=== PATIENT | female | born 1935 | race African-American/Black ===

== ENCOUNTER 2017-07-15 20:47 | Inpatient (IN) | payer OTHER ==
[~2017-07-15] VITALS: Ht 172.7 cm; Wt 87.6 kg
[2017-07-15] MEDS ORDERED: ASPIRIN 300 MG SUPP PR STA (21:03)
[2017-07-15] MEDS ORDERED: ACETAMINOPHEN 325 MG TAB PO PRN (21:30)
[2017-07-15] MEDS ORDERED: ONDANSETRON 4 MG INJ IV PRN (21:30)
--- NOTE | 2017-07-15 22:12 | RADRPT ---
PROCEDURE: XR Chest. CLINICAL INDICATION: Chest pain TECHNIQUE: Single portable view of the chest was obtained COMPARISON: No priors for comparison. FINDINGS: The trachea is midline. The cardiac silhouette and pulmonary vascularity are within normal limits. T he lungs are clear. The costophrenic angles are sharp. IMPRESSION: 1. No evidence of acute cardiopulmonary disease. RPTAT: AAPP Physician Tarik Date Time Electronically viewed and signed by Danielle Wise Physician on 07/15/2017 22:12 EUGENE/
[2017-07-15 22:20] LABS: BASOPHIL # 0.1 10^3/ul (0.0-0.1); BASOPHILS % 0.6 % (0.0-2.0); EOSINOPHILS # 0.2 10^3/ul (0.0-0.5); EOSINOPHILS % 1.7 % (0.0-7.0); HEMATOCRIT 37.2 % (37.0-47.0); HEMOGLOBIN 11.7 g/dl (12.0-16.0); LYMPHOCYTES % 32.7 % (15.0-51.0); MEAN CORPUSCULAR HEMOGLOBIN 26.9 pg (29.0-33.0); MEAN CORPUSCULAR HGB CONC 31.5 g/dl (32.0-37.0); MEAN CORPUSCULAR VOLUME 85.5 fl (82.0-101.0); MEAN PLATELET VOLUME 11.5 fl (7.4-10.4); MONOCYTE # 0.8 10^3/ul (0.3-0.9); MONOCYTES % 6.7 % (0.0-11.0); NEUTROPHILS % 57.9 % (39.0-77.0); PLATELET COUNT 287 10^3/UL (140-415); RED BLOOD COUNT 4.35 10^6/ul (4.20-5.40); RED CELL DISTRIBUTION WIDTH 14.6 % (11.5-14.5); WHITE BLOOD COUNT 12.1 10^3/ul (4.8-10.8)
[2017-07-15 22:27] VITALS: PULSE 50
[2017-07-15 22:30] VITALS: Ht 172.7 cm; Wt 87.6 kg
[2017-07-15 22:37] LABS: ANION GAP 8 (8-16); BLOOD UREA NITROGEN 14 mg/dl (7-20); CALCIUM 9.3 mg/dl (8.4-10.2); CARBON DIOXIDE 33 mmol/L (21-31); CHLORIDE 96 mmol/L (97-110); CREATININE 0.47 mg/dl (0.44-1.00); GLUCOSE 91 mg/dl (70-220); SODIUM 133 mmol/L (135-144)
[2017-07-15 22:49] LABS: TROPONIN-I < 0.012 ng/ml (0.00-0.12)
--- NOTE | 2017-07-15 22:55 | ERA ---
ER Documentation Chief Complaint Date/Time DATE: 07/15/17 TIME: 22:53 Chief Complaint BIBBjorn RA81,from [facility],c[facility]o CP,1 nitro given at SNF HPI Patient is a 81-year-old female who presents with chest pain. Please note the history and physical exam is limited secondary to the patient's mental status and nonverbal status at this time. The patient was transferred from a [facility] facility for chest pain. She was given nitroglycerin at the facility. She was brought in by ambulance. I cannot obtain history otherwise. Upon review of old medical records this is the patient's first visit to the emergency department. ROS All systems reviewed and are negative except as per history of present illness. Allergies Allergies: Coded Allergies: Iodine and Iodide Containing Produc (Verified Allergy, Unknown, 07/15/17) Sulfa (Sulfonamide Antibiotics) (Verified Allergy, Unknown, 07/15/17) nefazodone (Verified Allergy, Unknown, 07/15/17) shrimp (Verified Allergy, Unknown, 07/15/17) PMhx/Soc History of Surgery: Yes (g-tube , ) Hx Neurological Disorder: Yes (epilepsy ) Hx Respiratory Disorders: Yes (copd ) Hx Cardiac Disorders: Yes (hyperlipidemia , htn ) Hx Miscellaneous Medical Probl: Yes (MS , paraplegic r/t accident , GERD, bladder CA, depression , dyphagia ) Hx Alcohol Use: No Hx Substance Use: No Hx Tobacco Use: No Smoking Status: Never smoker FmHx Unable to obtain Physical Exam Vitals Vital Signs Date Time Temp Pulse Resp B/P Pulse Ox O2 Delivery O2 Flow Rate FiO2 07/15/17 20:52 98.5 63 18 125/64 98 Physical Exam Const: Chronically ill, appears to have 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 Neck: Full range of motion..~ No meningismus. Resp: Clear to auscultation bilaterally Cardio: Regular rate and rhythm, no murmurs Abd: Soft, non tender, non distended. Normal bowel sounds Skin: No petechiae or rashes Back: No midline or flank tenderness Ext: No cyanosis, or edema Neur: Awake but nonverbal and appears to have left-sided weakness from previous stroke Result Diagram: 07/15/17213607/15/172136 Results 24 hrs Current Medications Medications (Trade) Dose Ordered Sig/Lawrence Route PRN Reason Start Time Stop Time Status Last Admin Dose Admin Aspirin (Aspirin) 300 mg ONCE STAT CA 07/15/17 21:03 07/15/17 21:04 DC 07/15/17 21:42 Procedures/MDM EKG read by me: Rate/Rhythm: Regular rate and rhythm at a normal rate Intervals: Normal Impression: No evidence of ischemia or arrhythmia Chest x-ray negative per radiology. Patient is a 81-year-old female presents with chest pain. She was given rectal aspirin. Laboratory studies show a negative troponin. She has mild anemia with a hemoglobin of 11.7 but does not require transfusion. I spoke with Dr. Soto who would like to admit her to a telemetry bed. I doubt pneumonia, pneumothorax, pulmonary embolism, or aortic dissection. The concern would be for possible acute coronary syndrome. Departure Diagnosis: Primary Impression: Chest pain Qualified Code: R07.9 - Chest pain, unspecified type Condition: HARESH Cohen MD Jul 15, 2017 22:55
[2017-07-16] VITALS (12 sets, daily range): BP systolic 123–165; BP diastolic 58–75; PULSE 50–75; RESP 15–20
[2017-07-16] MEDS ORDERED: NITROGLYCERIN (SL) 0.4 MG TAB SL PRN
[2017-07-16] MEDS ORDERED: CLON0.5T G-TUBE (00:06)
[2017-07-16] MEDS ORDERED: ACET650S25 G-TUBE (00:06)
[2017-07-16] MEDS ORDERED: METO75TA G-TUBE (00:06)
[2017-07-16] MEDS ORDERED: HYDR-906 G-TUBE (00:46)
[2017-07-16] MEDS ORDERED: DEXT1CAP GTB (00:58)
[2017-07-16] MEDS ORDERED: OXCA300O4 G-TUBE (00:58)
[2017-07-16] MEDS ORDERED: GABA250S2 G-TUBE (00:58)
[2017-07-16] MEDS ORDERED: BISA10SU75 PR (01:04)
[2017-07-16] MEDS ORDERED: NA P230E RC (01:04)
[2017-07-16] MEDS ORDERED: CRAN450T7 G-TUBE (01:09)
[2017-07-16] MEDS ORDERED: ALBU2.5V3 NEB (01:12)
[2017-07-16] MEDS ORDERED: SODI1TAB2 GTB (01:15)
[2017-07-16] MEDS ORDERED: POLY17PO6 G-TUBE (01:15)
[2017-07-16] MEDS ORDERED: PREMVAG VAG (01:19)
[2017-07-16] MEDS ORDERED: POLYETHYLENE GLYCOL 17 GM PACKET GTB PRN (01:30)
[2017-07-16] MEDS: clonAZEPAM 0.5 MG TAB GTB PRN (02:52)
[2017-07-16] MEDS ORDERED: OXCA600T30 GTB (05:11)
[2017-07-16 07:10] LABS: CREATINE KINASE 51 IU/L (23-200)
[2017-07-16 07:22] LABS: CK-MB 1.02 ng/ml (0.0-2.4)
--- NOTE | 2017-07-16 07:24 | RADRPT ---
PROCEDURE: US Lower extremity Venous. CLINICAL INDICATION: Bilateral lower extremity edema TECHNIQUE: Multiple sonographic images of the bilateral lower extremity deep venous system was obt ained utilizing grayscale, color-flow, compressive sonography and doppler imaging with augmentation. The images were reviewed on a PACS workstation. COMPARISON: None. FINDINGS: There is normal compressibility and flow within the bilateral common femoral, femoral , posterior ti bial and popliteal veins. The right peroneal vein is patent. The left peroneal vein was not seen. RPTAT: AA IMPRESSION: No sonographic evidence for deep venous thrombosis. Left peroneal vein was not well seen. .Senthil Esteban MD, MD Date Time Electronically viewed and signed by .Senthil Esteban MD, on 07/16/2017 07:23 .S/
[2017-07-16 07:25] LABS: TROPONIN-I < 0.012 ng/ml (0.00-0.12)
[2017-07-16 07:52] LABS: CHOL/HDL RATIO 3.5 RATIO
[2017-07-16] MEDS: ACETAMINOPHEN 650MG/20.3ML CUP GTB PRN ×2 (08:26→15:05)
[2017-07-16] MEDS: METOPROLOL 25 MG TAB GTB SCH ×2 (08:27→21:16)
[2017-07-16] MEDS: ASPIRIN 325 MG TAB GTB SCH (08:27)
[2017-07-16] MEDS: NA PHOSPHATE/BIPHOS 133 ML ENEMA PR SCH ×2 (08:28→09:00)
[2017-07-16] MEDS: ENOXAPARIN 40 MG/0.4 ML SYG SC SCH (08:29)
[2017-07-16] MEDS: SODIUM CHLORIDE 1 GM TAB GTB SCH ×3 (08:37→21:14)
[2017-07-16] MEDS ORDERED: OXCARBAZEPINE 300 MG TAB GTB SCH (09:00)
[2017-07-16] MEDS ORDERED: NON-FORMULARY/PATIENT OWN MED (Cranberry Fruit (Cranberry) 450 MG) G-TUBE SCH (09:00)
[2017-07-16] MEDS ORDERED: GABAPENTIN (50 MG/ML PO SYG) GTB SCH ×3 (09:00→13:14)
[2017-07-16] MEDS ORDERED: BISACODYL 10 MG SUPP PR PRN (09:00)
[2017-07-16] MEDS ORDERED: [UNRECOGNIZED DRUG - REMARK] XX SCH (10:00)
[2017-07-16] MEDS: SOD CHLORIDE 0.9% 1,000 ML IV SCH (11:30)
[2017-07-16] MEDS: AMLODIPINE 5 MG TAB GTB SCH (11:49)
[2017-07-16] MEDS: HYDROCODONE/APAP (5/325) TAB GTB PRN ×2 (12:22→21:15)
[2017-07-16 12:48] LABS: CREATINE KINASE 51 IU/L (23-200)
[2017-07-16 12:58] LABS: CK-MB 0.62 ng/ml (0.0-2.4)
[2017-07-16 12:59] LABS: TROPONIN-I < 0.012 ng/ml (0.00-0.12)
[2017-07-16] MEDS: GABAPENTIN (50 MG/ML PO SYG) GTB SCH (21:14)
[2017-07-16 23:10] LABS: ADD UMIC YES; UR AMORPHOUS CRYSTAL FEW /HPF (NONE SEEN); UR ASCORBIC ACID 40 mg/dL (NEGATIVE); UR BACTERIA FEW /HPF (NONE SEEN); UR BILIRUBIN (Dip) NEGATIVE (NEGATIVE); UR BLOOD (Dip) NEGATIVE (NEGATIVE); UR CLARITY CLOUDY (CLEAR); UR COLOR YELLOW (YELLOW); UR GLUCOSE (Dip) NEGATIVE (NEGATIVE); UR KETONES (Dip) NEGATIVE (NEGATIVE); UR LEUKOCYTE ESTERASE (Dip) 3+ Leu/ul (NEGATIVE); UR NITRITE (Dip) POSITIVE (NEGATIVE); UR RBC 1 /HPF (0-5); UR SPECIFIC GRAVITY (Dip) 1.014 (1.003-1.030); UR SQUAMOUS EPITHELIAL CELL FEW /HPF (FEW); UR TOTAL PROTEIN (Dip) 1+ mg/dl (NEGATIVE); UR UROBILINOGEN (Dip) NEGATIVE (NEGATIVE)
[2017-07-17] VITALS (11 sets, daily range): BP systolic 128–142; BP diastolic 62–65; PULSE 55–64; RESP 16–20
[2017-07-17] MEDS: SOD CHLORIDE 0.9% 1,000 ML IV SCH ×2 (02:25→17:50)
[2017-07-17] MEDS: HYDROCODONE/APAP (5/325) TAB GTB PRN ×3 (04:27→20:56)
--- NOTE | 2017-07-17 07:20 | HP ---
DATE OF ADMISSION: 07/15/2017 CHIEF COMPLAINT AND HISTORY OF PRESENT ILLNESS: The patient is a 81-year-old female with a history of severe multiple sclerosis and dysphagia on G-tube feeding, history of trigeminal neuralgia, recurrent hematuria & UTI. H/o multiple admissions at [facility]. S/p Cystoscopy by Dr. Lucho Owusu grp . No evidence of bladder cancer as per verbal report from Dr.Elise Magallanes(associate of Dr. Owusu). Patient is a resident of a long term facility for several years and was sent to ER after she was complaining of chest pain. The patient is a poor historian and in the past has changed her complaint within a matter of minutes during my evaluation at long term [facility] in the past. The patient was brought into the hospital because of chest pain which was poorly localized. There was no associated diaphoresis, no associated shortness of breath. No reported vomiting. No reported abdominal distention. There is no leg edema. The patient was given nitroglycerin at the facility and received aspirin per rectum in the ER and is being admitted for further evaluation and management. The patient currently is chest pain free. The patient does have O2, but takes it off frequently. Since admission, patient did not have any vomiting, no reported fever or chills. No reported seizure, no reported leg edema. As mentioned above, the patient is a poor historian and is only oriented x1, and follows simple commands. PAST SURGICAL HISTORY: Patient is status post G-tube placement. ALLERGIES: IODIDE, SULFA, NEFAZODONE AND SHRIMP. FAMILY HISTORY: Noncontributory. SOCIAL HISTORY: Could not be obtained. PAST MEDICAL HISTORY: As stated above. PHYSICAL EXAMINATION: GENERAL: The patient is awake, alert, follows simple commands, oriented x1. VITAL SIGNS: Temperature 98.8, pulse 76, respirations 18, blood pressure 165/75 , O2 saturation 99%. HEENT: No eye discharge or redness. Conjunctivae and lids normal. Nose and ears normal. Oropharynx grossly negative. NECK: No mass. CHEST: Fairly clear. CARDIOVASCULAR: S1, S2 normal. No murmur. ABDOMEN: Soft, nondistended, nontender. G-tube in place. EXTREMITIES: No edema. Pedal pulses palpable. NEUROLOGIC: The patient is awake and only follows simple commands, oriented x1. The patient has contractures in all extremities. LABORATORY DATA: WBC 12.1, hemoglobin 11.7, platelets 287. Sodium 132, potassium 4, BUN 14, creatinine 0.4, glucose 91, calcium 9.3. Troponin negative x2. LDL 94. Chest x-ray unremarkable. Venous Doppler unremarkable. IMPRESSION: 1. Atypical chest pain, rule out myocardial infarction. : start asa, ntg prn. 2. End-stage multiple sclerosis, bed to wheelchair bound total care. No acute issue. 3. History of trigeminal neuralgia. The patient has not had any episode of for the last several months. 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 4. Hypertension. The patient is on low dose beta veronica. We will add small dose of Norvasc. 5. Dysphagia. Continue G-tube feeding. 6. History of recurrent urinary tract infection. The patient does have mild leukocytosis. Will obtain a repeat urinalysis and C/S. 7. H/o Paroxysmal Atrial fib : asa / xarelto in the past stopped due to recurrent hematuria For DVT prophylaxis, we will add Lovenox patient does have history of recurrent hematuria , will monitor while she is in the hospital. If she gets any episode of hematuria, then we will discontinue both aspirin and Lovenox. Meanwhile, we will also get echocardiogram. The patient is currently saturating 99% on room air and has no tachycardia and has a negative venous Doppler. Therefore, likelihood of PE is extremely remote. The patient anyway is allergic to iodide dye. Will hold off on CT pulmonary angiogram. For now, we will just do VQ scan to complete workup as she is essentially bedridden. Dictated By: ANGELINA WHITAKER/ANGIE Conf#: [id number] DID#: [id number] FRANCO
[2017-07-17 08:38] LABS: BASOPHIL # 0.1 10^3/ul (0.0-0.1); BASOPHILS % 0.5 % (0.0-2.0); EOSINOPHILS # 0.1 10^3/ul (0.0-0.5); EOSINOPHILS % 1.1 % (0.0-7.0); HEMATOCRIT 36.3 % (37.0-47.0); HEMOGLOBIN 11.2 g/dl (12.0-16.0); LYMPHOCYTES # 2.3 10^3/ul (0.8-2.9); LYMPHOCYTES % 22.5 % (15.0-51.0); MEAN CORPUSCULAR HEMOGLOBIN 26.6 pg (29.0-33.0); MEAN CORPUSCULAR HGB CONC 30.9 g/dl (32.0-37.0); MEAN CORPUSCULAR VOLUME 86.2 fl (82.0-101.0); MEAN PLATELET VOLUME 11.6 fl (7.4-10.4); MONOCYTE # 0.6 10^3/ul (0.3-0.9); MONOCYTES % 5.7 % (0.0-11.0); NEUTROPHIL # 7.1 10^3/ul (1.6-7.5); NEUTROPHILS % 69.8 % (39.0-77.0); PLATELET COUNT 287 10^3/UL (140-415); RED BLOOD COUNT 4.21 10^6/ul (4.20-5.40); RED CELL DISTRIBUTION WIDTH 14.7 % (11.5-14.5); WHITE BLOOD COUNT 10.1 10^3/ul (4.8-10.8)
[2017-07-17] MEDS: AMLODIPINE 5 MG TAB GTB SCH (08:42)
[2017-07-17] MEDS: SODIUM CHLORIDE 1 GM TAB GTB SCH ×3 (08:42→20:54)
[2017-07-17] MEDS: ASPIRIN 325 MG TAB GTB SCH (08:42)
[2017-07-17] MEDS: CEFTRIAXONE 1 GM/50 ML (PMX) 50 ML IVPB SCH (08:43)
[2017-07-17] MEDS: METOPROLOL 25 MG TAB GTB SCH ×2 (08:43→20:55)
[2017-07-17] MEDS: GABAPENTIN (50 MG/ML PO SYG) GTB SCH ×3 (08:46→21:14)
[2017-07-17] MEDS: ENOXAPARIN 40 MG/0.4 ML SYG SC SCH (08:49)
[2017-07-17 08:58] LABS: CALCIUM 8.6 mg/dl (8.4-10.2); CREATININE 0.44 mg/dl (0.44-1.00); POTASSIUM 4.1 mmol/L (3.5-5.1)
[2017-07-17] MEDS ORDERED: ESTROGENS CONJUGATED 42.5 GM VAG CR VAG SCH (09:00)
[2017-07-17] MEDS: clonAZEPAM 0.5 MG TAB GTB PRN (12:52)
--- NOTE | 2017-07-17 17:54 | PN ---
Date/Time of Note Date/Time of Note DATE: 07/17/17 TIME: 17:49 Assessment/Plan VTE Prophylaxis VTE Prophylaxis Intervention: SCD's Lines/Catheters IV Catheter Type (from [facility]): Peripheral IV Urinary Cath still in place: No Assessment/Plan Chief Complaint/Hosp Course Patient remains hemodynamically stable sinus rhythm sinus bradycardia on telemetry, comfortable on supplemental oxygen without distress Problems: Assessment/Plan - Atypical chest pain, rule out myocardial infarction. Cardiac enzymes negative 3. - GNR UTI, continue Rocephin follow-up on final culture - Advanced multiple sclerosis, bed to wheelchair bound total care. No acute issue. - Hypertension, continue metoprolol and Norvasc - Dysphagia. Continue G-tube feeding. - Hx Breast cancer. No active issue. Further recommendations based on clinical course. Plan of care discussed with Dr. Soto Exam/Review of Systems Vital Signs Vitals Vital Signs Date Time Temp Pulse Resp B/P Pulse Ox O2 Delivery O2 Flow Rate FiO2 07/17/17 16:03 61 07/17/17 12:20 98.5 20 139/63 99 07/17/17 08:00 Nasal Cannula 2.0 Intake and Output 07/16/17 07/16/17 07/17/17 15:00 23:00 07:00 Intake Total 1400 ml 1100 ml Balance 1400 ml 1100 ml Exam Constitutional: alert, oriented (1) Neck: supple Respiratory: normal air movement Cardiovascular: nl pulses, regular rate and rhythm Gastrointestinal: non-tender, other (G-tube), soft Extremities: other (Contracted) Results Result Diagram: 07/17/17 0758 07/17/17 0758 Results 24 hrs Laboratory Tests Test 07/16/17 22:15 07/17/17 07:58 Urine Color YELLOW Urine Clarity CLOUDY A Urine pH 8.0 Urine Specific [place] 1.014 Urine Ketones NEGATIVE Urine Nitrite POSITIVE A Urine Bilirubin NEGATIVE Urine Urobilinogen NEGATIVE Urine Leukocyte Esterase 3+ H Urine Microscopic RBC 1 Urine Microscopic WBC 33 H Urine Squamous Epithelial Cells FEW Urine Amorphous Crystals FEW A Urine Bacteria FEW A Urine Hemoglobin NEGATIVE Urine Glucose NEGATIVE Urine Total Protein 1+ H White Blood Count 10.1 Red Blood Count 4.21 Hemoglobin 11.2 L Hematocrit 36.3 L Mean Corpuscular Volume 86.2 Mean Corpuscular Hemoglobin 26.6 L Mean Corpuscular Hemoglobin Concent 30.9 L Red Cell Distribution Width 14.7 H Platelet Count 287 Mean Platelet Volume 11.6 H Neutrophils % 69.8 Lymphocytes % 22.5 Monocytes % 5.7 Eosinophils % 1.1 Basophils % 0.5 Nucleated Red Blood Cells % 0.0 Neutrophils # 7.1 Lymphocytes # 2.3 Monocytes # 0.6 Eosinophils # 0.1 Basophils # 0.1 Nucleated Red Blood Cells # 0.0 Sodium Level 137 Potassium Level 4.1 Chloride Level 101 Carbon Dioxide Level 31 Anion Gap 9 Blood Urea Nitrogen 11 Creatinine 0.44 Glucose Level 109 Calcium Level 8.6 Medications Medications Current Medications Aspirin (Aspirin) 325 mg DAILY GTB Last administered on 07/17/17 08:42; Admin Dose 325 MG; Start 07/16/17 at 09:00 Nitroglycerin (Nitroglycerin (Sl Tab) 0.4 Mg) 1 tab Q5M PRN SL ANGINA; Start 07/16/17 at 00:00 Enoxaparin Sodium (Lovenox) 40 mg DAILY SC Last administered on 07/17/17 08:49 ; Admin Dose 40 MG; Start 07/16/17 at 09:00 Acetaminophen (Tylenol Liquid) 650 mg Q6 PRN GTB PAIN AND OR ELEVATED TEMP Last administered on 07/16/17 15:05; Admin Dose 650 MG; Start 07/16/17 at 01:30 Bisacodyl (Dulcolax Supp) 10 mg Q48H PRN NM CONSTIPATION; Start 07/16/17 at 09: 00 Clonazepam (Klonopin) 0.25 mg Q12 PRN GTB ANXIETY Last administered on 12:52; Admin Dose 0.25 MG; Start 07/16/17 at 01:30 Acetaminophen/ Hydrocodone Bitart (Brainerd (5/325)) 1 tab Q6 PRN GTB PAIN Last administered on 07/17/17 12:58; Admin Dose 1 TAB; Start 07/16/17 at 01:30 Polyethylene Glycol (Miralax) 17 gm DAILY PRN GTB CONSTIPATION; Start 07/16/17 at 01:30 Sodium Chloride (Nacl) 1 gm TID GTB Last administered on 07/17/17 12:52; Admin Dose 1 GM; Start 07/16/17 at 09:00 Metoprolol Tartrate (Lopressor) 25 mg BID GTB Last administered on 07/17/17 08 :43; Admin Dose 25 MG; Start 07/16/17 at 09:00 Sodium Biphosphate/ Sodium Phosphate (Fleet Enema) 133 ml Q72H NM ; Start at 09:00 Amlodipine Besylate 5 mg 5 mg DAILY GTB Last administered on 07/17/17 08:42; Admin Dose 5 MG; Start 07/16/17 at 10:00 Sodium Chloride (NS) 1,000 ml @ 60 mls/hr [id number] IV Last administered on 07/17 02:25; Admin Dose 60 MLS/HR; Start 07/16/17 at 10:00 Gabapentin 400 mg 400 mg TID GTB Last administered on 07/17/17 12:51; Admin Dose 400 MG; Start 07/16/17 at 21:00 Ceftriaxone Sodium (Rocephin) 50 ml @ 100 mls/hr Q24H IVPB Last administered on 07/17/17 08:43; Admin Dose 100 MLS/HR; Start 07/17/17 at 08:00 Estrogens Conjugated (Premarin Vaginal Cr) 1 applic [id number]@21 VAG ; Start at 21:00 Patient Own Medication 1 ea BID PO ; Start 07/17/17 at 09:00 MARLINE CHOWDARY Jul 17, 2017 17:54
--- NOTE | 2017-07-17 19:13 | RADRPT ---
PROCEDURE: Ventilation-perfusion lung scan CLINICAL INDICATION: 81 -year-old patient with shortness of breath. TECHNIQUE: Following the inhalation of approximately 1.0 mCi of Tc-99m stannous DTPA aerosol, vent ilation images were obtained. The patient was then given an intravenous injection of 4.0 mCi of Tc- 99m MAA, in perfusion images were obtained. COMPARISON: No prior VQ scans. Correlation was made with chest x-ray dated FINDINGS: Ventilation images demonstrate nonhomogeneous distribution of activity in the lungs bilaterally. Perfusion images reveal matched nonhomogeneous distribution of activity in both lungs. The findings represent low probability for pulmonary embolus. IMPRESSION: Low probability for pulmonary embolus. RPTAT: HH .Melia Randolph MD, Date Time Electronically viewed and signed by .Melia Randolph MD, on 07/17/2017 19:12 .L/
--- NOTE | 2017-07-17 20:53 | RADRPT ---
Echocardiogram Report Patient Name: HU VILLAREAL Gender: Female Date: 1935 Study Date: 17-Jul-2017 Mold Checker: [facility] Location: 5555 Ref. Physician: ANGELINA CARUSO Quality: Adequate Procedures: Transthoracic echocardiogram with complete 2D, M-Mode, and doppler examination. Indications: Chest Pain. 2D/M Mode Doppler Measurement Value Normal Ranges Measurement Value Normal Ranges LVIDd 2D 4.2 3.5 - 5.6 cm AV Peak Anton 1.4 m/sec LVIDs 2D 2.7 2.1 - 4.1 cm AV Peak PG 8.0 mmHg FS 2D 35.3 % LVOT Peak Anton 0.9 m/sec LVPWd 2D 1.0 0.6 - 1.1 cm LVOT Peak PG 3.0 mmHg IVSd 2D 1.1 0.6 - 1.1 cm MV E Peak Anton 0.9 m/sec IVS/LVPW 2D 1.0 MV A Peak Anton 0.5 m/sec AoR Diam 2D 2.8 2.0 - 3.7 cm MV E/A 1.7 LA/Ao 2D 1 0 - 1 MV Decel Time 292 msec EDV 2D 72.0 cm3 MV E/A 1.7 ESV 2D 19.5 cm3 MR Peak PG 93.0 mmHg LA Dimen 2D 3.9 2.3 - 4.0 cm MR Peak Anton 4.8 m/sec TR Peak Anton 2.8 m/sec TR Peak PG 30.0 mmHg RVSP 33.0 mmHg Findings Left Ventricle: Normal left ventricular systolic function. Normal left ventricular cavity size. Normal left ventricular wall thickness. Ejection fraction is visually estimated at 6065 %. Abnormal Diastolic Function. Right Ventricle: Normal right ventricular size. Normal right ventricular systolic function. Left Atrium: The left atrium is normal in size. Right Atrium: The right atrium is normal in size. Mitral Valve: Mild mitral leaflet calcification. Mild mitral valve regurgitation. Aortic Valve: Aortic cusps appear mildly calcified. Trace aortic valve regurgitation. Tricuspid Valve: Normal appearance of the tricuspid valve. Estimated peak PA systolic pressure 33 mmHg. There is mild to moderate tricuspid regurgitation. Pulmonic Valve: Pulmonic valve not well visualized. There is trace pulmonic regurgitation. Pericardium: Normal pericardium with no significant pericardial effusion. Aorta: Normal aortic root. IVC: Normal size and normal respiratory collapse consistent with normal right atrial pressure. Conclusions 1.Normal left ventricular systolic function. Normal left ventricular cavity size. Normal left ventricular wall thickness. Ejection fraction is visually estimated at 60-65 %. Abnormal Diastolic Function. 2.Mild mitral leaflet calcification. Mild mitral valve regurgitation. 3.Aortic cusps appear mildly calcified. Trace aortic valve regurgitation. 4.Normal appearance of the tricuspid valve. Estimated peak PA systolic pressure 33 mmHg. There is mild to moderate tricuspid regurgitation. 5.Pulmonic valve not well visualized. There is trace pulmonic regurgitation. Electronically Signed By: Mohinder Ferrara 17-Jul-2017 20:52:15 -0700 Patient Name: HU VILLAREAL Study Date: 17-Jul-[id number]
[2017-07-17] MEDS: ESTROGENS CONJUGATED 42.5 GM VAG CR VAG SCH (20:55)
[2017-07-18] VITALS (12 sets, daily range): BP systolic 138–166; BP diastolic 64–68; PULSE 55–72; RESP 16–18
[2017-07-18] MEDS: ASPIRIN 325 MG TAB GTB SCH (09:04)
[2017-07-18] MEDS: CEFTRIAXONE 1 GM/50 ML (PMX) 50 ML IVPB SCH (09:04)
[2017-07-18] MEDS: GABAPENTIN (50 MG/ML PO SYG) GTB SCH ×3 (09:04→21:39)
[2017-07-18] MEDS: SODIUM CHLORIDE 1 GM TAB GTB SCH ×3 (09:04→20:21)
[2017-07-18] MEDS: METOPROLOL 25 MG TAB GTB SCH ×2 (09:05→20:21)
[2017-07-18] MEDS: AMLODIPINE 5 MG TAB GTB SCH (09:05)
[2017-07-18] MEDS: ENOXAPARIN 40 MG/0.4 ML SYG SC SCH (09:24)
[2017-07-18 09:34] LABS: BASOPHIL # 0.1 10^3/ul (0.0-0.1); BASOPHILS % 0.6 % (0.0-2.0); EOSINOPHILS # 0.2 10^3/ul (0.0-0.5); EOSINOPHILS % 1.6 % (0.0-7.0); HEMOGLOBIN 12.6 g/dl (12.0-16.0); LYMPHOCYTES # 3.3 10^3/ul (0.8-2.9); LYMPHOCYTES % 32.8 % (15.0-51.0); MEAN CORPUSCULAR HEMOGLOBIN 26.5 pg (29.0-33.0); MEAN CORPUSCULAR VOLUME 88.2 fl (82.0-101.0); MEAN PLATELET VOLUME 11.9 fl (7.4-10.4); MONOCYTE # 0.6 10^3/ul (0.3-0.9); MONOCYTES % 6.4 % (0.0-11.0); NEUTROPHIL # 5.9 10^3/ul (1.6-7.5); NEUTROPHILS % 58.2 % (39.0-77.0); PLATELET COUNT 218 10^3/UL (140-415); RED BLOOD COUNT 4.76 10^6/ul (4.20-5.40); RED CELL DISTRIBUTION WIDTH 14.7 % (11.5-14.5); WHITE BLOOD COUNT 10.1 10^3/ul (4.8-10.8)
[2017-07-18 09:52] LABS: CALCIUM 9.4 mg/dl (8.4-10.2); CREATININE 0.4 mg/dl (0.44-1.00); POTASSIUM 4.6 mmol/L (3.5-5.1)
[2017-07-18] MEDS ORDERED: NA POLYST SULFON 15 GM/60 ML BTL PO ONE (11:30)
[2017-07-18] MEDS: SOD CHLORIDE 0.9% 1,000 ML IV SCH (12:14)
[2017-07-18] MEDS: clonAZEPAM 0.5 MG TAB GTB PRN (12:15)
[2017-07-18] MEDS ORDERED: TOBRAMYCIN IV PER PHARMACY XX SCH (14:00)
--- NOTE | 2017-07-18 14:01 | PN ---
Date/Time of Note Date/Time of Note DATE: 07/18/17 TIME: 13:51 Assessment/Plan VTE Prophylaxis VTE Prophylaxis Intervention: SCD's Lines/Catheters [facility] Peripheral IV Urinary Cath still in place: No Assessment/Plan Chief Complaint/Hosp Course Pt denies SOB, denies chest pain. Assessment/Plan - Atypical chest pain, rule out myocardial infarction. Cardiac enzymes negative 3. - MDR Proteus UTI, change abx to Tobramycin, Dr Salas is asked to see pt in ID consultation. - Advanced multiple sclerosis, bed to wheelchair bound total care. No acute issue. - Hypertension, continue metoprolol and Norvasc - Dysphagia. Continue G-tube feeding. - Hx Breast cancer. No active issue. Further recommendations based on clinical course. Plan of care discussed with Dr. Soto Problems: Exam/Review of Systems Vital Signs Vitals Vital Signs Date Time Temp Pulse Resp B/P Pulse Ox O2 Delivery O2 Flow Rate FiO2 07/18/17 12:22 97.3 59 18 144/64 99 07/18/17 08:15 Nasal Cannula 2.0 Intake and Output 07/17/17 07/17/17 07/18/17 15:00 23:00 07:00 Intake Total 1630 ml Balance 1630 ml Exam Constitutional: alert, oriented (1) Neck: supple Respiratory: normal air movement Cardiovascular: nl pulses, regular rate and rhythm Gastrointestinal: non-tender, other (G-tube), soft Extremities: other (Contracted) Results Result Diagram: 07/18/17 0822 07/18/17 0758 Results 24 hrs Laboratory Tests Test 07/18/17 07:58 07/18/17 08:22 Sodium Level 140 Potassium Level 4.6 Chloride Level 105 Carbon Dioxide Level 28 Anion Gap 12 Blood Urea Nitrogen 8 Creatinine 0.40 L Glucose Level 85 Calcium Level 9.4 White Blood Count 10.1 Red Blood Count 4.76 Hemoglobin 12.6 Hematocrit 42.0 Mean Corpuscular Volume 88.2 Mean Corpuscular Hemoglobin 26.5 L Mean Corpuscular Hemoglobin Concent 30.0 L Red Cell Distribution Width 14.7 H Platelet Count 218 # Mean Platelet Volume 11.9 H Neutrophils % 58.2 Lymphocytes % 32.8 Monocytes % 6.4 Eosinophils % 1.6 Basophils % 0.6 Nucleated Red Blood Cells % 0.0 Neutrophils # 5.9 Lymphocytes # 3.3 H Monocytes # 0.6 Eosinophils # 0.2 Basophils # 0.1 Nucleated Red Blood Cells # 0.0 Medications Medications Current Medications Aspirin (Aspirin) 325 mg DAILY GTB Last administered on 07/18/17 09:04; Admin Dose 325 MG; Start 07/16/17 at 09:00 Nitroglycerin (Nitroglycerin (Sl Tab) 0.4 Mg) 1 tab Q5M PRN SL ANGINA; Start 07/16/17 at 00:00 Enoxaparin Sodium (Lovenox) 40 mg DAILY SC Last administered on 07/18/17 09: 24; Admin Dose 40 MG; Start 07/16/17 at 09:00 Acetaminophen (Tylenol Liquid) 650 mg Q6 PRN GTB PAIN AND OR ELEVATED TEMP Last administered on 07/16/17 15:05; Admin Dose 650 MG; Start 07/16/17 at 01:30 Bisacodyl (Dulcolax Supp) 10 mg Q48H PRN MD CONSTIPATION; Start 07/16/17 at 09: 00 Clonazepam (Klonopin) 0.25 mg Q12 PRN GTB ANXIETY Last administered on 12:15; Admin Dose 0.25 MG; Start 07/16/17 at 01:30 Acetaminophen/ Hydrocodone Bitart (Gunpowder (5/325)) 1 tab Q6 PRN GTB PAIN Last administered on 07/17/17 20:56; Admin Dose 1 TAB; Start 07/16/17 at 01:30 Polyethylene Glycol (Miralax) 17 gm DAILY PRN GTB CONSTIPATION; Start 07/16/17 at 01:30 Sodium Chloride (Nacl) 1 gm TID GTB Last administered on 07/18/17 12:14; Admin Dose 1 GM; Start 07/16/17 at 09:00 Metoprolol Tartrate (Lopressor) 25 mg BID GTB Last administered on 07/18/17 09:05; Admin Dose 25 MG; Start 07/16/17 at 09:00 Sodium Biphosphate/ Sodium Phosphate (Fleet Enema) 133 ml Q72H MD ; Start at 09:00 Amlodipine Besylate 5 mg 5 mg DAILY GTB Last administered on 07/18/17 09:05; Admin Dose 5 MG; Start 07/16/17 at 10:00 Sodium Chloride (NS) 1,000 ml @ 60 mls/hr [id number] IV Last administered on 12:14; Admin Dose 60 MLS/HR; Start 07/16/17 at 10:00 Gabapentin 400 mg 400 mg TID GTB Last administered on 07/18/17 12:15; Admin Dose 400 MG; Start 07/16/17 at 21:00 Ceftriaxone Sodium (Rocephin) 50 ml @ 100 mls/hr Q24H IVPB Last administered on 07/18/17 09:04; Admin Dose 100 MLS/HR; Start 07/17/17 at 08:00 Estrogens Conjugated (Premarin Vaginal Cr) 1 applic MONWEDFRI@21 VAG Last administered on 07/17/17 20:55; Admin Dose 1 APPLIC; Start 07/17/17 at 21:00 Patient Own Medication 1 ea BID PO Last administered on 07/18/17 09:05; Admin Dose 1 EA; Start 07/17/17 at 09:00 MARLINE CHOWDARY Jul 18, 2017 14:01
[2017-07-18] MEDS ORDERED: TOBRAMYCIN IVPB SCH (15:30)
[2017-07-18] MEDS ORDERED: SOD CHLORIDE 0.9% IVPB SCH (15:30)
[2017-07-18] MEDS ORDERED: TOBRAMYCIN 320 MG in SOD CHLORIDE 0.9% 100 ML IVPB SCH (15:30)
[2017-07-18] MEDS: HYDROCODONE/APAP (5/325) TAB GTB PRN (17:21)
[2017-07-18] MEDS: ACETAMINOPHEN 650MG/20.3ML CUP GTB PRN (20:21)
[2017-07-19] VITALS (11 sets, daily range): BP systolic 110–158; BP diastolic 61–69; PULSE 56–76; RESP 16–20
[2017-07-19] MEDS: SOD CHLORIDE 0.9% 1,000 ML IV SCH ×2 (04:41→21:51)
--- NOTE | 2017-07-19 05:29 | CONS ---
DATE OF ADMISSION: 07/15/2017 DATE OF CONSULTATION: 07/18/2017 INFECTIOUS DISEASE CONSULTATION REASON FOR CONSULTATION: Antibiotic management. HISTORY OF PRESENT ILLNESS: Shanique Tovar is a 81-year-old morbidly obese, black female with numer ous problems, who comes in now with chest pain and is being seen for antibiotic management. Past pr oblems include: 1. Severe multiple sclerosis. 2. Dysphagia, on G-tube feeding. 3. Trigeminal neuralgia. 4. History of bladder cancer. 5. Recurrent UTIs. 6. ALLERGY TO IODINE, ____, NEFAZODONE AND SHRIMP. On admission, her white count was 12.1, and H and H of 11.7 and 37.2, platelet count 287,000. Today , her white count is 10.1. She has 58% polys. BUN and creatinine 8/0.4. Urine positive for leukoc yte esterase, 3+ and for 33 white cells per high powered field. MICROBIOLOGY: She is growing out Proteus mirabilis and coliforms. The Proteus is sensitive to amik acin and tobramycin. A chest x-ray shows no acute evidence of cardiopulmonary disease. A lung scan , nuclear medicine, low probability for pulmonary embolus, and DVT study which is negative. The pat ient was started on tobramycin for her urinary tract infection. PAST MEDICAL HISTORY: Operations as outlined. FAMILY HISTORY: Noncontributory. SOCIAL HISTORY: She does not smoke, drink or abuse drugs. ALLERGIES: NONE TO PENICILLIN, ____ OR FOODS. MEDICATIONS: Per chart. REVIEW OF SYSTEMS: As per HPI. PHYSICAL EXAMINATION: GENERAL: The patient is awake, responsive with halting speech, in no acute distress. VITAL SIGNS: Stable. She is afebrile. SKIN: Without generalized rash. HEENT: Within normal limits. NECK: Supple. LYMPH NODES: None palpable. CHEST: Decreased breath sounds at the bases. HEART: Without murmur or gallop. ABDOMEN: Soft, nontender, obese. G-tube in place. No organosplenomegaly or masses that could be p alpated. EXTREMITIES: Without cyanosis, clubbing or edema. She has contractures in all 4 extremities. RECTAL AND GENITAL: Deferred. NEUROLOGIC: The patient has difficulty in movement. IMPRESSION: She has multiple sclerosis, severe etiology. 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 We are going to continue her on her tob ramycin. I will dictate my findings to Dr. Soto. Dictated By: EUFEMIA CLAY MD, JD/ANGIE Conf#: [id number] DID#: [id number] CC: ANGELINA SOTO MD;*EndCC*
[2017-07-19] MEDS: HYDROCODONE/APAP (5/325) TAB GTB PRN ×2 (07:13→16:42)
[2017-07-19 08:17] LABS: BASOPHIL # 0.1 10^3/ul (0.0-0.1); BASOPHILS % 0.4 % (0.0-2.0); EOSINOPHILS % 0.1 % (0.0-7.0); HEMATOCRIT 39.3 % (37.0-47.0); LYMPHOCYTES # 2.3 10^3/ul (0.8-2.9); LYMPHOCYTES % 16.6 % (15.0-51.0); MEAN CORPUSCULAR HEMOGLOBIN 26.6 pg (29.0-33.0); MEAN CORPUSCULAR HGB CONC 30.5 g/dl (32.0-37.0); MEAN CORPUSCULAR VOLUME 87.1 fl (82.0-101.0); MEAN PLATELET VOLUME 11.6 fl (7.4-10.4); MONOCYTE # 0.7 10^3/ul (0.3-0.9); MONOCYTES % 5.4 % (0.0-11.0); NEUTROPHIL # 10.5 10^3/ul (1.6-7.5); NEUTROPHILS % 77.2 % (39.0-77.0); PLATELET COUNT 290 10^3/UL (140-415); RED BLOOD COUNT 4.51 10^6/ul (4.20-5.40); RED CELL DISTRIBUTION WIDTH 14.5 % (11.5-14.5); WHITE BLOOD COUNT 13.6 10^3/ul (4.8-10.8)
[2017-07-19 08:47] LABS: CALCIUM 9.4 mg/dl (8.4-10.2); CREATININE 0.42 mg/dl (0.44-1.00); POTASSIUM 4.8 mmol/L (3.5-5.1)
[2017-07-19] MEDS: SODIUM CHLORIDE 1 GM TAB GTB SCH ×3 (08:56→20:52)
[2017-07-19] MEDS: ASPIRIN 325 MG TAB GTB SCH (08:56)
[2017-07-19] MEDS: METOPROLOL 25 MG TAB GTB SCH ×2 (08:57→20:52)
[2017-07-19] MEDS: AMLODIPINE 5 MG TAB GTB SCH (08:57)
[2017-07-19] MEDS: GABAPENTIN (50 MG/ML PO SYG) GTB SCH ×3 (08:57→20:54)
[2017-07-19] MEDS: NA PHOSPHATE/BIPHOS 133 ML ENEMA PR SCH ×2 (09:00→13:40)
[2017-07-19] MEDS: ENOXAPARIN 40 MG/0.4 ML SYG SC SCH (09:17)
--- NOTE | 2017-07-19 14:59 | PN ---
DATE: 07/19/2017 SUBJECTIVE: No acute changes overnight. The patient is alert, complaining of pain, looks comfortab le, no fevers, 13.6, platelets 290, neutrophils 77.2, BUN 10, creatinine 0.52. MICROBIOLOGY: Urine culture growing Proteus and E. coli. ANTIMICROBIALS: The patient is on tobramycin. PHYSICAL EXAMINATION: GENERAL: This is a chronically ill-appearing, elderly woman who is in no distress. HEENT: Head atraumatic, normocephalic. Sclerae anicteric. Buccal mucosa dry. NECK: Supple. CHEST: Rise symmetrical. Breath sounds diminished to bases. HEART: S1, S2. ABDOMEN: Soft. Bowel tones present. ASSESSMENT: 1. Polymicrobial multi-drug resistant urinary tract infection. 2. Status post atypical chest pain. 3. Advanced multiple sclerosis. 4. Hypertension. 5. History of breast cancer. PLAN: The patient remains stable. Continue present care, antibiotics, monitor postvoid residuals. Dictated By: NOHELIA HER [employer] INSTALLER for EUFEMIA SMITH/ANGIE Conf#: [id number] DID#: [id number]
[2017-07-19] MEDS: SOD CHLORIDE 0.9% IVPB SCH (15:45)
[2017-07-19] MEDS: TOBRAMYCIN IVPB SCH (15:45)
[2017-07-19] MEDS: ACETAMINOPHEN 650MG/20.3ML CUP GTB PRN (16:42)
[2017-07-19] MEDS: clonAZEPAM 0.5 MG TAB GTB PRN (20:52)
[2017-07-19] MEDS: ESTROGENS CONJUGATED 42.5 GM VAG CR VAG SCH (20:53)
[2017-07-20] VITALS (12 sets, daily range): BP systolic 116–160; BP diastolic 59–77; PULSE 60–84; RESP 18–20
[2017-07-20] MEDS: ASPIRIN 325 MG TAB GTB SCH (08:07)
[2017-07-20] MEDS: SODIUM CHLORIDE 1 GM TAB GTB SCH ×3 (08:08→21:03)
[2017-07-20] MEDS: METOPROLOL 25 MG TAB GTB SCH ×2 (08:08→21:03)
[2017-07-20] MEDS: HYDROCODONE/APAP (5/325) TAB GTB PRN ×2 (08:09→16:06)
[2017-07-20] MEDS: AMLODIPINE 5 MG TAB GTB SCH (08:09)
[2017-07-20] MEDS: ENOXAPARIN 40 MG/0.4 ML SYG SC SCH (08:34)
[2017-07-20] MEDS: GABAPENTIN (50 MG/ML PO SYG) GTB SCH ×3 (08:34→21:03)
--- NOTE | 2017-07-20 10:30 | PN ---
Date/Time of Note Date/Time of Note DATE: 07/20/17 TIME: 10:24 Assessment/Plan VTE Prophylaxis VTE Prophylaxis Intervention: LMWH Lines/Catheters IV Catheter Type (from Nrs): Peripheral IV Urinary Cath still in place: No Assessment/Plan Assessment/Plan - Leukocytosis- monitor CBS, VS - on tobramycin - per ID - Atypical chest pain, rule out myocardial infarction. Cardiac enzymes negative 3. - MDR Proteus UTI, change abx to Tobramycin, Dr Salas is asked to see pt in ID consultation. - Advanced multiple sclerosis, bed to wheelchair bound total care. No acute issue. - Hypertension, continue metoprolol and Norvasc - Dysphagia. Continue G-tube feeding. - Multi Drug allergy - Hx Breast cancer. No active issue. Further recommendations based on clinical course. Plan of care discussed with Dr. Soto Subjective 24 Hr Interval Summary Constitutional: febrile Respiratory: no complaints Cardiovascular: no complaints Gastrointestinal: no complaints Genitourinary: no complaints Musculoskeletal: no complaints Exam/Review of Systems Vital Signs Vitals Vital Signs Date Time Temp Pulse Resp B/P Pulse Ox O2 Delivery O2 Flow Rate FiO2 07/20/17 09:08 Nasal Cannula 2.0 07/20/17 08:00 84 07/20/17 07:49 99.7 20 155/69 100 Intake and Output 07/19/17 07/19/17 07/20/17 15:00 23:00 07:00 Intake Total 1240 ml 1060 ml Balance 1240 ml 1060 ml Exam Constitutional: alert Cardiovascular: nl pulses, other (SB, HR 58), regular rate and rhythm Musculoskeletal: nl extremities to inspection Extremities: normal pulses Results Result Diagram: 07/19/17 0757 07/19/17 0757 Medications Medications Current Medications Aspirin (Aspirin) 325 mg DAILY GTB Last administered on 07/20/17 08:07; Admin Dose 325 MG; Start 07/16/17 at 09:00 Nitroglycerin (Nitroglycerin (Sl Tab) 0.4 Mg) 1 tab Q5M PRN SL ANGINA; Start 07/16/17 at 00:00 Enoxaparin Sodium (Lovenox) 40 mg DAILY SC Last administered on 07/20/17 08: 34; Admin Dose 40 MG; Start 07/16/17 at 09:00 Acetaminophen (Tylenol Liquid) 650 mg Q6 PRN GTB PAIN AND OR ELEVATED TEMP Last administered on 07/19/17 16:42; Admin Dose 650 MG; Start 07/16/17 at 01: 30 Bisacodyl (Dulcolax Supp) 10 mg Q48H PRN [place] CONSTIPATION; Start 07/16/17 at 09: 00 Clonazepam (Klonopin) 0.25 mg Q12 PRN GTB ANXIETY Last administered on 20:52; Admin Dose 0.25 MG; Start 07/16/17 at 01:30 Acetaminophen/ Hydrocodone Bitart ([place] (5/325)) 1 tab Q6 PRN GTB PAIN Last administered on 07/20/17 08:09; Admin Dose 1 TAB; Start 07/16/17 at 01:30 Polyethylene Glycol (Miralax) 17 gm DAILY PRN GTB CONSTIPATION; Start 07/16/17 at 01:30 Sodium Chloride (Nacl) 1 gm TID GTB Last administered on 07/20/17 08:08; Admin Dose 1 GM; Start 07/16/17 at 09:00 Metoprolol Tartrate (Lopressor) 25 mg BID GTB Last administered on 07/20/17 08:08; Admin Dose 25 MG; Start 07/16/17 at 09:00 Sodium Biphosphate/ Sodium Phosphate (Fleet Enema) 133 ml Q72H [place] Last administered on 07/19/17 13:40; Admin Dose 133 ML; Start 07/16/17 at 09:00 Amlodipine Besylate 5 mg 5 mg DAILY GTB Last administered on 07/20/17 08:09; Admin Dose 5 MG; Start 07/16/17 at 10:00 Sodium Chloride (NS) 1,000 ml @ 60 mls/hr [id number] IV Last administered on 21:51; Admin Dose 60 MLS/HR; Start 07/16/17 at 10:00 Gabapentin (Neurontin Liquid) 400 mg TID GTB Last administered on 07/20/17 08 :34; Admin Dose 400 MG; Start 07/16/17 at 21:00 Estrogens Conjugated (Premarin Vaginal Cr) 1 applic MONWEDFRI@21 VAG Last administered on 07/17/17 20:55; Admin Dose 1 APPLIC; Start 07/17/17 at 21:00 Patient Own Medication 1 ea BID PO Last administered on 07/20/17 08:10; Admin Dose 1 EA; Start 07/17/17 at 09:00 Tobramycin (Tobramycin Iv Per Pharmacy) TOBRAMYCIN PER PHARMACY NOTE XX ; Start 07/18/17 at 14:00 Hydralazine HCl 25 mg 25 mg TID GTB Last administered on 07/20/17 08:07; Admin Dose 25 MG; Start 07/18/17 at 21:30 Tobramycin/Sodium Chloride (Tobramycin/NS) 109 ml @ 103.75 mls/ hr Q24H IVPB Last administered on 07/19/17 15:45; Admin Dose 103.75 MLS/HR; Start at 16:00 Miscellaneous Information (*Rx Drug Level Order Reminder*) TOBRAMYCIN TROUGH AT 1500 ONCE ONCE XX ; Start 07/20/17 at 15:00; Stop 07/20/17 at 15:01 DIEGO ORELLANA Jul 20, 2017 10:30
--- NOTE | 2017-07-20 13:42 | CONS ---
Date/Time of Note Date/Time of Note DATE: 07/20/17 TIME: 13:41 Assessment/Plan Assessment/Plan Chief Complaint/Hosp Course SUBJECTIVE: No acute changes overnight. The patient is alert, complaining of pain, looks comfortable, no fevers, 13.6, platelets 290, neutrophils 77.2 , BUN 10, creatinine 0.52. MICROBIOLOGY: Urine culture growing Proteus and E. coli. ANTIMICROBIALS: The patient is on tobramycin. PHYSICAL EXAMINATION: GENERAL: This is a chronically ill-appearing, elderly woman who is in no distress. HEENT: Head atraumatic, normocephalic. Sclerae anicteric. Buccal mucosa dry. NECK: Supple. CHEST: Rise symmetrical. Breath sounds diminished to bases. HEART: S1, S2. ABDOMEN: Soft. Bowel tones present. ASSESSMENT: 1. Polymicrobial multi-drug resistant urinary tract infection. 2. Status post atypical chest pain. 3. Advanced multiple sclerosis. 4. Hypertension. 5. History of breast cancer. PLAN: The patient remains stable. Continue present care, antibiotics, monitor postvoid residuals. Problems: Consultation Date/Type/Reason Admit Date/Time Jul 15, 2017 at 21:05 Initial Consult Date Type of Consultation: ID Exam/Review of Systems Vital Signs Vitals Vital Signs Date Time Temp Pulse Resp B/P Pulse Ox O2 Delivery O2 Flow Rate FiO2 07/20/17 11:39 97.7 81 18 116/59 100 07/20/17 09:08 Nasal Cannula 2.0 Intake and Output 07/19/17 07/19/17 07/20/17 15:00 23:00 07:00 Intake Total 1240 ml 1060 ml Balance 1240 ml 1060 ml Results Result Diagram: 07/19/17 0757 07/19/17 0757 Medications Medications Current Medications Aspirin (Aspirin) 325 mg DAILY GTB Last administered on 07/20/17 08:07; Admin Dose 325 MG; Start 07/16/17 at 09:00 Nitroglycerin (Nitroglycerin (Sl Tab) 0.4 Mg) 1 tab Q5M PRN SL ANGINA; Start 07/16/17 at 00:00 Enoxaparin Sodium (Lovenox) 40 mg DAILY SC Last administered on 07/20/17 08: 34; Admin Dose 40 MG; Start 07/16/17 at 09:00 Acetaminophen (Tylenol Liquid) 650 mg Q6 PRN GTB PAIN AND OR ELEVATED TEMP Last administered on 07/19/17 16:42; Admin Dose 650 MG; Start 07/16/17 at 01: 30 Bisacodyl (Dulcolax Supp) 10 mg Q48H PRN [place] CONSTIPATION; Start 07/16/17 at 09: 00 Clonazepam (Klonopin) 0.25 mg Q12 PRN GTB ANXIETY Last administered on 20:52; Admin Dose 0.25 MG; Start 07/16/17 at 01:30 Acetaminophen/ Hydrocodone Bitart ([place] (5/325)) 1 tab Q6 PRN GTB PAIN Last administered on 07/20/17 08:09; Admin Dose 1 TAB; Start 07/16/17 at 01:30 Polyethylene Glycol (Miralax) 17 gm DAILY PRN GTB CONSTIPATION; Start 07/16/17 at 01:30 Sodium Chloride (Nacl) 1 gm TID GTB Last administered on 07/20/17 12:25; Admin Dose 1 GM; Start 07/16/17 at 09:00 Metoprolol Tartrate (Lopressor) 25 mg BID GTB Last administered on 07/20/17 08:08; Admin Dose 25 MG; Start 07/16/17 at 09:00 Sodium Biphosphate/ Sodium Phosphate (Fleet Enema) 133 ml Q72H [place] Last administered on 07/19/17 13:40; Admin Dose 133 ML; Start 07/16/17 at 09:00 Amlodipine Besylate 5 mg 5 mg DAILY GTB Last administered on 07/20/17 08:09; Admin Dose 5 MG; Start 07/16/17 at 10:00 Sodium Chloride (NS) 1,000 ml @ 60 mls/hr [id number] IV Last administered on 21:51; Admin Dose 60 MLS/HR; Start 07/16/17 at 10:00 Gabapentin (Neurontin Liquid) 400 mg TID GTB Last administered on 07/20/17 12 :25; Admin Dose 400 MG; Start 07/16/17 at 21:00 Estrogens Conjugated (Premarin Vaginal Cr) 1 applic MONWEDFRI@21 VAG Last administered on 07/17/17 20:55; Admin Dose 1 APPLIC; Start 07/17/17 at 21:00 Patient Own Medication 1 ea BID PO Last administered on 07/20/17 08:10; Admin Dose 1 EA; Start 07/17/17 at 09:00 Tobramycin (Tobramycin Iv Per Pharmacy) TOBRAMYCIN PER PHARMACY NOTE XX ; Start 07/18/17 at 14:00 Hydralazine HCl 25 mg 25 mg TID GTB Last administered on 07/20/17 12:25; Admin Dose 25 MG; Start 07/18/17 at 21:30 Tobramycin/Sodium Chloride (Tobramycin/NS) 109 ml @ 103.75 mls/ hr Q24H IVPB Last administered on 07/19/17 15:45; Admin Dose 103.75 MLS/HR; Start at 16:00 Miscellaneous Information (*Rx Drug Level Order Reminder*) TOBRAMYCIN TROUGH AT 1500 ONCE ONCE XX ; Start 07/20/17 at 15:00; Stop 07/20/17 at 15:01 NOHELIA HER NP Jul 20, 2017 13:42
--- NOTE | 2017-07-20 13:43 | RADRPT ---
Vent Rate: 57 bpm RR Interval: 0 msec VT Interval: 184 msec QRS Duration: 68 msec QT Interval: 396 msec QTC Interval: 385 msec P-R-T Davis: 0 - 78 - 139 degrees Sinus bradycardia with marked sinus arrhythmia Abnormal QRS-T angle, consider primary T wave abnormality Abnormal ECG Electronically Signed By: Jeremy Rodarte [id number]
[2017-07-20] MEDS: SOD CHLORIDE 0.9% 1,000 ML IV SCH ×2 (14:00→14:45)
[2017-07-20] MEDS: clonAZEPAM 0.5 MG TAB GTB PRN (16:04)
[2017-07-20] MEDS: SOD CHLORIDE 0.9% IVPB SCH (16:08)
[2017-07-20] MEDS: TOBRAMYCIN IVPB SCH (16:08)
[2017-07-20] MEDS ORDERED: hydrALAzine 20 MG INJ IV PRN (17:30)
[2017-07-21] VITALS (31 sets, daily range): BP systolic 122–173; BP diastolic 59–149; PULSE 61–114; RESP 16–37
[2017-07-21] MEDS: SOD CHLORIDE 0.9% 1,000 ML IV SCH ×2 (06:04→10:52)
[2017-07-21 07:58] LABS: BASOPHIL # 0.1 10^3/ul (0.0-0.1); BASOPHILS % 0.4 % (0.0-2.0); EOSINOPHILS # 0.1 10^3/ul (0.0-0.5); EOSINOPHILS % 0.4 % (0.0-7.0); HEMATOCRIT 42.5 % (37.0-47.0); HEMOGLOBIN 13.1 g/dl (12.0-16.0); LYMPHOCYTES # 2.3 10^3/ul (0.8-2.9); LYMPHOCYTES % 16.8 % (15.0-51.0); MEAN CORPUSCULAR HEMOGLOBIN 26.6 pg (29.0-33.0); MEAN CORPUSCULAR HGB CONC 30.8 g/dl (32.0-37.0); MEAN CORPUSCULAR VOLUME 86.2 fl (82.0-101.0); MONOCYTE # 0.8 10^3/ul (0.3-0.9); MONOCYTES % 5.4 % (0.0-11.0); NEUTROPHIL # 10.7 10^3/ul (1.6-7.5); NEUTROPHILS % 76.6 % (39.0-77.0); PLATELET COUNT 275 10^3/UL (140-415); RED BLOOD COUNT 4.93 10^6/ul (4.20-5.40); RED CELL DISTRIBUTION WIDTH 14.6 % (11.5-14.5); WHITE BLOOD COUNT 13.9 10^3/ul (4.8-10.8)
[2017-07-21 08:16] LABS: CALCIUM 9.3 mg/dl (8.4-10.2); CREATININE 0.36 mg/dl (0.44-1.00); POTASSIUM 4.1 mmol/L (3.5-5.1)
--- NOTE | 2017-07-21 08:16 | RADRPT ---
PROCEDURE: Noncontrast CT Head. CLINICAL INDICATION: Code stroke. Acute neurologic deficit. The TECHNIQUE: Noncontrast CT of the head was obtained. The administered radiation dose was CTDI vol = 42.26 mGy, DLP = 720.23 mGy-cm. One or more of the following dose reduction techniques were used: Au tomated exposure control, Adjustment of the mA and/or kV according to patient size, or Use of iterat adrian reconstruction technique. COMPARISON: There are no similar studies submitted for comparison. FINDINGS: There is mild to moderate generalized cerebral volume loss. There is moderate periventricular hypoat tenuation suggesting chronic microvascular ischemic changes. There are mild vascular calcification s within the intracranial carotid arteries. There is no loss of pacheco-white differentiation to suggest acute territorial infarction. There is no acute intracranial hemorrhage. There is no mass effect. No midline shift is identified. The orbits are within normal limits. The paranasal sinuses are well aerated. No destructive osseous lesion is identified. IMPRESSION: 1. No loss of pacheco-white differentiation to suggest acute territorial infarction. Consider CTA of t he head/neck or noncontrast MRI of the brain as clinically warranted. 2. No acute intracranial hemorrhage. 3. Mild to moderate generalized cerebral volume loss. 4. Moderate chronic microvascular ischemic changes. Further findings as detailed above. Critical findings were discussed with nurse Farrukh Lott on 07/21/2017 at 8:13 AM. RPTAT: PP .Enzo Casper MD, Date Time Electronically viewed and signed by .Enzo Casper MD, on 07/21/2017 08:15 .F/
[2017-07-21 09:51] LABS: BASOPHIL # 0.1 10^3/ul (0.0-0.1); BASOPHILS % 0.4 % (0.0-2.0); EOSINOPHILS % 0.2 % (0.0-7.0); HEMATOCRIT 40.5 % (37.0-47.0); HEMOGLOBIN 12.6 g/dl (12.0-16.0); LYMPHOCYTES # 2.4 10^3/ul (0.8-2.9); LYMPHOCYTES % 16.3 % (15.0-51.0); MEAN CORPUSCULAR HEMOGLOBIN 26.8 pg (29.0-33.0); MEAN CORPUSCULAR HGB CONC 31.1 g/dl (32.0-37.0); MEAN CORPUSCULAR VOLUME 86.2 fl (82.0-101.0); MEAN PLATELET VOLUME 12.9 fl (7.4-10.4); MONOCYTE # 0.9 10^3/ul (0.3-0.9); MONOCYTES % 6.3 % (0.0-11.0); NEUTROPHIL # 11.2 10^3/ul (1.6-7.5); NEUTROPHILS % 76.4 % (39.0-77.0); PLATELET COUNT 260 10^3/UL (140-415); RED CELL DISTRIBUTION WIDTH 14.6 % (11.5-14.5); WHITE BLOOD COUNT 14.7 10^3/ul (4.8-10.8)
[2017-07-21 09:55] LABS: PARTIAL THROMBOPLASTIN TIME 27.7 Sec (25.0-35.0); PROTIME 13.2 Sec (12.2-14.2)
[2017-07-21 09:57] LABS: ALBUMIN 4.1 g/dl (3.3-4.9); ALBUMIN/GLOBULIN RATIO 1.1; CALCIUM 9.5 mg/dl (8.4-10.2); CREATININE 0.39 mg/dl (0.44-1.00); POTASSIUM 4.8 mmol/L (3.5-5.1); TOTAL PROTEIN 7.8 g/dl (6.1-8.1)
[2017-07-21] MEDS: GABAPENTIN (50 MG/ML PO SYG) GTB SCH (10:00)
--- NOTE | 2017-07-21 10:19 | STROKE ---
Date/Time of Note Date/Time of Note DATE: 07/21/17 TIME: 10:17 Patient Information General Patient location: inpatient Arrival Date Age 81 Gender female Weight 87.6 kg per SNF report POC Glucose Glucose Result Bedside Glucose - 72 Hours Test 07/21/17 07:41 Bedside Glucose 127mg/dL (70-220) Vital Signs Vital Signs Vital Signs Date Time Temp Pulse Resp B/P Pulse Ox O2 Delivery O2 Flow Rate FiO2 07/21/17 09:15 114 29 154/95 100 Nasal Cannula 3.0 07/21/17 08:18 97.7 Patient History Current Medications Allergies: Coded Allergies: Iodine and Iodide Containing Produc (Verified Allergy, Unknown, 07/15/17) Sulfa (Sulfonamide Antibiotics) (Verified Allergy, Unknown, 07/15/17) nefazodone (Verified Allergy, Unknown, 07/15/17) shrimp (Verified Allergy, Unknown, 07/15/17) Labs Hematology Labs Hematology Test 07/21/17 08:30 White Blood Count 14.710^3/ul (4.8-10.8) Red Blood Count 4.7010^6/ul (4.20-5.40) Hemoglobin 12.6g/dl (12.0-16.0) Hematocrit 40.5% (37.0-47.0) Mean Corpuscular Volume 86.2fl (82.0-101.0) Mean Corpuscular Hemoglobin 26.8pg (29.0-33.0) Mean Corpuscular Hemoglobin Concent 31.1g/dl (32.0-37.0) Red Cell Distribution Width 14.6% (11.5-14.5) Platelet Count 63753^3/UL (140-415) Mean Platelet Volume 12.9fl (7.4-10.4) Neutrophils % 76.4% (39.0-77.0) Lymphocytes % 16.3% (15.0-51.0) Monocytes % 6.3% (0.0-11.0) Eosinophils % 0.2% (0.0-7.0) Basophils % 0.4% (0.0-2.0) Nucleated Red Blood Cells % 0.0/100WBC (0.0-0.0) Neutrophils # 11.210^3/ul (1.6-7.5) Lymphocytes # 2.410^3/ul (0.8-2.9) Monocytes # 0.910^3/ul (0.3-0.9) Eosinophils # 0.010^3/ul (0.0-0.5) Basophils # 0.110^3/ul (0.0-0.1) Nucleated Red Blood Cells # 0.010^3/ul (0.0-0.0) Chemistry Labs Chemistry Test 07/16/17 05:23 07/16/17 12:05 07/16/17 15:43 07/21/17 07:41 Triglycerides Level 89mg/dl (0-149) Cholesterol Level 156mg/dl (100-200) LDL Cholesterol, Calculated 94mg/dl HDL Cholesterol 44mg/dl (33-92) Cholesterol/HDL Ratio 3.5RATIO Creatine Kinase 51IU/L (23-200) Creatine Kinase Index 1.2 Creatinine Kinase MB (Mass) 0.62ng/ml (0.0-2.4) Troponin I < 0.012ng/ml (0.00-0.12) Bedside Glucose 127mg/dL (70-220) Test 07/21/17 08:30 Sodium Level 142mmol/L (135-144) Potassium Level 4.8mmol/L (3.5-5.1) Chloride Level 102mmol/L (97-110) Carbon Dioxide Level 30mmol/L (21-31) Anion Gap 15 (8-16) Blood Urea Nitrogen 11mg/dl (7-20) Creatinine 0.39mg/dl (0.44-1.00) Glucose Level 103mg/dl (70-220) Calcium Level 9.5mg/dl (8.4-10.2) Total Bilirubin 0.0mg/dl (0.2-1.3) Direct Bilirubin 0.00mg/dl (0.00-0.20) Indirect Bilirubin 0.0mg/dl (0-1.1) Aspartate Amino Transf (AST/SGOT) 30IU/L (15-46) Alanine Aminotransferase (ALT/SGPT) 32IU/L (13-69) Alkaline Phosphatase 121IU/L (42-121) Total Protein 7.8g/dl (6.1-8.1) Albumin 4.1g/dl (3.3-4.9) Globulin 3.70g/dl (1.3-3.2) Albumin/Globulin Ratio 1.10 Coagulation Labs: Coagulation Test 07/21/17 08:30 Prothrombin Time 13.2Sec (12.2-14.2) Prothrombin Time Ratio 1.0 INR International Normalized Ratio 1.00 Activated Partial Thromboplast Time 27.7Sec (25.0-35.0) History & Physical History of Present Illness 81 YO W LKS 545 on 07/21/17. At 0630 patient found to be lethargic and non- verbal. Patient has MS and has contractions in all 4 extremities. FS in 120. Head CT showed no acute pathology. Patient was initially admitted for chest pain and UTI. Patient has A Fib and is on aspirin. 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 Patient reports she is now back to her baseline. Her caregiver of 8 years agrees. NIH Stroke Scale NIH Stroke Scale Total Score: 12 Date/Time Recorded DATE: 07/21/17 TIME: 10: Submitted By Rome Marshall t-PA Imaging Review Date/Time Imaging Reviewed DATE: 07/21/17 TIME: 10:17 t-PA Administration Weight 87.6 kg per SNF report Recommedation submitted by Rome Marshall Recommendations Impression Diagnosis 81 YO W with MS found with encephalopathy and lack of verbal output this morning , now at her neurologic baseline with chronic deficits from MS and remote spine trauma. Patient has A Fib and is only on aspirin. Patient was formerly anticoagulated for stroke prevention, but was taken off by her PCP. I spoke with her PCP and it was due to recurrent hematuria on NOAC. Patient presentation today more concerning for seizure or other cause of encephalopathy. Patient amnesic to event. Recommendation - MRI Brain with and without for suspected/possible new seizure - Routine EEG - Continued work-up of metabolic encephalopathy - Consult local Neurologist to follow-up results and guide further care - Continue aspirin for stroke prevention given history of recurrent hematuria ROME MARSHALL MD Jul 21, 2017 10:19
[2017-07-21] MEDS: ASPIRIN 325 MG TAB GTB SCH (11:05)
[2017-07-21] MEDS: METOPROLOL 25 MG TAB GTB SCH ×2 (11:06→11:18)
[2017-07-21] MEDS: ENOXAPARIN 40 MG/0.4 ML SYG SC SCH (11:20)
--- NOTE | 2017-07-21 11:29 | PN ---
Date/Time of Note Date/Time of Note DATE: 07/21/17 TIME: 11:14 Assessment/Plan VTE Prophylaxis VTE Prophylaxis Intervention: SCD's Lines/Catheters IV [facility] Saline Lock Urinary Cath still in place: No (Will refer it w/ , (freq UTI also)) Assessment/Plan Chief Complaint/Hosp Course Patient found lethargic and nonverbal today in a.m., code stroke was called, status post evaluation by telemetry neurologist, to scan is negative for any acute stroke or bleed. Patient is now awake, responsive, transferred to ICU, pending MRI of the brain and EEG. Assessment/Plan - CECILIA versus seizures versus acute metabolic encephalopathy, continue neuro checks every hour, ICU care Dr. Mcgregor is asked to see patient is a neurology consultation, pending MRI of the brain and EEG. - Atrial fibrillation, continue aspirin, Dr. Ferrara is asked to see patient in cardiology consultation - Atypical chest pain, rule out myocardial infarction. Cardiac enzymes negative 3. Unable to undergo to pulmonary angiogram due to allergy to iodine. VQ scan is low probability for PE. - MDR Proteus UTI, continue tobramycin, Dr Salas is following in ID consultation. - Advanced multiple sclerosis, bed to wheelchair bound total care. - Hypertension, continue metoprolol and Norvasc - Dysphagia. Continue G-tube feeding. - Hx Breast cancer. Further recommendations based on clinical course. Plan of care discussed with Dr. Soto Problems: Exam/Review of Systems Vital Signs Vitals Vital Signs Date Time Temp Pulse Resp B/P Pulse Ox O2 Delivery O2 Flow Rate FiO2 07/21/17 09:15 114 29 154/95 100 Nasal Cannula 3.0 07/21/17 08:18 97.7 Intake and Output 07/20/17 07/20/17 07/21/17 15:00 23:00 07:00 Intake Total 1160 ml Balance 1160 ml Exam Constitutional: alert, oriented Head: normocephalic Neck: supple Respiratory: normal air movement Cardiovascular: irregular rhythm Gastrointestinal: non-tender, other (G-tube), soft Musculoskeletal: muscle weakness Extremities: other (Contracted) Results Result Diagram: 07/21/17 0830 07/21/17 0830 Results 24 hrs Laboratory Tests Test 07/20/17 15:13 07/21/17 07:33 07/21/17 07:41 07/21/17 08:30 Tobramycin Level Trough < 0.6 L White Blood Count 13.9 H 14.7 H Red Blood Count 4.93 4.70 Hemoglobin 13.1 12.6 Hematocrit 42.5 40.5 Mean Corpuscular Volume 86.2 86.2 Mean Corpuscular Hemoglobin 26.6 L 26.8 L Mean Corpuscular Hemoglobin Concent 30.8 L 31.1 L Red Cell Distribution Width 14.6 H 14.6 H Platelet Count 275 260 Mean Platelet Volume 12.0 H 12.9 H Neutrophils % 76.6 76.4 Lymphocytes % 16.8 16.3 Monocytes % 5.4 6.3 Eosinophils % 0.4 0.2 Basophils % 0.4 0.4 Nucleated Red Blood Cells % 0.0 0.0 Neutrophils # 10.7 H 11.2 H Lymphocytes # 2.3 2.4 Monocytes # 0.8 0.9 Eosinophils # 0.1 0.0 Basophils # 0.1 0.1 Nucleated Red Blood Cells # 0.0 0.0 Sodium Level 141 142 Potassium Level 4.1 4.8 Chloride Level 102 102 Carbon Dioxide Level 28 30 Anion Gap 15 15 Blood Urea Nitrogen 10 11 Creatinine 0.36 L 0.39 L Glucose Level 114 103 Calcium Level 9.3 9.5 Bedside Glucose 127 Prothrombin Time 13.2 Prothrombin Time Ratio 1.0 INR International Normalized Ratio 1.00 Activated Partial Thromboplast Time 27.7 Total Bilirubin 0.0 L Direct Bilirubin 0.00 Indirect Bilirubin 0.0 Aspartate Amino Transf (AST/SGOT) 30 Alanine Aminotransferase (ALT/SGPT) 32 Alkaline Phosphatase 121 Total Protein 7.8 Albumin 4.1 Globulin 3.70 H Albumin/Globulin Ratio 1.10 Medications Medications Current Medications Aspirin (Aspirin) 325 mg DAILY GTB Last administered on 07/21/17 11:05; Admin Dose 325 MG; Start 07/16/17 at 09:00 Nitroglycerin (Nitroglycerin (Sl Tab) 0.4 Mg) 1 tab Q5M PRN SL ANGINA; Start 07/16/17 at 00:00 Enoxaparin Sodium (Lovenox) 40 mg DAILY SC Last administered on 07/20/17 08: 34; Admin Dose 40 MG; Start 07/16/17 at 09:00 Acetaminophen (Tylenol Liquid) 650 mg Q6 PRN GTB PAIN AND OR ELEVATED TEMP Last administered on 07/19/17 16:42; Admin Dose 650 MG; Start 07/16/17 at 01: 30 Bisacodyl (Dulcolax Supp) 10 mg Q48H PRN [place] CONSTIPATION; Start 07/16/17 at 09: 00 Clonazepam (Klonopin) 0.25 mg Q12 PRN GTB ANXIETY Last administered on 16:04; Admin Dose 0.25 MG; Start 07/16/17 at 01:30 Acetaminophen/ Hydrocodone Bitart ([place] (5/325)) 1 tab Q6 PRN GTB PAIN Last administered on 07/20/17 16:06; Admin Dose 1 TAB; Start 07/16/17 at 01:30 Polyethylene Glycol (Miralax) 17 gm DAILY PRN GTB CONSTIPATION; Start 07/16/17 at 01:30 Sodium Chloride (Nacl) 1 gm TID GTB Last administered on 07/20/17 21:03; Admin Dose 1 GM; Start 07/16/17 at 09:00 Metoprolol Tartrate (Lopressor) 25 mg BID GTB Last administered on 07/21/17 11:06; Admin Dose 25 MG; Start 07/16/17 at 09:00 Sodium Biphosphate/ Sodium Phosphate (Fleet Enema) 133 ml Q72H [place] Last administered on 07/19/17 13:40; Admin Dose 133 ML; Start 07/16/17 at 09:00 Amlodipine Besylate 5 mg 5 mg DAILY GTB Last administered on 07/20/17 08:09; Admin Dose 5 MG; Start 07/16/17 at 10:00 Sodium Chloride (NS) 1,000 ml @ 60 mls/hr [id number] IV Last administered on 10:52; Admin Dose 60 MLS/HR; Start 07/16/17 at 10:00 Gabapentin (Neurontin Liquid) 400 mg TID GTB Last administered on 07/20/17 21 :03; Admin Dose 400 MG; Start 07/16/17 at 21:00 Estrogens Conjugated (Premarin Vaginal Cr) 1 applic MONWEDFRI@21 VAG Last administered on 07/17/17 20:55; Admin Dose 1 APPLIC; Start 07/17/17 at 21:00 Patient Own Medication 1 ea BID PO Last administered on 07/20/17 21:02; Admin Dose 1 EA; Start 07/17/17 at 09:00 Tobramycin (Tobramycin Iv Per Pharmacy) TOBRAMYCIN PER PHARMACY NOTE XX ; Start 07/18/17 at 14:00 Hydralazine HCl 25 mg 25 mg TID GTB Last administered on 07/21/17 11:01; Admin Dose 25 MG; Start 07/18/17 at 21:30 Tobramycin/Sodium Chloride (Tobramycin/NS) 109 ml @ 103.75 mls/ hr Q24H IVPB Last administered on 07/20/17 16:08; Admin Dose 103.75 MLS/HR; Start at 16:00 Hydralazine HCl (Apresoline) 10 mg Q4H PRN IV SBP >160; Start 07/20/17 at 17: 30 MARLINE CHOWDARY Jul 21, 2017 11:28
[2017-07-21] MEDS ORDERED: SOD CHLORIDE 0.45% 1,000 ML IV SCH (11:30)
[2017-07-21] MEDS ORDERED: LIDOCAINE 1% (MPF) 5 ML VIAL SC ONE (12:30)
[2017-07-21] MEDS: AMLODIPINE 5 MG TAB GTB SCH (12:55)
[2017-07-21] MEDS: HYDROCODONE/APAP (5/325) TAB GTB PRN (12:55)
--- NOTE | 2017-07-21 14:00 | RADRPT ---
PROCEDURE: MRI Brain without contrast. CLINICAL INDICATION: Neurological deficit, stroke. TECHNIQUE: An MRI of the brain was performed utilizing the following sequences: Sagittal and axial T1 weighted, axial T2 weighted, axial diffusion weighted with ADC mapping, coronal GRE, and axial F LAIR. COMPARISON: Brain CT of the same day. FINDINGS: No diffusion weighted abnormalities are seen to suggest the presence of acute ischemia or recent inf arct. No hypointense signal abnormalities are seen on the GRE images to suggest the presence of blo od degradation products. There is no evidence of intracranial hemorrhage, mass effect, or midline s hift. No extra-axial fluid collections are seen. The ventricles and sulci are mildly to moderately e nlarged indicative of volume loss. There are moderate foci of T2 FLAIR hyperintensity in the periventricular, deep, and subcortical whi te matter, which are nonspecific in etiology but likely reflect chronic small vessel ischemic change s. No abnormal intracranial vascular flow void is noted. The visualized paranasal sinuses demonstrate m ild scattered mucosal thickening. IMPRESSION: 1. No acute intracranial hemorrhage, infarction or mass. 2. Moderate chronic small vessel ischemic changes. 3. Mild to moderate generalized cerebral and cerebellar volume loss. RPTAT: JJ .Preet Rosa MD, MD Date Time Electronically viewed and signed by .Preet Rosa MD, MD on 07/21/2017 14:00 .N/
[2017-07-21] MEDS ORDERED: METOPROLOL 5 MG INJ IV PRN (15:00)
--- NOTE | 2017-07-21 15:30 | CONS ---
DATE OF ADMISSION: 07/15/2017 DATE OF CONSULTATION: 07/21/2017 CARDIAC CONSULTATION REASON FOR CONSULTATION: REQUESTING PHYSICIAN: Cardiac arrhythmia concerning for atrial fibrillation. REQUESTING PHYSICIAN: Rashad Caruso MD. HISTORY OF THE PRESENT ILLNESS: Ms. Tovar is a 81-year-old female with a history of multiple sclerosis, dysphagia, status post G-tube, trigeminal neuralgia, bladder CA, recurrent UTI, who initially presented with reported complaints of substernal chest pain. The patient had been admitted to the floor , underwent a 2D echo by myself revealing a preserved left ventricular ejection fraction. On the floor, the patient was receiving ongoing treatment for a UTI. By tele monitoring had questionable episodes of atrial fibrillation. The patient had been placed on aspirin for atrial fibrillation and was found to be encephalopathic, lack of ability to have verbal output. A code stroke was called and the patient has been transferred to the ICU. Per chart biopsy, the patient had been on a novel oral anticoagulant and discontinued by her PMD due to recurrent hematuria. Since arrival in the ICU, the most recent temperature 98.6, blood pressure 150/72, pulse in the 70s currently, significantly irregular but artifact at the baseline and is free of any accurate interpretation with some possible P waves before the QRS complexes versus ongoing atrial fibrillation. The patient at this time is nonverbal. PAST MEDICAL HISTORY: As above in HPI. MEDICATIONS CURRENTLY IN HOSPITAL: 1. Cefepime. 2. IV fluid hydration. 3. Hydralazine p.r.n. 5. Norvasc 5 mg daily. 6. Aspirin 325 mg daily. 7. Metoprolol 25 mg p.o. b.i.d. ALLERGIES: IODINE DYE. SOCIAL HISTORY: No tobacco, ETOH or illicit drug use. FAMILY HISTORY: No history of sudden cardiac or early CAD. REVIEW OF SYSTEMS: As above in HPI. CONSTITUTIONAL: No fevers, chills. PULMONARY: No current signs of vascular compromise. GASTROINTESTINAL: Dysphagia. GENITOURINARY: Hematuria. MUSCULOSKELETAL: Degenerative joint disease. PSYCHIATRIC: No documented psych history. NEUROLOGIC: Encephalopathy. PHYSICAL EXAMINATION: VITAL SIGNS: Temperature of 98.6, blood pressure 150/72, pulse 72, respiratory rate 23, saturating 100%. GENERAL: The patient is awake, noncommunicative, aphasic. NECK: JVP of 8 to 9 cm water. CHEST: Upper airway sounds are rhonchorous sounds. HEART: Irregularly irregular rhythm, I/ systolic murmur. ABDOMEN: Positive bowel sounds, soft. EXTREMITIES: No pitting edema, 1+ pulses bilaterally posterior tibial. LABORATORIES: As above in HPI, with most recent from today, white count 4.7, hemoglobin of 12.6, platelet count 260. Sodium 142, potassium 4.8, creatinine of 0.39, BUN of 11. UA positive, troponin negative x3. IMAGING STUDIES: From today, a head CT revealing no loss of great pacheco-white, differentiation of acute territorial infarction, no acute intracranial hemorrhage. A brain MRI which revealed no acute intracranial hemorrhage, infarct or mass. Mild to moderate generalized cerebral and cerebellar volume loss. ECG: Most recently from the 8th. At that time revealed sinus bradycardia, rate 57, PACs and nonspecific ST-T abnormalities diffusely. IMPRESSION: 1. Paroxysmal atrial fibrillation. 2. Abnormal electrocardiogram, assess for acute coronary syndrome. 3. Hypertension. 4. Possible acute cerebrovascular accident. 5. Urinary tract infection. 6. Leukocytosis. RECOMMENDATIONS: 1. At this time, would maintain patient nicely on telemetry monitoring to continue to assess for ongoing cerebrovascular accident which the patient would appear to have had although MRI is negative at this time. 2. Would check serial EKGs to further discern the patient's current rhythm. 3. Check a TSH to be sure that subclinical hyperthyroid is not contributing to bouts of tachyarrhythmias. 4. Continue the patient's aspirin at this time for prophylaxis against further cardiovascular events and will likely transition patient to full dose anticoagulation after evaluation to ensure the patient does not have any contraindications such as any possible large territory infarct that may require cardioversion although it does not appear that way from initial imaging. 5. Continue the patient's low dose Lovenox at this time. 6. Continue the patient's Norvasc for control of blood pressure additionally and hydralazine with further up titration as necessary. 7. Continue the patient's antibiotics and follow up all culture data. Thank you for allowing me to take part in the care of this patient. I will continue to follow along very closely with you. Further recommendations will be made as the patient progresses through her inpatient hospital clinical course. Dictated By: COMPA MOTA/ANGIE Conf#: [id number] DID#: [id number] CC: RASHAD CARUSO MD;*EndCC* MTDD
--- NOTE | 2017-07-21 16:07 | RADRPT ---
PROCEDURE: XR Chest 1 View. CLINICAL INDICATION: Shortness of breath. TECHNIQUE: AP view of the chest was obtained. COMPARISON: DR SCALES 07/15/2017 FINDINGS: The heart size is within normal limits. Calcified atherosclerosis is noted in the aorta. Elevated r ight hemidiaphragm is identified. Atelectasis is noted in the bilateral lower lobes. No consolidatio ns are identified. No pneumothorax is seen. Osseous structures are intact. IMPRESSION: Calcified atherosclerosis in the aorta. Chronically elevated right hemidiaphragm. Atelectasis in the bilateral lower lobes. RPTAT: AA .Willie Gonzalez MD, Date Time Electronically viewed and signed by .Willie Gonzalez MD, MD on 07/21/2017 16:06 .P/
--- NOTE | 2017-07-21 16:09 | RADRPT ---
Vent Rate: 81 bpm RR Interval: 0 msec OH Interval: 0 msec QRS Duration: 58 msec QT Interval: 336 msec QTC Interval: 390 msec P-R-T [place]: 0 - 25 - 35 degrees normall sinus rhythm with very frequent PAC. Nonspecific T wave abnormality , probably digitalis effect Abnormal ECG Electronically Signed By: Zaire Wu [id number]
--- NOTE | 2017-07-21 17:08 | CONS ---
Date/Time of Note Date/Time of Note DATE: 07/21/17 TIME: 16:57 Assessment/Plan Assessment/Plan Chief Complaint/Hosp Course Altered mental status and confusion in a patient of advanced MS Problems: Additional Assessment/Plan Patient is a 81-year-old woman [facility] facility resident with contractures all 4 extremities was admitted following found altered, confused and was brought into emergency room for evaluation. A CT scan of the brain showed atrophy, white matter disease, nothing acute. Patient was seen by telemetry neurologist also. MRI of the brain showed atrophy, chronic bihemispheric small vessel disease, nothing acute. EEG has also been done. On initial evaluation she was found to have urosepsis with WBC of 14.7. Neurology consult was called to evaluate her neurological status. Examination was very limited. She appears to have encephalopathy due to urosepsis. Plan 1 will follow EEG 2 continue antibiotics 3 we will follow Consultation Date/Type/Reason Admit Date/Time Jul 15, 2017 at 21:05 Date of Consultation: Jul 21, 2017 Type of Consultation: Neurology Reason for Consultation Altered mental status, confusion in a patient of advanced multiple sclerosis Referring Provider: ANGELINA CARUSO MD Hx of Present Illness Patient is a 81-year-old woman [facility] facility resident with contractures all 4 extremities was admitted following found altered, confused and was brought into emergency room for evaluation. A CT scan of the brain showed atrophy, white matter disease, nothing acute. Patient was seen by telemetry neurologist also. MRI of the brain showed atrophy, chronic bihemispheric small vessel disease, nothing acute. EEG has also been done. On initial evaluation she was found to have urosepsis with WBC of 14.7. Neurology consult was called to evaluate her neurological status. Constitutional: febrile Eyes: no complaints ENT: no complaints Respiratory: no complaints Cardiovascular: no complaints Gastrointestinal: no complaints Genitourinary: no complaints Musculoskeletal: no complaints Past Medical History Medical History: other Social History Smoking Status: Unknown if ever smoked Exam/Review of Systems Vital Signs Vitals Vital Signs Date Time Temp Pulse Resp B/P Pulse Ox O2 Delivery O2 Flow Rate FiO2 07/21/17 15:00 78 23 158/65 100 Nasal Cannula 1.0 07/21/17 12:00 98.6 Intake and Output 07/20/17 07/20/17 07/21/17 15:00 23:00 07:00 Intake Total 1160 ml Balance 1160 ml Exam Constitutional: alert Psych: nl mood/affect Head: atraumatic, normocephalic Eyes: EOMI, nl conjunctiva, nl lids, nl sclera ENMT: mucosa pink and moist, nl external ears & nose, nl lips & teeth, nl nasal mucosa & septum Neck: non-tender, supple Respiratory: clear to auscultation, normal air movement Cardiovascular: nl pulses, regular rate and rhythm Gastrointestinal: nl liver, spleen, non-tender, soft Extremities: normal pulses Neurological: other (Alert and awake, following simple commands, she has contractures of both upper and lower extremities, very limited exam) Skin: nl turgor Results Result Diagram: 07/21/1730 07/21/1730 Results 24 hrs Laboratory Tests Test 07/21/17 07:33 07/21/17 07:41 07/21/17 08:30 White Blood Count 13.9 H 14.7 H Red Blood Count 4.93 4.70 Hemoglobin 13.1 12.6 Hematocrit 42.5 40.5 Mean Corpuscular Volume 86.2 86.2 Mean Corpuscular Hemoglobin 26.6 L 26.8 L Mean Corpuscular Hemoglobin Concent 30.8 L 31.1 L Red Cell Distribution Width 14.6 H 14.6 H Platelet Count 275 260 Mean Platelet Volume 12.0 H 12.9 H Neutrophils % 76.6 76.4 Lymphocytes % 16.8 16.3 Monocytes % 5.4 6.3 Eosinophils % 0.4 0.2 Basophils % 0.4 0.4 Nucleated Red Blood Cells % 0.0 0.0 Neutrophils # 10.7 H 11.2 H Lymphocytes # 2.3 2.4 Monocytes # 0.8 0.9 Eosinophils # 0.1 0.0 Basophils # 0.1 0.1 Nucleated Red Blood Cells # 0.0 0.0 Sodium Level 141 142 Potassium Level 4.1 4.8 Chloride Level 102 102 Carbon Dioxide Level 28 30 Anion Gap 15 15 Blood Urea Nitrogen 10 11 Creatinine 0.36 L 0.39 L Glucose Level 114 103 Calcium Level 9.3 9.5 Thyroid Stimulating Hormone (TSH) 1.120 Bedside Glucose 127 Prothrombin Time 13.2 Prothrombin Time Ratio 1.0 INR International Normalized Ratio 1.00 Activated Partial Thromboplast Time 27.7 Total Bilirubin 0.0 L Direct Bilirubin 0.00 Indirect Bilirubin 0.0 Aspartate Amino Transf (AST/SGOT) 30 Alanine Aminotransferase (ALT/SGPT) 32 Alkaline Phosphatase 121 Total Protein 7.8 Albumin 4.1 Globulin 3.70 H Albumin/Globulin Ratio 1.10 Medications Medications Current Medications Aspirin (Aspirin) 325 mg DAILY GTB Last administered on 07/21/17 11:05; Admin Dose 325 MG; Start 07/16/17 at 09:00 Nitroglycerin (Nitroglycerin (Sl Tab) 0.4 Mg) 1 tab Q5M PRN SL ANGINA; Start 07/16/17 at 00:00 Enoxaparin Sodium (Lovenox) 40 mg DAILY SC Last administered on 07/21/17 11: 20; Admin Dose 40 MG; Start 07/16/17 at 09:00 Acetaminophen (Tylenol Liquid) 650 mg Q6 PRN GTB PAIN AND OR ELEVATED TEMP Last administered on 07/19/17 16:42; Admin Dose 650 MG; Start 07/16/17 at 01: 30 Bisacodyl (Dulcolax Supp) 10 mg Q48H PRN [place] CONSTIPATION; Start 07/16/17 at 09: 00 Clonazepam (Klonopin) 0.25 mg Q12 PRN GTB ANXIETY Last administered on 16:04; Admin Dose 0.25 MG; Start 07/16/17 at 01:30 Acetaminophen/ Hydrocodone Bitart ([place] (5/325)) 1 tab Q6 PRN GTB PAIN Last administered on 07/21/17 12:55; Admin Dose 1 TAB; Start 07/16/17 at 01:30 Polyethylene Glycol (Miralax) 17 gm DAILY PRN GTB CONSTIPATION; Start 07/16/17 at 01:30 Sodium Chloride (Nacl) 1 gm TID GTB Last administered on 07/20/17 21:03; Admin Dose 1 GM; Start 07/16/17 at 09:00 Metoprolol Tartrate (Lopressor) 25 mg BID GTB Last administered on 07/21/17 11:18; Admin Dose 25 MG; Start 07/16/17 at 09:00 Sodium Biphosphate/ Sodium Phosphate (Fleet Enema) 133 ml Q72H [place] Last administered on 07/19/17 13:40; Admin Dose 133 ML; Start 07/16/17 at 09:00 Amlodipine Besylate (Norvasc) 5 mg DAILY GTB Last administered on 07/21/17 12 :55; Admin Dose 5 MG; Start 07/16/17 at 10:00 Gabapentin (Neurontin Liquid) 400 mg TID GTB Last administered on 07/20/17 21 :03; Admin Dose 400 MG; Start 07/16/17 at 21:00; Status Future Hold Estrogens Conjugated (Premarin Vaginal Cr) 1 applic MONWEDFRI@21 VAG Last administered on 07/17/17 20:55; Admin Dose 1 APPLIC; Start 07/17/17 at 21:00 Patient Own Medication 1 ea BID PO Last administered on 07/20/17 21:02; Admin Dose 1 EA; Start 07/17/17 at 09:00 Hydralazine HCl (Apresoline) 25 mg TID GTB Last administered on 07/21/17 14: 20; Admin Dose 25 MG; Start 07/18/17 at 21:30 Hydralazine HCl 10 mg 10 mg Q4H PRN IV SBP >160; Start 07/20/17 at 17:30 Cefepime HCl (Maxipime 1gm/50 ml (Pmx)) 50 ml @ 100 mls/hr Q12 IVPB ; Start at 21:00 Metoprolol Tartrate (Lopressor) 5 mg Q4H PRN IV HR>110 Hold SBP<100; Start at 15:[address] brain 07/21/2017 IMPRESSION: 1. No loss of pacheco-white differentiation to suggest acute territorial infarction. Consider CTA of the head/neck or noncontrast MRI of the brain as clinically warranted. 2. No acute intracranial hemorrhage. 3. Mild to moderate generalized cerebral volume loss. 4. Moderate chronic microvascular ischemic changes. Further findings as detailed above. Critical findings were discussed with nurse Farrukh Lott on 07/21/2017 at 8:13 AM. RPTAT: PP .Enzo Casper MD, MD Date Time Electronically viewed and signed by .Enzo Casper MD, MD on 07/21/2017 08:15 MRI of the brain 07/21/2017 IMPRESSION: 1. No acute intracranial hemorrhage, infarction or mass. 2. Moderate chronic small vessel ischemic changes. 3. Mild to moderate generalized cerebral and cerebellar volume loss. RPTAT: JJ .Preet Rosa MD, MD Date Time Electronically viewed and signed by .Preet Rosa MD, MD on 07/21/2017 14:00 CATIE GRUBBS MD Jul 21, 2017 17:08
[2017-07-21] MEDS: SODIUM CHLORIDE 1 GM TAB GTB SCH ×3 (17:20→21:11)
[2017-07-21] MEDS: CEFEPIME 1GM/50 ML (PMX) 50 ML IVPB SCH (21:11)
[2017-07-21] MEDS: ESTROGENS CONJUGATED 42.5 GM VAG CR VAG SCH (21:12)
[2017-07-22] VITALS (22 sets, daily range): BP systolic 100–145; BP diastolic 56–98; PULSE 65–124; RESP 18–43
[2017-07-22 06:36] LABS: BASOPHIL # 0.1 10^3/ul (0.0-0.1); BASOPHILS % 0.5 % (0.0-2.0); EOSINOPHILS # 0.1 10^3/ul (0.0-0.5); EOSINOPHILS % 1.1 % (0.0-7.0); HEMATOCRIT 39.8 % (37.0-47.0); HEMOGLOBIN 12.8 g/dl (12.0-16.0); LYMPHOCYTES # 3.3 10^3/ul (0.8-2.9); LYMPHOCYTES % 25.4 % (15.0-51.0); MEAN CORPUSCULAR HEMOGLOBIN 27.4 pg (29.0-33.0); MEAN CORPUSCULAR HGB CONC 32.2 g/dl (32.0-37.0); MEAN CORPUSCULAR VOLUME 85.2 fl (82.0-101.0); MEAN PLATELET VOLUME 11.6 fl (7.4-10.4); MONOCYTES % 7.4 % (0.0-11.0); NEUTROPHIL # 8.4 10^3/ul (1.6-7.5); NEUTROPHILS % 65.3 % (39.0-77.0); PLATELET COUNT 282 10^3/UL (140-415); RED BLOOD COUNT 4.67 10^6/ul (4.20-5.40); RED CELL DISTRIBUTION WIDTH 14.4 % (11.5-14.5); WHITE BLOOD COUNT 12.8 10^3/ul (4.8-10.8)
[2017-07-22 07:20] LABS: CALCIUM 9.5 mg/dl (8.4-10.2); CREATININE 0.42 mg/dl (0.44-1.00); POTASSIUM 4.1 mmol/L (3.5-5.1)
[2017-07-22] MEDS: SODIUM CHLORIDE 1 GM TAB GTB SCH ×3 (08:15→22:13)
[2017-07-22] MEDS: ASPIRIN 325 MG TAB GTB SCH (08:15)
[2017-07-22] MEDS: AMLODIPINE 5 MG TAB GTB SCH (08:16)
[2017-07-22] MEDS: METOPROLOL 25 MG TAB GTB SCH ×2 (08:16→20:59)
[2017-07-22] MEDS: CEFEPIME 1GM/50 ML (PMX) 50 ML IVPB SCH ×2 (08:16→20:57)
[2017-07-22] MEDS: ENOXAPARIN 40 MG/0.4 ML SYG SC SCH (08:21)
[2017-07-22] MEDS: NA PHOSPHATE/BIPHOS 133 ML ENEMA PR SCH (08:22)
--- NOTE | 2017-07-22 09:09 | CONS ---
Date/Time of Note Date/Time of Note DATE: 07/22/17 TIME: 09:06 Assessment/Plan Assessment/Plan Chief Complaint/Hosp Course ID PROGRESS NOTE CURRENT ABX: TOTAL ABX DAY #5 => Cefepime #2 s/p Ceftriaxone x1 07/17 s/p Tobra IV 07/18 - 07/21 24H INTERVAL SUMMARY * Overweight F opens eyes to verbal command, (+)bilateral eye twitching? -- resting w/supplemental O2 via NC * Caregiver present -- I asked if patient's eyes usually twitch she tells me this is related to Trigeminal neuralgia and usually occurs when patient is having a headache and needs pain medications == QUERY SZS Activity * CT & MRI Braiin 07/21/17: No acute findings * URINE CULTURE Final Organism 1 PROTEUS MIRABILIS COLONY COUNT >100,000 CFU/ml Organism 2 ESCHERICHIA COLI COLONY COUNT 30,000 - 40,000 CFU/ml P. MIRAB E COLI M.I.C. RX M.I.C. RX --------- --- --------- --- AMPICILLIN <=2 S >=32 R CEFAZOLIN S CEFOTAXIME S S CIPROFLOXACIN >=4 R 0.5 S GENTAMICIN <=1 S <=1 S LEVOFLOXACIN >=8 R 1 S NITROFURANTOIN 128 R 32 S TOBRAMYCIN <=1 S <=1 S TRIMETHOPRIM/SULFAMETHOXAZOLE <=20 S <=20 S * labs 07/22/17 0616 07/22/17 0616 Physical Exam Physical Exam Constitutional: VSS, NAD HEENT: Unremarkable Neck: Supple, full ROM Respiratory: clear to auscultation, normal air movement Cardiovascular: nl pulses, regular rate and rhythm Gastrointestinal: Soft, NT Extremities: Warm Neurological: nl mental status, nl speech, nl strength ID ASSESSMENT 81 yo F PMHx Breast Cancer + Advanced Multiple Sclerosis admit with: 1. SIRS w/low grade fevers, leukocytosis -> 2/2 #2 * s/p sepsis with acute SOB, AFib w/RVR, atypical chest pain, TMax 100.+ 2. Complicated polymicrobial GNR UTI * 07/16/17 URINE CULTURE Final Organism 1 PROTEUS MIRABILIS COLONY COUNT >100,000 CFU/ml Organism 2 ESCHERICHIA COLI COLONY COUNT 30,000 - 40,000 CFU/ml 3. Neurogenic bladder 2/2 advanced MS 4. Hypertension 5. Paroxysmal Afib, Status post atypical chest pain. 6. Metabolic encephalopathy -> MRI Brain 07/21/17, no acute findings 7. QUERY SZS Activity ? Bilateral eye twitching -- caregiver tells me r/t "Trigeminal neuralgia" occurs right before headaches when patient needs pain meds? 8. Dysphagia -> Peg (- )MRSA Nares ABX ALLERGIES: Sulfa/Iodine CURRENT ABX: TOTAL ABX DAY #5 => Cefepime #2 s/p Ceftriaxone x1 07/17 s/p Tobra IV 07/18 - 07/21 ID RECOMMENDATIONS 1. Continue Cefepime 2. Aspiration precautions 3. RN advised to take a look at the bilateral eye twitching, let Neuro know when rounding. . Problems: Consultation Date/Type/Reason Admit Date/Time Jul 15, 2017 at 21:05 Initial Consult Date 07/21/17 Type of Consultation: ID Referring Provider: ANGELINA CARUSO MD Exam/Review of Systems Vital Signs Vitals Vital Signs Date Time Temp Pulse Resp B/P Pulse Ox O2 Delivery O2 Flow Rate FiO2 07/22/17 09:00 69 23 121/58 100 Nasal Cannula 1.0 07/22/17 07:00 99.1 Intake and Output 07/21/17 07/21/17 07/22/17 15:00 23:00 07:00 Intake Total 370 ml 930 ml 700 ml Balance 370 ml 930 ml 700 ml Results Result Diagram: 07/22/17 0616 07/22/17 0616 Results 24 hrs Laboratory Tests Test 07/22/17 06:16 White Blood Count 12.8 H Red Blood Count 4.67 Hemoglobin 12.8 Hematocrit 39.8 Mean Corpuscular Volume 85.2 Mean Corpuscular Hemoglobin 27.4 L Mean Corpuscular Hemoglobin Concent 32.2 Red Cell Distribution Width 14.4 Platelet Count 282 Mean Platelet Volume 11.6 H Neutrophils % 65.3 Lymphocytes % 25.4 Monocytes % 7.4 Eosinophils % 1.1 Basophils % 0.5 Nucleated Red Blood Cells % 0.0 Neutrophils # 8.4 H Lymphocytes # 3.3 H Monocytes # 1.0 H Eosinophils # 0.1 Basophils # 0.1 Nucleated Red Blood Cells # 0.0 Sodium Level 133 L Potassium Level 4.1 Chloride Level 102 Carbon Dioxide Level 29 Anion Gap 6 #L Blood Urea Nitrogen 16 Creatinine 0.42 L Glucose Level 106 Calcium Level 9.5 Medications Medications Current Medications Aspirin (Aspirin) 325 mg DAILY GTB Last administered on 07/22/17 08:15; Admin Dose 325 MG; Start 07/16/17 at 09:00 Nitroglycerin (Nitroglycerin (Sl Tab) 0.4 Mg) 1 tab Q5M PRN SL ANGINA; Start 07/16/17 at 00:00 Enoxaparin Sodium (Lovenox) 40 mg DAILY SC Last administered on 07/22/17 08: 21; Admin Dose 40 MG; Start 07/16/17 at 09:00 Acetaminophen (Tylenol Liquid) 650 mg Q6 PRN GTB PAIN AND OR ELEVATED TEMP Last administered on 07/19/17 16:42; Admin Dose 650 MG; Start 07/16/17 at 01: 30 Bisacodyl (Dulcolax Supp) 10 mg Q48H PRN [place] CONSTIPATION; Start 07/16/17 at 09: 00 Clonazepam (Klonopin) 0.25 mg Q12 PRN GTB ANXIETY Last administered on 16:04; Admin Dose 0.25 MG; Start 07/16/17 at 01:30 Acetaminophen/ Hydrocodone Bitart ([place] (5/325)) 1 tab Q6 PRN GTB PAIN Last administered on 07/21/17 12:55; Admin Dose 1 TAB; Start 07/16/17 at 01:30 Polyethylene Glycol (Miralax) 17 gm DAILY PRN GTB CONSTIPATION; Start 07/16/17 at 01:30 Sodium Chloride (Nacl) 1 gm TID GTB Last administered on 07/22/17 08:15; Admin Dose 1 GM; Start 07/16/17 at 09:00 Metoprolol Tartrate (Lopressor) 25 mg BID GTB Last administered on 07/22/17 08:16; Admin Dose 25 MG; Start 07/16/17 at 09:00 Sodium Biphosphate/ Sodium Phosphate (Fleet Enema) 133 ml Q72H [place] Last administered on 07/19/17 13:40; Admin Dose 133 ML; Start 07/16/17 at 09:00 Amlodipine Besylate (Norvasc) 5 mg DAILY GTB Last administered on 07/22/17 08 :16; Admin Dose 5 MG; Start 07/16/17 at 10:00 Gabapentin (Neurontin Liquid) 400 mg TID GTB Last administered on 07/20/17 21 :03; Admin Dose 400 MG; Start 07/16/17 at 21:00; Status Future Hold Estrogens Conjugated (Premarin Vaginal Cr) 1 applic MONWEDFRI@21 VAG Last administered on 07/21/17 21:12; Admin Dose 1 APPLIC; Start 07/17/17 at 21:00 Patient Own Medication 1 ea BID PO Last administered on 07/20/17 21:02; Admin Dose 1 EA; Start 07/17/17 at 09:00 Hydralazine HCl (Apresoline) 25 mg TID GTB Last administered on 07/22/17 08: 16; Admin Dose 25 MG; Start 07/18/17 at 21:30 Hydralazine HCl 10 mg 10 mg Q4H PRN IV SBP >160; Start 07/20/17 at 17:30 Cefepime HCl (Maxipime 1gm/50 ml (Pmx)) 50 ml @ 100 mls/hr Q12 IVPB Last administered on 07/22/17 08:16; Admin Dose 100 MLS/HR; Start 07/21/17 at 21: 00 Metoprolol Tartrate (Lopressor) 5 mg Q4H PRN IV HR>110 Hold SBP<100; Start at 15:00 ANYA OLMEDO NP Jul 22, 2017 09:09
--- NOTE | 2017-07-22 10:35 | PN ---
Date/Time of Note Date/Time of Note DATE: 07/22/17 TIME: 10:33 Assessment/Plan VTE Prophylaxis VTE Prophylaxis Intervention: other Lines/Catheters IV [facility]ter Type [facility]from [facility]): Saline Lock Urinary Cath still in place: No Assessment/Plan Chief Complaint/Hosp Course - CECILIA versus seizures versus acute metabolic encephalopathy, no evidence of acute CVA, will transfer to telemetry - Atrial fibrillation, continue aspirin, Dr. Ferrara is asked to see patient in cardiology consultation - Atypical chest pain, rule out myocardial infarction. Cardiac enzymes negative 3. Unable to undergo to pulmonary angiogram due to allergy to iodine. VQ scan is low probability for PE. - MDR Proteus UTI, continue tobramycin, Dr Salas is following in ID consultation. - Advanced multiple sclerosis, bed to wheelchair bound total care. - Hypertension, continue metoprolol and Norvasc - Dysphagia. Continue G-tube feeding. - Hx Breast cancer. Problems: Subjective 24 Hr Interval Summary Free Text/Dictation Patient lying in bed with eyes open, arms in contracture, verbally responsive Exam/Review of Systems Vital Signs Vitals Vital Signs Date Time Temp Pulse Resp B/P Pulse Ox O2 Delivery O2 Flow Rate FiO2 07/22/17 10:00 67 30 122/62 100 Nasal Cannula 1.0 07/22/17 07:00 99.1 Intake and Output 07/21/17 07/21/17 07/22/17 15:00 23:00 07:00 Intake Total 370 ml 930 ml 700 ml Balance 370 ml 930 ml 700 ml Exam Constitutional: well developed Head: atraumatic, normocephalic Neck: supple Respiratory: clear to auscultation Cardiovascular: regular rate and rhythm Gastrointestinal: non-tender, soft Extremities: normal pulses Results Result Diagram: 07/22/17 0616 07/22/17 0616 Results 24 hrs Laboratory Tests Test 07/22/17 06:16 White Blood Count 12.8 H Red Blood Count 4.67 Hemoglobin 12.8 Hematocrit 39.8 Mean Corpuscular Volume 85.2 Mean Corpuscular Hemoglobin 27.4 L Mean Corpuscular Hemoglobin Concent 32.2 Red Cell Distribution Width 14.4 Platelet Count 282 Mean Platelet Volume 11.6 H Neutrophils % 65.3 Lymphocytes % 25.4 Monocytes % 7.4 Eosinophils % 1.1 Basophils % 0.5 Nucleated Red Blood Cells % 0.0 Neutrophils # 8.4 H Lymphocytes # 3.3 H Monocytes # 1.0 H Eosinophils # 0.1 Basophils # 0.1 Nucleated Red Blood Cells # 0.0 Sodium Level 133 L Potassium Level 4.1 Chloride Level 102 Carbon Dioxide Level 29 Anion Gap 6 #L Blood Urea Nitrogen 16 Creatinine 0.42 L Glucose Level 106 Calcium Level 9.5 Medications Medications Current Medications Aspirin (Aspirin) 325 mg DAILY GTB Last administered on 07/22/17 08:15; Admin Dose 325 MG; Start 07/16/17 at 09:00 Nitroglycerin (Nitroglycerin (Sl Tab) 0.4 Mg) 1 tab Q5M PRN SL ANGINA; Start 07/16/17 at 00:00 Enoxaparin Sodium (Lovenox) 40 mg DAILY SC Last administered on 07/22/17 08: 21; Admin Dose 40 MG; Start 07/16/17 at 09:00 Acetaminophen (Tylenol Liquid) 650 mg Q6 PRN GTB PAIN AND OR ELEVATED TEMP Last administered on 07/19/17 16:42; Admin Dose 650 MG; Start 07/16/17 at 01: 30 Bisacodyl (Dulcolax Supp) 10 mg Q48H PRN [place] CONSTIPATION; Start 07/16/17 at 09: 00 Clonazepam (Klonopin) 0.25 mg Q12 PRN GTB ANXIETY Last administered on 16:04; Admin Dose 0.25 MG; Start 07/16/17 at 01:30 Acetaminophen/ Hydrocodone Bitart ([place] (5/325)) 1 tab Q6 PRN GTB PAIN Last administered on 07/21/17 12:55; Admin Dose 1 TAB; Start 07/16/17 at 01:30 Polyethylene Glycol (Miralax) 17 gm DAILY PRN GTB CONSTIPATION; Start 07/16/17 at 01:30 Sodium Chloride (Nacl) 1 gm TID GTB Last administered on 07/22/17 08:15; Admin Dose 1 GM; Start 07/16/17 at 09:00 Metoprolol Tartrate (Lopressor) 25 mg BID GTB Last administered on 07/22/17 08:16; Admin Dose 25 MG; Start 07/16/17 at 09:00 Sodium Biphosphate/ Sodium Phosphate (Fleet Enema) 133 ml Q72H [place] Last administered on 07/19/17 13:40; Admin Dose 133 ML; Start 07/16/17 at 09:00 Amlodipine Besylate (Norvasc) 5 mg DAILY GTB Last administered on 07/22/17 08 :16; Admin Dose 5 MG; Start 07/16/17 at 10:00 Gabapentin (Neurontin Liquid) 400 mg TID GTB Last administered on 07/20/17 21 :03; Admin Dose 400 MG; Start 07/16/17 at 21:00; Status Future Hold Estrogens Conjugated (Premarin Vaginal Cr) 1 applic MONWEDFRI@21 VAG Last administered on 07/21/17 21:12; Admin Dose 1 APPLIC; Start 07/17/17 at 21:00 Patient Own Medication 1 ea BID PO Last administered on 07/20/17 21:02; Admin Dose 1 EA; Start 07/17/17 at 09:00 Hydralazine HCl (Apresoline) 25 mg TID GTB Last administered on 07/22/17 08: 16; Admin Dose 25 MG; Start 07/18/17 at 21:30 Hydralazine HCl 10 mg 10 mg Q4H PRN IV SBP >160; Start 07/20/17 at 17:30 Cefepime HCl (Maxipime 1gm/50 ml (Pmx)) 50 ml @ 100 mls/hr Q12 IVPB Last administered on 07/22/17 08:16; Admin Dose 100 MLS/HR; Start 07/21/17 at 21: 00 Metoprolol Tartrate (Lopressor) 5 mg Q4H PRN IV HR>110 Hold SBP<100; Start at 15:00 PONCE MURGUIA Jul 22, 2017 10:35
--- NOTE | 2017-07-22 12:07 | CONS ---
Date/Time of Note Date/Time of Note DATE: 07/22/17 TIME: 12:05 Assessment/Plan Assessment/Plan Additional Assessment/Plan 1. Paroxysmal atrial fibrillation- now in sinus with PACs - con't to monitor clinically. 2. Abnormal electrocardiogram, assess for acute coronary syndrome- will follow - A. tach noted, stable overall. 3. Hypertension - modest Rx, in good range now. 4. Possible acute cerebrovascular accident- defer to primary team. 5. Urinary tract infection - on anti-Bx, improved Leukocytosis. Consultation Date/Type/Reason Admit Date/Time Jul 15, 2017 at 21:05 Initial Consult Date 07/21/17 Type of Consultation: ID Referring Provider: ANGELINA CARUSO MD 24 HR Interval Summary Free Text/Dictation No acute events - not in a. fib now, rate well controlled. ROS: No fever, no chills, no nausea, no vomiting, no diarrhea/constipation No recent weight changes No chest pain, no PND, no orthopnea No dizziness, blurred vision No thirst, no heat or cold intolerance (per nurse) Exam/Review of Systems Vital Signs Vitals Vital Signs Date Time Temp Pulse Resp B/P Pulse Ox O2 Delivery O2 Flow Rate FiO2 07/22/17 11:00 72 25 135/71 100 Nasal Cannula 1.0 07/22/17 07:00 99.1 Intake and Output 07/21/17 07/21/17 07/22/17 15:00 23:00 07:00 Intake Total 370 ml 930 ml 700 ml Balance 370 ml 930 ml 700 ml Exam General: WN/WD/NAD, AOx comfortable HEENT: Unicetric/atraumatic/EOMI (does not follow commands) NECK: JVD elevated, no thyromegaly Lymph: no lymphadenopathy HEART: regular with no S3, II/ systolic murmur at apex LUNGS: Coarse sounds ABD: soft, NT, ND, +BS : Intact Neuro: non focal SKIN: chronic changes EXT: trace edema Results Result Diagram: 07/22/1716 07/22/17 0616 Results 24 hrs Laboratory Tests Test 07/22/17 06:16 White Blood Count 12.8 H Red Blood Count 4.67 Hemoglobin 12.8 Hematocrit 39.8 Mean Corpuscular Volume 85.2 Mean Corpuscular Hemoglobin 27.4 L Mean Corpuscular Hemoglobin Concent 32.2 Red Cell Distribution Width 14.4 Platelet Count 282 Mean Platelet Volume 11.6 H Neutrophils % 65.3 Lymphocytes % 25.4 Monocytes % 7.4 Eosinophils % 1.1 Basophils % 0.5 Nucleated Red Blood Cells % 0.0 Neutrophils # 8.4 H Lymphocytes # 3.3 H Monocytes # 1.0 H Eosinophils # 0.1 Basophils # 0.1 Nucleated Red Blood Cells # 0.0 Sodium Level 133 L Potassium Level 4.1 Chloride Level 102 Carbon Dioxide Level 29 Anion Gap 6 #L Blood Urea Nitrogen 16 Creatinine 0.42 L Glucose Level 106 Calcium Level 9.5 Medications Medications Current Medications Aspirin (Aspirin) 325 mg DAILY GTB Last administered on 07/22/17 08:15; Admin Dose 325 MG; Start 07/16/17 at 09:00 Nitroglycerin (Nitroglycerin (Sl Tab) 0.4 Mg) 1 tab Q5M PRN SL ANGINA; Start 07/16/17 at 00:00 Enoxaparin Sodium (Lovenox) 40 mg DAILY SC Last administered on 07/22/17 08: 21; Admin Dose 40 MG; Start 07/16/17 at 09:00 Acetaminophen (Tylenol Liquid) 650 mg Q6 PRN GTB PAIN AND OR ELEVATED TEMP Last administered on 07/19/17 16:42; Admin Dose 650 MG; Start 07/16/17 at 01: 30 Bisacodyl (Dulcolax Supp) 10 mg Q48H PRN [place] CONSTIPATION; Start 07/16/17 at 09: 00 Clonazepam (Klonopin) 0.25 mg Q12 PRN GTB ANXIETY Last administered on 16:04; Admin Dose 0.25 MG; Start 07/16/17 at 01:30 Acetaminophen/ Hydrocodone Bitart ([place] (5/325)) 1 tab Q6 PRN GTB PAIN Last administered on 07/21/17 12:55; Admin Dose 1 TAB; Start 07/16/17 at 01:30 Polyethylene Glycol (Miralax) 17 gm DAILY PRN GTB CONSTIPATION; Start 07/16/17 at 01:30 Sodium Chloride (Nacl) 1 gm TID GTB Last administered on 07/22/17 08:15; Admin Dose 1 GM; Start 07/16/17 at 09:00 Metoprolol Tartrate (Lopressor) 25 mg BID GTB Last administered on 07/22/17 08:16; Admin Dose 25 MG; Start 07/16/17 at 09:00 Sodium Biphosphate/ Sodium Phosphate (Fleet Enema) 133 ml Q72H [place] Last administered on 07/19/17 13:40; Admin Dose 133 ML; Start 07/16/17 at 09:00 Amlodipine Besylate (Norvasc) 5 mg DAILY GTB Last administered on 07/22/17 08 :16; Admin Dose 5 MG; Start 07/16/17 at 10:00 Gabapentin (Neurontin Liquid) 400 mg TID GTB Last administered on 07/20/17 21 :03; Admin Dose 400 MG; Start 07/16/17 at 21:00; Status Future Hold Estrogens Conjugated (Premarin Vaginal Cr) 1 applic MONWEDFRI@21 VAG Last administered on 07/21/17 21:12; Admin Dose 1 APPLIC; Start 07/17/17 at 21:00 Patient Own Medication 1 ea BID PO Last administered on 07/20/17 21:02; Admin Dose 1 EA; Start 07/17/17 at 09:00 Hydralazine HCl (Apresoline) 25 mg TID GTB Last administered on 07/22/17 08: 16; Admin Dose 25 MG; Start 07/18/17 at 21:30 Hydralazine HCl 10 mg 10 mg Q4H PRN IV SBP >160; Start 07/20/17 at 17:30 Cefepime HCl (Maxipime 1gm/50 ml (Pmx)) 50 ml @ 100 mls/hr Q12 IVPB Last administered on 07/22/17 08:16; Admin Dose 100 MLS/HR; Start 07/21/17 at 21: 00 Metoprolol Tartrate (Lopressor) 5 mg Q4H PRN IV HR>110 Hold SBP<100; Start at 15:00 KRISTOFER SUTHERLAND MD Jul 22, 2017 12:07
[2017-07-22] MEDS: HYDROCODONE/APAP (5/325) TAB GTB PRN (14:12)
--- NOTE | 2017-07-22 14:39 | CONS ---
Date/Time of Note Date/Time of Note DATE: 07/22/17 TIME: 14:36 Assessment/Plan Assessment/Plan Chief Complaint/Hosp Course Altered mental status and confusion in a patient of advanced MS Problems: Additional Assessment/Plan Patient is a 81-year-old woman nursing home facility resident with contractures all 4 extremities was admitted following found altered, confused and was brought into emergency room for evaluation. A CT scan of the brain showed atrophy, white matter disease, nothing acute. Patient was seen by telemetry neurologist also. MRI of the brain showed atrophy, chronic bihemispheric small vessel disease, nothing acute. EEG showed left frontal temporal sharps. On initial evaluation she was found to have urosepsis with WBC of 14.7. Neurology consult was called to evaluate her neurological status. Examination was very limited. She appears to have encephalopathy due to urosepsis. Plan 1 start on Keppra 500 mg IV twice daily 2 continue antibiotics 3 will follow Consultation Date/Type/Reason Admit Date/Time Jul 15, 2017 at 21:05 Initial Consult Date 07/21/17 Type of Consultation: ID Referring Provider: ANGELINA CARUSO MD 24 HR Interval Summary Free Text/Dictation Clinically unchanged. EEG showed left frontotemporal sharps. Exam/Review of Systems Vital Signs Vitals Vital Signs Date Time Temp Pulse Resp B/P Pulse Ox O2 Delivery O2 Flow Rate FiO2 07/22/17 13:00 80 29 128/63 100 Nasal Cannula 1.0 07/22/17 12:00 98.7 Intake and Output 07/21/17 07/21/17 07/22/17 15:00 23:00 07:00 Intake Total 370 ml 930 ml 700 ml Balance 370 ml 930 ml 700 ml Exam Constitutional: alert, oriented, well developed Psych: nl mood/affect, no complaints Head: atraumatic, normocephalic Eyes: EOMI, nl conjunctiva, nl lids ENMT: nl external ears & nose, nl lips & teeth, nl nasal mucosa & septum Neck: non-tender, supple Respiratory: clear to auscultation, normal air movement Cardiovascular: nl pulses, regular rate and rhythm Gastrointestinal: nl liver, spleen, non-tender, soft Neurological: other (Limited exam, alert and awake, following simple commands, withdrawing appropriately to noxious stimulus) Results Result Diagram: 07/22/1716 10/14/17 0616 Results 24 hrs Laboratory Tests Test 07/22/17 06:16 White Blood Count 12.8 H Red Blood Count 4.67 Hemoglobin 12.8 Hematocrit 39.8 Mean Corpuscular Volume 85.2 Mean Corpuscular Hemoglobin 27.4 L Mean Corpuscular Hemoglobin Concent 32.2 Red Cell Distribution Width 14.4 Platelet Count 282 Mean Platelet Volume 11.6 H Neutrophils % 65.3 Lymphocytes % 25.4 Monocytes % 7.4 Eosinophils % 1.1 Basophils % 0.5 Nucleated Red Blood Cells % 0.0 Neutrophils # 8.4 H Lymphocytes # 3.3 H Monocytes # 1.0 H Eosinophils # 0.1 Basophils # 0.1 Nucleated Red Blood Cells # 0.0 Sodium Level 133 L Potassium Level 4.1 Chloride Level 102 Carbon Dioxide Level 29 Anion Gap 6 #L Blood Urea Nitrogen 16 Creatinine 0.42 L Glucose Level 106 Calcium Level 9.5 Medications Medications Current Medications Aspirin (Aspirin) 325 mg DAILY GTB Last administered on 07/22/17 08:15; Admin Dose 325 MG; Start 07/16/17 at 09:00 Nitroglycerin (Nitroglycerin (Sl Tab) 0.4 Mg) 1 tab Q5M PRN SL ANGINA; Start 07/16/17 at 00:00 Enoxaparin Sodium (Lovenox) 40 mg DAILY SC Last administered on 07/22/17 08: 21; Admin Dose 40 MG; Start 07/16/17 at 09:00 Acetaminophen (Tylenol Liquid) 650 mg Q6 PRN GTB PAIN AND OR ELEVATED TEMP Last administered on 07/19/17 16:42; Admin Dose 650 MG; Start 07/16/17 at 01: 30 Bisacodyl (Dulcolax Supp) 10 mg Q48H PRN [place] CONSTIPATION; Start 07/16/17 at 09: 00 Clonazepam (Klonopin) 0.25 mg Q12 PRN GTB ANXIETY Last administered on 16:04; Admin Dose 0.25 MG; Start 07/16/17 at 01:30 Acetaminophen/ Hydrocodone Bitart ([place] (5/325)) 1 tab Q6 PRN GTB PAIN Last administered on 07/22/17 14:12; Admin Dose 1 TAB; Start 07/16/17 at 01:30 Polyethylene Glycol (Miralax) 17 gm DAILY PRN GTB CONSTIPATION; Start 07/16/17 at 01:30 Sodium Chloride (Nacl) 1 gm TID GTB Last administered on 07/22/17 12:22; Admin Dose 1 GM; Start 07/16/17 at 09:00 Metoprolol Tartrate (Lopressor) 25 mg BID GTB Last administered on 07/22/17 08:16; Admin Dose 25 MG; Start 07/16/17 at 09:00 Sodium Biphosphate/ Sodium Phosphate (Fleet Enema) 133 ml Q72H [place] Last administered on 07/19/17 13:40; Admin Dose 133 ML; Start 07/16/17 at 09:00 Amlodipine Besylate (Norvasc) 5 mg DAILY GTB Last administered on 07/22/17 08 :16; Admin Dose 5 MG; Start 07/16/17 at 10:00 Gabapentin (Neurontin Liquid) 400 mg TID GTB Last administered on 07/20/17 21 :03; Admin Dose 400 MG; Start 07/16/17 at 21:00; Status Future Hold Estrogens Conjugated (Premarin Vaginal Cr) 1 applic MONWEDFRI@21 VAG Last administered on 07/21/17 21:12; Admin Dose 1 APPLIC; Start 07/17/17 at 21:00 Patient Own Medication 1 ea BID PO Last administered on 07/20/17 21:02; Admin Dose 1 EA; Start 07/17/17 at 09:00 Hydralazine HCl (Apresoline) 25 mg TID GTB Last administered on 07/22/17 12: 21; Admin Dose 25 MG; Start 07/18/17 at 21:30 Hydralazine HCl 10 mg 10 mg Q4H PRN IV SBP >160; Start 07/20/17 at 17:30 Cefepime HCl (Maxipime 1gm/50 ml (Pmx)) 50 ml @ 100 mls/hr Q12 IVPB Last administered on 07/22/17 08:16; Admin Dose 100 MLS/HR; Start 07/21/17 at 21: 00 Metoprolol Tartrate (Lopressor) 5 mg Q4H PRN IV HR>110 Hold SBP<100; Start at 15:00 CATIE GRUBBS MD Jul 22, 2017 14:39
--- NOTE | 2017-07-22 15:21 | RADRPT ---
PROCEDURE: XR Chest. CLINICAL INDICATION: PICC line placement TECHNIQUE: AP view of the chest was obtained. COMPARISON: 07/22/2017 FINDINGS: Right upper extremity PICC line redemonstrated with the tip now visualized at the SVC/right atrial j unction in satisfactory position. There are atherosclerotic calcifications of the thoracic aorta. The cardiomediastinal silhouette is within normal limits. There is a persistent right hemidiaphragm elevation. Left hand partly obscures the left lung. No consolidation, pleural effusion or pneumotho rax is seen. IMPRESSION: PICC line with the tip at the SVC/right atrial junction, in satisfactory position. RPTAT: QQ .Tono Stanton MD, Date Time Electronically viewed and signed by .Tono Stanton MD, on 07/22/2017 15:21 .O/
--- NOTE | 2017-07-22 15:22 | RADRPT ---
PROCEDURE: XR Chest. CLINICAL INDICATION: PICC line placement TECHNIQUE: AP view of the chest was obtained. COMPARISON: 07/21/2017 FINDINGS: Right upper extremity PICC line placed with the tip visualized at the SVC region in satisfactory pos ition. There are atherosclerotic calcifications of the thoracic aorta. The cardiomediastinal silho uette is within normal limits. There is a persistent right hemidiaphragm elevation. Left hand partl y obscures the left lung. No consolidation, pleural effusion or pneumothorax is seen. IMPRESSION: PICC line with the tip at the SVC junction, in satisfactory position. RPTAT: QQ .Tono Stanton MD, MD Date Time Electronically viewed and signed by .Tono Stanton MD, on 07/22/2017 15:21 .O/
--- NOTE | 2017-07-22 16:59 | RADRPT ---
PROCEDURE: US guidance for PICC line CLINICAL INDICATION: PICC line placement TECHNIQUE: Multiple real-time images were acquired of the patient's arm utilizing a high resolutio n transducer. This was performed by the PICC line nurse for venous access. COMPARISON: None FINDINGS: Ultrasound guidance for PICC line placement. IMPRESSION: Ultrasound guidance for PICC line placement. RPTAT: AA .Senthil Esteban MD, MD Date Time Electronically viewed and signed by .Senthil Esteban MD, on 07/22/2017 16:58 .S/
[2017-07-23] VITALS (11 sets, daily range): BP systolic 124–133; BP diastolic 58–78; PULSE 85–107; RESP 16–20
[2017-07-23] MEDS: HYDROCODONE/APAP (5/325) TAB GTB PRN ×3 (02:41→14:12)
--- NOTE | 2017-07-23 07:41 | SP ---
DATE OF PROCEDURE: 07/21/2017 HISTORY: This is a 81-year-old woman who was admitted with altered mental status, loss of conscious ness, encephalopathy and possible seizures. CURRENT MEDICATIONS: Klonopin. PROCEDURE: Utilizing a 16-channel EEG machine, cap scalp electrodes were applied in accordance with International 10-20 system. [id number] and urzdi-[id number] montages were displayed. Electrical i mpedances were measured and reported. DESCRIPTION: During the resting state, posterior dominant rhythm of about 7 to 8 Hz were seen bihem ispherically. Photic stimulation had a good response. Hyperventilation was not performed. Left fr ontotemporal sharps were noted at times during the tracing. INTERPRETATION: This is an abnormal EEG due to the presence of mild generalized bihemispheric backg round slowing consistent with encephalopathy with left frontotemporal sharps which could be epilepto genic. Please correlate these findings with the patient's clinical picture. Dictated By: CATIE FRANKLIN/ANGIE Conf#: [id number] DID#: [id number]
[2017-07-23] MEDS: ASPIRIN 325 MG TAB GTB SCH (09:05)
[2017-07-23] MEDS: SODIUM CHLORIDE 1 GM TAB GTB SCH ×3 (09:05→20:27)
[2017-07-23] MEDS: AMLODIPINE 5 MG TAB GTB SCH (09:06)
[2017-07-23] MEDS: METOPROLOL 25 MG TAB GTB SCH ×2 (09:06→20:27)
[2017-07-23] MEDS: CEFEPIME 1GM/50 ML (PMX) 50 ML IVPB SCH ×2 (09:07→20:28)
[2017-07-23] MEDS: ENOXAPARIN 40 MG/0.4 ML SYG SC SCH (09:20)
--- NOTE | 2017-07-23 12:04 | CONS ---
Date/Time of Note Date/Time of Note DATE: 07/23/17 TIME: 12:01 Assessment/Plan Assessment/Plan Chief Complaint/Hosp Course ID PROGRESS NOTE CURRENT ABX: TOTAL ABX DAY #6 => Cefepime #3 s/p Ceftriaxone x1 07/17 s/p Tobra IV 07/18 - 07/21 24H INTERVAL SUMMARY * New PICC LINE -- TNS out of ICU -- stable -- Awake, alert, oriented to name, confused, BUEXT contracted * Overweight F opens eyes to verbal command, (+)bilateral eye twitching? -- resting w/supplemental O2 via NC * CT & MRI Braiin 07/21/17: No acute findings * URINE CULTURE Final Organism 1 PROTEUS MIRABILIS COLONY COUNT >100,000 CFU/ml Organism 2 ESCHERICHIA COLI COLONY COUNT 30,000 - 40,000 CFU/ml P. MIRAB E COLI M.I.C. RX M.I.C. RX --------- --- --------- --- AMPICILLIN <=2 S >=32 R CEFAZOLIN S CEFOTAXIME S S CIPROFLOXACIN >=4 R 0.5 S GENTAMICIN <=1 S <=1 S LEVOFLOXACIN >=8 R 1 S NITROFURANTOIN 128 R 32 S TOBRAMYCIN <=1 S <=1 S TRIMETHOPRIM/SULFAMETHOXAZOLE <=20 S <=20 S * labs 07/22/17 0616 07/22/17 0616 Physical Exam Physical Exam Constitutional: VSS, NAD HEENT: Unremarkable Neck: Supple, full ROM Respiratory: clear to auscultation, normal air movement Cardiovascular: nl pulses, regular rate and rhythm Gastrointestinal: Soft, NT Extremities: Warm w/BUEXT contractions ID ASSESSMENT 81 yo F PMHx Breast Cancer + Advanced Multiple Sclerosis admit with: 1. SIRS w/low grade fevers, leukocytosis -> 2/2 #2 * s/p sepsis with acute SOB, AFib w/RVR, atypical chest pain, TMax 100.+ 2. Complicated polymicrobial GNR UTI * 07/16/17 URINE CULTURE Final Organism 1 PROTEUS MIRABILIS COLONY COUNT >100,000 CFU/ml Organism 2 ESCHERICHIA COLI COLONY COUNT 30,000 - 40,000 CFU/ml 3. Neurogenic bladder 2/2 advanced MS 4. Hypertension 5. Paroxysmal Afib, Status post atypical chest pain. 6. Metabolic encephalopathy -> MRI Brain 07/21/17, no acute findings 7. QUERY SZS Activity ? Bilateral eye twitching -- caregiver tells me r/t "Trigeminal neuralgia" occurs right before headaches when patient needs pain meds? 8. Dysphagia -> Peg (- )MRSA Nares INVASIVES: PICC 07/22/17 ABX ALLERGIES: Sulfa/Iodine CURRENT ABX: TOTAL ABX DAY #6 => Cefepime #3 s/p Ceftriaxone x1 07/17 s/p Tobra IV 07/18 - 07/21 ID RECOMMENDATIONS 1. Continue Cefepime-> anticipate ABX until last day 2. Aspiration precautions . Problems: Consultation Date/Type/Reason Admit Date/Time Jul 15, 2017 at 21:05 Initial Consult Date 07/21/17 Type of Consultation: ID Referring Provider: ANGELINA CARUSO MD Exam/Review of Systems Vital Signs Vitals Vital Signs Date Time Temp Pulse Resp B/P Pulse Ox O2 Delivery O2 Flow Rate FiO2 07/23/17 11:30 98.6 72 16 124/58 97 07/23/17 11:19 1.0 07/23/17 08:00 Nasal Cannula 07/23/17 01:12 23 Intake and Output 07/22/17 07/22/17 07/23/17 15:00 23:00 07:00 Intake Total 735 ml 360 ml 310 ml Balance 735 ml 360 ml 310 ml Results Result Diagram: 07/22/1716 07/22/17 0616 Medications Medications Current Medications Aspirin (Aspirin) 325 mg DAILY GTB Last administered on 07/23/17 09:05; Admin Dose 325 MG; Start 07/16/17 at 09:00 Nitroglycerin (Nitroglycerin (Sl Tab) 0.4 Mg) 1 tab Q5M PRN SL ANGINA; Start 07/16/17 at 00:00 Enoxaparin Sodium (Lovenox) 40 mg DAILY SC Last administered on 07/23/17 09: 20; Admin Dose 40 MG; Start 07/16/17 at 09:00 Acetaminophen (Tylenol Liquid) 650 mg Q6 PRN GTB PAIN AND OR ELEVATED TEMP Last administered on 07/19/17 16:42; Admin Dose 650 MG; Start 07/16/17 at 01: 30 Bisacodyl (Dulcolax Supp) 10 mg Q48H PRN [place] CONSTIPATION; Start 07/16/17 at 09: 00 Clonazepam (Klonopin) 0.25 mg Q12 PRN GTB ANXIETY Last administered on 16:04; Admin Dose 0.25 MG; Start 07/16/17 at 01:30 Acetaminophen/ Hydrocodone Bitart ([place] (5/325)) 1 tab Q6 PRN GTB PAIN Last administered on 07/23/17 09:06; Admin Dose 1 TAB; Start 07/16/17 at 01:30 Polyethylene Glycol (Miralax) 17 gm DAILY PRN GTB CONSTIPATION; Start 07/16/17 at 01:30 Sodium Chloride (Nacl) 1 gm TID GTB Last administered on 07/23/17 09:05; Admin Dose 1 GM; Start 07/16/17 at 09:00 Metoprolol Tartrate (Lopressor) 25 mg BID GTB Last administered on 07/23/17 09:06; Admin Dose 25 MG; Start 07/16/17 at 09:00 Sodium Biphosphate/ Sodium Phosphate (Fleet Enema) 133 ml Q72H [place] Last administered on 07/19/17 13:40; Admin Dose 133 ML; Start 07/16/17 at 09:00 Amlodipine Besylate (Norvasc) 5 mg DAILY GTB Last administered on 07/23/17 09 :06; Admin Dose 5 MG; Start 07/16/17 at 10:00 Gabapentin (Neurontin Liquid) 400 mg TID GTB Last administered on 07/20/17 21 :03; Admin Dose 400 MG; Start 07/16/17 at 21:00; Status Future Hold Estrogens Conjugated (Premarin Vaginal Cr) 1 applic MONWEDFRI@21 VAG Last administered on 07/21/17 21:12; Admin Dose 1 APPLIC; Start 07/17/17 at 21:00 Patient Own Medication 1 ea BID PO Last administered on 07/20/17 21:02; Admin Dose 1 EA; Start 07/17/17 at 09:00 Hydralazine HCl (Apresoline) 25 mg TID GTB Last administered on 07/23/17 09: 07; Admin Dose 25 MG; Start 07/18/17 at 21:30 Hydralazine HCl 10 mg 10 mg Q4H PRN IV SBP >160; Start 07/20/17 at 17:30 Cefepime HCl (Maxipime 1gm/50 ml (Pmx)) 50 ml @ 100 mls/hr Q12 IVPB Last administered on 07/23/17 09:07; Admin Dose 100 MLS/HR; Start 07/21/17 at 21: 00 Metoprolol Tartrate (Lopressor) 5 mg Q4H PRN IV HR>110 Hold SBP<100; Start at 15:00 IV Flush (NS 10 ml) 10 ml PRN PRN IV IV PROTOCOL; Start 07/22/17 at 17:00 ANYA OLMEDO NP Jul 23, 2017 12:04
--- NOTE | 2017-07-23 12:35 | CONS ---
Date/Time of Note Date/Time of Note DATE: 07/23/17 TIME: 12:33 Assessment/Plan Assessment/Plan Additional Assessment/Plan 1. Paroxysmal atrial fibrillation- now in sinus with PACs - con't to monitor clinically. SINUS NOW A. fib last night, converted up to 106 rate. . 2. Abnormal electrocardiogram, assess for acute coronary syndrome- will follow - A. tach noted, stable overall. 3. Hypertension - modest Rx, in good range now. BETTER now. 4. Possible acute cerebrovascular accident- defer to primary team. 5. Urinary tract infection - on anti-Bx, improved Leukocytosis. Consultation Date/Type/Reason Admit Date/Time Jul 15, 2017 at 21:05 Initial Consult Date 07/21/17 Type of Consultation: ID Referring Provider: ANGELINA CARUSO MD 24 HR Interval Summary Free Text/Dictation SINUS NOW A. fib last night, converted up to 106 rate. . ROS: No fever, no chills, no nausea, no vomiting, no diarrhea/constipation No recent weight changes No chest pain, no PND, no orthopnea No dizziness, blurred vision No thirst, no heat or cold intolerance Exam/Review of Systems Vital Signs Vitals Vital Signs Date Time Temp Pulse Resp B/P Pulse Ox O2 Delivery O2 Flow Rate FiO2 07/23/17 12:22 85 07/23/17 11:30 98.6 16 124/58 97 07/23/17 11:19 1.0 07/23/17 08:00 Nasal Cannula 07/23/17 01:12 23 Intake and Output 07/22/17 07/22/17 07/23/17 15:00 23:00 07:00 Intake Total 735 ml 360 ml 310 ml Balance 735 ml 360 ml 310 ml Exam General: WN/WD/NAD, AOx comfortable HEENT: Unicetric/atraumatic/EOMI (does not follow commands) NECK: JVD elevated, no thyromegaly Lymph: no lymphadenopathy HEART: regular with no S3, II/ systolic murmur at apex LUNGS: Coarse sounds ABD: soft, NT, ND, +BS : Intact Neuro: non focal SKIN: chronic changes EXT: trace edema Results Result Diagram: 07/22/1716 07/22/17615 Medications Medications Current Medications Aspirin (Aspirin) 325 mg DAILY GTB Last administered on 07/23/17t 09:05; Admin Dose 325 MG; Start 07/16/17 at 09:00 Nitroglycerin (Nitroglycerin (Sl Tab) 0.4 Mg) 1 tab Q5M PRN SL ANGINA; Start 07/16/17 at 00:00 Enoxaparin Sodium (Lovenox) 40 mg DAILY SC Last administered on 07/23/17 09: 20; Admin Dose 40 MG; Start 07/16/17 at 09:00 Acetaminophen (Tylenol Liquid) 650 mg Q6 PRN GTB PAIN AND OR ELEVATED TEMP Last administered on 07/19/17 16:42; Admin Dose 650 MG; Start 07/16/17 at 01: 30 Bisacodyl (Dulcolax Supp) 10 mg Q48H PRN [place] CONSTIPATION; Start 07/16/17 at 09: 00 Clonazepam (Klonopin) 0.25 mg Q12 PRN GTB ANXIETY Last administered on 16:04; Admin Dose 0.25 MG; Start 07/16/17 at 01:30 Acetaminophen/ Hydrocodone Bitart ([place] (5/325)) 1 tab Q6 PRN GTB PAIN Last administered on 07/23/17 09:06; Admin Dose 1 TAB; Start 07/16/17 at 01:30 Polyethylene Glycol (Miralax) 17 gm DAILY PRN GTB CONSTIPATION; Start 07/16/17 at 01:30 Sodium Chloride (Nacl) 1 gm TID GTB Last administered on 07/23/17 09:05; Admin Dose 1 GM; Start 07/16/17 at 09:00 Metoprolol Tartrate (Lopressor) 25 mg BID GTB Last administered on 07/23/17 09:06; Admin Dose 25 MG; Start 07/16/17 at 09:00 Sodium Biphosphate/ Sodium Phosphate (Fleet Enema) 133 ml Q72H [place] Last administered on 07/19/17 13:40; Admin Dose 133 ML; Start 07/16/17 at 09:00 Amlodipine Besylate (Norvasc) 5 mg DAILY GTB Last administered on 07/23/17 09 :06; Admin Dose 5 MG; Start 07/16/17 at 10:00 Gabapentin (Neurontin Liquid) 400 mg TID GTB Last administered on 07/20/17 21 :03; Admin Dose 400 MG; Start 07/16/17 at 21:00; Status Future Hold Estrogens Conjugated (Premarin Vaginal Cr) 1 applic MONWEDFRI@21 VAG Last administered on 07/21/17 21:12; Admin Dose 1 APPLIC; Start 07/17/17 at 21:00 Patient Own Medication 1 ea BID PO Last administered on 07/20/17 21:02; Admin Dose 1 EA; Start 07/17/17 at 09:00 Hydralazine HCl (Apresoline) 25 mg TID GTB Last administered on 07/23/17 09: 07; Admin Dose 25 MG; Start 07/18/17 at 21:30 Hydralazine HCl 10 mg 10 mg Q4H PRN IV SBP >160; Start 07/20/17 at 17:30 Cefepime HCl (Maxipime 1gm/50 ml (Pmx)) 50 ml @ 100 mls/hr Q12 IVPB Last administered on 07/23/17 09:07; Admin Dose 100 MLS/HR; Start 07/21/17 at 21: 00 Metoprolol Tartrate (Lopressor) 5 mg Q4H PRN IV HR>110 Hold SBP<100; Start at 15:00 IV Flush (NS 10 ml) 10 ml PRN PRN IV IV PROTOCOL; Start 07/22/17 at 17:00 KRISTOFER SUTHERLAND MD Jul 23, 2017 12:35
--- NOTE | 2017-07-23 12:36 | PN ---
Date/Time of Note Date/Time of Note DATE: 07/23/17 TIME: 12:36 Assessment/Plan VTE Prophylaxis VTE Prophylaxis Intervention: other Lines/Catheters IV Catheter Type (from Nrs): PICC Line Central line still needed: Yes Urinary Cath still in place: No Assessment/Plan Chief Complaint/Hosp Course - CECILIA versus seizures versus acute metabolic encephalopathy, no evidence of acute CVA, will transfer to telemetry - Atrial fibrillation, continue aspirin, Dr. Ferrara is asked to see patient in cardiology consultation - Atypical chest pain, rule out myocardial infarction. Cardiac enzymes negative 3. Unable to undergo to pulmonary angiogram due to allergy to iodine. VQ scan is low probability for PE. - MDR Proteus UTI, continue tobramycin, Dr Salas is following in ID consultation. - Advanced multiple sclerosis, bed to wheelchair bound total care. - Hypertension, continue metoprolol and Norvasc - Dysphagia. Continue G-tube feeding. - Hx Breast cancer. Problems: Subjective 24 Hr Interval Summary Free Text/Dictation Patient has eyes open, slightly interactive Exam/Review of Systems Vital Signs Vitals Vital Signs Date Time Temp Pulse Resp B/P Pulse Ox O2 Delivery O2 Flow Rate FiO2 07/23/17 12:22 85 07/23/17 11:30 98.6 16 124/58 97 07/23/17 11:19 1.0 07/23/17 08:00 Nasal Cannula 07/23/17 01:12 23 Intake and Output 07/22/17 07/22/17 07/23/17 15:00 23:00 07:00 Intake Total 735 ml 360 ml 310 ml Balance 735 ml 360 ml 310 ml Exam Constitutional: well developed Head: atraumatic, normocephalic Neck: supple Respiratory: clear to auscultation Cardiovascular: regular rate and rhythm Gastrointestinal: non-tender, soft Extremities: normal pulses Results Result Diagram: 07/22/1761507/22/17615 Medications Medications Current Medications Aspirin (Aspirin) 325 mg DAILY GTB Last administered on 07/23/17t 09:05; Admin Dose 325 MG; Start 07/16/17 at 09:00 Nitroglycerin (Nitroglycerin (Sl Tab) 0.4 Mg) 1 tab Q5M PRN SL ANGINA; Start 07/16/17 at 00:00 Enoxaparin Sodium (Lovenox) 40 mg DAILY [place] Last administered on 07/23/17 09: 20; Admin Dose 40 MG; Start 07/16/17 at 09:00 Acetaminophen (Tylenol Liquid) 650 mg Q6 PRN GTB PAIN AND OR ELEVATED TEMP Last administered on 07/19/17 16:42; Admin Dose 650 MG; Start 07/16/17 at 01: 30 Bisacodyl (Dulcolax Supp) 10 mg Q48H PRN [place] CONSTIPATION; Start 07/16/17 at 09: 00 Clonazepam (Klonopin) 0.25 mg Q12 PRN GTB ANXIETY Last administered on 16:04; Admin Dose 0.25 MG; Start 07/16/17 at 01:30 Acetaminophen/ Hydrocodone Bitart ([place] (5/325)) 1 tab Q6 PRN GTB PAIN Last administered on 07/23/17 09:06; Admin Dose 1 TAB; Start 07/16/17 at 01:30 Polyethylene Glycol (Miralax) 17 gm DAILY PRN GTB CONSTIPATION; Start 07/16/17 at 01:30 Sodium Chloride (Nacl) 1 gm TID GTB Last administered on 07/23/17 09:05; Admin Dose 1 GM; Start 07/16/17 at 09:00 Metoprolol Tartrate (Lopressor) 25 mg BID GTB Last administered on 07/23/17 09:06; Admin Dose 25 MG; Start 07/16/17 at 09:00 Sodium Biphosphate/ Sodium Phosphate (Fleet Enema) 133 ml Q72H [place] Last administered on 07/19/17 13:40; Admin Dose 133 ML; Start 07/16/17 at 09:00 Amlodipine Besylate (Norvasc) 5 mg DAILY GTB Last administered on 07/23/17 09 :06; Admin Dose 5 MG; Start 07/16/17 at 10:00 Gabapentin (Neurontin Liquid) 400 mg TID GTB Last administered on 07/20/17 21 :03; Admin Dose 400 MG; Start 07/16/17 at 21:00; Status Future Hold Estrogens Conjugated (Premarin Vaginal Cr) 1 applic MONWEDFRI@21 VAG Last administered on 07/21/17 21:12; Admin Dose 1 APPLIC; Start 07/17/17 at 21:00 Patient Own Medication 1 ea BID PO Last administered on 07/20/17 21:02; Admin Dose 1 EA; Start 07/17/17 at 09:00 Hydralazine HCl (Apresoline) 25 mg TID GTB Last administered on 07/23/17 09: 07; Admin Dose 25 MG; Start 07/18/17 at 21:30 Hydralazine HCl 10 mg 10 mg Q4H PRN IV SBP >160; Start 07/20/17 at 17:30 Cefepime HCl (Maxipime 1gm/50 ml (Pmx)) 50 ml @ 100 mls/hr Q12 IVPB Last administered on 07/23/17 09:07; Admin Dose 100 MLS/HR; Start 07/21/17 at 21: 00 Metoprolol Tartrate (Lopressor) 5 mg Q4H PRN IV HR>110 Hold SBP<100; Start at 15:00 IV Flush (NS 10 ml) 10 ml PRN PRN IV IV PROTOCOL; Start 07/22/17 at 17:00 PONCE MURGUIA Jul 23, 2017 12:36
--- NOTE | 2017-07-23 16:11 | CONS ---
Date/Time of Note Date/Time of Note DATE: 07/23/17 TIME: 16:09 Assessment/Plan Assessment/Plan Chief Complaint/Hosp Course Altered mental status and confusion in a patient of advanced MS Problems: Additional Assessment/Plan Patient is a 81-year-old woman group home facility resident with contractures all 4 extremities was admitted following found altered, confused and was brought into emergency room for evaluation. A CT scan of the brain showed atrophy, white matter disease, nothing acute. Patient was seen by telemetry neurologist also. MRI of the brain showed atrophy, chronic bihemispheric small vessel disease, nothing acute. EEG showed left frontal temporal sharps. On initial evaluation she was found to have urosepsis with WBC of 14.7. Neurology consult was called to evaluate her neurological status. Examination was very limited. She appears to have encephalopathy due to urosepsis. Plan 1 start on Keppra 500 mg IV twice daily 2 continue antibiotics 3 will follow Consultation Date/Type/Reason Admit Date/Time Jul 15, 2017 at 21:05 Initial Consult Date 07/21/17 Type of Consultation: ID Reason for Consultation Advanced MS and altered mental status Referring Provider: ANGELINA CARUSO MD 24 HR Interval Summary Free Text/Dictation She is out of ICU. More awake and alert following all commands. Exam/Review of Systems Vital Signs Vitals Vital Signs Date Time Temp Pulse Resp B/P Pulse Ox O2 Delivery O2 Flow Rate FiO2 07/23/17 15:39 98.5 104 16 127/65 97 07/23/17 11:19 1.0 07/23/17 08:00 Nasal Cannula 07/23/17 01:12 23 Intake and Output 07/22/17 07/22/17 07/23/17 15:00 23:00 07:00 Intake Total 735 ml 360 ml 310 ml Balance 735 ml 360 ml 310 ml Exam Constitutional: alert Psych: nl mood/affect, no complaints Head: atraumatic, normocephalic Eyes: EOMI, nl conjunctiva, nl lids, nl sclera ENMT: mucosa pink and moist, nl external ears & nose, nl lips & teeth, nl nasal mucosa & septum Neck: non-tender, supple Respiratory: clear to auscultation, normal air movement Cardiovascular: nl pulses, regular rate and rhythm Gastrointestinal: nl liver, spleen, non-tender, soft Extremities: normal pulses Neurological: other (Alert and awake, following all commands, have contracture deformity both upper and lower extremities, limited exam) Results Result Diagram: 07/22/1716 07/22/17 0616 Medications Medications Current Medications Aspirin (Aspirin) 325 mg DAILY GTB Last administered on 07/23/17 09:05; Admin Dose 325 MG; Start 07/16/17 at 09:00 Nitroglycerin (Nitroglycerin (Sl Tab) 0.4 Mg) 1 tab Q5M PRN SL ANGINA; Start 07/16/17 at 00:00 Enoxaparin Sodium (Lovenox) 40 mg DAILY [place] Last administered on 07/23/17 09: 20; Admin Dose 40 MG; Start 07/16/17 at 09:00 Acetaminophen (Tylenol Liquid) 650 mg Q6 PRN GTB PAIN AND OR ELEVATED TEMP Last administered on 07/19/17 16:42; Admin Dose 650 MG; Start 07/16/17 at 01: 30 Bisacodyl (Dulcolax Supp) 10 mg Q48H PRN [place] CONSTIPATION; Start 07/16/17 at 09: 00 Clonazepam (Klonopin) 0.25 mg Q12 PRN GTB ANXIETY Last administered on 16:04; Admin Dose 0.25 MG; Start 07/16/17 at 01:30 Acetaminophen/ Hydrocodone Bitart ([place] (5/325)) 1 tab Q6 PRN GTB PAIN Last administered on 07/23/17 14:12; Admin Dose 1 TAB; Start 07/16/17 at 01:30 Polyethylene Glycol (Miralax) 17 gm DAILY PRN GTB CONSTIPATION; Start 07/16/17 at 01:30 Sodium Chloride (Nacl) 1 gm TID GTB Last administered on 07/23/17 13:00; Admin Dose 1 GM; Start 07/16/17 at 09:00 Metoprolol Tartrate (Lopressor) 25 mg BID GTB Last administered on 07/23/17 09:06; Admin Dose 25 MG; Start 07/16/17 at 09:00 Sodium Biphosphate/ Sodium Phosphate (Fleet Enema) 133 ml Q72H [place] Last administered on 07/19/17 13:40; Admin Dose 133 ML; Start 07/16/17 at 09:00 Amlodipine Besylate (Norvasc) 5 mg DAILY GTB Last administered on 07/23/17 09 :06; Admin Dose 5 MG; Start 07/16/17 at 10:00 Gabapentin (Neurontin Liquid) 400 mg TID GTB Last administered on 07/20/17 21 :03; Admin Dose 400 MG; Start 07/16/17 at 21:00; Status Future Hold Estrogens Conjugated (Premarin Vaginal Cr) 1 applic MONWEDFRI@21 VAG Last administered on 07/21/17 21:12; Admin Dose 1 APPLIC; Start 07/17/17 at 21:00 Patient Own Medication 1 ea BID PO Last administered on 07/20/17 21:02; Admin Dose 1 EA; Start 07/17/17 at 09:00 Hydralazine HCl (Apresoline) 25 mg TID GTB Last administered on 07/23/17 14: 13; Admin Dose 25 MG; Start 07/18/17 at 21:30 Hydralazine HCl 10 mg 10 mg Q4H PRN IV SBP >160; Start 07/20/17 at 17:30 Cefepime HCl (Maxipime 1gm/50 ml (Pmx)) 50 ml @ 100 mls/hr Q12 IVPB Last administered on 07/23/17 09:07; Admin Dose 100 MLS/HR; Start 07/21/17 at 21: 00 Metoprolol Tartrate (Lopressor) 5 mg Q4H PRN IV HR>110 Hold SBP<100; Start at 15:00 IV Flush (NS 10 ml) 10 ml PRN PRN IV IV PROTOCOL; Start 07/22/17 at 17:00 CATIE GRUBBS MD Jul 23, 2017 16:11
[2017-07-23] MEDS: LEVETIRACETAM (100 MG/ML) 5ML CUP GTB SCH (20:26)
[2017-07-24] VITALS (12 sets, daily range): BP systolic 108–142; BP diastolic 59–96; PULSE 67–100; RESP 19–20
[2017-07-24] MEDS: HYDROCODONE/APAP (5/325) TAB GTB PRN ×2 (04:43→09:12)
--- NOTE | 2017-07-24 07:55 | PN ---
DATE: 07/21/2017 SUBJECTIVE: The patient was transferred to ICU secondary to code stroke and likely had TIA. She is more awake now, looks comfortable. DIAGNOSTICS: CT of the brain this morning revealed no acute intracranial abnormalities. WBC today 14.7, H and H 12.6 and 40.5, platelets 60, neutrophils 76.4. BUN 11, creatinine 0.39. ALLERGIES: SULFA. MICROBIOLOGY: Urine culture on 07/16/2017 grew Proteus mirabilis and E. coli, both susceptible to T obramycin. PHYSICAL EXAMINATION: GENERAL: This is an obese, chronically ill-appearing, elderly woman who is in no d istress. HEENT: Head atraumatic, normocephalic. Sclerae anicteric. Buccal mucosa dry. NECK: Supple. CHEST: Rise symmetrical. Breath sounds diminished. HEART: S1, S2. ABDOMEN: Soft, bowel sounds present. EXTREMITIES: Without cyanosis. ASSESSMENT: 1. Acute encephalopathy, possible transient ischemic attack. 2. Polymicrobial multi-drug resistant urinary tract infection. 3. Advanced multiple sclerosis. 4. Hypertension. 5. History of breast cancer. PLAN: The patient remains hemodynamically stable. We are going to order a chest x-ray to make sure she did not aspirate or develop pneumonia given elevated white blood cell count. Continue her on t obramycin for now, change tobramycin to cefepime. Continue anti-aspiration measures. Follow recomm endations of specialists. Dictated By: NOHELIA HER EMPLOYMENT PROGRAMS ANALYST for EUFEMIA SMITH/ANGIE Conf#: [id number] DID#: [id number]
[2017-07-24] MEDS: ACETAMINOPHEN 650MG/20.3ML CUP GTB PRN (09:12)
[2017-07-24] MEDS: CEFEPIME 1GM/50 ML (PMX) 50 ML IVPB SCH ×2 (09:12→21:20)
[2017-07-24] MEDS: LEVETIRACETAM (100 MG/ML) 5ML CUP GTB SCH ×2 (09:13→21:19)
[2017-07-24] MEDS: SODIUM CHLORIDE 1 GM TAB GTB SCH ×3 (09:13→21:18)
[2017-07-24] MEDS: AMLODIPINE 5 MG TAB GTB SCH (09:15)
[2017-07-24] MEDS: ASPIRIN 325 MG TAB GTB SCH (09:16)
[2017-07-24] MEDS: METOPROLOL 25 MG TAB GTB SCH ×2 (09:16→21:18)
[2017-07-24] MEDS: ENOXAPARIN 40 MG/0.4 ML SYG SC SCH (09:36)
--- NOTE | 2017-07-24 11:18 | CONS ---
Date/Time of Note Date/Time of Note DATE: 07/24/17 TIME: 11:14 Assessment/Plan Assessment/Plan Chief Complaint/Hosp Course IMPRESSION: 1. Paroxysmal atrial fibrillation-IN SR and remains on asa. 2. Abnormal electrocardiogram, assess for acute coronary syndrome. 3. Hypertension. 4. Possible acute cerebrovascular accident. 5. Urinary tract infection. 6. Leukocytosis. Recc: -Tele to assess fo recurrent af -Continue asa therapy at this time -Continue BB as tolerated -Will contnue norvasc/hydralazine but if continue to be held will decrease doses -Continue keppra -Continue abx's and f/u cx data -Follow MS with ongoing neuro eval and continue keppra Problems: Consultation Date/Type/Reason Admit Date/Time Jul 15, 2017 at 21:05 Initial Consult Date 07/21/17 Type of Consultation: cardiology Reason for Consultation PAF Referring Provider: ANGELINA CARUSO MD Exam/Review of Systems Vital Signs Vitals Vital Signs Date Time Temp Pulse Resp B/P Pulse Ox O2 Delivery O2 Flow Rate FiO2 07/24/17 09:20 97 2.0 07/24/17 08:58 86 07/24/17 07:08 99.3 19 108/59 07/24/17 02:24 24 07/24/17 00:00 Nasal Cannula Intake and Output 07/23/17 07/23/17 07/24/17 15:00 23:00 07:00 Intake Total 1190 ml 310 ml Balance 1190 ml 310 ml Exam Review of Systems: CONSTITUTIONAL: No fevers, chills. PULMONARY: No sob CARDIOVASCULAR: No chest pain/palpitations GASTROINTESTINAL: No nausea/vomiting. GENITOURINARY: No hematuria/dysuria. MUSCULOSKELETAL: No myagias/arthalgias. PSYCHIATRIC: The patient denies depression. NEUROLOGIC: encephalopathic Constitutional: other (sleeping, encephalopathic) Psych: no complaints Head: normocephalic ENMT: mucosa pink and moist Neck: jvd (8 cm water), supple Respiratory: diminished breath sounds Cardiovascular: regular rate and rhythm Gastrointestinal: non-tender, soft Musculoskeletal: muscle tone (normal) Extremities: edema (none) Neurological: other (No focal deficits) Results Result Diagram: 07/22/17 0616 07/22/17615 Medications Medications Current Medications Aspirin (Aspirin) 325 mg DAILY GTB Last administered on 07/24/17 09:16; Admin Dose 325 MG; Start 07/16/17 at 09:00 Nitroglycerin (Nitroglycerin (Sl Tab) 0.4 Mg) 1 tab Q5M PRN SL ANGINA; Start 07/16/17 at 00:00 Enoxaparin Sodium (Lovenox) 40 mg DAILY [place] Last administered on 07/24/17 09: 36; Admin Dose 40 MG; Start 07/16/17 at 09:00 Acetaminophen (Tylenol Liquid) 650 mg Q6 PRN GTB PAIN AND OR ELEVATED TEMP Last administered on 07/24/17 09:12; Admin Dose 650 MG; Start 07/16/17 at 01: 30 Bisacodyl (Dulcolax Supp) 10 mg Q48H PRN [place] CONSTIPATION; Start 07/16/17 at 09: 00 Clonazepam (Klonopin) 0.25 mg Q12 PRN GTB ANXIETY Last administered on 16:04; Admin Dose 0.25 MG; Start 07/16/17 at 01:30 Acetaminophen/ Hydrocodone Bitart ([place] (5/325)) 1 tab Q6 PRN GTB PAIN Last administered on 07/24/17 09:12; Admin Dose 1 TAB; Start 07/16/17 at 01:30 Polyethylene Glycol (Miralax) 17 gm DAILY PRN GTB CONSTIPATION; Start 07/16/17 at 01:30 Sodium Chloride (Nacl) 1 gm TID GTB Last administered on 07/24/17 09:13; Admin Dose 1 GM; Start 07/16/17 at 09:00 Metoprolol Tartrate (Lopressor) 25 mg BID GTB Last administered on 07/24/17 09:16; Admin Dose 25 MG; Start 07/16/17 at 09:00 Sodium Biphosphate/ Sodium Phosphate (Fleet Enema) 133 ml Q72H [place] Last administered on 07/19/17 13:40; Admin Dose 133 ML; Start 07/16/17 at 09:00 Amlodipine Besylate (Norvasc) 5 mg DAILY GTB Last administered on 07/24/17 09 :15; Admin Dose 5 MG; Start 07/16/17 at 10:00 Gabapentin (Neurontin Liquid) 400 mg TID GTB Last administered on 07/20/17 21 :03; Admin Dose 400 MG; Start 07/16/17 at 21:00; Status Future Hold Estrogens Conjugated (Premarin Vaginal Cr) 1 applic MONWEDFRI@21 VAG Last administered on 07/21/17 21:12; Admin Dose 1 APPLIC; Start 07/17/17 at 21:00 Patient Own Medication 1 ea BID PO Last administered on 07/20/17 21:02; Admin Dose 1 EA; Start 07/17/17 at 09:00 Hydralazine HCl (Apresoline) 25 mg TID GTB Last administered on 07/23/17 20: 27; Admin Dose 25 MG; Start 07/18/17 at 21:30 Hydralazine HCl 10 mg 10 mg Q4H PRN IV SBP >160; Start 07/20/17 at 17:30 Cefepime HCl (Maxipime 1gm/50 ml (Pmx)) 50 ml @ 100 mls/hr Q12 IVPB Last administered on 07/24/17 09:12; Admin Dose 100 MLS/HR; Start 07/21/17 at 21: 00 Metoprolol Tartrate (Lopressor) 5 mg Q4H PRN IV HR>110 Hold SBP<100; Start at 15:00 IV Flush (NS 10 ml) 10 ml PRN PRN IV IV PROTOCOL; Start 07/22/17 at 17:00 Levetiracetam (Keppra Liquid) 500 mg BID GTB Last administered on 07/24/17 09 :13; Admin Dose 500 MG; Start 07/23/17 at 21:00 COMPA NUGENT Jul 24, 2017 11:18
[2017-07-24 14:44] LABS: BASOPHIL # 0.1 10^3/ul (0.0-0.1); BASOPHILS % 0.7 % (0.0-2.0); EOSINOPHILS # 0.3 10^3/ul (0.0-0.5); EOSINOPHILS % 2.3 % (0.0-7.0); HEMATOCRIT 34.2 % (37.0-47.0); HEMOGLOBIN 10.9 g/dl (12.0-16.0); LYMPHOCYTES # 3.5 10^3/ul (0.8-2.9); LYMPHOCYTES % 27.5 % (15.0-51.0); MEAN CORPUSCULAR HEMOGLOBIN 27.8 pg (29.0-33.0); MEAN CORPUSCULAR HGB CONC 31.9 g/dl (32.0-37.0); MEAN CORPUSCULAR VOLUME 87.2 fl (82.0-101.0); MEAN PLATELET VOLUME 11.6 fl (7.4-10.4); MONOCYTES % 7.6 % (0.0-11.0); NEUTROPHIL # 7.8 10^3/ul (1.6-7.5); NEUTROPHILS % 61.3 % (39.0-77.0); PLATELET COUNT 288 10^3/UL (140-415); RED BLOOD COUNT 3.92 10^6/ul (4.20-5.40); RED CELL DISTRIBUTION WIDTH 14.7 % (11.5-14.5); WHITE BLOOD COUNT 12.7 10^3/ul (4.8-10.8)
--- NOTE | 2017-07-24 15:00 | RADRPT ---
Vent Rate: 92 bpm RR Interval: 0 msec CA Interval: 0 msec QRS Duration: 64 msec QT Interval: 340 msec QTC Interval: 420 msec P-R-T [place]: 0 - 19 - 40 degrees NSR with frequent PAC Nonspecific T wave abnormality , Abnormal ECG Electronically Signed By: Zaire Wu [id number]
--- NOTE | 2017-07-24 15:13 | PN ---
DATE: 07/24/2017 INFECTIOUS DISEASE PROGRESS NOTE SUBJECTIVE: No acute events. The patient is sleeping, looks comfortable, no fevers. No labs this morning. ANTIMICROBIALS: She is on Cefepime. INDWELLINGS: PICC line. PHYSICAL EXAMINATION: GENERAL: This is a well-developed, chronically ill-appearing, elderly woman who is in no distress. HEENT: Head atraumatic, normocephalic. Sclerae anicteric. Buccal mucosa dry. NECK: Supple. CHEST: Rise symmetrical. Breath sounds diminished to bases. HEART: S1, S2. ABDOMEN: Soft, bowel sounds present. EXTREMITIES: No cyanosis. ASSESSMENT: 1. Polymicrobial urinary tract infection. 2. Neurogenic bladder 3. Status post transient ischemic attack. 4. Advanced multiple sclerosis. 5. Coronary artery disease status post paroxysmal atrial fibrillation. 6. History of breast carcinoma. PLAN: The patient remains stable. We are going to order a chest x-ray and labs in a.m. Continue he r on current antibiotics. Follow recommendations of consultants. Dictated By: NOHELIA HER TECHNICAL SUPPORT REPRESENTATIVE for EUFEMIA SMITH/ANGIE Conf#: [id number] DID#: [id number]
--- NOTE | 2017-07-24 17:51 | PN ---
Date/Time of Note Date/Time of Note DATE: 07/24/17 TIME: 17:45 Assessment/Plan VTE Prophylaxis VTE Prophylaxis Intervention: SCD's Lines/Catheters IV Catheter Type (from Nrs): PICC Line Central line still needed: Yes Urinary Cath still in place: No Assessment/Plan Chief Complaint/Hosp Course Patient is awake alert however I get anxious at times. Shallow respiration and low-grade fever noted. Patient is currently on supplemental oxygen via nasal cannula. Will check chest x-ray. Assessment/Plan - CECILIA versus seizures versus acute metabolic encephalopathy, Dr. Hahn is following in neurology consultation. Continue Keppra. - Atrial fibrillation, continue aspirin, Dr. Ferrara is asked to see patient in cardiology consultation - Atypical chest pain, rule out myocardial infarction. Cardiac enzymes negative 3. Unable to undergo to pulmonary angiogram due to allergy to iodine. VQ scan is low probability for PE. - Polumicrobial UTI, continue abx per ID. Dr Salas is following in ID consultation. - Advanced multiple sclerosis, bed to wheelchair bound total care. - Hypertension, continue metoprolol and Norvasc - Dysphagia. Continue G-tube feeding. - Hx Breast cancer. Further recommendations based on clinical course. Plan of care discussed with Dr. Soto Problems: Exam/Review of Systems Vital Signs Vitals Vital Signs Date Time Temp Pulse Resp B/P Pulse Ox O2 Delivery O2 Flow Rate FiO2 07/24/17 16:26 67 07/24/17 15:51 99.0 19 142/96 100 07/24/17 09:20 2.0 07/24/17 09:00 Nasal Cannula 07/24/17 02:24 24 Intake and Output 07/23/17 07/23/17 07/24/17 15:00 23:00 07:00 Intake Total 1190 ml 310 ml Balance 1190 ml 310 ml Exam Constitutional: alert, oriented Head: normocephalic Neck: supple Respiratory: normal air movement Cardiovascular: regular rhythm Gastrointestinal: non-tender, other (G-tube), soft Musculoskeletal: muscle weakness Extremities: other (Contracted) Results Result Diagram: 07/24/17 1419 07/22/17 0616 Results 24 hrs Laboratory Tests Test 07/24/17 14:19 White Blood Count 12.7 H Red Blood Count 3.92 L Hemoglobin 10.9 L Hematocrit 34.2 L Mean Corpuscular Volume 87.2 Mean Corpuscular Hemoglobin 27.8 L Mean Corpuscular Hemoglobin Concent 31.9 L Red Cell Distribution Width 14.7 H Platelet Count 288 Mean Platelet Volume 11.6 H Neutrophils % 61.3 Lymphocytes % 27.5 Monocytes % 7.6 Eosinophils % 2.3 Basophils % 0.7 Nucleated Red Blood Cells % 0.0 Neutrophils # 7.8 H Lymphocytes # 3.5 H Monocytes # 1.0 H Eosinophils # 0.3 Basophils # 0.1 Nucleated Red Blood Cells # 0.0 Medications Medications Current Medications Aspirin (Aspirin) 325 mg DAILY GTB Last administered on 07/24/17 09:16; Admin Dose 325 MG; Start 07/16/17 at 09:00 Nitroglycerin (Nitroglycerin (Sl Tab) 0.4 Mg) 1 tab Q5M PRN SL ANGINA; Start 07/16/17 at 00:00 Enoxaparin Sodium (Lovenox) 40 mg DAILY SC Last administered on 07/24/17 09: 36; Admin Dose 40 MG; Start 07/16/17 at 09:00 Acetaminophen (Tylenol Liquid) 650 mg Q6 PRN GTB PAIN AND OR ELEVATED TEMP Last administered on 07/24/17 09:12; Admin Dose 650 MG; Start 07/16/17 at 01: 30 Bisacodyl (Dulcolax Supp) 10 mg Q48H PRN [place] CONSTIPATION; Start 07/16/17 at 09: 00 Clonazepam (Klonopin) 0.25 mg Q12 PRN GTB ANXIETY Last administered on 16:04; Admin Dose 0.25 MG; Start 07/16/17 at 01:30 Acetaminophen/ Hydrocodone Bitart ([place] (5/325)) 1 tab Q6 PRN GTB PAIN Last administered on 07/24/17 09:12; Admin Dose 1 TAB; Start 07/16/17 at 01:30 Polyethylene Glycol (Miralax) 17 gm DAILY PRN GTB CONSTIPATION; Start 07/16/17 at 01:30 Sodium Chloride (Nacl) 1 gm TID GTB Last administered on 07/24/17 15:11; Admin Dose 1 GM; Start 07/16/17 at 09:00 Metoprolol Tartrate (Lopressor) 25 mg BID GTB Last administered on 07/24/17 09:16; Admin Dose 25 MG; Start 07/16/17 at 09:00 Sodium Biphosphate/ Sodium Phosphate (Fleet Enema) 133 ml Q72H [place] Last administered on 07/19/17 13:40; Admin Dose 133 ML; Start 07/16/17 at 09:00 Amlodipine Besylate (Norvasc) 5 mg DAILY GTB Last administered on 07/24/17 09 :15; Admin Dose 5 MG; Start 07/16/17 at 10:00 Gabapentin (Neurontin Liquid) 400 mg TID GTB Last administered on 07/20/17 21 :03; Admin Dose 400 MG; Start 07/16/17 at 21:00; Status Future Hold Estrogens Conjugated (Premarin Vaginal Cr) 1 applic MONWEDFRI@21 VAG Last administered on 07/21/17 21:12; Admin Dose 1 APPLIC; Start 07/17/17 at 21:00 Patient Own Medication 1 ea BID PO Last administered on 07/20/17 21:02; Admin Dose 1 EA; Start 07/17/17 at 09:00 Hydralazine HCl (Apresoline) 25 mg TID GTB Last administered on 07/24/17 15: 11; Admin Dose 25 MG; Start 07/18/17 at 21:30 Hydralazine HCl 10 mg 10 mg Q4H PRN IV SBP >160; Start 07/20/17 at 17:30 Cefepime HCl (Maxipime 1gm/50 ml (Pmx)) 50 ml @ 100 mls/hr Q12 IVPB Last administered on 07/24/17 09:12; Admin Dose 100 MLS/HR; Start 07/21/17 at 21: 00 Metoprolol Tartrate (Lopressor) 5 mg Q4H PRN IV HR>110 Hold SBP<100; Start at 15:00 IV Flush (NS 10 ml) 10 ml PRN PRN IV IV PROTOCOL; Start 07/22/17 at 17:00 Levetiracetam (Keppra Liquid) 500 mg BID GTB Last administered on 07/24/17 09 :13; Admin Dose 500 MG; Start 07/23/17 at 21:00 MARLINE CHOWDARY Jul 24, 2017 17:51
[2017-07-24] MEDS: ESTROGENS CONJUGATED 42.5 GM VAG CR VAG SCH (21:55)
--- NOTE | 2017-07-24 23:08 | RADRPT ---
PROCEDURE: XR Chest. CLINICAL INDICATION: Pneumonia TECHNIQUE: Single AP portable chest. COMPARISON: 07/22/2017 Chest x-ray FINDINGS: The cardiomediastinal silhouette is within normal limits of size. Chronic elevation of the right hem idiaphragm with mild prominence of the pulmonary vascularity and interstitial markings. Left lower l obe the sub signal atelectasis and/or scarring. Right PICC line catheter tip overlying the mid super ior vena cava. Atherosclerotic calcification of the aorta. No pneumothorax. The osseous structures and soft tissues are unremarkable. IMPRESSION: 1. No evidence for active cardiopulmonary disease. Chronic findings as detailed above. RPTAT:AAJJ Physician Peter Date Time Electronically viewed and signed by Physician Peter on 07/24/2017 23:08 DWAINE/
[2017-07-25] VITALS (12 sets, daily range): BP systolic 118–138; BP diastolic 58–67; PULSE 63–90; RESP 18–20
[2017-07-25] MEDS: HYDROCODONE/APAP (5/325) TAB GTB PRN ×4 (01:18→23:43)
--- NOTE | 2017-07-25 09:19 | CONS ---
Date/Time of Note Date/Time of Note DATE: 07/25/17 TIME: 09:13 Assessment/Plan Assessment/Plan Additional Assessment/Plan 1. Paroxysmal atrial fibrillation- now in sinus with PACs - con't to monitor clinically. SINUS NOW A. fib last night, converted up to 106 rate. SINUS now. 2. Abnormal electrocardiogram, assess for acute coronary syndrome- will follow - A. tach noted, stable overall. 3. Hypertension - modest Rx, in good range now. BETTER now. 4. Possible acute cerebrovascular accident- defer to primary team. 5. Urinary tract infection - on anti-Bx, improved Leukocytosis. Low grade temp - primary follows. Consultation Date/Type/Reason Admit Date/Time Jul 15, 2017 at 21:05 Initial Consult Date 07/21/17 Type of Consultation: cardiology Referring Provider: ANGELINA CARUSO MD 24 HR Interval Summary Free Text/Dictation NO acute events - BP in good range - low grade temp - borderline sinus tach with occ apcs. ROS: No fever, no chills, no nausea, no vomiting, no diarrhea/constipation No recent weight changes No chest pain, no PND, no orthopnea No dizziness, blurred vision No thirst, no heat or cold intolerance (per sitter) Exam/Review of Systems Vital Signs Vitals Vital Signs Date Time Temp Pulse Resp B/P Pulse Ox O2 Delivery O2 Flow Rate FiO2 07/25/17 08:17 88 07/25/17 07:29 99.8 20 135/62 97 07/25/17 03:02 1.0 07/24/17 20:00 Nasal Cannula 07/24/17 02:24 24 Intake and Output 07/24/17 07/24/17 07/25/17 15:00 23:00 07:00 Intake Total 1180 ml Balance 1180 ml Exam General: WN/WD/NAD, AOx 0 HEENT: Unicetric/atraumatic/EOMI (does not follow commands) NECK: JVD elevated, no thyromegaly Lymph: no lymphadenopathy HEART: regular with no S3, II/ systolic murmur at apex LUNGS: Coarse sounds ABD: soft, NT, ND, +BS : Intact Neuro: non focal SKIN: chronic changes EXT: trace edema Results Result Diagram: 07/24/17 1419 07/22/17 0616 Results 24 hrs Laboratory Tests Test 07/24/17 14:19 White Blood Count 12.7 H Red Blood Count 3.92 L Hemoglobin 10.9 L Hematocrit 34.2 L Mean Corpuscular Volume 87.2 Mean Corpuscular Hemoglobin 27.8 L Mean Corpuscular Hemoglobin Concent 31.9 L Red Cell Distribution Width 14.7 H Platelet Count 288 Mean Platelet Volume 11.6 H Neutrophils % 61.3 Lymphocytes % 27.5 Monocytes % 7.6 Eosinophils % 2.3 Basophils % 0.7 Nucleated Red Blood Cells % 0.0 Neutrophils # 7.8 H Lymphocytes # 3.5 H Monocytes # 1.0 H Eosinophils # 0.3 Basophils # 0.1 Nucleated Red Blood Cells # 0.0 Medications Medications Current Medications Aspirin (Aspirin) 325 mg DAILY GTB Last administered on 07/24/17 09:16; Admin Dose 325 MG; Start 07/16/17 at 09:00 Nitroglycerin (Nitroglycerin (Sl Tab) 0.4 Mg) 1 tab Q5M PRN SL ANGINA; Start 07/16/17 at 00:00 Enoxaparin Sodium (Lovenox) 40 mg DAILY SC Last administered on 07/24/17 09: 36; Admin Dose 40 MG; Start 07/16/17 at 09:00 Acetaminophen (Tylenol Liquid) 650 mg Q6 PRN GTB PAIN AND OR ELEVATED TEMP Last administered on 07/24/17 09:12; Admin Dose 650 MG; Start 07/16/17 at 01: 30 Bisacodyl (Dulcolax Supp) 10 mg Q48H PRN [place] CONSTIPATION; Start 07/16/17 at 09: 00 Clonazepam (Klonopin) 0.25 mg Q12 PRN GTB ANXIETY Last administered on 16:04; Admin Dose 0.25 MG; Start 07/16/17 at 01:30 Acetaminophen/ Hydrocodone Bitart ([place] (5/325)) 1 tab Q6 PRN GTB PAIN Last administered on 07/25/17 01:18; Admin Dose 1 TAB; Start 07/16/17 at 01:30 Polyethylene Glycol (Miralax) 17 gm DAILY PRN GTB CONSTIPATION; Start 07/16/17 at 01:30 Sodium Chloride (Nacl) 1 gm TID GTB Last administered on 07/24/17 21:18; Admin Dose 1 GM; Start 07/16/17 at 09:00 Metoprolol Tartrate (Lopressor) 25 mg BID GTB Last administered on 07/24/17 21:18; Admin Dose 25 MG; Start 07/16/17 at 09:00 Sodium Biphosphate/ Sodium Phosphate (Fleet Enema) 133 ml Q72H [place] Last administered on 07/19/17 13:40; Admin Dose 133 ML; Start 07/16/17 at 09:00 Amlodipine Besylate (Norvasc) 5 mg DAILY GTB Last administered on 07/24/17 09 :15; Admin Dose 5 MG; Start 07/16/17 at 10:00 Gabapentin (Neurontin Liquid) 400 mg TID GTB Last administered on 07/20/17 21 :03; Admin Dose 400 MG; Start 07/16/17 at 21:00; Status Future Hold Estrogens Conjugated (Premarin Vaginal Cr) 1 applic MONWEDFRI@21 VAG Last administered on 07/24/17 21:55; Admin Dose 1 APPLIC; Start 07/17/17 at 21:00 Patient Own Medication 1 ea BID PO Last administered on 07/20/17 21:02; Admin Dose 1 EA; Start 07/17/17 at 09:00 Hydralazine HCl (Apresoline) 25 mg TID GTB Last administered on 07/24/17 21: 19; Admin Dose 25 MG; Start 07/18/17 at 21:30 Hydralazine HCl 10 mg 10 mg Q4H PRN IV SBP >160; Start 07/20/17 at 17:30 Cefepime HCl (Maxipime 1gm/50 ml (Pmx)) 50 ml @ 100 mls/hr Q12 IVPB Last administered on 07/24/17 21:20; Admin Dose 100 MLS/HR; Start 07/21/17 at 21: 00 Metoprolol Tartrate (Lopressor) 5 mg Q4H PRN IV HR>110 Hold SBP<100; Start at 15:00 IV Flush (NS 10 ml) 10 ml PRN PRN IV IV PROTOCOL; Start 07/22/17 at 17:00 Levetiracetam (Keppra Liquid) 500 mg BID GTB Last administered on 07/24/17 21 :19; Admin Dose 500 MG; Start 07/23/17 at 21:00 KRISTOFER SUTHERLAND MD Jul 25, 2017 09:19
[2017-07-25] MEDS: ACETAMINOPHEN 650MG/20.3ML CUP GTB PRN (09:25)
[2017-07-25] MEDS: SODIUM CHLORIDE 1 GM TAB GTB SCH ×3 (09:25→23:43)
[2017-07-25] MEDS: LEVETIRACETAM (100 MG/ML) 5ML CUP GTB SCH ×2 (09:25→23:43)
[2017-07-25] MEDS: ASPIRIN 325 MG TAB GTB SCH (09:26)
[2017-07-25] MEDS: CEFEPIME 1GM/50 ML (PMX) 50 ML IVPB SCH ×2 (09:28→23:54)
[2017-07-25] MEDS: AMLODIPINE 5 MG TAB GTB SCH (09:29)
[2017-07-25] MEDS: METOPROLOL 25 MG TAB GTB SCH ×2 (09:30→23:44)
[2017-07-25] MEDS: NA PHOSPHATE/BIPHOS 133 ML ENEMA PR SCH (09:31)
[2017-07-25] MEDS: ENOXAPARIN 40 MG/0.4 ML SYG SC SCH (09:52)
[2017-07-25 11:34] LABS: BASOPHIL # 0.1 10^3/ul (0.0-0.1); BASOPHILS % 0.5 % (0.0-2.0); EOSINOPHILS # 0.2 10^3/ul (0.0-0.5); EOSINOPHILS % 1.6 % (0.0-7.0); HEMATOCRIT 35.1 % (37.0-47.0); HEMOGLOBIN 11.1 g/dl (12.0-16.0); LYMPHOCYTES # 2.5 10^3/ul (0.8-2.9); LYMPHOCYTES % 22.4 % (15.0-51.0); MEAN CORPUSCULAR HEMOGLOBIN 27.8 pg (29.0-33.0); MEAN CORPUSCULAR HGB CONC 31.6 g/dl (32.0-37.0); MEAN PLATELET VOLUME 11.4 fl (7.4-10.4); MONOCYTE # 0.8 10^3/ul (0.3-0.9); MONOCYTES % 7.1 % (0.0-11.0); NEUTROPHIL # 7.7 10^3/ul (1.6-7.5); PLATELET COUNT 291 10^3/UL (140-415); RED BLOOD COUNT 3.99 10^6/ul (4.20-5.40); RED CELL DISTRIBUTION WIDTH 14.6 % (11.5-14.5); WHITE BLOOD COUNT 11.3 10^3/ul (4.8-10.8)
[2017-07-25 11:57] LABS: CREATININE 0.48 mg/dl (0.44-1.00)
[2017-07-25] MEDS: clonAZEPAM 0.5 MG TAB GTB PRN (13:07)
--- NOTE | 2017-07-25 14:24 | CONS ---
Date/Time of Note Date/Time of Note DATE: 07/25/17 TIME: 14:23 Consult Date/Type/Reason Admit Date/Time Jul 15, 2017 at 21:05 Type of Consultation: ID Ordering Provider: ANGELINA CARUSO MD Objective Vital Signs Date Time Temp Pulse Resp B/P Pulse Ox O2 Delivery O2 Flow Rate FiO2 07/25/17 12:33 63 07/25/17 11:16 99.1 19 124/58 100 07/25/17 09:00 Nasal Cannula 1.0 07/24/17 02:24 24 Intake and Output 07/24/17 07/24/17 07/25/17 15:00 23:00 07:00 Intake Total 1180 ml Balance 1180 ml Results/Medications Result Diagram: 07/25/17 1116 07/25/17 1116 Results 24 hrs Laboratory Tests Test 07/25/17 11:16 White Blood Count 11.3 H Red Blood Count 3.99 L Hemoglobin 11.1 L Hematocrit 35.1 L Mean Corpuscular Volume 88.0 Mean Corpuscular Hemoglobin 27.8 L Mean Corpuscular Hemoglobin Concent 31.6 L Red Cell Distribution Width 14.6 H Platelet Count 291 Mean Platelet Volume 11.4 H Neutrophils % 68.0 Lymphocytes % 22.4 Monocytes % 7.1 Eosinophils % 1.6 Basophils % 0.5 Nucleated Red Blood Cells % 0.0 Neutrophils # 7.7 H Lymphocytes # 2.5 Monocytes # 0.8 Eosinophils # 0.2 Basophils # 0.1 Nucleated Red Blood Cells # 0.0 Sodium Level 143 Potassium Level 4.0 Chloride Level 105 Carbon Dioxide Level 30 Anion Gap 12 Blood Urea Nitrogen 15 Creatinine 0.48 Glucose Level 119 Calcium Level 9.0 Medications Current Medications Aspirin (Aspirin) 325 mg DAILY GTB Last administered on 07/25/17 09:26; Admin Dose 325 MG; Start 07/16/17 at 09:00 Nitroglycerin (Nitroglycerin (Sl Tab) 0.4 Mg) 1 tab Q5M PRN SL ANGINA; Start 07/16/17 at 00:00 Enoxaparin Sodium (Lovenox) 40 mg DAILY SC Last administered on 07/25/17 09: 52; Admin Dose 40 MG; Start 07/16/17 at 09:00 Acetaminophen (Tylenol Liquid) 650 mg Q6 PRN GTB PAIN AND OR ELEVATED TEMP Last administered on 07/25/17 09:25; Admin Dose 650 MG; Start 07/16/17 at 01: 30 Bisacodyl (Dulcolax Supp) 10 mg Q48H PRN [place] CONSTIPATION; Start 07/16/17 at 09: 00 Clonazepam (Klonopin) 0.25 mg Q12 PRN GTB ANXIETY Last administered on 13:07; Admin Dose 0.25 MG; Start 07/16/17 at 01:30 Acetaminophen/ Hydrocodone Bitart ([place] (5/325)) 1 tab Q6 PRN GTB PAIN Last administered on 07/25/17 09:28; Admin Dose 1 TAB; Start 07/16/17 at 01:30 Polyethylene Glycol (Miralax) 17 gm DAILY PRN GTB CONSTIPATION; Start 07/16/17 at 01:30 Sodium Chloride (Nacl) 1 gm TID GTB Last administered on 07/25/17 13:06; Admin Dose 1 GM; Start 07/16/17 at 09:00 Metoprolol Tartrate (Lopressor) 25 mg BID GTB Last administered on 07/25/17 09:30; Admin Dose 25 MG; Start 07/16/17 at 09:00 Sodium Biphosphate/ Sodium Phosphate (Fleet Enema) 133 ml Q72H [place] Last administered on 07/25/17 09:31; Admin Dose 133 ML; Start 07/16/17 at 09:00 Amlodipine Besylate (Norvasc) 5 mg DAILY GTB Last administered on 07/25/17 09 :29; Admin Dose 5 MG; Start 07/16/17 at 10:00 Gabapentin (Neurontin Liquid) 400 mg TID GTB Last administered on 07/20/17 21 :03; Admin Dose 400 MG; Start 07/16/17 at 21:00; Status Future Hold Estrogens Conjugated (Premarin Vaginal Cr) 1 applic MONWEDFRI@21 VAG Last administered on 07/24/17 21:55; Admin Dose 1 APPLIC; Start 07/17/17 at 21:00 Patient Own Medication 1 ea BID PO Last administered on 07/25/17 09:32; Admin Dose 1 EA; Start 07/17/17 at 09:00 Hydralazine HCl (Apresoline) 25 mg TID GTB Last administered on 07/25/17 13: 08; Admin Dose 25 MG; Start 07/18/17 at 21:30 Hydralazine HCl 10 mg 10 mg Q4H PRN IV SBP >160; Start 07/20/17 at 17:30 Cefepime HCl (Maxipime 1gm/50 ml (Pmx)) 50 ml @ 100 mls/hr Q12 IVPB Last administered on 07/25/17 09:28; Admin Dose 100 MLS/HR; Start 07/21/17 at 21: 00 Metoprolol Tartrate (Lopressor) 5 mg Q4H PRN IV HR>110 Hold SBP<100; Start at 15:00 IV Flush (NS 10 ml) 10 ml PRN PRN IV IV PROTOCOL; Start 07/22/17 at 17:00 Levetiracetam (Keppra Liquid) 500 mg BID GTB Last administered on 07/25/17 09 :25; Admin Dose 500 MG; Start 07/23/17 at 21:00 Assessment/Plan Chief Complaint/Hosp Course SUBJECTIVE: No acute events per alcohol rubber. The patient is sleeping, looks comfortable, no fevers. ANTIMICROBIALS: Cefepime. INDWELLINGS: PICC line. PHYSICAL EXAMINATION: GENERAL: This is a well-developed, chronically ill-appearing, elderly woman who is in no distress. HEENT: Head atraumatic, normocephalic. Sclerae anicteric. Buccal mucosa dry. NECK: Supple. CHEST: Rise symmetrical. Breath sounds diminished to bases. HEART: S1, S2. ABDOMEN: Soft, bowel sounds present. EXTREMITIES: No cyanosis. ASSESSMENT: 1. Polymicrobial urinary tract infection. 2. Neurogenic bladder 3. Status post transient ischemic attack. 4. Advanced multiple sclerosis. 5. Coronary artery disease status post paroxysmal atrial fibrillation. 6. History of breast carcinoma. PLAN: The patient remains stable. Chest x-ray negative, dc antibiotics in am and observe. Follow recommendations of consultants. Problems: NOHELIA HER NP Jul 25, 2017 14:24
[2017-07-25] MEDS ORDERED: PENDING SANTYL ORDER FOR WOUND CARE XX PRN (15:30)
--- NOTE | 2017-07-25 15:55 | PN ---
Date/Time of Note Date/Time of Note DATE: 07/25/17 TIME: 15:54 Assessment/Plan VTE Prophylaxis VTE Prophylaxis Intervention: SCD's Lines/Catheters IV Catheter Type (from Nrs): PICC Line Central line still needed: Yes Urinary Cath still in place: No Assessment/Plan Chief Complaint/Hosp Course Assessment/Plan - CECILIA versus seizures versus acute metabolic encephalopathy, Dr. Hahn is following in neurology consultation. Continue Keppra. - Atrial fibrillation, continue aspirin, Dr. Ferrara is asked to see patient in cardiology consultation - Atypical chest pain, rule out myocardial infarction. Cardiac enzymes negative 3. Unable to undergo to pulmonary angiogram due to allergy to iodine. VQ scan is low probability for PE. - Polumicrobial UTI, continue abx per ID. Dr Salas is following in ID consultation. - Advanced multiple sclerosis, bed to wheelchair bound total care. - Hypertension, continue metoprolol and Norvasc - Dysphagia. Continue G-tube feeding. - Hx Breast cancer. Further recommendations based on clinical course. Plan of care discussed with Dr. Soto Problems: Exam/Review of Systems Vital Signs Vitals Vital Signs Date Time Temp Pulse Resp B/P Pulse Ox O2 Delivery O2 Flow Rate FiO2 07/25/17 15:07 99.5 82 20 138/67 100 07/25/17 09:00 Nasal Cannula 1.0 07/24/17 02:24 24 Intake and Output 07/24/17 07/24/17 07/25/17 14:59 22:59 06:59 Intake Total 1180 ml Balance 1180 ml Exam Constitutional: alert, oriented Head: normocephalic Neck: supple Respiratory: normal air movement Cardiovascular: regular rhythm Gastrointestinal: non-tender, other (G-tube), soft Musculoskeletal: muscle weakness Extremities: other (Contracted) Results Result Diagram: 07/25/17 1116 07/25/17 1116 Results 24 hrs Laboratory Tests Test 07/25/17 11:16 White Blood Count 11.3 H Red Blood Count 3.99 L Hemoglobin 11.1 L Hematocrit 35.1 L Mean Corpuscular Volume 88.0 Mean Corpuscular Hemoglobin 27.8 L Mean Corpuscular Hemoglobin Concent 31.6 L Red Cell Distribution Width 14.6 H Platelet Count 291 Mean Platelet Volume 11.4 H Neutrophils % 68.0 Lymphocytes % 22.4 Monocytes % 7.1 Eosinophils % 1.6 Basophils % 0.5 Nucleated Red Blood Cells % 0.0 Neutrophils # 7.7 H Lymphocytes # 2.5 Monocytes # 0.8 Eosinophils # 0.2 Basophils # 0.1 Nucleated Red Blood Cells # 0.0 Sodium Level 143 Potassium Level 4.0 Chloride Level 105 Carbon Dioxide Level 30 Anion Gap 12 Blood Urea Nitrogen 15 Creatinine 0.48 Glucose Level 119 Calcium Level 9.0 Medications Medications Current Medications Aspirin (Aspirin) 325 mg DAILY GTB Last administered on 07/25/17 09:26; Admin Dose 325 MG; Start 07/16/17 at 09:00 Nitroglycerin (Nitroglycerin (Sl Tab) 0.4 Mg) 1 tab Q5M PRN SL ANGINA; Start 07/16/17 at 00:00 Enoxaparin Sodium (Lovenox) 40 mg DAILY SC Last administered on 07/25/17 09: 52; Admin Dose 40 MG; Start 07/16/17 at 09:00 Acetaminophen (Tylenol Liquid) 650 mg Q6 PRN GTB PAIN AND OR ELEVATED TEMP Last administered on 07/25/17 09:25; Admin Dose 650 MG; Start 07/16/17 at 01: 30 Bisacodyl (Dulcolax Supp) 10 mg Q48H PRN [place] CONSTIPATION; Start 07/16/17 at 09: 00 Clonazepam (Klonopin) 0.25 mg Q12 PRN GTB ANXIETY Last administered on 13:07; Admin Dose 0.25 MG; Start 07/16/17 at 01:30 Acetaminophen/ Hydrocodone Bitart ([place] (5/325)) 1 tab Q6 PRN GTB PAIN Last administered on 07/25/17 09:28; Admin Dose 1 TAB; Start 07/16/17 at 01:30 Polyethylene Glycol (Miralax) 17 gm DAILY PRN GTB CONSTIPATION; Start 07/16/17 at 01:30 Sodium Chloride (Nacl) 1 gm TID GTB Last administered on 07/25/17 13:06; Admin Dose 1 GM; Start 07/16/17 at 09:00 Metoprolol Tartrate (Lopressor) 25 mg BID GTB Last administered on 07/25/17 09:30; Admin Dose 25 MG; Start 07/16/17 at 09:00 Sodium Biphosphate/ Sodium Phosphate (Fleet Enema) 133 ml Q72H [place] Last administered on 07/25/17 09:31; Admin Dose 133 ML; Start 07/16/17 at 09:00 Amlodipine Besylate (Norvasc) 5 mg DAILY GTB Last administered on 07/25/17 09 :29; Admin Dose 5 MG; Start 07/16/17 at 10:00 Gabapentin (Neurontin Liquid) 400 mg TID GTB Last administered on 07/20/17 21 :03; Admin Dose 400 MG; Start 07/16/17 at 21:00; Status Future Hold Estrogens Conjugated (Premarin Vaginal Cr) 1 applic MONWEDFRI@21 VAG Last administered on 07/24/17 21:55; Admin Dose 1 APPLIC; Start 07/17/17 at 21:00 Patient Own Medication 1 ea BID PO Last administered on 07/25/17 09:32; Admin Dose 1 EA; Start 07/17/17 at 09:00 Hydralazine HCl (Apresoline) 25 mg TID GTB Last administered on 07/25/17 13: 08; Admin Dose 25 MG; Start 07/18/17 at 21:30 Hydralazine HCl 10 mg 10 mg Q4H PRN IV SBP >160; Start 07/20/17 at 17:30 Cefepime HCl (Maxipime 1gm/50 ml (Pmx)) 50 ml @ 100 mls/hr Q12 IVPB Last administered on 07/25/17 09:28; Admin Dose 100 MLS/HR; Start 07/21/17 at 21: 00; Stop 07/25/17 at 23:30 Metoprolol Tartrate (Lopressor) 5 mg Q4H PRN IV HR>110 Hold SBP<100; Start at 15:00 IV Flush (NS 10 ml) 10 ml PRN PRN IV IV PROTOCOL; Start 07/22/17 at 17:00 Levetiracetam (Keppra Liquid) 500 mg BID GTB Last administered on 07/25/17 09 :25; Admin Dose 500 MG; Start 07/23/17 at 21:00 Miscellaneous Information (Pending [facility] Order For Wound Care) This patient cooney... PRN PRN XX WOUND CARE; Start 07/25/17 at 15:30 MARLINE CHOWDARY Jul 25, 2017 15:55
[2017-07-26] VITALS (12 sets, daily range): BP systolic 123–170; BP diastolic 61–85; PULSE 73–114; RESP 18–20
[2017-07-26] MEDS: HYDROCODONE/APAP (5/325) TAB GTB PRN ×2 (06:18→17:59)
[2017-07-26] MEDS: LEVETIRACETAM (100 MG/ML) 5ML CUP GTB SCH ×2 (09:02→20:57)
[2017-07-26] MEDS: ASPIRIN 325 MG TAB GTB SCH (09:02)
[2017-07-26] MEDS: METOPROLOL 25 MG TAB GTB SCH ×2 (09:02→20:57)
[2017-07-26] MEDS: AMLODIPINE 5 MG TAB GTB SCH (09:02)
[2017-07-26] MEDS: SODIUM CHLORIDE 1 GM TAB GTB SCH ×3 (09:02→20:57)
[2017-07-26] MEDS: ENOXAPARIN 40 MG/0.4 ML SYG SC SCH (09:35)
--- NOTE | 2017-07-26 11:45 | CONS ---
Date/Time of Note Date/Time of Note DATE: 07/26/17 TIME: 11:42 Assessment/Plan Assessment/Plan Chief Complaint/Hosp Course IMPRESSION: 1. Paroxysmal atrial fibrillation-? recurrence. Now in Wandering atrial pacemaker rate controlled 2. Abnormal electrocardiogram, assess for acute coronary syndrome. 3. Hypertension. 4. Possible acute cerebrovascular accident. 5. Urinary tract infection. 6. Leukocytosis. 7. Encephalopathy Recc: -Continue Tele to assess fo recurrent AGF -Continue asa therapy at this time -Continue BB as tolerated -Will contnue norvasc/hydralazine and follow somewhat labile BP closely -Continue keppra -Continue abx's and f/u cx data -Follow MS with ongoing neuro eval and continue keppra Problems: Consultation Date/Type/Reason Admit Date/Time Jul 15, 2017 at 21:05 Initial Consult Date 07/21/17 Type of Consultation: cardiology Reason for Consultation PAF Referring Provider: ANGELINA CARUSO MD Exam/Review of Systems Vital Signs Vitals Vital Signs Date Time Temp Pulse Resp B/P Pulse Ox O2 Delivery O2 Flow Rate FiO2 07/26/17 11:09 98.9 74 20 155/67 100 07/26/17 08:00 Nasal Cannula 1.0 07/24/17 02:24 24 Intake and Output 07/25/17 07/25/17 07/26/17 15:00 23:00 07:00 Intake Total 1180 ml Balance 1180 ml Exam Review of Systems: CONSTITUTIONAL: No fevers, chills. PULMONARY: No sob CARDIOVASCULAR: No chest pain/palpitations GASTROINTESTINAL: No nausea/vomiting. GENITOURINARY: No hematuria/dysuria. MUSCULOSKELETAL: No myagias/arthalgias. PSYCHIATRIC: The patient denies depression. NEUROLOGIC: No weakness Constitutional: other (Encephalopathic) Psych: no complaints Head: normocephalic ENMT: mucosa pink and moist Neck: jvd (9 cm water), supple Respiratory: diminished breath sounds Cardiovascular: irregular rhythm Gastrointestinal: non-tender, soft Musculoskeletal: muscle weakness (generalized weakness) Extremities: edema (none) Neurological: other (No focal deficits) Results Result Diagram: 07/25/17 1116 07/25/17 1116 Medications Medications Current Medications Aspirin (Aspirin) 325 mg DAILY GTB Last administered on 07/26/17t 09:02; Admin Dose 325 MG; Start 07/16/17 at 09:00 Nitroglycerin (Nitroglycerin (Sl Tab) 0.4 Mg) 1 tab Q5M PRN SL ANGINA; Start 07/16/17 at 00:00 Enoxaparin Sodium (Lovenox) 40 mg DAILY SC Last administered on 07/26/17 09: 35; Admin Dose 40 MG; Start 07/16/17 at 09:00 Acetaminophen (Tylenol Liquid) 650 mg Q6 PRN GTB PAIN AND OR ELEVATED TEMP Last administered on 07/25/17 09:25; Admin Dose 650 MG; Start 07/16/17 at 01: 30 Bisacodyl (Dulcolax Supp) 10 mg Q48H PRN [place] CONSTIPATION; Start 07/16/17 at 09: 00 Clonazepam (Klonopin) 0.25 mg Q12 PRN GTB ANXIETY Last administered on 13:07; Admin Dose 0.25 MG; Start 07/16/17 at 01:30 Acetaminophen/ Hydrocodone Bitart ([place] (5/325)) 1 tab Q6 PRN GTB PAIN Last administered on 07/26/17 06:18; Admin Dose 1 TAB; Start 07/16/17 at 01:30 Polyethylene Glycol (Miralax) 17 gm DAILY PRN GTB CONSTIPATION; Start 07/16/17 at 01:30 Sodium Chloride (Nacl) 1 gm TID GTB Last administered on 07/26/17 09:02; Admin Dose 1 GM; Start 07/16/17 at 09:00 Metoprolol Tartrate (Lopressor) 25 mg BID GTB Last administered on 07/26/17 09:02; Admin Dose 25 MG; Start 07/16/17 at 09:00 Sodium Biphosphate/ Sodium Phosphate (Fleet Enema) 133 ml Q72H [place] Last administered on 07/25/17 09:31; Admin Dose 133 ML; Start 07/16/17 at 09:00 Amlodipine Besylate (Norvasc) 5 mg DAILY GTB Last administered on 07/26/17 09 :02; Admin Dose 5 MG; Start 07/16/17 at 10:00 Gabapentin (Neurontin Liquid) 400 mg TID GTB Last administered on 07/20/17 21 :03; Admin Dose 400 MG; Start 07/16/17 at 21:00; Status Future Hold Estrogens Conjugated (Premarin Vaginal Cr) 1 applic MONWEDFRI@21 VAG Last administered on 07/24/17 21:55; Admin Dose 1 APPLIC; Start 07/17/17 at 21:00 Patient Own Medication 1 ea BID PO Last administered on 07/26/17 09:36; Admin Dose 1 EA; Start 07/17/17 at 09:00 Hydralazine HCl (Apresoline) 25 mg TID GTB Last administered on 07/26/17 09: 02; Admin Dose 25 MG; Start 07/18/17 at 21:30 Hydralazine HCl (Apresoline) 10 mg Q4H PRN IV SBP >160; Start 07/20/17 at 17: 30 Metoprolol Tartrate (Lopressor) 5 mg Q4H PRN IV HR>110 Hold SBP<100; Start at 15:00 IV Flush (NS 10 ml) 10 ml PRN PRN IV IV PROTOCOL; Start 07/22/17 at 17:00 Levetiracetam (Keppra Liquid) 500 mg BID GTB Last administered on 07/26/17 09 :02; Admin Dose 500 MG; Start 07/23/17 at 21:00 Miscellaneous Information (Pending [facility]yl Order For Wound Care) This patient cooney... PRN PRN XX WOUND CARE; Start 07/25/17 at 15:30 COMPA NUGENT Jul 26, 2017 11:45
--- NOTE | 2017-07-26 12:59 | CONS ---
Date/Time of Note Date/Time of Note DATE: 07/26/17 TIME: 12:58 Consult Date/Type/Reason Admit Date/Time Jul 15, 2017 at 21:05 Type of Consultation: id Ordering Provider: ANGELINA CARUSO MD Objective Vital Signs Date Time Temp Pulse Resp B/P Pulse Ox O2 Delivery O2 Flow Rate FiO2 07/26/17 12:38 73 07/26/17 11:09 98.9 20 155/67 100 07/26/17 08:00 Nasal Cannula 1.0 07/24/17 02:24 24 Intake and Output 07/25/17 07/25/17 07/26/17 15:00 23:00 07:00 Intake Total 1180 ml Balance 1180 ml Results/Medications Result Diagram: 07/25/17 1116 07/25/17 1116 Medications Current Medications Aspirin (Aspirin) 325 mg DAILY GTB Last administered on 07/26/17 09:02; Admin Dose 325 MG; Start 07/16/17 at 09:00 Nitroglycerin (Nitroglycerin (Sl Tab) 0.4 Mg) 1 tab Q5M PRN SL ANGINA; Start 07/16/17 at 00:00 Enoxaparin Sodium (Lovenox) 40 mg DAILY SC Last administered on 07/26/17 09: 35; Admin Dose 40 MG; Start 07/16/17 at 09:00 Acetaminophen (Tylenol Liquid) 650 mg Q6 PRN GTB PAIN AND OR ELEVATED TEMP Last administered on 07/25/17 09:25; Admin Dose 650 MG; Start 07/16/17 at 01: 30 Bisacodyl (Dulcolax Supp) 10 mg Q48H PRN [place] CONSTIPATION; Start 07/16/17 at 09: 00 Clonazepam (Klonopin) 0.25 mg Q12 PRN GTB ANXIETY Last administered on 13:07; Admin Dose 0.25 MG; Start 07/16/17 at 01:30 Acetaminophen/ Hydrocodone Bitart ([place] (5/325)) 1 tab Q6 PRN GTB PAIN Last administered on 07/26/17 06:18; Admin Dose 1 TAB; Start 07/16/17 at 01:30 Polyethylene Glycol (Miralax) 17 gm DAILY PRN GTB CONSTIPATION; Start 07/16/17 at 01:30 Sodium Chloride (Nacl) 1 gm TID GTB Last administered on 07/26/17 12:15; Admin Dose 1 GM; Start 07/16/17 at 09:00 Metoprolol Tartrate (Lopressor) 25 mg BID GTB Last administered on 07/26/17 09:02; Admin Dose 25 MG; Start 07/16/17 at 09:00 Sodium Biphosphate/ Sodium Phosphate (Fleet Enema) 133 ml Q72H [place] Last administered on 07/25/17 09:31; Admin Dose 133 ML; Start 07/16/17 at 09:00 Amlodipine Besylate (Norvasc) 5 mg DAILY GTB Last administered on 07/26/17 09 :02; Admin Dose 5 MG; Start 07/16/17 at 10:00 Gabapentin (Neurontin Liquid) 400 mg TID GTB Last administered on 07/20/17 21 :03; Admin Dose 400 MG; Start 07/16/17 at 21:00; Status Future Hold Estrogens Conjugated (Premarin Vaginal Cr) 1 applic MONWEDFRI@21 VAG Last administered on 07/24/17 21:55; Admin Dose 1 APPLIC; Start 07/17/17 at 21:00 Patient Own Medication 1 ea BID PO Last administered on 07/26/17 09:36; Admin Dose 1 EA; Start 07/17/17 at 09:00 Hydralazine HCl (Apresoline) 25 mg TID GTB Last administered on 07/26/17 12: 15; Admin Dose 25 MG; Start 07/18/17 at 21:30 Hydralazine HCl (Apresoline) 10 mg Q4H PRN IV SBP >160; Start 07/20/17 at 17: 30 Metoprolol Tartrate (Lopressor) 5 mg Q4H PRN IV HR>110 Hold SBP<100; Start at 15:00 IV Flush (NS 10 ml) 10 ml PRN PRN IV IV PROTOCOL; Start 07/22/17 at 17:00 Levetiracetam (Keppra Liquid) 500 mg BID GTB Last administered on 07/26/17 09 :02; Admin Dose 500 MG; Start 07/23/17 at 21:00 Miscellaneous Information (Pending [facility] Order For Wound Care) This patient cooney... PRN PRN XX WOUND CARE; Start 07/25/17 at 15:30 Assessment/Plan Chief Complaint/Hosp Course SUBJECTIVE: No acute events per automobile contract clerk. The patient is awake, looks comfortable, no fevers. INDWELLINGS: PICC line. PHYSICAL EXAMINATION: GENERAL: This is a well-developed, chronically ill-appearing, elderly woman who is in no distress. HEENT: Head atraumatic, normocephalic. Sclerae anicteric. Buccal mucosa dry. NECK: Supple. CHEST: Rise symmetrical. Breath sounds diminished to bases. HEART: S1, S2. ABDOMEN: Soft, bowel sounds present. EXTREMITIES: No cyanosis. ASSESSMENT: 1. s/p polymicrobial urinary tract infection. 2. Neurogenic bladder 3. Status post transient ischemic attack. 4. Advanced multiple sclerosis. 5. Coronary artery disease status post paroxysmal atrial fibrillation. 6. History of breast carcinoma. PLAN: The patient remains stable. Off antibiotics, continue present care. Follow recommendations of consultants. Problems: NOHELIA HER NP Jul 26, 2017 12:59
--- NOTE | 2017-07-26 16:04 | PN ---
Date/Time of Note Date/Time of Note DATE: 07/26/17 TIME: 16:01 Assessment/Plan VTE Prophylaxis VTE Prophylaxis Intervention: SCD's Lines/Catheters IV Catheter Type (from Nrs): PICC Line Central line still needed: Yes Urinary Cath still in place: No Assessment/Plan Chief Complaint/Hosp Course Patient had episode of elevated blood pressure however denies any chest pain denies any shortness of breath. Assessment/Plan - CECILIA versus seizures versus acute metabolic encephalopathy, Dr. Hahn is following in neurology consultation. Continue Keppra. - Atrial fibrillation, currently in sinus rhythm with wandering pacemaker, continue aspirin, Dr. Ferrara is following in cardiology consultation - Atypical chest pain, rule out myocardial infarction. Cardiac enzymes negative 3. Unable to undergo to pulmonary angiogram due to allergy to iodine. VQ scan is low probability for PE. - Polumicrobial UTI, completed treatment with antibiotics. - Advanced multiple sclerosis, bed to wheelchair bound total care. - Hypertension, continue metoprolol and Norvasc - Dysphagia. Continue G-tube feeding. - Hx Breast cancer. Further recommendations based on clinical course. Plan of care discussed with Dr. Soto Problems: Exam/Review of Systems Vital Signs Vitals Vital Signs Date Time Temp Pulse Resp B/P Pulse Ox O2 Delivery O2 Flow Rate FiO2 07/26/17 15:58 Nasal Cannula 1.0 07/26/17 15:50 133/68 07/26/17 15:14 98.8 88 19 100 07/24/17 02:24 24 Intake and Output 07/25/17 07/25/17 07/26/17 15:00 23:00 07:00 Intake Total 1180 ml Balance 1180 ml Exam Constitutional: alert, oriented Head: normocephalic Neck: supple Respiratory: normal air movement Cardiovascular: regular rhythm Gastrointestinal: non-tender, other (G-tube), soft Musculoskeletal: muscle weakness Extremities: other (Contracted) Results Result Diagram: 07/25/17 1116 07/25/17 1116 Medications Medications Current Medications Aspirin (Aspirin) 325 mg DAILY GTB Last administered on 07/26/17t 09:02; Admin Dose 325 MG; Start 07/16/17 at 09:00 Nitroglycerin (Nitroglycerin (Sl Tab) 0.4 Mg) 1 tab Q5M PRN SL ANGINA; Start 07/16/17 at 00:00 Enoxaparin Sodium (Lovenox) 40 mg DAILY SC Last administered on 07/26/17 09: 35; Admin Dose 40 MG; Start 07/16/17 at 09:00 Acetaminophen (Tylenol Liquid) 650 mg Q6 PRN GTB PAIN AND OR ELEVATED TEMP Last administered on 07/25/17 09:25; Admin Dose 650 MG; Start 07/16/17 at 01: 30 Bisacodyl (Dulcolax Supp) 10 mg Q48H PRN [place] CONSTIPATION; Start 07/16/17 at 09: 00 Clonazepam (Klonopin) 0.25 mg Q12 PRN GTB ANXIETY Last administered on 13:07; Admin Dose 0.25 MG; Start 07/16/17 at 01:30 Acetaminophen/ Hydrocodone Bitart ([place] (5/325)) 1 tab Q6 PRN GTB PAIN Last administered on 07/26/17 06:18; Admin Dose 1 TAB; Start 07/16/17 at 01:30 Polyethylene Glycol (Miralax) 17 gm DAILY PRN GTB CONSTIPATION; Start 07/16/17 at 01:30 Sodium Chloride (Nacl) 1 gm TID GTB Last administered on 07/26/17 12:15; Admin Dose 1 GM; Start 07/16/17 at 09:00 Metoprolol Tartrate (Lopressor) 25 mg BID GTB Last administered on 07/26/17 09:02; Admin Dose 25 MG; Start 07/16/17 at 09:00 Sodium Biphosphate/ Sodium Phosphate (Fleet Enema) 133 ml Q72H [place] Last administered on 07/25/17 09:31; Admin Dose 133 ML; Start 07/16/17 at 09:00 Amlodipine Besylate (Norvasc) 5 mg DAILY GTB Last administered on 07/26/17 09 :02; Admin Dose 5 MG; Start 07/16/17 at 10:00 Gabapentin (Neurontin Liquid) 400 mg TID GTB Last administered on 07/20/17 21 :03; Admin Dose 400 MG; Start 07/16/17 at 21:00; Status Future Hold Estrogens Conjugated (Premarin Vaginal Cr) 1 applic MONWEDFRI@21 VAG Last administered on 07/24/17 21:55; Admin Dose 1 APPLIC; Start 07/17/17 at 21:00 Patient Own Medication 1 ea BID PO Last administered on 07/26/17 09:36; Admin Dose 1 EA; Start 07/17/17 at 09:00 Hydralazine HCl (Apresoline) 25 mg TID GTB Last administered on 07/26/17 12: 15; Admin Dose 25 MG; Start 07/18/17 at 21:30 Hydralazine HCl (Apresoline) 10 mg Q4H PRN IV SBP >160; Start 07/20/17 at 17: 30 Metoprolol Tartrate (Lopressor) 5 mg Q4H PRN IV HR>110 Hold SBP<100; Start at 15:00 IV Flush (NS 10 ml) 10 ml PRN PRN IV IV PROTOCOL; Start 07/22/17 at 17:00 Levetiracetam (Keppra Liquid) 500 mg BID GTB Last administered on 07/26/17 09 :02; Admin Dose 500 MG; Start 07/23/17 at 21:00 Miscellaneous Information (Pending Santyl Order For Wound Care) This patient cooney... PRN PRN XX WOUND CARE; Start 07/25/17 at 15:30 MARLINE CHOWDARY Jul 26, 2017 16:04
[2017-07-26] MEDS: ESTROGENS CONJUGATED 42.5 GM VAG CR VAG SCH (20:58)
[2017-07-27] VITALS (12 sets, daily range): BP systolic 92–144; BP diastolic 47–68; PULSE 68–88; RESP 18–19
[2017-07-27 07:44] LABS: BASOPHIL # 0.1 10^3/ul (0.0-0.1); BASOPHILS % 0.5 % (0.0-2.0); EOSINOPHILS # 0.3 10^3/ul (0.0-0.5); EOSINOPHILS % 2.4 % (0.0-7.0); HEMATOCRIT 37.4 % (37.0-47.0); HEMOGLOBIN 11.7 g/dl (12.0-16.0); LYMPHOCYTES # 2.9 10^3/ul (0.8-2.9); LYMPHOCYTES % 24.7 % (15.0-51.0); MEAN CORPUSCULAR HEMOGLOBIN 27.1 pg (29.0-33.0); MEAN CORPUSCULAR HGB CONC 31.3 g/dl (32.0-37.0); MEAN CORPUSCULAR VOLUME 86.8 fl (82.0-101.0); MONOCYTE # 0.9 10^3/ul (0.3-0.9); MONOCYTES % 7.9 % (0.0-11.0); NEUTROPHIL # 7.5 10^3/ul (1.6-7.5); NEUTROPHILS % 64.1 % (39.0-77.0); PLATELET COUNT 304 10^3/UL (140-415); RED BLOOD COUNT 4.31 10^6/ul (4.20-5.40); RED CELL DISTRIBUTION WIDTH 14.4 % (11.5-14.5); WHITE BLOOD COUNT 11.7 10^3/ul (4.8-10.8)
[2017-07-27 08:12] LABS: CALCIUM 9.4 mg/dl (8.4-10.2); CREATININE 0.46 mg/dl (0.44-1.00); POTASSIUM 4.2 mmol/L (3.5-5.1)
[2017-07-27] MEDS: SODIUM CHLORIDE 1 GM TAB GTB SCH ×3 (09:50→13:47)
[2017-07-27] MEDS: LEVETIRACETAM (100 MG/ML) 5ML CUP GTB SCH ×2 (09:51→20:40)
[2017-07-27] MEDS: AMLODIPINE 5 MG TAB GTB SCH (09:51)
[2017-07-27] MEDS: ASPIRIN 325 MG TAB GTB SCH (09:51)
[2017-07-27] MEDS: HYDROCODONE/APAP (5/325) TAB GTB PRN ×2 (09:53→17:50)
[2017-07-27] MEDS: ENOXAPARIN 40 MG/0.4 ML SYG SC SCH (10:06)
[2017-07-27] MEDS: METOPROLOL 25 MG TAB GTB SCH ×2 (10:11→20:41)
--- NOTE | 2017-07-27 13:18 | CONS ---
Date/Time of Note Date/Time of Note DATE: 07/27/17 TIME: 13:14 Assessment/Plan Assessment/Plan Chief Complaint/Hosp Course IMPRESSION: 1. Paroxysmal atrial fibrillation-? recurrence. Now in Wandering atrial pacemaker rate controlled 2. Abnormal electrocardiogram, assess for acute coronary syndrome. 3. Hypertension. 4. Possible acute cerebrovascular accident. 5. Urinary tract infection. 6. Leukocytosis. 7. Encephalopathy Recc: -Continue Tele to assess fo recurrent AF -Continue asa therapy at this time -Continue BB as tolerated -Will contnue norvasc/hydralazine and follow somewhat labile BP closely -Continue keppra -Continue abx's and f/u cx data -Follow MS with ongoing neuro eval and continue keppra Problems: Consultation Date/Type/Reason Admit Date/Time Jul 15, 2017 at 21:05 Initial Consult Date 07/21/17 Type of Consultation: cardiology Reason for Consultation paf Referring Provider: ANGELINA CARUSO MD Exam/Review of Systems Vital Signs Vitals Vital Signs Date Time Temp Pulse Resp B/P Pulse Ox O2 Delivery O2 Flow Rate FiO2 07/27/17 12:31 88 07/27/17 11:34 98.1 19 140/68 98 07/27/17 00:03 2.0 07/26/17 15:58 Nasal Cannula 07/24/17 02:24 24 Intake and Output 07/26/17 07/26/17 07/27/17 15:00 23:00 07:00 Intake Total 680 ml 1140 ml Balance 680 ml 1140 ml Exam Review of Systems: CONSTITUTIONAL: No fevers, chills. PULMONARY: No sob CARDIOVASCULAR: No chest pain/palpitations GASTROINTESTINAL: No nausea/vomiting. GENITOURINARY: No hematuria/dysuria. MUSCULOSKELETAL: No myagias/arthalgias. PSYCHIATRIC: The patient denies depression. NEUROLOGIC: No weakness Constitutional: other (Encephalopathic) Psych: no complaints Head: normocephalic ENMT: mucosa pink and moist Neck: jvd (9 cm water), supple Respiratory: diminished breath sounds (at bases/B) Cardiovascular: regular rate and rhythm Gastrointestinal: non-tender, soft Musculoskeletal: muscle weakness (generalized) Extremities: other (trace/B) Neurological: other (Encephalopathic) Results Result Diagram: 07/27/17 0649 10/19/17 0649 Results 24 hrs Laboratory Tests Test 07/27/17 06:49 White Blood Count 11.7 H Red Blood Count 4.31 Hemoglobin 11.7 L Hematocrit 37.4 Mean Corpuscular Volume 86.8 Mean Corpuscular Hemoglobin 27.1 L Mean Corpuscular Hemoglobin Concent 31.3 L Red Cell Distribution Width 14.4 Platelet Count 304 Mean Platelet Volume 12.0 H Neutrophils % 64.1 Lymphocytes % 24.7 Monocytes % 7.9 Eosinophils % 2.4 Basophils % 0.5 Nucleated Red Blood Cells % 0.0 Neutrophils # 7.5 Lymphocytes # 2.9 Monocytes # 0.9 Eosinophils # 0.3 Basophils # 0.1 Nucleated Red Blood Cells # 0.0 Sodium Level 139 Potassium Level 4.2 Chloride Level 103 Carbon Dioxide Level 32 H Anion Gap 8 Blood Urea Nitrogen 13 Creatinine 0.46 Glucose Level 90 Calcium Level 9.4 Medications Medications Current Medications Aspirin (Aspirin) 325 mg DAILY GTB Last administered on 07/27/17 09:51; Admin Dose 325 MG; Start 07/16/17 at 09:00 Nitroglycerin (Nitroglycerin (Sl Tab) 0.4 Mg) 1 tab Q5M PRN SL ANGINA; Start 07/16/17 at 00:00 Enoxaparin Sodium (Lovenox) 40 mg DAILY SC Last administered on 07/27/17 10: 06; Admin Dose 40 MG; Start 07/16/17 at 09:00 Acetaminophen (Tylenol Liquid) 650 mg Q6 PRN GTB PAIN AND OR ELEVATED TEMP Last administered on 07/25/17 09:25; Admin Dose 650 MG; Start 07/16/17 at 01: 30 Bisacodyl (Dulcolax Supp) 10 mg Q48H PRN [place] CONSTIPATION; Start 07/16/17 at 09: 00 Clonazepam (Klonopin) 0.25 mg Q12 PRN GTB ANXIETY Last administered on 13:07; Admin Dose 0.25 MG; Start 07/16/17 at 01:30 Acetaminophen/ Hydrocodone Bitart ([place] (5/325)) 1 tab Q6 PRN GTB PAIN Last administered on 07/27/17 09:53; Admin Dose 1 TAB; Start 07/16/17 at 01:30 Polyethylene Glycol (Miralax) 17 gm DAILY PRN GTB CONSTIPATION; Start 07/16/17 at 01:30 Sodium Chloride (Nacl) 1 gm TID GTB Last administered on 07/27/17 09:50; Admin Dose 1 GM; Start 07/16/17 at 09:00 Metoprolol Tartrate (Lopressor) 25 mg BID GTB Last administered on 07/27/17 10:11; Admin Dose 25 MG; Start 07/16/17 at 09:00 Sodium Biphosphate/ Sodium Phosphate (Fleet Enema) 133 ml Q72H [place] Last administered on 07/25/17 09:31; Admin Dose 133 ML; Start 07/16/17 at 09:00 Amlodipine Besylate (Norvasc) 5 mg DAILY GTB Last administered on 07/27/17 09 :51; Admin Dose 5 MG; Start 07/16/17 at 10:00 Gabapentin (Neurontin Liquid) 400 mg TID GTB Last administered on 07/20/17 21 :03; Admin Dose 400 MG; Start 07/16/17 at 21:00; Status Future Hold Estrogens Conjugated (Premarin Vaginal Cr) 1 applic MONWEDFRI@21 VAG Last administered on 07/26/17 20:58; Admin Dose 1 APPLIC; Start 07/17/17 at 21:00 Patient Own Medication 1 ea BID PO Last administered on 07/26/17 20:58; Admin Dose 1 EA; Start 07/17/17 at 09:00 Hydralazine HCl (Apresoline) 25 mg TID GTB Last administered on 07/27/17 09: 52; Admin Dose 25 MG; Start 07/18/17 at 21:30 Hydralazine HCl (Apresoline) 10 mg Q4H PRN IV SBP >160; Start 07/20/17 at 17: 30 Metoprolol Tartrate (Lopressor) 5 mg Q4H PRN IV HR>110 Hold SBP<100; Start at 15:00 IV Flush (NS 10 ml) 10 ml PRN PRN IV IV PROTOCOL; Start 07/22/17 at 17:00 Levetiracetam (Keppra Liquid) 500 mg BID GTB Last administered on 07/27/17 09 :51; Admin Dose 500 MG; Start 07/23/17 at 21:00 [facility] This patient cooney... PRN PRN XX WOUND CARE; Start 07/25/17 at 15:30 COMPA NUGENT Jul 27, 2017 13:18
--- NOTE | 2017-07-27 16:00 | PN ---
Date/Time of Note Date/Time of Note DATE: 07/27/17 TIME: 15:51 Assessment/Plan VTE Prophylaxis VTE Prophylaxis Intervention: other Lines/Catheters [facility] Type ([facility] PICC Line Central line still needed: Yes Urinary Cath still in place: No Assessment/Plan Assessment/Plan - CECILIA versus seizures versus acute metabolic encephalopathy, Dr. Hahn is following in neurology consultation. Continue Keppra. - Atrial fibrillation, currently in sinus rhythm with wandering pacemaker, continue aspirin, Dr. Ferrara is following in cardiology consultation - Atypical chest pain, rule out myocardial infarction. Cardiac enzymes negative 3. Unable to undergo to pulmonary angiogram due to allergy to iodine. VQ scan is low probability for PE. - Polumicrobial UTI, completed treatment with antibiotics. - Advanced multiple sclerosis, bed to wheelchair bound total care. - Hypertension, continue metoprolol and Norvasc - Dysphagia. Continue G-tube feeding. - Hx Breast cancer. Further recommendations based on clinical course. Plan of care discussed with Dr. Soto Subjective 24 Hr Interval Summary Free Text/Dictation Patient is up in chair, NAD, family at bed side, DPOA person at bed side, wants patient to go home not convalescent home. zelda RN- to notify human services case manager regarding change in plan. Patient has c/o eye twitching. Staff to notify neurologist. no seizure activity reported by staff- will do seizure precautions. Respiratory: no complaints Cardiovascular: no complaints Gastrointestinal: no complaints Musculoskeletal: no complaints Skin: no complaints Exam/Review of Systems Vital Signs Vitals Vital Signs Date Time Temp Pulse Resp B/P Pulse Ox O2 Delivery O2 Flow Rate FiO2 07/27/17 15:29 98.3 87 19 134/61 100 07/27/17 00:03 2.0 07/26/17 15:58 Nasal Cannula 07/24/17 02:24 24 Intake and Output 07/26/17 07/26/17 07/27/17 15:00 23:00 07:00 Intake Total 680 ml 1140 ml Balance 680 ml 1140 ml Exam Constitutional: alert, well developed Cardiovascular: other (s1s2) Gastrointestinal: non-tender, soft Musculoskeletal: nl extremities to inspection Extremities: normal pulses Neurological: nl speech Results Result Diagram: 07/27/17 0649 07/27/17 0649 Results 24 hrs Laboratory Tests Test 07/27/17 06:49 White Blood Count 11.7 H Red Blood Count 4.31 Hemoglobin 11.7 L Hematocrit 37.4 Mean Corpuscular Volume 86.8 Mean Corpuscular Hemoglobin 27.1 L Mean Corpuscular Hemoglobin Concent 31.3 L Red Cell Distribution Width 14.4 Platelet Count 304 Mean Platelet Volume 12.0 H Neutrophils % 64.1 Lymphocytes % 24.7 Monocytes % 7.9 Eosinophils % 2.4 Basophils % 0.5 Nucleated Red Blood Cells % 0.0 Neutrophils # 7.5 Lymphocytes # 2.9 Monocytes # 0.9 Eosinophils # 0.3 Basophils # 0.1 Nucleated Red Blood Cells # 0.0 Sodium Level 139 Potassium Level 4.2 Chloride Level 103 Carbon Dioxide Level 32 H Anion Gap 8 Blood Urea Nitrogen 13 Creatinine 0.46 Glucose Level 90 Calcium Level 9.4 Medications Medications Current Medications Aspirin (Aspirin) 325 mg DAILY GTB Last administered on 07/27/17 09:51; Admin Dose 325 MG; Start 07/16/17 at 09:00 Nitroglycerin (Nitroglycerin (Sl Tab) 0.4 Mg) 1 tab Q5M PRN SL ANGINA; Start 07/16/17 at 00:00 Enoxaparin Sodium (Lovenox) 40 mg DAILY SC Last administered on 07/27/17 10: 06; Admin Dose 40 MG; Start 07/16/17 at 09:00 Acetaminophen (Tylenol Liquid) 650 mg Q6 PRN GTB PAIN AND OR ELEVATED TEMP Last administered on 07/25/17 09:25; Admin Dose 650 MG; Start 07/16/17 at 01: 30 Bisacodyl (Dulcolax Supp) 10 mg Q48H PRN [place] CONSTIPATION; Start 07/16/17 at 09: 00 Clonazepam (Klonopin) 0.25 mg Q12 PRN GTB ANXIETY Last administered on 13:07; Admin Dose 0.25 MG; Start 07/16/17 at 01:30 Acetaminophen/ Hydrocodone Bitart ([place] (5/325)) 1 tab Q6 PRN GTB PAIN Last administered on 07/27/17 09:53; Admin Dose 1 TAB; Start 07/16/17 at 01:30 Polyethylene Glycol (Miralax) 17 gm DAILY PRN GTB CONSTIPATION; Start 07/16/17 at 01:30 Sodium Chloride (Nacl) 1 gm TID GTB Last administered on 07/27/17 13:47; Admin Dose 1 GM; Start 07/16/17 at 09:00 Metoprolol Tartrate (Lopressor) 25 mg BID GTB Last administered on 07/27/17 10:11; Admin Dose 25 MG; Start 07/16/17 at 09:00 Sodium Biphosphate/ Sodium Phosphate (Fleet Enema) 133 ml Q72H [place] Last administered on 07/25/17 09:31; Admin Dose 133 ML; Start 07/16/17 at 09:00 Amlodipine Besylate (Norvasc) 5 mg DAILY GTB Last administered on 07/27/17 09 :51; Admin Dose 5 MG; Start 07/16/17 at 10:00 Gabapentin (Neurontin Liquid) 400 mg TID GTB Last administered on 07/20/17 21 :03; Admin Dose 400 MG; Start 07/16/17 at 21:00; Status Future Hold Estrogens Conjugated (Premarin Vaginal Cr) 1 applic MONWEDFRI@21 VAG Last administered on 07/26/17 20:58; Admin Dose 1 APPLIC; Start 07/17/17 at 21:00 Patient Own Medication 1 ea BID PO Last administered on 07/26/17 20:58; Admin Dose 1 EA; Start 07/17/17 at 09:00 Hydralazine HCl (Apresoline) 25 mg TID GTB Last administered on 07/27/17 13: 23; Admin Dose 25 MG; Start 07/18/17 at 21:30 Hydralazine HCl (Apresoline) 10 mg Q4H PRN IV SBP >160; Start 07/20/17 at 17: 30 Metoprolol Tartrate (Lopressor) 5 mg Q4H PRN IV HR>110 Hold SBP<100; Start at 15:00 IV Flush (NS 10 ml) 10 ml PRN PRN IV IV PROTOCOL; Start 07/22/17 at 17:00 Levetiracetam (Keppra Liquid) 500 mg BID GTB Last administered on 07/27/17 09 :51; Admin Dose 500 MG; Start 07/23/17 at 21:00 Miscellaneous Information (Pending [facility] Order For Wound Care) This patient cooney... PRN PRN XX WOUND CARE; Start 07/25/17 at 15:30 DIEGO ORELLANA Jul 27, 2017 16:00
--- NOTE | 2017-07-27 22:04 | CONS ---
Date/Time of Note Date/Time of Note DATE: 07/27/17 TIME: 22:04 Consult Date/Type/Reason Admit Date/Time Jul 15, 2017 at 21:05 Type of Consultation: ID Ordering Provider: ANGELINA CARUSO MD Objective Vital Signs Date Time Temp Pulse Resp B/P Pulse Ox O2 Delivery O2 Flow Rate FiO2 07/27/17 20:05 83 07/27/17 18:54 98.6 18 128/63 99 07/27/17 00:03 2.0 07/26/17 15:58 Nasal Cannula 07/24/17 02:24 24 Intake and Output 07/26/17 07/26/17 07/27/17 15:00 23:00 07:00 Intake Total 680 ml 1140 ml Balance 680 ml 1140 ml Results/Medications Result Diagram: 07/27/17 0649 07/27/17 0649 Results 24 hrs Laboratory Tests Test 07/27/17 06:49 White Blood Count 11.7 H Red Blood Count 4.31 Hemoglobin 11.7 L Hematocrit 37.4 Mean Corpuscular Volume 86.8 Mean Corpuscular Hemoglobin 27.1 L Mean Corpuscular Hemoglobin Concent 31.3 L Red Cell Distribution Width 14.4 Platelet Count 304 Mean Platelet Volume 12.0 H Neutrophils % 64.1 Lymphocytes % 24.7 Monocytes % 7.9 Eosinophils % 2.4 Basophils % 0.5 Nucleated Red Blood Cells % 0.0 Neutrophils # 7.5 Lymphocytes # 2.9 Monocytes # 0.9 Eosinophils # 0.3 Basophils # 0.1 Nucleated Red Blood Cells # 0.0 Sodium Level 139 Potassium Level 4.2 Chloride Level 103 Carbon Dioxide Level 32 H Anion Gap 8 Blood Urea Nitrogen 13 Creatinine 0.46 Glucose Level 90 Calcium Level 9.4 Medications Current Medications Aspirin (Aspirin) 325 mg DAILY GTB Last administered on 07/27/17 09:51; Admin Dose 325 MG; Start 07/16/17 at 09:00 Nitroglycerin (Nitroglycerin (Sl Tab) 0.4 Mg) 1 tab Q5M PRN SL ANGINA; Start 07/16/17 at 00:00 Enoxaparin Sodium (Lovenox) 40 mg DAILY SC Last administered on 07/27/17 10: 06; Admin Dose 40 MG; Start 07/16/17 at 09:00 Acetaminophen (Tylenol Liquid) 650 mg Q6 PRN GTB PAIN AND OR ELEVATED TEMP Last administered on 07/25/17 09:25; Admin Dose 650 MG; Start 07/16/17 at 01: 30 Bisacodyl (Dulcolax Supp) 10 mg Q48H PRN [place] CONSTIPATION; Start 07/16/17 at 09: 00 Clonazepam (Klonopin) 0.25 mg Q12 PRN GTB ANXIETY Last administered on 13:07; Admin Dose 0.25 MG; Start 07/16/17 at 01:30 Acetaminophen/ Hydrocodone Bitart ([place] (5/325)) 1 tab Q6 PRN GTB PAIN Last administered on 07/27/17 17:50; Admin Dose 1 TAB; Start 07/16/17 at 01:30 Polyethylene Glycol (Miralax) 17 gm DAILY PRN GTB CONSTIPATION; Start 07/16/17 at 01:30 Sodium Chloride (Nacl) 1 gm TID GTB Last administered on 07/27/17 13:47; Admin Dose 1 GM; Start 07/16/17 at 09:00 Metoprolol Tartrate (Lopressor) 25 mg BID GTB Last administered on 07/27/17 20:41; Admin Dose 25 MG; Start 07/16/17 at 09:00 Sodium Biphosphate/ Sodium Phosphate (Fleet Enema) 133 ml Q72H CO Last administered on 07/25/17 09:31; Admin Dose 133 ML; Start 07/16/17 at 09:00 Amlodipine Besylate (Norvasc) 5 mg DAILY GTB Last administered on 07/27/17 09 :51; Admin Dose 5 MG; Start 07/16/17 at 10:00 Gabapentin (Neurontin Liquid) 400 mg TID GTB Last administered on 07/20/17 21 :03; Admin Dose 400 MG; Start 07/16/17 at 21:00; Status Future Hold Estrogens Conjugated (Premarin Vaginal Cr) 1 applic MONWEDFRI@21 VAG Last administered on 07/26/17 20:58; Admin Dose 1 APPLIC; Start 07/17/17 at 21:00 Patient Own Medication 1 ea BID PO Last administered on 07/27/17 20:41; Admin Dose 1 EA; Start 07/17/17 at 09:00 Hydralazine HCl (Apresoline) 25 mg TID GTB Last administered on 07/27/17 20: 41; Admin Dose 25 MG; Start 07/18/17 at 21:30 Hydralazine HCl (Apresoline) 10 mg Q4H PRN IV SBP >160; Start 07/20/17 at 17: 30 Metoprolol Tartrate (Lopressor) 5 mg Q4H PRN IV HR>110 Hold SBP<100; Start at 15:00 IV Flush (NS 10 ml) 10 ml PRN PRN IV IV PROTOCOL; Start 07/22/17 at 17:00 Levetiracetam (Keppra Liquid) 500 mg BID GTB Last administered on 07/27/17 20 :40; Admin Dose 500 MG; Start 07/23/17 at 21:00 Miscellaneous Information (Pending [facility] Order For Wound Care) This patient cooney... PRN PRN XX WOUND CARE; Start 07/25/17 at 15:30 Assessment/Plan Chief Complaint/Hosp Course SUBJECTIVE: No acute events. The patient is awake, looks comfortable, no fevers. INDWELLINGS: PICC line. PHYSICAL EXAMINATION: GENERAL: This is a well-developed, chronically ill-appearing, elderly woman who is in no distress. HEENT: Head atraumatic, normocephalic. Sclerae anicteric. Buccal mucosa dry. NECK: Supple. CHEST: Rise symmetrical. Breath sounds diminished to bases. HEART: S1, S2. ABDOMEN: Soft, bowel sounds present. EXTREMITIES: No cyanosis. ASSESSMENT: 1. S/p polymicrobial urinary tract infection. 2. Neurogenic bladder 3. Status post transient ischemic attack. 4. Advanced multiple sclerosis. 5. Coronary artery disease status post paroxysmal atrial fibrillation. 6. History of breast carcinoma. PLAN: The patient remains stable. Off antibiotics, continue present care. DW staff Problems: NOHELIA HER NP Jul 27, 2017 22:04
[2017-07-28 00:50] VITALS: BP 122/60; RESP 20
[2017-07-28 02:45] VITALS: BP 148/66; RESP 20
[2017-07-28 06:04] LABS: BASOPHIL # 0.1 10^3/ul (0.0-0.1); BASOPHILS % 0.5 % (0.0-2.0); EOSINOPHILS # 0.1 10^3/ul (0.0-0.5); EOSINOPHILS % 0.9 % (0.0-7.0); HEMATOCRIT 37.1 % (37.0-47.0); HEMOGLOBIN 11.8 g/dl (12.0-16.0); LYMPHOCYTES # 2.8 10^3/ul (0.8-2.9); LYMPHOCYTES % 23.7 % (15.0-51.0); MEAN CORPUSCULAR HEMOGLOBIN 27.3 pg (29.0-33.0); MEAN CORPUSCULAR HGB CONC 31.8 g/dl (32.0-37.0); MEAN CORPUSCULAR VOLUME 85.9 fl (82.0-101.0); MEAN PLATELET VOLUME 12.2 fl (7.4-10.4); MONOCYTE # 0.8 10^3/ul (0.3-0.9); NEUTROPHILS % 67.5 % (39.0-77.0); PLATELET COUNT 312 10^3/UL (140-415); RED BLOOD COUNT 4.32 10^6/ul (4.20-5.40); RED CELL DISTRIBUTION WIDTH 14.3 % (11.5-14.5); WHITE BLOOD COUNT 11.8 10^3/ul (4.8-10.8)
[2017-07-28 06:54] LABS: CREATININE 0.43 mg/dl (0.44-1.00); POTASSIUM 3.9 mmol/L (3.5-5.1)
[2017-07-28 07:43] VITALS: BP 150/71; RESP 18
[2017-07-28] MEDS: METOPROLOL 25 MG TAB GTB SCH ×2 (09:12→20:51)
[2017-07-28] MEDS: ENOXAPARIN 40 MG/0.4 ML SYG SC SCH (09:12)
[2017-07-28] MEDS: SODIUM CHLORIDE 1 GM TAB GTB SCH ×3 (09:12→20:51)
[2017-07-28] MEDS: LEVETIRACETAM (100 MG/ML) 5ML CUP GTB SCH ×2 (09:12→20:51)
[2017-07-28] MEDS: AMLODIPINE 5 MG TAB GTB SCH (09:13)
[2017-07-28] MEDS: ASPIRIN 325 MG TAB GTB SCH (09:13)
[2017-07-28] MEDS: HYDROCODONE/APAP (5/325) TAB GTB PRN ×2 (09:22→16:29)
--- NOTE | 2017-07-28 12:31 | CONS ---
Date/Time of Note Date/Time of Note DATE: 07/28/17 TIME: 12:30 Consult Date/Type/Reason Admit Date/Time Jul 15, 2017 at 21:05 Type of Consultation: ID Ordering Provider: ANGELINA CARUSO MD Objective Vital Signs Date Time Temp Pulse Resp B/P Pulse Ox O2 Delivery O2 Flow Rate FiO2 07/28/17 07:43 98.9 88 18 150/71 100 07/27/17 22:08 2.0 07/26/17 15:58 Nasal Cannula Intake and Output 07/27/17 07/27/17 07/28/17 14:59 22:59 06:59 Intake Total 1140 ml 65 ml Balance 1140 ml 65 ml Results/Medications Result Diagram: 07/28/17 0509 07/28/17 0509 Results 24 hrs Laboratory Tests Test 07/28/17 05:09 White Blood Count 11.8 H Red Blood Count 4.32 Hemoglobin 11.8 L Hematocrit 37.1 Mean Corpuscular Volume 85.9 Mean Corpuscular Hemoglobin 27.3 L Mean Corpuscular Hemoglobin Concent 31.8 L Red Cell Distribution Width 14.3 Platelet Count 312 Mean Platelet Volume 12.2 H Neutrophils % 67.5 Lymphocytes % 23.7 Monocytes % 7.0 Eosinophils % 0.9 Basophils % 0.5 Nucleated Red Blood Cells % 0.0 Neutrophils # 8.0 H Lymphocytes # 2.8 Monocytes # 0.8 Eosinophils # 0.1 Basophils # 0.1 Nucleated Red Blood Cells # 0.0 Sodium Level 140 Potassium Level 3.9 Chloride Level 102 Carbon Dioxide Level 29 Anion Gap 13 Blood Urea Nitrogen 14 Creatinine 0.43 L Glucose Level 101 Calcium Level 9.0 Medications Current Medications Aspirin (Aspirin) 325 mg DAILY GTB Last administered on 07/28/17 09:13; Admin Dose 325 MG; Start 07/16/17 at 09:00 Nitroglycerin (Nitroglycerin (Sl Tab) 0.4 Mg) 1 tab Q5M PRN SL ANGINA; Start 07/16/17 at 00:00 Enoxaparin Sodium (Lovenox) 40 mg DAILY SC Last administered on 07/28/17 09: 12; Admin Dose 40 MG; Start 07/16/17 at 09:00 Acetaminophen (Tylenol Liquid) 650 mg Q6 PRN GTB PAIN AND OR ELEVATED TEMP Last administered on 07/25/17 09:25; Admin Dose 650 MG; Start 07/16/17 at 01: 30 Bisacodyl (Dulcolax Supp) 10 mg Q48H PRN [place] CONSTIPATION; Start 07/16/17 at 09: 00 Clonazepam (Klonopin) 0.25 mg Q12 PRN GTB ANXIETY Last administered on 13:07; Admin Dose 0.25 MG; Start 07/16/17 at 01:30 Acetaminophen/ Hydrocodone Bitart ([place] (5/325)) 1 tab Q6 PRN GTB PAIN Last administered on 07/28/17 09:22; Admin Dose 1 TAB; Start 07/16/17 at 01:30 Polyethylene Glycol (Miralax) 17 gm DAILY PRN GTB CONSTIPATION; Start 07/16/17 at 01:30 Sodium Chloride (Nacl) 1 gm TID GTB Last administered on 07/28/17 09:12; Admin Dose 1 GM; Start 07/16/17 at 09:00 Metoprolol Tartrate (Lopressor) 25 mg BID GTB Last administered on 07/28/17 09:12; Admin Dose 25 MG; Start 07/16/17 at 09:00 Sodium Biphosphate/ Sodium Phosphate (Fleet Enema) 133 ml Q72H [place] Last administered on 07/25/17 09:31; Admin Dose 133 ML; Start 07/16/17 at 09:00 Amlodipine Besylate (Norvasc) 5 mg DAILY GTB Last administered on 07/28/17 09 :13; Admin Dose 5 MG; Start 07/16/17 at 10:00 Gabapentin (Neurontin Liquid) 400 mg TID GTB Last administered on 07/20/17 21 :03; Admin Dose 400 MG; Start 07/16/17 at 21:00; Status Future Hold Estrogens Conjugated (Premarin Vaginal Cr) 1 applic MONWEDFRI@21 VAG Last administered on 07/26/17 20:58; Admin Dose 1 APPLIC; Start 07/17/17 at 21:00 Patient Own Medication 1 ea BID PO Last administered on 07/27/17 20:41; Admin Dose 1 EA; Start 07/17/17 at 09:00 Hydralazine HCl (Apresoline) 25 mg TID GTB Last administered on 07/28/17 09: 12; Admin Dose 25 MG; Start 07/18/17 at 21:30 Hydralazine HCl (Apresoline) 10 mg Q4H PRN IV SBP >160; Start 07/20/17 at 17: 30 Metoprolol Tartrate (Lopressor) 5 mg Q4H PRN IV HR>110 Hold SBP<100; Start at 15:00; Status Future Hold IV Flush (NS 10 ml) 10 ml PRN PRN IV IV PROTOCOL; Start 07/22/17 at 17:00 Levetiracetam (Keppra Liquid) 500 mg BID GTB Last administered on 07/28/17 09 :12; Admin Dose 500 MG; Start 07/23/17 at 21:00 [facility] This patient cooney... PRN PRN XX WOUND CARE; Start 07/25/17 at 15:30 Assessment/Plan Chief Complaint/Hosp Course SUBJECTIVE: No acute events. Tolerates TF, looks comfortable, no fevers. INDWELLINGS: PICC line, PEG. PHYSICAL EXAMINATION: GENERAL: This is a well-developed, chronically ill-appearing, elderly woman who is in no distress. HEENT: Head atraumatic, normocephalic. Sclerae anicteric. Buccal mucosa dry. NECK: Supple. CHEST: Rise symmetrical. Breath sounds diminished to bases. HEART: S1, S2. ABDOMEN: Soft, bowel sounds present. EXTREMITIES: No cyanosis. ASSESSMENT: 1. S/p polymicrobial urinary tract infection. 2. Neurogenic bladder 3. Status post transient ischemic attack. 4. Advanced multiple sclerosis. 5. Coronary artery disease status post paroxysmal atrial fibrillation. 6. History of breast carcinoma. PLAN: The patient remains stable. Off antibiotics, continue present care, repeat cx's prn. DW staff Problems: NOHELIA HER NP Jul 28, 2017 12:30
--- NOTE | 2017-07-28 13:15 | CONS ---
Date/Time of Note Date/Time of Note DATE: 07/28/17 TIME: 13:08 Assessment/Plan Assessment/Plan Chief Complaint/Hosp Course IMPRESSION: 1. Paroxysmal atrial fibrillation-? recurrence. Now in Wandering atrial pacemaker rate controlled 2. Abnormal electrocardiogram, assess for acute coronary syndrome. 3. Hypertension. 4. Possible acute cerebrovascular accident. 5. Urinary tract infection. 6. Leukocytosis. 7. Encephalopathy Recc: -Continue Tele to assess to recurrent AF -Continue asa therapy at this time -Continue BB as tolerated -Will contnue norvasc/hydralazine and follow somewhat labile BP closely -Continue keppra -Continue abx's and f/u cx data -Follow MS with ongoing neuro eval and continue keppra Problems: Consultation Date/Type/Reason Admit Date/Time Jul 15, 2017 at 21:05 Initial Consult Date 07/21/17 Type of Consultation: cardiology Reason for Consultation PAF Referring Provider: ANGELINA CARUSO MD Exam/Review of Systems Vital Signs Vitals Vital Signs Date Time Temp Pulse Resp B/P Pulse Ox O2 Delivery O2 Flow Rate FiO2 07/28/17 07:43 98.9 88 18 150/71 100 07/27/17 22:08 2.0 07/26/17 15:58 Nasal Cannula Intake and Output 07/27/17 07/27/17 07/28/17 15:00 23:00 07:00 Intake Total 1140 ml 65 ml Balance 1140 ml 65 ml Exam Review of Systems: CONSTITUTIONAL: No fevers, chills. PULMONARY: No sob CARDIOVASCULAR: No chest pain/palpitations GASTROINTESTINAL: No nausea/vomiting. GENITOURINARY: No hematuria/dysuria. MUSCULOSKELETAL: No myagias/arthalgias. PSYCHIATRIC: The patient denies depression. NEUROLOGIC: No weakness Constitutional: alert Psych: no complaints Head: normocephalic ENMT: mucosa pink and moist Neck: supple Respiratory: diminished breath sounds (at bases/B) Cardiovascular: regular rate and rhythm Gastrointestinal: non-tender, soft Musculoskeletal: muscle tone Extremities: edema (none) Neurological: other (No focal defii) Results Result Diagram: 07/28/17 0509 07/28/17 0509 Results 24 hrs Laboratory Tests Test 07/28/17 05:09 White Blood Count 11.8 H Red Blood Count 4.32 Hemoglobin 11.8 L Hematocrit 37.1 Mean Corpuscular Volume 85.9 Mean Corpuscular Hemoglobin 27.3 L Mean Corpuscular Hemoglobin Concent 31.8 L Red Cell Distribution Width 14.3 Platelet Count 312 Mean Platelet Volume 12.2 H Neutrophils % 67.5 Lymphocytes % 23.7 Monocytes % 7.0 Eosinophils % 0.9 Basophils % 0.5 Nucleated Red Blood Cells % 0.0 Neutrophils # 8.0 H Lymphocytes # 2.8 Monocytes # 0.8 Eosinophils # 0.1 Basophils # 0.1 Nucleated Red Blood Cells # 0.0 Sodium Level 140 Potassium Level 3.9 Chloride Level 102 Carbon Dioxide Level 29 Anion Gap 13 Blood Urea Nitrogen 14 Creatinine 0.43 L Glucose Level 101 Calcium Level 9.0 Medications Medications Current Medications Aspirin (Aspirin) 325 mg DAILY GTB Last administered on 07/28/17 09:13; Admin Dose 325 MG; Start 07/16/17 at 09:00 Nitroglycerin (Nitroglycerin (Sl Tab) 0.4 Mg) 1 tab Q5M PRN SL ANGINA; Start 07/16/17 at 00:00 Enoxaparin Sodium (Lovenox) 40 mg DAILY SC Last administered on 07/28/17 09: 12; Admin Dose 40 MG; Start 07/16/17 at 09:00 Acetaminophen (Tylenol Liquid) 650 mg Q6 PRN GTB PAIN AND OR ELEVATED TEMP Last administered on 07/25/17 09:25; Admin Dose 650 MG; Start 07/16/17 at 01: 30 Bisacodyl (Dulcolax Supp) 10 mg Q48H PRN [place] CONSTIPATION; Start 07/16/17 at 09: 00 Clonazepam (Klonopin) 0.25 mg Q12 PRN GTB ANXIETY Last administered on 13:07; Admin Dose 0.25 MG; Start 07/16/17 at 01:30 Acetaminophen/ Hydrocodone Bitart ([place] (5/325)) 1 tab Q6 PRN GTB PAIN Last administered on 07/28/17 09:22; Admin Dose 1 TAB; Start 07/16/17 at 01:30 Polyethylene Glycol (Miralax) 17 gm DAILY PRN GTB CONSTIPATION; Start 07/16/17 at 01:30 Sodium Chloride (Nacl) 1 gm TID GTB Last administered on 07/28/17 09:12; Admin Dose 1 GM; Start 07/16/17 at 09:00 Metoprolol Tartrate (Lopressor) 25 mg BID GTB Last administered on 07/28/17 09:12; Admin Dose 25 MG; Start 07/16/17 at 09:00 Sodium Biphosphate/ Sodium Phosphate (Fleet Enema) 133 ml Q72H MS Last administered on 07/25/17 09:31; Admin Dose 133 ML; Start 07/16/17 at 09:00 Amlodipine Besylate (Norvasc) 5 mg DAILY GTB Last administered on 07/28/17 09 :13; Admin Dose 5 MG; Start 07/16/17 at 10:00 Gabapentin (Neurontin Liquid) 400 mg TID GTB Last administered on 07/20/17 21 :03; Admin Dose 400 MG; Start 07/16/17 at 21:00; Status Future Hold Estrogens Conjugated (Premarin Vaginal Cr) 1 applic MONWEDFRI@21 VAG Last administered on 07/26/17 20:58; Admin Dose 1 APPLIC; Start 07/17/17 at 21:00 Patient Own Medication 1 ea BID PO Last administered on 07/27/17 20:41; Admin Dose 1 EA; Start 07/17/17 at 09:00 Hydralazine HCl (Apresoline) 25 mg TID GTB Last administered on 07/28/17 09: 12; Admin Dose 25 MG; Start 07/18/17 at 21:30 Hydralazine HCl (Apresoline) 10 mg Q4H PRN IV SBP >160; Start 07/20/17 at 17: 30 Metoprolol Tartrate (Lopressor) 5 mg Q4H PRN IV HR>110 Hold SBP<100; Start at 15:00; Status Future Hold IV Flush (NS 10 ml) 10 ml PRN PRN IV IV PROTOCOL; Start 07/22/17 at 17:00 Levetiracetam (Keppra Liquid) 500 mg BID GTB Last administered on 07/28/17 09 :12; Admin Dose 500 MG; Start 07/23/17 at 21:00 [facility] This patient cooney... PRN PRN XX WOUND CARE; Start 07/25/17 at 15:30 COMPA NUGENT Jul 28, 2017 13:15
[2017-07-28] MEDS: NA PHOSPHATE/BIPHOS 133 ML ENEMA PR SCH (13:46)
[2017-07-28 14:35] VITALS: BP 133/62; RESP 18
--- NOTE | 2017-07-28 16:54 | PN ---
Date/Time of Note Date/Time of Note DATE: 07/28/17 TIME: 16:51 Assessment/Plan VTE Prophylaxis VTE Prophylaxis Intervention: SCD's Lines/Catheters IV [facility] Saline Lock Urinary Cath still in place: No Assessment/Plan Chief Complaint/Hosp Course Patient remains clinically stable, awake alert was neurological status at patient's baseline. Patient daughter refused to be discharged to [facility] facility. Pending arrangement for discharge home with home health services and special equipment. Discussed with case management. Assessment/Plan - CECILIA versus seizures versus acute metabolic encephalopathy, Dr. Hahn is following in neurology consultation. Continue Keppra. - Atrial fibrillation, currently in sinus rhythm with wandering pacemaker, continue aspirin, Dr. Ferrara is following in cardiology consultation - Atypical chest pain, rule out myocardial infarction. Cardiac enzymes negative 3. Unable to undergo to pulmonary angiogram due to allergy to iodine. VQ scan is low probability for PE. - Polumicrobial UTI, completed treatment with antibiotics. - Advanced multiple sclerosis, bed to wheelchair bound total care. - Hypertension, continue metoprolol and Norvasc - Dysphagia. Continue G-tube feeding. - Hx Breast cancer. Further recommendations based on clinical course. Plan of care discussed with Dr. Soto Problems: Exam/Review of Systems Vital Signs Vitals Vital Signs Date Time Temp Pulse Resp B/P Pulse Ox O2 Delivery O2 Flow Rate FiO2 07/28/17 14:35 99.6 81 18 133/62 99 07/27/17 22:08 2.0 07/26/17 15:58 Nasal Cannula Intake and Output 07/27/17 07/27/17 07/28/17 15:00 23:00 07:00 Intake Total 1140 ml 65 ml Balance 1140 ml 65 ml Exam Constitutional: alert, oriented Head: normocephalic Neck: supple Respiratory: normal air movement Cardiovascular: regular rhythm Gastrointestinal: non-tender, other (G-tube), soft Musculoskeletal: muscle weakness Extremities: other (Contracted) Results Result Diagram: 07/28/17 0509 07/28/17 0509 Results 24 hrs Laboratory Tests Test 07/28/17 05:09 White Blood Count 11.8 H Red Blood Count 4.32 Hemoglobin 11.8 L Hematocrit 37.1 Mean Corpuscular Volume 85.9 Mean Corpuscular Hemoglobin 27.3 L Mean Corpuscular Hemoglobin Concent 31.8 L Red Cell Distribution Width 14.3 Platelet Count 312 Mean Platelet Volume 12.2 H Neutrophils % 67.5 Lymphocytes % 23.7 Monocytes % 7.0 Eosinophils % 0.9 Basophils % 0.5 Nucleated Red Blood Cells % 0.0 Neutrophils # 8.0 H Lymphocytes # 2.8 Monocytes # 0.8 Eosinophils # 0.1 Basophils # 0.1 Nucleated Red Blood Cells # 0.0 Sodium Level 140 Potassium Level 3.9 Chloride Level 102 Carbon Dioxide Level 29 Anion Gap 13 Blood Urea Nitrogen 14 Creatinine 0.43 L Glucose Level 101 Calcium Level 9.0 Medications Medications Current Medications Aspirin (Aspirin) 325 mg DAILY GTB Last administered on 07/28/17 09:13; Admin Dose 325 MG; Start 07/16/17 at 09:00 Nitroglycerin (Nitroglycerin (Sl Tab) 0.4 Mg) 1 tab Q5M PRN SL ANGINA; Start 07/16/17 at 00:00 Enoxaparin Sodium (Lovenox) 40 mg DAILY SC Last administered on 07/28/17 09: 12; Admin Dose 40 MG; Start 07/16/17 at 09:00 Acetaminophen (Tylenol Liquid) 650 mg Q6 PRN GTB PAIN AND OR ELEVATED TEMP Last administered on 07/25/17 09:25; Admin Dose 650 MG; Start 07/16/17 at 01: 30 Bisacodyl (Dulcolax Supp) 10 mg Q48H PRN [place] CONSTIPATION; Start 07/16/17 at 09: 00 Clonazepam (Klonopin) 0.25 mg Q12 PRN GTB ANXIETY Last administered on 13:07; Admin Dose 0.25 MG; Start 07/16/17 at 01:30 Acetaminophen/ Hydrocodone Bitart ([place] (5/325)) 1 tab Q6 PRN GTB PAIN Last administered on 07/28/17 16:29; Admin Dose 1 TAB; Start 07/16/17 at 01:30 Polyethylene Glycol (Miralax) 17 gm DAILY PRN GTB CONSTIPATION; Start 07/16/17 at 01:30 Sodium Chloride (Nacl) 1 gm TID GTB Last administered on 07/28/17 13:46; Admin Dose 1 GM; Start 07/16/17 at 09:00 Metoprolol Tartrate (Lopressor) 25 mg BID GTB Last administered on 07/28/17 09:12; Admin Dose 25 MG; Start 07/16/17 at 09:00 Sodium Biphosphate/ Sodium Phosphate (Fleet Enema) 133 ml Q72H [place] Last administered on 07/28/17 13:46; Admin Dose 133 ML; Start 07/16/17 at 09:00 Amlodipine Besylate (Norvasc) 5 mg DAILY GTB Last administered on 07/28/17 09 :13; Admin Dose 5 MG; Start 07/16/17 at 10:00 Gabapentin (Neurontin Liquid) 400 mg TID GTB Last administered on 07/20/17 21 :03; Admin Dose 400 MG; Start 07/16/17 at 21:00; Status Future Hold Estrogens Conjugated (Premarin Vaginal Cr) 1 applic MONWEDFRI@21 VAG Last administered on 07/26/17 20:58; Admin Dose 1 APPLIC; Start 07/17/17 at 21:00 Patient Own Medication 1 ea BID PO Last administered on 07/27/17 20:41; Admin Dose 1 EA; Start 07/17/17 at 09:00 Hydralazine HCl (Apresoline) 25 mg TID GTB Last administered on 07/28/17 14: 42; Admin Dose 25 MG; Start 07/18/17 at 21:30 Hydralazine HCl (Apresoline) 10 mg Q4H PRN IV SBP >160; Start 07/20/17 at 17: 30 Metoprolol Tartrate (Lopressor) 5 mg Q4H PRN IV HR>110 Hold SBP<100; Start at 15:00; Status Future Hold IV Flush (NS 10 ml) 10 ml PRN PRN IV IV PROTOCOL; Start 07/22/17 at 17:00 Levetiracetam (Keppra Liquid) 500 mg BID GTB Last administered on 07/28/17 09 :12; Admin Dose 500 MG; Start 07/23/17 at 21:00 [facility]isc[facility] This patient cooney... PRN PRN XX WOUND CARE; Start 07/25/17 at 15:30 MARLINE CHOWDARY Jul 28, 2017 16:54
[2017-07-28 20:39] VITALS: BP 140/69; RESP 18
[2017-07-28] MEDS: ESTROGENS CONJUGATED 42.5 GM VAG CR VAG SCH (20:54)
[2017-07-29 02:02] VITALS: BP 145/68; RESP 18
[2017-07-29 06:27] LABS: BASOPHIL # 0.1 10^3/ul (0.0-0.1); BASOPHILS % 0.5 % (0.0-2.0); EOSINOPHILS # 0.2 10^3/ul (0.0-0.5); EOSINOPHILS % 1.6 % (0.0-7.0); HEMATOCRIT 37.3 % (37.0-47.0); HEMOGLOBIN 11.6 g/dl (12.0-16.0); LYMPHOCYTES # 3.2 10^3/ul (0.8-2.9); LYMPHOCYTES % 23.3 % (15.0-51.0); MEAN CORPUSCULAR HEMOGLOBIN 26.6 pg (29.0-33.0); MEAN CORPUSCULAR HGB CONC 31.1 g/dl (32.0-37.0); MEAN CORPUSCULAR VOLUME 85.6 fl (82.0-101.0); MEAN PLATELET VOLUME 12.1 fl (7.4-10.4); MONOCYTES % 6.9 % (0.0-11.0); NEUTROPHIL # 9.3 10^3/ul (1.6-7.5); NEUTROPHILS % 67.3 % (39.0-77.0); PLATELET COUNT 314 10^3/UL (140-415); RED BLOOD COUNT 4.36 10^6/ul (4.20-5.40); RED CELL DISTRIBUTION WIDTH 14.4 % (11.5-14.5); WHITE BLOOD COUNT 13.8 10^3/ul (4.8-10.8)
[2017-07-29 07:09] LABS: CALCIUM 9.4 mg/dl (8.4-10.2); CREATININE 0.45 mg/dl (0.44-1.00); POTASSIUM 3.6 mmol/L (3.5-5.1)
[2017-07-29 07:31] VITALS: BP 119/60; RESP 18
[2017-07-29] MEDS: LEVETIRACETAM (100 MG/ML) 5ML CUP GTB SCH ×2 (09:01→22:52)
[2017-07-29] MEDS: ASPIRIN 325 MG TAB GTB SCH (09:02)
[2017-07-29] MEDS: SODIUM CHLORIDE 1 GM TAB GTB SCH ×3 (09:02→22:52)
[2017-07-29] MEDS: METOPROLOL 25 MG TAB GTB SCH ×2 (09:02→22:55)
[2017-07-29] MEDS: AMLODIPINE 5 MG TAB GTB SCH (09:02)
[2017-07-29] MEDS: ENOXAPARIN 40 MG/0.4 ML SYG SC SCH (09:19)
[2017-07-29] MEDS: HYDROCODONE/APAP (5/325) TAB GTB PRN ×2 (11:36→22:55)
--- NOTE | 2017-07-29 13:32 | CONS ---
Date/Time of Note Date/Time of Note DATE: 07/29/17 TIME: 13:30 Consult Date/Type/Reason Admit Date/Time Jul 15, 2017 at 21:05 Type of Consultation: ID Ordering Provider: ANGELINA CARUSO MD Objective Vital Signs Date Time Temp Pulse Resp B/P Pulse Ox O2 Delivery O2 Flow Rate FiO2 07/29/17 07:31 99.6 87 18 119/60 100 07/27/17 22:08 2.0 07/26/17 15:58 Nasal Cannula Intake and Output 07/28/17 07/28/17 07/29/17 15:00 23:00 07:00 Intake Total 1130 ml 65 ml Output Total 2 ml Balance 1130 ml 63 ml Results/Medications Result Diagram: 07/29/17 0529 07/29/1729 Results 24 hrs Laboratory Tests Test 07/29/17 05:29 White Blood Count 13.8 H Red Blood Count 4.36 Hemoglobin 11.6 L Hematocrit 37.3 Mean Corpuscular Volume 85.6 Mean Corpuscular Hemoglobin 26.6 L Mean Corpuscular Hemoglobin Concent 31.1 L Red Cell Distribution Width 14.4 Platelet Count 314 Mean Platelet Volume 12.1 H Neutrophils % 67.3 Lymphocytes % 23.3 Monocytes % 6.9 Eosinophils % 1.6 Basophils % 0.5 Nucleated Red Blood Cells % 0.0 Neutrophils # 9.3 H Lymphocytes # 3.2 H Monocytes # 1.0 H Eosinophils # 0.2 Basophils # 0.1 Nucleated Red Blood Cells # 0.0 Sodium Level 140 Potassium Level 3.6 Chloride Level 102 Carbon Dioxide Level 31 Anion Gap 11 Blood Urea Nitrogen 17 Creatinine 0.45 Glucose Level 104 Calcium Level 9.4 Medications Current Medications Aspirin (Aspirin) 325 mg DAILY GTB Last administered on 07/29/17 09:02; Admin Dose 325 MG; Start 07/16/17 at 09:00 Nitroglycerin (Nitroglycerin (Sl Tab) 0.4 Mg) 1 tab Q5M PRN SL ANGINA; Start 07/16/17 at 00:00 Enoxaparin Sodium (Lovenox) 40 mg DAILY SC Last administered on 07/29/17 09: 19; Admin Dose 40 MG; Start 07/16/17 at 09:00 Acetaminophen (Tylenol Liquid) 650 mg Q6 PRN GTB PAIN AND OR ELEVATED TEMP Last administered on 07/25/17 09:25; Admin Dose 650 MG; Start 07/16/17 at 01: 30 Bisacodyl (Dulcolax Supp) 10 mg Q48H PRN [place] CONSTIPATION; Start 07/16/17 at 09: 00 Clonazepam (Klonopin) 0.25 mg Q12 PRN GTB ANXIETY Last administered on 13:07; Admin Dose 0.25 MG; Start 07/16/17 at 01:30 Acetaminophen/ Hydrocodone Bitart ([place] (5/325)) 1 tab Q6 PRN GTB PAIN Last administered on 07/29/17 11:36; Admin Dose 1 TAB; Start 07/16/17 at 01:30 Polyethylene Glycol (Miralax) 17 gm DAILY PRN GTB CONSTIPATION; Start 07/16/17 at 01:30 Sodium Chloride (Nacl) 1 gm TID GTB Last administered on 07/29/17 13:12; Admin Dose 1 GM; Start 07/16/17 at 09:00 Metoprolol Tartrate (Lopressor) 25 mg BID GTB Last administered on 07/29/17 09:02; Admin Dose 25 MG; Start 07/16/17 at 09:00 Sodium Biphosphate/ Sodium Phosphate (Fleet Enema) 133 ml Q72H [place] Last administered on 07/28/17 13:46; Admin Dose 133 ML; Start 07/16/17 at 09:00 Amlodipine Besylate (Norvasc) 5 mg DAILY GTB Last administered on 07/29/17 09 :02; Admin Dose 5 MG; Start 07/16/17 at 10:00 Gabapentin (Neurontin Liquid) 400 mg TID GTB Last administered on 07/20/17 21 :03; Admin Dose 400 MG; Start 07/16/17 at 21:00; Status Future Hold Estrogens Conjugated (Premarin Vaginal Cr) 1 applic MONWEDFRI@21 VAG Last administered on 07/26/17 20:58; Admin Dose 1 APPLIC; Start 07/17/17 at 21:00 Patient Own Medication 1 ea BID PO Last administered on 07/29/17 09:02; Admin Dose 1 EA; Start 07/17/17 at 09:00 Hydralazine HCl (Apresoline) 25 mg TID GTB Last administered on 07/29/17 13: 13; Admin Dose 25 MG; Start 07/18/17 at 21:30 Hydralazine HCl (Apresoline) 10 mg Q4H PRN IV SBP >160; Start 07/20/17 at 17: 30 Metoprolol Tartrate (Lopressor) 5 mg Q4H PRN IV HR>110 Hold SBP<100; Start at 15:00; Status Future Hold IV Flush (NS 10 ml) 10 ml PRN PRN IV IV PROTOCOL; Start 07/22/17 at 17:00 Levetiracetam (Keppra Liquid) 500 mg BID GTB Last administered on 07/29/17 09 :01; Admin Dose 500 MG; Start 07/23/17 at 21:00 Miscellaneous Information (Pending [facility] Order For Wound Care) This patient cooney... PRN PRN XX WOUND CARE; Start 07/25/17 at 15:30 Assessment/Plan Chief Complaint/Hosp Course SUBJECTIVE: No acute events. Lying comfortably in bed, low-grade fevers, no vomiting or diarrhea, tolerates TF stable INDWELLINGS: PICC line, PEG. PHYSICAL EXAMINATION: GENERAL: This is a well-developed, chronically ill-appearing, elderly woman who is in no distress. HEENT: Head atraumatic, normocephalic. Sclerae anicteric. Buccal mucosa dry. NECK: Supple. CHEST: Rise symmetrical. Breath sounds diminished to bases. HEART: S1, S2. ABDOMEN: Soft, bowel sounds present. EXTREMITIES: No cyanosis. ASSESSMENT: 1. S/p polymicrobial urinary tract infection. 2. Neurogenic bladder 3. Status post transient ischemic attack. 4. Advanced multiple sclerosis. 5. Coronary artery disease status post paroxysmal atrial fibrillation. 6. History of breast carcinoma. PLAN: The patient remains stable, we are going to order chest x-ray and repeat urine cultures, follow labs in a.m, will order blood cultures as needed if she spikes fever of 101 and above, continue observing off antibiotics DW staff Problems: NOHELIA HER NP Jul 29, 2017 13:32
[2017-07-29 13:51] VITALS: BP 133/59; RESP 18
--- NOTE | 2017-07-29 14:44 | CONS ---
Date/Time of Note Date/Time of Note DATE: 07/29/17 TIME: 14:41 Assessment/Plan Assessment/Plan Chief Complaint/Hosp Course IMPRESSION: 1. Paroxysmal atrial fibrillation-? recurrence. Was in [place] atrial pacemaker rate controlled when last on tele 2. Abnormal electrocardiogram, assess for acute coronary syndrome. 3. Hypertension. 4. Possible acute cerebrovascular accident. 5. Urinary tract infection. 6. Leukocytosis. 7. Encephalopathy Recc: -Now on med/surg -Continue asa therapy at this time -Continue BB as tolerated -Will contnue norvasc/hydralazine and follow somewhat labile BP closely -Continue keppra -Continue abx's and f/u cx data -Follow MS with ongoing neuro eval and continue keppra -check serial ecg's to assess for recurrent af Problems: Consultation Date/Type/Reason Admit Date/Time Jul 15, 2017 at 21:05 Initial Consult Date 07/21/17 Type of Consultation: cardiology Reason for Consultation PAF Referring Provider: ANGELINA CARUSO MD Exam/Review of Systems Vital Signs Vitals Vital Signs Date Time Temp Pulse Resp B/P Pulse Ox O2 Delivery O2 Flow Rate FiO2 07/29/17 13:51 98.0 80 18 133/59 100 07/27/17 22:08 2.0 07/26/17 15:58 Nasal Cannula Intake and Output 07/28/17 07/28/17 07/29/17 15:00 23:00 07:00 Intake Total 1130 ml 65 ml Output Total 2 ml Balance 1130 ml 63 ml Exam Review of Systems: CONSTITUTIONAL: No fevers, chills. PULMONARY: No sob CARDIOVASCULAR: No chest pain/palpitations GASTROINTESTINAL: No nausea/vomiting. GENITOURINARY: No hematuria/dysuria. MUSCULOSKELETAL: No myagias/arthalgias. PSYCHIATRIC: The patient denies depression. NEUROLOGIC: No weakness Constitutional: alert Psych: no complaints Head: normocephalic ENMT: mucosa pink and moist Neck: jvd (9 cm water), supple Respiratory: diminished breath sounds (at bases/B) Cardiovascular: regular rate and rhythm Gastrointestinal: non-tender, soft Musculoskeletal: muscle weakness (generalized) Extremities: edema (trace/B) Neurological: other (encephalopathic) Results Result Diagram: 07/29/1729 07/29/17528 Results 24 hrs Laboratory Tests Test 07/29/17 05:29 White Blood Count 13.8 H Red Blood Count 4.36 Hemoglobin 11.6 L Hematocrit 37.3 Mean Corpuscular Volume 85.6 Mean Corpuscular Hemoglobin 26.6 L Mean Corpuscular Hemoglobin Concent 31.1 L Red Cell Distribution Width 14.4 Platelet Count 314 Mean Platelet Volume 12.1 H Neutrophils % 67.3 Lymphocytes % 23.3 Monocytes % 6.9 Eosinophils % 1.6 Basophils % 0.5 Nucleated Red Blood Cells % 0.0 Neutrophils # 9.3 H Lymphocytes # 3.2 H Monocytes # 1.0 H Eosinophils # 0.2 Basophils # 0.1 Nucleated Red Blood Cells # 0.0 Sodium Level 140 Potassium Level 3.6 Chloride Level 102 Carbon Dioxide Level 31 Anion Gap 11 Blood Urea Nitrogen 17 Creatinine 0.45 Glucose Level 104 Calcium Level 9.4 Medications Medications Current Medications Aspirin (Aspirin) 325 mg DAILY GTB Last administered on 07/29/17 09:02; Admin Dose 325 MG; Start 07/16/17 at 09:00 Nitroglycerin (Nitroglycerin (Sl Tab) 0.4 Mg) 1 tab Q5M PRN SL ANGINA; Start 07/16/17 at 00:00 Enoxaparin Sodium (Lovenox) 40 mg DAILY SC Last administered on 07/29/17 09: 19; Admin Dose 40 MG; Start 07/16/17 at 09:00 Acetaminophen (Tylenol Liquid) 650 mg Q6 PRN GTB PAIN AND OR ELEVATED TEMP Last administered on 07/25/17 09:25; Admin Dose 650 MG; Start 07/16/17 at 01: 30 Bisacodyl (Dulcolax Supp) 10 mg Q48H PRN [place] CONSTIPATION; Start 07/16/17 at 09: 00 Clonazepam (Klonopin) 0.25 mg Q12 PRN GTB ANXIETY Last administered on 13:07; Admin Dose 0.25 MG; Start 07/16/17 at 01:30 Acetaminophen/ Hydrocodone Bitart ([place] (5/325)) 1 tab Q6 PRN GTB PAIN Last administered on 07/29/17 11:36; Admin Dose 1 TAB; Start 07/16/17 at 01:30 Polyethylene Glycol (Miralax) 17 gm DAILY PRN GTB CONSTIPATION; Start 07/16/17 at 01:30 Sodium Chloride (Nacl) 1 gm TID GTB Last administered on 07/29/17 13:12; Admin Dose 1 GM; Start 07/16/17 at 09:00 Metoprolol Tartrate (Lopressor) 25 mg BID GTB Last administered on 07/29/17 09:02; Admin Dose 25 MG; Start 07/16/17 at 09:00 Sodium Biphosphate/ Sodium Phosphate (Fleet Enema) 133 ml Q72H [place] Last administered on 07/28/17 13:46; Admin Dose 133 ML; Start 07/16/17 at 09:00 Amlodipine Besylate (Norvasc) 5 mg DAILY GTB Last administered on 07/29/17 09 :02; Admin Dose 5 MG; Start 07/16/17 at 10:00 Gabapentin (Neurontin Liquid) 400 mg TID GTB Last administered on 07/20/17 21 :03; Admin Dose 400 MG; Start 07/16/17 at 21:00; Status Future Hold Estrogens Conjugated (Premarin Vaginal Cr) 1 applic MONWEDFRI@21 VAG Last administered on 07/26/17 20:58; Admin Dose 1 APPLIC; Start 07/17/17 at 21:00 Patient Own Medication 1 ea BID PO Last administered on 07/29/17 09:02; Admin Dose 1 EA; Start 07/17/17 at 09:00 Hydralazine HCl (Apresoline) 25 mg TID GTB Last administered on 07/29/17 13: 13; Admin Dose 25 MG; Start 07/18/17 at 21:30 Hydralazine HCl (Apresoline) 10 mg Q4H PRN IV SBP >160; Start 07/20/17 at 17: 30 Metoprolol Tartrate (Lopressor) 5 mg Q4H PRN IV HR>110 Hold SBP<100; Start at 15:00; Status Future Hold IV Flush (NS 10 ml) 10 ml PRN PRN IV IV PROTOCOL; Start 07/22/17 at 17:00 Levetiracetam (Keppra Liquid) 500 mg BID GTB Last administered on 07/29/17 09 :01; Admin Dose 500 MG; Start 07/23/17 at 21:00 [facility]isc[facility] Information [facility] This patient cooney... PRN PRN XX WOUND CARE; Start 07/25/17 at 15:30 COMPA NUGENT Jul 29, 2017 14:44
--- NOTE | 2017-07-29 15:18 | RADRPT ---
PROCEDURE: XR Chest. CLINICAL INDICATION: Chest pain. TECHNIQUE: Single frontal view. COMPARISON: 07/24/2017. FINDINGS: The lungs are clear. There is a right arm PICC line in satisfactory position with the tip in the low er superior vena cava. The heart size is normal. There is calcification in the aorta consistent with atherosclerosis. There is no pleural effusion. There is no pneumothorax. IMPRESSION: 1. Right arm PICC line in satisfactory position. 2. Atherosclerosis. 3. Clear lungs. RPTAT: QQ .Jose Raymond MD, MD Date Time Electronically viewed and signed by .Jose Raymond MD, MD on 07/29/2017 15:18 .R/
[2017-07-29] MEDS ORDERED: morphine 4 MG/ML VIAL IV STA (15:49)
--- NOTE | 2017-07-29 16:03 | PN ---
Date/Time of Note Date/Time of Note DATE: 07/29/17 TIME: 16:00 Assessment/Plan VTE Prophylaxis VTE Prophylaxis Intervention: other Lines/Catheters IV Catheter Type (from Nrsg): PICC Line Urinary Cath still in place: No Assessment/Plan Assessment/Plan -right sided facial pain-will give her MSO4- [id number],resume her home med - cont to monitor - dw dr Hartley- neurologist - CECILIA versus seizures versus acute metabolic encephalopathy, Dr. Hahn is following in neurology consultation. Continue Keppra. - Atrial fibrillation, currently in sinus rhythm with wandering pacemaker, continue aspirin, Dr. Ferrara is following in cardiology consultation - Atypical chest pain, rule out myocardial infarction. Cardiac enzymes negative 3. Unable to undergo to pulmonary angiogram due to allergy to iodine. VQ scan is low probability for PE. - Polumicrobial UTI, completed treatment with antibiotics. - Advanced multiple sclerosis, bed to wheelchair bound total care. - Hypertension, continue metoprolol and Norvasc - Dysphagia. Continue G-tube feeding. - Hx Breast cancer. Further recommendations based on clinical course. Plan of care discussed with Dr. Soto Subjective 24 Hr Interval Summary Free Text/Dictation c/o rsidefacialpain-will give her MSO4- [id number],resume her home med,clara/dr Guzman Neurologic: other Exam/Review of Systems Vital Signs Vitals Vital Signs Date Time Temp Pulse Resp B/P Pulse Ox O2 Delivery O2 Flow Rate FiO2 07/29/17 13:51 98.0 80 18 133/59 100 07/27/17 22:08 2.0 07/26/17 15:58 Nasal Cannula Intake and Output 07/28/17 07/28/17 07/29/17 14:59 22:59 06:59 Intake Total 1130 ml 65 ml Output Total 2 ml Balance 1130 ml 63 ml Exam Constitutional: alert, oriented, well developed Psych: nl mood/affect Respiratory: clear to auscultation Cardiovascular: nl pulses Gastrointestinal: non-tender, soft Musculoskeletal: nl extremities to inspection Extremities: normal pulses Neurological: nl mental status, nl speech Results Result Diagram: 07/29/17 0529 07/29/1729 Results 24 hrs Laboratory Tests Test 07/29/17 05:29 White Blood Count 13.8 H Red Blood Count 4.36 Hemoglobin 11.6 L Hematocrit 37.3 Mean Corpuscular Volume 85.6 Mean Corpuscular Hemoglobin 26.6 L Mean Corpuscular Hemoglobin Concent 31.1 L Red Cell Distribution Width 14.4 Platelet Count 314 Mean Platelet Volume 12.1 H Neutrophils % 67.3 Lymphocytes % 23.3 Monocytes % 6.9 Eosinophils % 1.6 Basophils % 0.5 Nucleated Red Blood Cells % 0.0 Neutrophils # 9.3 H Lymphocytes # 3.2 H Monocytes # 1.0 H Eosinophils # 0.2 Basophils # 0.1 Nucleated Red Blood Cells # 0.0 Sodium Level 140 Potassium Level 3.6 Chloride Level 102 Carbon Dioxide Level 31 Anion Gap 11 Blood Urea Nitrogen 17 Creatinine 0.45 Glucose Level 104 Calcium Level 9.4 Medications Medications Current Medications Aspirin (Aspirin) 325 mg DAILY GTB Last administered on 07/29/17 09:02; Admin Dose 325 MG; Start 07/16/17 at 09:00 Nitroglycerin (Nitroglycerin (Sl Tab) 0.4 Mg) 1 tab Q5M PRN SL ANGINA; Start 07/16/17 at 00:00 Enoxaparin Sodium (Lovenox) 40 mg DAILY SC Last administered on 07/29/17 09: 19; Admin Dose 40 MG; Start 07/16/17 at 09:00 Acetaminophen (Tylenol Liquid) 650 mg Q6 PRN GTB PAIN AND OR ELEVATED TEMP Last administered on 07/25/17 09:25; Admin Dose 650 MG; Start 07/16/17 at 01: 30 Bisacodyl (Dulcolax Supp) 10 mg Q48H PRN [place] CONSTIPATION; Start 07/16/17 at 09: 00 Clonazepam (Klonopin) 0.25 mg Q12 PRN GTB ANXIETY Last administered on 13:07; Admin Dose 0.25 MG; Start 07/16/17 at 01:30 Acetaminophen/ Hydrocodone Bitart ([place] (5/325)) 1 tab Q6 PRN GTB PAIN Last administered on 07/29/17 11:36; Admin Dose 1 TAB; Start 07/16/17 at 01:30 Polyethylene Glycol (Miralax) 17 gm DAILY PRN GTB CONSTIPATION; Start 07/16/17 at 01:30 Sodium Chloride (Nacl) 1 gm TID GTB Last administered on 07/29/17 13:12; Admin Dose 1 GM; Start 07/16/17 at 09:00 Metoprolol Tartrate (Lopressor) 25 mg BID GTB Last administered on 07/29/17 09:02; Admin Dose 25 MG; Start 07/16/17 at 09:00 Sodium Biphosphate/ Sodium Phosphate (Fleet Enema) 133 ml Q72H [place] Last administered on 07/28/17 13:46; Admin Dose 133 ML; Start 07/16/17 at 09:00 Amlodipine Besylate (Norvasc) 5 mg DAILY GTB Last administered on 07/29/17 09 :02; Admin Dose 5 MG; Start 07/16/17 at 10:00 Gabapentin (Neurontin Liquid) 400 mg TID GTB Last administered on 07/20/17 21 :03; Admin Dose 400 MG; Start 07/16/17 at 21:00; Status Future Hold Estrogens Conjugated (Premarin Vaginal Cr) 1 applic MONWEDFRI@21 VAG Last administered on 07/26/17 20:58; Admin Dose 1 APPLIC; Start 07/17/17 at 21:00 Patient Own Medication 1 ea BID PO Last administered on 07/29/17 09:02; Admin Dose 1 EA; Start 07/17/17 at 09:00 Hydralazine HCl (Apresoline) 25 mg TID GTB Last administered on 07/29/17 13: 13; Admin Dose 25 MG; Start 07/18/17 at 21:30 Hydralazine HCl (Apresoline) 10 mg Q4H PRN IV SBP >160; Start 07/20/17 at 17: 30 Metoprolol Tartrate (Lopressor) 5 mg Q4H PRN IV HR>110 Hold SBP<100; Start at 15:00; Status Future Hold IV Flush (NS 10 ml) 10 ml PRN PRN IV IV PROTOCOL; Start 07/22/17 at 17:00 Levetiracetam (Keppra Liquid) 500 mg BID GTB Last administered on 07/29/17 09 :01; Admin Dose 500 MG; Start 07/23/17 at 21:00 [facility]iscellaneous Information [facility] This patient cooney... PRN PRN XX WOUND CARE; Start 07/25/17 at 15:30 DIEGO ORELLANA Jul 29, 2017 16:03
[2017-07-29 19:28] VITALS: BP 126/58; RESP 20
[2017-07-29] MEDS: OXCARBAZEPINE 300 MG TAB GTB SCH (22:53)
[2017-07-30 02:13] VITALS: BP 146/65; RESP 20
[2017-07-30] MEDS: HYDROCODONE/APAP (5/325) TAB GTB PRN ×2 (04:30→21:47)
[2017-07-30 06:27] LABS: BASOPHIL # 0.1 10^3/ul (0.0-0.1); BASOPHILS % 0.5 % (0.0-2.0); EOSINOPHILS # 0.2 10^3/ul (0.0-0.5); EOSINOPHILS % 1.7 % (0.0-7.0); HEMATOCRIT 36.5 % (37.0-47.0); HEMOGLOBIN 11.6 g/dl (12.0-16.0); LYMPHOCYTES % 29.3 % (15.0-51.0); MEAN CORPUSCULAR HEMOGLOBIN 27.6 pg (29.0-33.0); MEAN CORPUSCULAR HGB CONC 31.8 g/dl (32.0-37.0); MEAN CORPUSCULAR VOLUME 86.9 fl (82.0-101.0); MEAN PLATELET VOLUME 11.7 fl (7.4-10.4); NEUTROPHIL # 8.3 10^3/ul (1.6-7.5); PLATELET COUNT 290 10^3/UL (140-415); RED CELL DISTRIBUTION WIDTH 14.4 % (11.5-14.5); WHITE BLOOD COUNT 13.6 10^3/ul (4.8-10.8)
[2017-07-30 07:03] LABS: CALCIUM 9.4 mg/dl (8.4-10.2); CREATININE 0.45 mg/dl (0.44-1.00); POTASSIUM 3.7 mmol/L (3.5-5.1)
[2017-07-30 07:23] VITALS: BP 118/51; RESP 18
[2017-07-30] MEDS: SODIUM CHLORIDE 1 GM TAB GTB SCH ×3 (08:55→21:47)
[2017-07-30] MEDS: AMLODIPINE 5 MG TAB GTB SCH (08:55)
[2017-07-30] MEDS: LEVETIRACETAM (100 MG/ML) 5ML CUP GTB SCH ×2 (08:55→21:45)
[2017-07-30] MEDS: ASPIRIN 325 MG TAB GTB SCH (08:56)
[2017-07-30] MEDS: METOPROLOL 25 MG TAB GTB SCH ×2 (08:57→21:46)
[2017-07-30] MEDS: OXCARBAZEPINE 300 MG TAB GTB SCH ×2 (08:57→21:47)
[2017-07-30] MEDS: ENOXAPARIN 40 MG/0.4 ML SYG SC SCH (08:58)
--- NOTE | 2017-07-30 13:26 | CONS ---
Date/Time of Note Date/Time of Note DATE: 07/30/17 TIME: 13:24 Assessment/Plan Assessment/Plan Chief Complaint/Hosp Course IMPRESSION: 1. Paroxysmal atrial fibrillation-? recurrence. Was in [place] atrial pacemaker rate controlled when last on tele 2. Abnormal electrocardiogram, assess for acute coronary syndrome. 3. Hypertension. 4. Possible acute cerebrovascular accident. 5. Urinary tract infection. 6. Leukocytosis. 7. Encephalopathy Recc: -Now on med/surg -Continue asa therapy at this time -Continue BB/norvasc/hydralazine at current doses with well controlled BP at tis time. -Continue keppra -Continue abx's and f/u cx data -Follow MS with ongoing neuro eval and continue keppra -Continue to follow serial ecg's to assess for recurrent af Problems: Consultation Date/Type/Reason Admit Date/Time Jul 15, 2017 at 21:05 Initial Consult Date 07/21/17 Type of Consultation: cardiology Reason for Consultation PAF Referring Provider: ANGELINA CARUSO MD Exam/Review of Systems Vital Signs Vitals Vital Signs Date Time Temp Pulse Resp B/P Pulse Ox O2 Delivery O2 Flow Rate FiO2 07/30/17 07:23 98.3 63 18 118/51 100 07/27/17 22:08 2.0 07/26/17 15:58 Nasal Cannula Intake and Output 07/29/17 07/29/17 07/30/17 15:00 23:00 07:00 Intake Total 65 ml Output Total 1 ml Balance 64 ml Exam Review of Systems: CONSTITUTIONAL: No fevers, chills. PULMONARY: No sob CARDIOVASCULAR: No chest pain/palpitations GASTROINTESTINAL: No nausea/vomiting. GENITOURINARY: No hematuria/dysuria. MUSCULOSKELETAL: No myagias/arthalgias. PSYCHIATRIC: The patient denies depression. NEUROLOGIC: aphasic Constitutional: alert Psych: no complaints Head: normocephalic Respiratory: clear to auscultation Cardiovascular: regular rate and rhythm Gastrointestinal: non-tender, soft Musculoskeletal: muscle weakness (genertalized) Extremities: other (arms with decorticate posturing) Neurological: other (No focal deficits) Results Result Diagram: 07/30/17 0538 07/30/17 0538 Results 24 hrs Laboratory Tests Test 07/30/17 05:38 White Blood Count 13.6 H Red Blood Count 4.20 Hemoglobin 11.6 L Hematocrit 36.5 L Mean Corpuscular Volume 86.9 Mean Corpuscular Hemoglobin 27.6 L Mean Corpuscular Hemoglobin Concent 31.8 L Red Cell Distribution Width 14.4 Platelet Count 290 Mean Platelet Volume 11.7 H Neutrophils % 61.0 Lymphocytes % 29.3 Monocytes % 7.0 Eosinophils % 1.7 Basophils % 0.5 Nucleated Red Blood Cells % 0.0 Neutrophils # 8.3 H Lymphocytes # 4.0 H Monocytes # 1.0 H Eosinophils # 0.2 Basophils # 0.1 Nucleated Red Blood Cells # 0.0 Sodium Level 141 Potassium Level 3.7 Chloride Level 102 Carbon Dioxide Level 32 H Anion Gap 11 Blood Urea Nitrogen 16 Creatinine 0.45 Glucose Level 109 Calcium Level 9.4 Medications Medications Current Medications Aspirin (Aspirin) 325 mg DAILY GTB Last administered on 07/30/17 08:56; Admin Dose 325 MG; Start 07/16/17 at 09:00 Nitroglycerin (Nitroglycerin (Sl Tab) 0.4 Mg) 1 tab Q5M PRN SL ANGINA; Start 07/16/17 at 00:00 Enoxaparin Sodium (Lovenox) 40 mg DAILY SC Last administered on 07/30/17 08: 58; Admin Dose 40 MG; Start 07/16/17 at 09:00 Acetaminophen (Tylenol Liquid) 650 mg Q6 PRN GTB PAIN AND OR ELEVATED TEMP Last administered on 07/25/17 09:25; Admin Dose 650 MG; Start 07/16/17 at 01: 30 Bisacodyl (Dulcolax Supp) 10 mg Q48H PRN [place] CONSTIPATION; Start 07/16/17 at 09: 00 Clonazepam (Klonopin) 0.25 mg Q12 PRN GTB ANXIETY Last administered on 13:07; Admin Dose 0.25 MG; Start 07/16/17 at 01:30 Acetaminophen/ Hydrocodone Bitart ([place] (5/325)) 1 tab Q6 PRN GTB PAIN Last administered on 07/30/17 04:30; Admin Dose 1 TAB; Start 07/16/17 at 01:30 Polyethylene Glycol (Miralax) 17 gm DAILY PRN GTB CONSTIPATION; Start 07/16/17 at 01:30 Sodium Chloride (Nacl) 1 gm TID GTB Last administered on 07/30/17 08:55; Admin Dose 1 GM; Start 07/16/17 at 09:00 Metoprolol Tartrate (Lopressor) 25 mg BID GTB Last administered on 07/30/17 08:57; Admin Dose 25 MG; Start 07/16/17 at 09:00 Sodium Biphosphate/ Sodium Phosphate (Fleet Enema) 133 ml Q72H [place] Last administered on 07/28/17 13:46; Admin Dose 133 ML; Start 07/16/17 at 09:00 Amlodipine Besylate (Norvasc) 5 mg DAILY GTB Last administered on 07/30/17 08 :55; Admin Dose 5 MG; Start 07/16/17 at 10:00 Gabapentin (Neurontin Liquid) 400 mg TID GTB Last administered on 07/20/17 21 :03; Admin Dose 400 MG; Start 07/16/17 at 21:00; Status Future Hold Estrogens Conjugated (Premarin Vaginal Cr) 1 applic MONWEDFRI@21 VAG Last administered on 07/26/17 20:58; Admin Dose 1 APPLIC; Start 07/17/17 at 21:00 Patient Own Medication 1 ea BID PO Last administered on 07/30/17 08:55; Admin Dose 1 EA; Start 07/17/17 at 09:00 Hydralazine HCl (Apresoline) 25 mg TID GTB Last administered on 07/30/17 08: 56; Admin Dose 25 MG; Start 07/18/17 at 21:30 Hydralazine HCl (Apresoline) 10 mg Q4H PRN IV SBP >160; Start 07/20/17 at 17: 30 Metoprolol Tartrate (Lopressor) 5 mg Q4H PRN IV HR>110 Hold SBP<100; Start at 15:00; Status Future Hold IV Flush (NS 10 ml) 10 ml PRN PRN IV IV PROTOCOL; Start 07/22/17 at 17:00 Levetiracetam (Keppra Liquid) 500 mg BID GTB Last administered on 07/30/17 08 :55; Admin Dose 500 MG; Start 07/23/17 at 21:00 Miscellaneous Information (Pending [facility] Order For Wound Care) This patient cooney... PRN PRN XX WOUND CARE; Start 07/25/17 at 15:30 Oxcarbazepine (Trileptal) 600 mg BID GTB Last administered on 07/30/17t 08:57 ; Admin Dose 600 MG; Start 07/29/17 at 21:00 COMPA NUGENT Jul 30, 2017 13:26
--- NOTE | 2017-07-30 13:40 | CONS ---
Date/Time of Note Date/Time of Note DATE: 07/30/17 TIME: 13:33 Consult Date/Type/Reason Admit Date/Time Jul 15, 2017 at 21:05 Initial Consult Date 07/21/17 Type of Consultation: neurology Ordering Provider: ANGELINA CARUSO MD Subjective Right trigeminal neuralgia, better today, started on Trileptal 600 bid yesterday Objective Vital Signs Date Time Temp Pulse Resp B/P Pulse Ox O2 Delivery O2 Flow Rate FiO2 07/30/17 07:23 98.3 63 18 118/51 100 07/27/17 22:08 2.0 07/26/17 15:58 Nasal Cannula Intake and Output 07/29/17 07/29/17 07/30/17 15:00 23:00 07:00 Intake Total 65 ml Output Total 1 ml Balance 64 ml Results/Medications Result Diagram: 07/30/17 0538 07/30/17 0538 Results 24 hrs Laboratory Tests Test 07/30/17 05:38 White Blood Count 13.6 H Red Blood Count 4.20 Hemoglobin 11.6 L Hematocrit 36.5 L Mean Corpuscular Volume 86.9 Mean Corpuscular Hemoglobin 27.6 L Mean Corpuscular Hemoglobin Concent 31.8 L Red Cell Distribution Width 14.4 Platelet Count 290 Mean Platelet Volume 11.7 H Neutrophils % 61.0 Lymphocytes % 29.3 Monocytes % 7.0 Eosinophils % 1.7 Basophils % 0.5 Nucleated Red Blood Cells % 0.0 Neutrophils # 8.3 H Lymphocytes # 4.0 H Monocytes # 1.0 H Eosinophils # 0.2 Basophils # 0.1 Nucleated Red Blood Cells # 0.0 Sodium Level 141 Potassium Level 3.7 Chloride Level 102 Carbon Dioxide Level 32 H Anion Gap 11 Blood Urea Nitrogen 16 Creatinine 0.45 Glucose Level 109 Calcium Level 9.4 Medications Current Medications Aspirin (Aspirin) 325 mg DAILY GTB Last administered on 07/30/17 08:56; Admin Dose 325 MG; Start 07/16/17 at 09:00 Nitroglycerin (Nitroglycerin (Sl Tab) 0.4 Mg) 1 tab Q5M PRN SL ANGINA; Start 07/16/17 at 00:00 Enoxaparin Sodium (Lovenox) 40 mg DAILY SC Last administered on 07/30/17 08: 58; Admin Dose 40 MG; Start 07/16/17 at 09:00 Acetaminophen (Tylenol Liquid) 650 mg Q6 PRN GTB PAIN AND OR ELEVATED TEMP Last administered on 07/25/17 09:25; Admin Dose 650 MG; Start 07/16/17 at 01: 30 Bisacodyl (Dulcolax Supp) 10 mg Q48H PRN [place] CONSTIPATION; Start 07/16/17 at 09: 00 Clonazepam (Klonopin) 0.25 mg Q12 PRN GTB ANXIETY Last administered on 13:07; Admin Dose 0.25 MG; Start 07/16/17 at 01:30 Acetaminophen/ Hydrocodone Bitart ([place] (5/325)) 1 tab Q6 PRN GTB PAIN Last administered on 07/30/17 04:30; Admin Dose 1 TAB; Start 07/16/17 at 01:30 Polyethylene Glycol (Miralax) 17 gm DAILY PRN GTB CONSTIPATION; Start 07/16/17 at 01:30 Sodium Chloride (Nacl) 1 gm TID GTB Last administered on 07/30/17 08:55; Admin Dose 1 GM; Start 07/16/17 at 09:00 Metoprolol Tartrate (Lopressor) 25 mg BID GTB Last administered on 07/30/17 08:57; Admin Dose 25 MG; Start 07/16/17 at 09:00 Sodium Biphosphate/ Sodium Phosphate (Fleet Enema) 133 ml Q72H [place] Last administered on 07/28/17 13:46; Admin Dose 133 ML; Start 07/16/17 at 09:00 Amlodipine Besylate (Norvasc) 5 mg DAILY GTB Last administered on 07/30/17 08 :55; Admin Dose 5 MG; Start 07/16/17 at 10:00 Gabapentin (Neurontin Liquid) 400 mg TID GTB Last administered on 07/20/17 21 :03; Admin Dose 400 MG; Start 07/16/17 at 21:00; Status Future Hold Estrogens Conjugated (Premarin Vaginal Cr) 1 applic MONWEDFRI@ VAG Last administered on 07/26/17 20:58; Admin Dose 1 APPLIC; Start 07/17/17 at 21:00 Patient Own Medication 1 ea BID PO Last administered on 07/30/17 08:55; Admin Dose 1 EA; Start 07/17/17 at 09:00 Hydralazine HCl (Apresoline) 25 mg TID GTB Last administered on 07/30/17 08: 56; Admin Dose 25 MG; Start 07/18/17 at 21:30 Hydralazine HCl (Apresoline) 10 mg Q4H PRN IV SBP >160; Start 07/20/17 at 17: 30 Metoprolol Tartrate (Lopressor) 5 mg Q4H PRN IV HR>110 Hold SBP<100; Start at 15:00; Status Future Hold IV Flush (NS 10 ml) 10 ml PRN PRN IV IV PROTOCOL; Start 07/22/17 at 17:00 Levetiracetam (Keppra Liquid) 500 mg BID GTB Last administered on 07/30/17 08 :55; Admin Dose 500 MG; Start 07/23/17 at 21:00 Miscellaneous Information (Pending Santyl Order For Wound Care) This patient cooney... PRN PRN XX WOUND CARE; Start 07/25/17 at 15:30 Oxcarbazepine (Trileptal) 600 mg BID GTB Last administered on 07/30/17 08:57 ; Admin Dose 600 MG; Start 07/29/17 at 21:00 Assessment/Plan Chief Complaint/Hosp Course Neuro exam: Lethargic arousable to voice, oriented x 1, fluent speech. CN: left facial weakness, palpebral fissure wider, left exotropia, divergent strabismus, perrl 3-2 mm, rest CN OK Motor flexed contacture UE, some movements in the fingers, extensor posturinf in LE. Diminished pain perception in txtremities A/P: Advanced MS, encephalopathy, abnormal EEG with some epileptiform activity, no seizures, now on Keppra. Hx of trigeminal neuralgia, better today, started on Trileptal 600 bid, I don't see it among reconciled home medications, if new medication-usually started at lower doses 300 bid. Problems: VIJAY PORTILLO MD Jul 30, 2017 13:40
[2017-07-30 13:52] VITALS: BP 122/62; RESP 18
--- NOTE | 2017-07-30 13:54 | CONS ---
Date/Time of Note Date/Time of Note DATE: 07/30/17 TIME: 13:49 Assessment/Plan Assessment/Plan Chief Complaint/Hosp Course Chief Complaint/Hosp Course SUBJECTIVE: No acute events overnight. No fever. No Acute distress. Vital Signs: T-98.3 BP- 118/51 HR- 63 RR-18 O2Sat- 100% INDWELLINGS: PICC line, PEG. PHYSICAL EXAMINATION: GENERAL: This is a well-developed, chronically ill-appearing, elderly woman who is in no distress. HEENT: Head atraumatic, normocephalic. Sclerae anicteric. Buccal mucosa dry. NECK: Supple. CHEST: Rise symmetrical. Breath sounds diminished to bases. HEART: S1, S2. ABDOMEN: Soft, bowel sounds present. EXTREMITIES: No cyanosis. ASSESSMENT: 1. S/p polymicrobial urinary tract infection. 2. Neurogenic bladder 3. Status post transient ischemic attack. 4. Advanced multiple sclerosis. 5. Coronary artery disease status post paroxysmal atrial fibrillation. 6. History of breast carcinoma. PLAN: Monitor hemodynamic status. Continue Medications. Follow up on cultures reports. GI prophylaxis. DVT Prophylaxis. Monitor Labs. staff. Problems: Consultation Date/Type/Reason Admit Date/Time Jul 15, 2017 at 21:05 Initial Consult Date 07/21/17 Type of Consultation: id Referring Provider: ANGELINA CARUSO MD Exam/Review of Systems Vital Signs Vitals Vital Signs Date Time Temp Pulse Resp B/P Pulse Ox O2 Delivery O2 Flow Rate FiO2 07/30/17 07:23 98.3 63 18 118/51 100 07/27/17 22:08 2.0 07/26/17 15:58 Nasal Cannula Intake and Output 07/29/17 07/29/17 07/30/17 15:00 23:00 07:00 Intake Total 65 ml Output Total 1 ml Balance 64 ml Results Result Diagram: 07/30/17 0538 07/30/17 0538 Results 24 hrs Laboratory Tests Test 07/30/17 05:38 White Blood Count 13.6 H Red Blood Count 4.20 Hemoglobin 11.6 L Hematocrit 36.5 L Mean Corpuscular Volume 86.9 Mean Corpuscular Hemoglobin 27.6 L Mean Corpuscular Hemoglobin Concent 31.8 L Red Cell Distribution Width 14.4 Platelet Count 290 Mean Platelet Volume 11.7 H Neutrophils % 61.0 Lymphocytes % 29.3 Monocytes % 7.0 Eosinophils % 1.7 Basophils % 0.5 Nucleated Red Blood Cells % 0.0 Neutrophils # 8.3 H Lymphocytes # 4.0 H Monocytes # 1.0 H Eosinophils # 0.2 Basophils # 0.1 Nucleated Red Blood Cells # 0.0 Sodium Level 141 Potassium Level 3.7 Chloride Level 102 Carbon Dioxide Level 32 H Anion Gap 11 Blood Urea Nitrogen 16 Creatinine 0.45 Glucose Level 109 Calcium Level 9.4 Medications Medications Current Medications Aspirin (Aspirin) 325 mg DAILY GTB Last administered on 07/30/17 08:56; Admin Dose 325 MG; Start 07/16/17 at 09:00 Nitroglycerin (Nitroglycerin (Sl Tab) 0.4 Mg) 1 tab Q5M PRN SL ANGINA; Start 07/16/17 at 00:00 Enoxaparin Sodium (Lovenox) 40 mg DAILY SC Last administered on 07/30/17 08: 58; Admin Dose 40 MG; Start 07/16/17 at 09:00 Acetaminophen (Tylenol Liquid) 650 mg Q6 PRN GTB PAIN AND OR ELEVATED TEMP Last administered on 07/25/17 09:25; Admin Dose 650 MG; Start 07/16/17 at 01: 30 Bisacodyl (Dulcolax Supp) 10 mg Q48H PRN [place] CONSTIPATION; Start 07/16/17 at 09: 00 Clonazepam (Klonopin) 0.25 mg Q12 PRN GTB ANXIETY Last administered on 13:07; Admin Dose 0.25 MG; Start 07/16/17 at 01:30 Acetaminophen/ Hydrocodone Bitart ([place] (5/325)) 1 tab Q6 PRN GTB PAIN Last administered on 07/30/17 04:30; Admin Dose 1 TAB; Start 07/16/17 at 01:30 Polyethylene Glycol (Miralax) 17 gm DAILY PRN GTB CONSTIPATION; Start 07/16/17 at 01:30 Sodium Chloride (Nacl) 1 gm TID GTB Last administered on 07/30/17 08:55; Admin Dose 1 GM; Start 07/16/17 at 09:00 Metoprolol Tartrate (Lopressor) 25 mg BID GTB Last administered on 07/30/17 08:57; Admin Dose 25 MG; Start 07/16/17 at 09:00 Sodium Biphosphate/ Sodium Phosphate (Fleet Enema) 133 ml Q72H [place] Last administered on 07/28/17 13:46; Admin Dose 133 ML; Start 07/16/17 at 09:00 Amlodipine Besylate (Norvasc) 5 mg DAILY GTB Last administered on 07/30/17 08 :55; Admin Dose 5 MG; Start 07/16/17 at 10:00 Gabapentin (Neurontin Liquid) 400 mg TID GTB Last administered on 07/20/17 21 :03; Admin Dose 400 MG; Start 07/16/17 at 21:00; Status Future Hold Estrogens Conjugated (Premarin Vaginal Cr) 1 applic MONWEDFRI@21 VAG Last administered on 07/26/17 20:58; Admin Dose 1 APPLIC; Start 07/17/17 at 21:00 Patient Own Medication 1 ea BID PO Last administered on 07/30/17 08:55; Admin Dose 1 EA; Start 07/17/17 at 09:00 Hydralazine HCl (Apresoline) 25 mg TID GTB Last administered on 07/30/17 08: 56; Admin Dose 25 MG; Start 07/18/17 at 21:30 Hydralazine HCl (Apresoline) 10 mg Q4H PRN IV SBP >160; Start 07/20/17 at 17: 30 Metoprolol Tartrate (Lopressor) 5 mg Q4H PRN IV HR>110 Hold SBP<100; Start at 15:00; Status Future Hold IV Flush (NS 10 ml) 10 ml PRN PRN IV IV PROTOCOL; Start 07/22/17 at 17:00 Levetiracetam (Keppra Liquid) 500 mg BID GTB Last administered on 07/30/17 08 :55; Admin Dose 500 MG; Start 07/23/17 at 21:00 [facility] This patient cooney... PRN PRN XX WOUND CARE; Start 07/25/17 at 15:30 Oxcarbazepine (Trileptal) 600 mg BID GTB Last administered on 07/30/17 08:57 ; Admin Dose 600 MG; Start 07/29/17 at 21:00 SHIN VELAZQUEZ NP Jul 30, 2017 13:54
--- NOTE | 2017-07-30 16:40 | RADRPT ---
Vent Rate: 60 bpm RR Interval: 0 msec VT Interval: 184 msec QRS Duration: 60 msec QT Interval: 394 msec QTC Interval: 394 msec P-R-T Joaquin: 59 - 37 - 35 degrees Normal sinus rhythm with sinus arrhythmia Normal ECG Electronically Signed By: Mohinder Ferrara [id number]
--- NOTE | 2017-07-30 18:05 | PN ---
Date/Time of Note Date/Time of Note DATE: 07/30/17 TIME: 18:01 Assessment/Plan VTE Prophylaxis VTE Prophylaxis Intervention: SCD's Lines/Catheters IV Catheter Type (from Nrsg): PICC Line Urinary Cath still in place: No Assessment/Plan Assessment/Plan -right sided facial pain-will give her MSO4- [id number],resume her home med - cont to monitor - dw dr Hartley- neurologist - CECILIA versus seizures versus acute metabolic encephalopathy, Dr. Hahn is following in neurology consultation. Continue Keppra. - Atrial fibrillation, currently in sinus rhythm with wandering pacemaker, continue aspirin, Dr. Ferrara is following in cardiology consultation - Atypical chest pain, rule out myocardial infarction. Cardiac enzymes negative 3. Unable to undergo to pulmonary angiogram due to allergy to iodine. VQ scan is low probability for PE. - Polumicrobial UTI, completed treatment with antibiotics. - Advanced multiple sclerosis, bed to wheelchair bound total care. - Hypertension, continue metoprolol and Norvasc - Dysphagia. Continue G-tube feeding. - Hx Breast cancer. Further recommendations based on clinical course. Plan of care discussed with Dr. Soto Subjective 24 Hr Interval Summary Free Text/Dictation feels better, home care scheduler at bed side, afebrile. denies any nause/vomitting.dw staff Respiratory: no complaints Cardiovascular: no complaints Gastrointestinal: no complaints Genitourinary: no complaints Musculoskeletal: no complaints Exam/Review of Systems Vital Signs Vitals Vital Signs Date Time Temp Pulse Resp B/P Pulse Ox O2 Delivery O2 Flow Rate FiO2 07/30/17 13:52 97.1 64 18 122/62 98 07/27/17 22:08 2.0 07/26/17 15:58 Nasal Cannula Intake and Output 07/29/17 07/29/17 07/30/17 15:00 23:00 07:00 Intake Total 65 ml Output Total 1 ml Balance 64 ml Exam Constitutional: alert, well developed Cardiovascular: nl pulses Gastrointestinal: non-tender, soft Musculoskeletal: nl extremities to inspection Extremities: normal pulses Neurological: nl mental status, nl speech Results Result Diagram: 07/30/17 0538 07/30/17 0538 Results 24 hrs Laboratory Tests Test 07/30/17 05:38 White Blood Count 13.6 H Red Blood Count 4.20 Hemoglobin 11.6 L Hematocrit 36.5 L Mean Corpuscular Volume 86.9 Mean Corpuscular Hemoglobin 27.6 L Mean Corpuscular Hemoglobin Concent 31.8 L Red Cell Distribution Width 14.4 Platelet Count 290 Mean Platelet Volume 11.7 H Neutrophils % 61.0 Lymphocytes % 29.3 Monocytes % 7.0 Eosinophils % 1.7 Basophils % 0.5 Nucleated Red Blood Cells % 0.0 Neutrophils # 8.3 H Lymphocytes # 4.0 H Monocytes # 1.0 H Eosinophils # 0.2 Basophils # 0.1 Nucleated Red Blood Cells # 0.0 Sodium Level 141 Potassium Level 3.7 Chloride Level 102 Carbon Dioxide Level 32 H Anion Gap 11 Blood Urea Nitrogen 16 Creatinine 0.45 Glucose Level 109 Calcium Level 9.4 Medications Medications Current Medications Aspirin (Aspirin) 325 mg DAILY GTB Last administered on 07/30/17 08:56; Admin Dose 325 MG; Start 07/16/17 at 09:00 Nitroglycerin (Nitroglycerin (Sl Tab) 0.4 Mg) 1 tab Q5M PRN SL ANGINA; Start 07/16/17 at 00:00 Enoxaparin Sodium (Lovenox) 40 mg DAILY SC Last administered on 07/30/17 08: 58; Admin Dose 40 MG; Start 07/16/17 at 09:00 Acetaminophen (Tylenol Liquid) 650 mg Q6 PRN GTB PAIN AND OR ELEVATED TEMP Last administered on 07/25/17 09:25; Admin Dose 650 MG; Start 07/16/17 at 01: 30 Bisacodyl (Dulcolax Supp) 10 mg Q48H PRN [place] CONSTIPATION; Start 07/16/17 at 09: 00 Clonazepam (Klonopin) 0.25 mg Q12 PRN GTB ANXIETY Last administered on 13:07; Admin Dose 0.25 MG; Start 07/16/17 at 01:30 Acetaminophen/ Hydrocodone Bitart ([place] (5/325)) 1 tab Q6 PRN GTB PAIN Last administered on 07/30/17 04:30; Admin Dose 1 TAB; Start 07/16/17 at 01:30 Polyethylene Glycol (Miralax) 17 gm DAILY PRN GTB CONSTIPATION; Start 07/16/17 at 01:30 Sodium Chloride (Nacl) 1 gm TID GTB Last administered on 07/30/17 13:59; Admin Dose 1 GM; Start 07/16/17 at 09:00 Metoprolol Tartrate (Lopressor) 25 mg BID GTB Last administered on 07/30/17 08:57; Admin Dose 25 MG; Start 07/16/17 at 09:00 Sodium Biphosphate/ Sodium Phosphate (Fleet Enema) 133 ml Q72H [place] Last administered on 07/28/17 13:46; Admin Dose 133 ML; Start 07/16/17 at 09:00 Amlodipine Besylate (Norvasc) 5 mg DAILY GTB Last administered on 07/30/17 08 :55; Admin Dose 5 MG; Start 07/16/17 at 10:00 Gabapentin (Neurontin Liquid) 400 mg TID GTB Last administered on 07/20/17 21 :03; Admin Dose 400 MG; Start 07/16/17 at 21:00; Status Future Hold Estrogens Conjugated (Premarin Vaginal Cr) 1 applic MONWEDFRI@21 VAG Last administered on 07/26/17 20:58; Admin Dose 1 APPLIC; Start 07/17/17 at 21:00 Patient Own Medication 1 ea BID PO Last administered on 07/30/17 08:55; Admin Dose 1 EA; Start 07/17/17 at 09:00 Hydralazine HCl (Apresoline) 25 mg TID GTB Last administered on 07/30/17 13: 59; Admin Dose 25 MG; Start 07/18/17 at 21:30 Hydralazine HCl (Apresoline) 10 mg Q4H PRN IV SBP >160; Start 07/20/17 at 17: 30 Metoprolol Tartrate (Lopressor) 5 mg Q4H PRN IV HR>110 Hold SBP<100; Start at 15:00; Status Future Hold IV Flush (NS 10 ml) 10 ml PRN PRN IV IV PROTOCOL; Start 07/22/17 at 17:00 Levetiracetam (Keppra Liquid) 500 mg BID GTB Last administered on 07/30/17 08 :55; Admin Dose 500 MG; Start 07/23/17 at 21:00 Miscellaneous Information (Pending [facility] Order For Wound Care) This patient cooney... PRN PRN XX WOUND CARE; Start 07/25/17 at 15:30 Oxcarbazepine (Trileptal) 600 mg BID GTB Last administered on 07/30/17t 08:57 ; Admin Dose 600 MG; Start 07/29/17 at 21:00 DIEGO ORELLANA Jul 30, 2017 18:05
[2017-07-30 20:47] VITALS: BP 131/62; RESP 18
[2017-07-30] MEDS: CEFEPIME 1GM/50 ML (PMX) 50 ML IVPB SCH (21:48)
[2017-07-30] MEDS: clonAZEPAM 0.5 MG TAB GTB PRN (21:51)
[2017-07-31 02:30] VITALS: BP 153/66; RESP 16
[2017-07-31 06:06] LABS: BASOPHIL # 0.1 10^3/ul (0.0-0.1); BASOPHILS % 0.6 % (0.0-2.0); EOSINOPHILS # 0.2 10^3/ul (0.0-0.5); EOSINOPHILS % 1.6 % (0.0-7.0); HEMATOCRIT 36.6 % (37.0-47.0); HEMOGLOBIN 11.3 g/dl (12.0-16.0); LYMPHOCYTES # 4.6 10^3/ul (0.8-2.9); LYMPHOCYTES % 31.2 % (15.0-51.0); MEAN CORPUSCULAR HEMOGLOBIN 26.7 pg (29.0-33.0); MEAN CORPUSCULAR HGB CONC 30.9 g/dl (32.0-37.0); MEAN CORPUSCULAR VOLUME 86.3 fl (82.0-101.0); MEAN PLATELET VOLUME 12.1 fl (7.4-10.4); MONOCYTE # 0.9 10^3/ul (0.3-0.9); MONOCYTES % 5.8 % (0.0-11.0); NEUTROPHIL # 8.8 10^3/ul (1.6-7.5); NEUTROPHILS % 60.3 % (39.0-77.0); PLATELET COUNT 307 10^3/UL (140-415); RED BLOOD COUNT 4.24 10^6/ul (4.20-5.40); RED CELL DISTRIBUTION WIDTH 14.6 % (11.5-14.5); WHITE BLOOD COUNT 14.6 10^3/ul (4.8-10.8)
[2017-07-31 06:40] LABS: CALCIUM 9.4 mg/dl (8.4-10.2); CREATININE 0.47 mg/dl (0.44-1.00); POTASSIUM 3.8 mmol/L (3.5-5.1)
[2017-07-31 07:31] VITALS: BP 126/60; RESP 18
[2017-07-31] MEDS: OXCARBAZEPINE 300 MG TAB GTB SCH ×2 (09:02→21:18)
[2017-07-31] MEDS: METOPROLOL 25 MG TAB GTB SCH ×2 (09:03→21:00)
[2017-07-31] MEDS: ASPIRIN 325 MG TAB GTB SCH (09:03)
[2017-07-31] MEDS: LEVETIRACETAM (100 MG/ML) 5ML CUP GTB SCH ×2 (09:03→21:17)
[2017-07-31] MEDS: AMLODIPINE 5 MG TAB GTB SCH (09:03)
[2017-07-31] MEDS: SODIUM CHLORIDE 1 GM TAB GTB SCH ×3 (09:03→22:16)
[2017-07-31] MEDS: NA PHOSPHATE/BIPHOS 133 ML ENEMA PR SCH (09:04)
[2017-07-31] MEDS: CEFEPIME 1GM/50 ML (PMX) 50 ML IVPB SCH ×2 (09:04→21:16)
[2017-07-31] MEDS: ENOXAPARIN 40 MG/0.4 ML SYG SC SCH (09:05)
[2017-07-31] MEDS: clonAZEPAM 0.5 MG TAB GTB PRN (09:22)
[2017-07-31 13:30] VITALS: BP 130/68; RESP 18
--- NOTE | 2017-07-31 13:37 | CONS ---
Date/Time of Note Date/Time of Note DATE: 07/31/17 TIME: 13:33 Assessment/Plan Assessment/Plan Chief Complaint/Hosp Course IMPRESSION: 1. Paroxysmal atrial fibrillation-? recurrence. ECG today again reveals intail WAP but towards end may be true AF 2. Abnormal electrocardiogram, assess for acute coronary syndrome. 3. Hypertension. 4. Possible acute cerebrovascular accident. 5. Urinary tract infection. 6. Leukocytosis. 7. Encephalopathy Recc: -Now on med/surg -Continue asa therapy at this time -Continue BB/norvasc/hydralazine at current doses with well controlled BP at this time. -Continue keppra -Continue abx's and f/u cx data -Follow MS with ongoing neuro eval and continue keppra -Continue to follow serial ecg's to assess for recurrent definite af and will discuss possibility of challenge with true systemic anti-coag with PMD Problems: Consultation Date/Type/Reason Admit Date/Time Jul 15, 2017 at 21:05 Initial Consult Date 07/21/17 Type of Consultation: cardiology Reason for Consultation PAF Referring Provider: ANGELINA CARUSO MD Exam/Review of Systems Vital Signs Vitals Vital Signs Date Time Temp Pulse Resp B/P Pulse Ox O2 Delivery O2 Flow Rate FiO2 07/31/17 13:30 97.7 60 18 130/68 100 07/27/17 22:08 2.0 Intake and Output 07/30/17 07/30/17 07/31/17 15:00 23:00 07:00 Intake Total 50 ml 310 ml Balance 50 ml 310 ml Exam Review of Systems: CONSTITUTIONAL: No fevers, chills. PULMONARY: No sob CARDIOVASCULAR: No chest pain/palpitations GASTROINTESTINAL: No nausea/vomiting. GENITOURINARY: No hematuria/dysuria. MUSCULOSKELETAL: No myagias/arthalgias. PSYCHIATRIC: The patient denies depression. NEUROLOGIC: encephalopathy Constitutional: alert, oriented Psych: no complaints Head: normocephalic ENMT: mucosa pink and moist Neck: jvd (9 cm water), supple Respiratory: diminished breath sounds (at bases/B) Cardiovascular: irregular rhythm Gastrointestinal: non-tender, soft Musculoskeletal: muscle weakness (generalized) Extremities: pitting pedal edema (trace/B) Neurological: focal weakness, other (posturing decorticate) Results Result Diagram: 07/31/17 0513 07/31/17 0513 Results 24 hrs Laboratory Tests Test 07/31/17 05:13 White Blood Count 14.6 H Red Blood Count 4.24 Hemoglobin 11.3 L Hematocrit 36.6 L Mean Corpuscular Volume 86.3 Mean Corpuscular Hemoglobin 26.7 L Mean Corpuscular Hemoglobin Concent 30.9 L Red Cell Distribution Width 14.6 H Platelet Count 307 Mean Platelet Volume 12.1 H Neutrophils % 60.3 Lymphocytes % 31.2 Monocytes % 5.8 Eosinophils % 1.6 Basophils % 0.6 Nucleated Red Blood Cells % 0.0 Neutrophils # 8.8 H Lymphocytes # 4.6 H Monocytes # 0.9 Eosinophils # 0.2 Basophils # 0.1 Nucleated Red Blood Cells # 0.0 Sodium Level 141 Potassium Level 3.8 Chloride Level 103 Carbon Dioxide Level 32 H Anion Gap 10 Blood Urea Nitrogen 15 Creatinine 0.47 Glucose Level 106 Calcium Level 9.4 Medications Medications Current Medications Aspirin (Aspirin) 325 mg DAILY GTB Last administered on 07/31/17 09:03; Admin Dose 325 MG; Start 07/16/17 at 09:00 Nitroglycerin (Nitroglycerin (Sl Tab) 0.4 Mg) 1 tab Q5M PRN SL ANGINA; Start 07/16/17 at 00:00 Enoxaparin Sodium (Lovenox) 40 mg DAILY SC Last administered on 07/31/17 09: 05; Admin Dose 40 MG; Start 07/16/17 at 09:00 Acetaminophen (Tylenol Liquid) 650 mg Q6 PRN GTB PAIN AND OR ELEVATED TEMP Last administered on 07/25/17 09:25; Admin Dose 650 MG; Start 07/16/17 at 01: 30 Bisacodyl (Dulcolax Supp) 10 mg Q48H PRN [place] CONSTIPATION; Start 07/16/17 at 09: 00 Clonazepam (Klonopin) 0.25 mg Q12 PRN GTB ANXIETY Last administered on 09:22; Admin Dose 0.25 MG; Start 07/16/17 at 01:30 Acetaminophen/ Hydrocodone Bitart ([place] (5/325)) 1 tab Q6 PRN GTB PAIN Last administered on 07/30/17 21:47; Admin Dose 1 TAB; Start 07/16/17 at 01:30 Polyethylene Glycol (Miralax) 17 gm DAILY PRN GTB CONSTIPATION; Start 07/16/17 at 01:30 Sodium Chloride (Nacl) 1 gm TID GTB Last administered on 07/31/17 12:48; Admin Dose 1 GM; Start 07/16/17 at 09:00 Metoprolol Tartrate (Lopressor) 25 mg BID GTB Last administered on 07/31/17 09:03; Admin Dose 25 MG; Start 07/16/17 at 09:00 Sodium Biphosphate/ Sodium Phosphate (Fleet Enema) 133 ml Q72H [place] Last administered on 07/31/17 09:04; Admin Dose 133 ML; Start 07/16/17 at 09:00 Amlodipine Besylate (Norvasc) 5 mg DAILY GTB Last administered on 07/31/17 09 :03; Admin Dose 5 MG; Start 07/16/17 at 10:00 Gabapentin (Neurontin Liquid) 400 mg TID GTB Last administered on 07/20/17 21 :03; Admin Dose 400 MG; Start 07/16/17 at 21:00; Status Future Hold Estrogens Conjugated (Premarin Vaginal Cr) 1 applic MONWEDFRI@21 VAG Last administered on 07/26/17 20:58; Admin Dose 1 APPLIC; Start 07/17/17 at 21:00 Patient Own Medication 1 ea BID PO Last administered on 07/31/17 09:21; Admin Dose 1 EA; Start 07/17/17 at 09:00 Hydralazine HCl (Apresoline) 25 mg TID GTB Last administered on 07/31/17 12: 48; Admin Dose 25 MG; Start 07/18/17 at 21:30 Hydralazine HCl (Apresoline) 10 mg Q4H PRN IV SBP >160; Start 07/20/17 at 17: 30 Metoprolol Tartrate (Lopressor) 5 mg Q4H PRN IV HR>110 Hold SBP<100; Start at 15:00; Status Future Hold IV Flush (NS 10 ml) 10 ml PRN PRN IV IV PROTOCOL; Start 07/22/17 at 17:00 Levetiracetam (Keppra Liquid) 500 mg BID GTB Last administered on 07/31/17 09 :03; Admin Dose 500 MG; Start 07/23/17 at 21:00 Miscellaneous Information (Pending Santyl Order For Wound Care) This patient cooney... PRN PRN XX WOUND CARE; Start 07/25/17 at 15:30 Oxcarbazepine 600 mg 600 mg BID GTB Last administered on 07/31/17 09:02; Admin Dose 600 MG; Start 07/29/17 at 21:00 Cefepime HCl (Maxipime 1gm/50 ml (Pmx)) 50 ml @ 100 mls/hr Q12 IVPB Last administered on 07/31/17 09:04; Admin Dose 100 MLS/HR; Start 07/30/17 at 21: 00 COMPA NUGENT Jul 31, 2017 13:37
--- NOTE | 2017-07-31 15:01 | CONS ---
Date/Time of Note Date/Time of Note DATE: 07/31/17 TIME: 14:51 Consultation Date/Type/Reason Admit Date/Time Jul 15, 2017 at 21:05 Initial Consult Date SUBJECTIVE: Pt is awake and alert. Denies fever, chills, pain. No acute events. Lying comfortably in bed. 07/29/17 URINE CULTURE Final Organism 1 PROTEUS MIRABILIS COLONY COUNT >100,000 CFU/ml Labs: WBC-14.6 H&H-11.3/36.6 BUN-15 Creat- 0.47 CXR 07/29/17=neg. INDWELLINGS: PICC line, PEG. Antibiotics: Cefepime IV PHYSICAL EXAMINATION: GENERAL: This is a well-developed, chronically ill-appearing, elderly woman who is in no distress. HEENT: Head atraumatic, normocephalic. Sclerae anicteric. Buccal mucosa dry. NECK: Supple. CHEST: Rise symmetrical. Breath sounds diminished to bases. HEART: S1, S2. ABDOMEN: Soft, bowel sounds present. EXTREMITIES: No cyanosis. ASSESSMENT: 1. Recurrent urinary tract infection. 2. Neurogenic bladder 3. Status post transient ischemic attack. 4. Advanced multiple sclerosis. 5. Coronary artery disease status post paroxysmal atrial fibrillation. 6. History of breast carcinoma. PLAN: The patient remains stable. Continue with Cefepime IV for recurrent UTI. Monitor labs. Type of Consultation: ID Referring Provider: ANGELINA CARUSO MD Exam/Review of Systems Vital Signs Vitals Vital Signs Date Time Temp Pulse Resp B/P Pulse Ox O2 Delivery O2 Flow Rate FiO2 07/31/17 13:30 97.7 60 18 130/68 100 07/27/17 22:08 2.0 Intake and Output 07/30/17 07/30/17 07/31/17 15:00 23:00 07:00 Intake Total 50 ml 310 ml Balance 50 ml 310 ml Results Result Diagram: 07/31/17 0513 07/31/17 0513 Results 24 hrs Laboratory Tests Test 07/31/17 05:13 White Blood Count 14.6 H Red Blood Count 4.24 Hemoglobin 11.3 L Hematocrit 36.6 L Mean Corpuscular Volume 86.3 Mean Corpuscular Hemoglobin 26.7 L Mean Corpuscular Hemoglobin Concent 30.9 L Red Cell Distribution Width 14.6 H Platelet Count 307 Mean Platelet Volume 12.1 H Neutrophils % 60.3 Lymphocytes % 31.2 Monocytes % 5.8 Eosinophils % 1.6 Basophils % 0.6 Nucleated Red Blood Cells % 0.0 Neutrophils # 8.8 H Lymphocytes # 4.6 H Monocytes # 0.9 Eosinophils # 0.2 Basophils # 0.1 Nucleated Red Blood Cells # 0.0 Sodium Level 141 Potassium Level 3.8 Chloride Level 103 Carbon Dioxide Level 32 H Anion Gap 10 Blood Urea Nitrogen 15 Creatinine 0.47 Glucose Level 106 Calcium Level 9.4 Medications Medications Current Medications Aspirin (Aspirin) 325 mg DAILY GTB Last administered on 07/31/17 09:03; Admin Dose 325 MG; Start 07/16/17 at 09:00 Nitroglycerin (Nitroglycerin (Sl Tab) 0.4 Mg) 1 tab Q5M PRN SL ANGINA; Start 07/16/17 at 00:00 Enoxaparin Sodium (Lovenox) 40 mg DAILY SC Last administered on 07/31/17 09: 05; Admin Dose 40 MG; Start 07/16/17 at 09:00 Acetaminophen (Tylenol Liquid) 650 mg Q6 PRN GTB PAIN AND OR ELEVATED TEMP Last administered on 07/25/17 09:25; Admin Dose 650 MG; Start 07/16/17 at 01: 30 Bisacodyl (Dulcolax Supp) [address] CONSTIPATION; Start 07/16/17 at 09: 00 Clonazepam (Klonopin) 0.25 mg Q12 PRN GTB ANXIETY Last administered on 09:22; Admin Dose 0.25 MG; Start 07/16/17 at 01:30 Acetaminophen/ Hydrocodone Bitart ([place] (5/325)) 1 tab Q6 PRN GTB PAIN Last administered on 07/30/17 21:47; Admin Dose 1 TAB; Start 07/16/17 at 01:30 Polyethylene Glycol (Miralax) 17 gm DAILY PRN GTB CONSTIPATION; Start 07/16/17 at 01:30 Sodium Chloride (Nacl) 1 gm TID GTB Last administered on 07/31/17 12:48; Admin Dose 1 GM; Start 07/16/17 at 09:00 Metoprolol Tartrate (Lopressor) 25 mg BID GTB Last administered on 07/31/17 09:03; Admin Dose 25 MG; Start 07/16/17 at 09:00 Sodium Biphosphate/ Sodium Phosphate (Fleet Enema) [address] Last administered on 07/31/17 09:04; Admin Dose 133 ML; Start 07/16/17 at 09:00 Amlodipine Besylate (Norvasc) 5 mg DAILY GTB Last administered on 07/31/17 09 :03; Admin Dose 5 MG; Start 07/16/17 at 10:00 Gabapentin (Neurontin Liquid) 400 mg TID GTB Last administered on 07/20/17 21 :03; Admin Dose 400 MG; Start 07/16/17 at 21:00; Status Future Hold Estrogens Conjugated (Premarin Vaginal Cr) 1 applic MONWEDFRI@21 VAG Last administered on 07/26/17 20:58; Admin Dose 1 APPLIC; Start 07/17/17 at 21:00 Patient Own Medication 1 ea BID PO Last administered on 07/31/17 09:21; Admin Dose 1 EA; Start 07/17/17 at 09:00 Hydralazine HCl (Apresoline) 25 mg TID GTB Last administered on 07/31/17 12: 48; Admin Dose 25 MG; Start 07/18/17 at 21:30 Hydralazine HCl (Apresoline) 10 mg Q4H PRN IV SBP >160; Start 07/20/17 at 17: 30 Metoprolol Tartrate (Lopressor) 5 mg Q4H PRN IV HR>110 Hold SBP<100; Start at 15:00; Status Future Hold IV Flush (NS 10 ml) 10 ml PRN PRN IV IV PROTOCOL; Start 07/22/17 at 17:00 Levetiracetam (Keppra Liquid) 500 mg BID GTB Last administered on 07/31/17 09 :03; Admin Dose 500 MG; Start 07/23/17 at 21:00 Miscellaneous Information (Pending Santyl Order For Wound Care) This patient cooney... PRN PRN XX WOUND CARE; Start 07/25/17 at 15:30 Oxcarbazepine 600 mg 600 mg BID GTB Last administered on 07/31/17 09:02; Admin Dose 600 MG; Start 07/29/17 at 21:00 Cefepime HCl (Maxipime 1gm/50 ml (Pmx)) 50 ml @ 100 mls/hr Q12 IVPB Last administered on 07/31/17 09:04; Admin Dose 100 MLS/HR; Start 07/30/17 at 21: 00 DOMI RICHARDSON Jul 31, 2017 15:01
--- NOTE | 2017-07-31 18:03 | PN ---
Date/Time of Note Date/Time of Note DATE: 07/31/17 TIME: 17:59 Assessment/Plan VTE Prophylaxis VTE Prophylaxis Intervention: SCD's Lines/Catheters IV Catheter Type (from Nrs): Peripheral IV Urinary Cath still in place: No Assessment/Plan Chief Complaint/Hosp Course Patient remains hemodynamically stable, afebrile. Awaits for [facility] bed availability Assessment/Plan - Recurrent UTI, continue cefepime - Right trigeminal neuralgia, continue Trileptal, Dr. Mcgregor, neurology consult is appreciated - CECILIA versus seizures versus acute metabolic encephalopathy, Continue Keppra. - Atrial fibrillation, currently in sinus rhythm with wandering pacemaker, continue aspirin, Dr. Ferrara is following in cardiology consultation - Atypical chest pain, rule out myocardial infarction. Cardiac enzymes negative 3. Unable to undergo to pulmonary angiogram due to allergy to iodine. VQ scan is low probability for PE. - Polumicrobial UTI, completed treatment with antibiotics. - Advanced multiple sclerosis, bed to wheelchair bound total care. - Hypertension, continue metoprolol and Norvasc - Dysphagia. Continue G-tube feeding. - Hx Breast cancer. Further recommendations based on clinical course. Plan of care discussed with Dr. Soto Problems: Exam/Review of Systems Vital Signs Vitals Vital Signs Date Time Temp Pulse Resp B/P Pulse Ox O2 Delivery O2 Flow Rate FiO2 07/31/17 13:30 97.7 60 18 130/68 100 07/27/17 22:08 2.0 Intake and Output 07/30/17 07/30/17 07/31/17 15:00 23:00 07:00 Intake Total 50 ml 310 ml Balance 50 ml 310 ml Exam Constitutional: alert, oriented Head: normocephalic Neck: supple Respiratory: normal air movement Cardiovascular: regular rhythm Gastrointestinal: non-tender, other (G-tube), soft Musculoskeletal: muscle weakness Extremities: other (Contracted) Results Result Diagram: 07/31/1713 07/31/1713 Results 24 hrs Laboratory Tests Test 07/31/17 05:13 White Blood Count 14.6 H Red Blood Count 4.24 Hemoglobin 11.3 L Hematocrit 36.6 L Mean Corpuscular Volume 86.3 Mean Corpuscular Hemoglobin 26.7 L Mean Corpuscular Hemoglobin Concent 30.9 L Red Cell Distribution Width 14.6 H Platelet Count 307 Mean Platelet Volume 12.1 H Neutrophils % 60.3 Lymphocytes % 31.2 Monocytes % 5.8 Eosinophils % 1.6 Basophils % 0.6 Nucleated Red Blood Cells % 0.0 Neutrophils # 8.8 H Lymphocytes # 4.6 H Monocytes # 0.9 Eosinophils # 0.2 Basophils # 0.1 Nucleated Red Blood Cells # 0.0 Sodium Level 141 Potassium Level 3.8 Chloride Level 103 Carbon Dioxide Level 32 H Anion Gap 10 Blood Urea Nitrogen 15 Creatinine 0.47 Glucose Level 106 Calcium Level 9.4 Medications Medications Current Medications Aspirin (Aspirin) 325 mg DAILY GTB Last administered on 07/31/17 09:03; Admin Dose 325 MG; Start 07/16/17 at 09:00 Nitroglycerin (Nitroglycerin (Sl Tab) 0.4 Mg) 1 tab Q5M PRN SL ANGINA; Start 07/16/17 at 00:00 Enoxaparin Sodium (Lovenox) 40 mg DAILY SC Last administered on 07/31/17 09: 05; Admin Dose 40 MG; Start 07/16/17 at 09:00 Acetaminophen (Tylenol Liquid) 650 mg Q6 PRN GTB PAIN AND OR ELEVATED TEMP Last administered on 07/25/17 09:25; Admin Dose 650 MG; Start 07/16/17 at 01: 30 Bisacodyl (Dulcolax Supp) 10 mg Q48H PRN [place] CONSTIPATION; Start 07/16/17 at 09: 00 Clonazepam (Klonopin) 0.25 mg Q12 PRN GTB ANXIETY Last administered on 09:22; Admin Dose 0.25 MG; Start 07/16/17 at 01:30 Acetaminophen/ Hydrocodone Bitart ([place] (5/325)) 1 tab Q6 PRN GTB PAIN Last administered on 07/30/17 21:47; Admin Dose 1 TAB; Start 07/16/17 at 01:30 Polyethylene Glycol (Miralax) 17 gm DAILY PRN GTB CONSTIPATION; Start 07/16/17 at 01:30 Sodium Chloride (Nacl) 1 gm TID GTB Last administered on 07/31/17 12:48; Admin Dose 1 GM; Start 07/16/17 at 09:00 Metoprolol Tartrate (Lopressor) 25 mg BID GTB Last administered on 07/31/17 09:03; Admin Dose 25 MG; Start 07/16/17 at 09:00 Sodium Biphosphate/ Sodium Phosphate (Fleet Enema) 133 ml Q72H [place] Last administered on 07/31/17 09:04; Admin Dose 133 ML; Start 07/16/17 at 09:00 Amlodipine Besylate (Norvasc) 5 mg DAILY GTB Last administered on 07/31/17 09 :03; Admin Dose 5 MG; Start 07/16/17 at 10:00 Gabapentin (Neurontin Liquid) 400 mg TID GTB Last administered on 07/20/17 21 :03; Admin Dose 400 MG; Start 07/16/17 at 21:00; Status Future Hold Estrogens Conjugated (Premarin Vaginal Cr) 1 applic MONWEDFRI@21 VAG Last administered on 07/26/17 20:58; Admin Dose 1 APPLIC; Start 07/17/17 at 21:00 Patient Own Medication 1 ea BID PO Last administered on 07/31/17 09:21; Admin Dose 1 EA; Start 07/17/17 at 09:00 Hydralazine HCl (Apresoline) 25 mg TID GTB Last administered on 07/31/17 12: 48; Admin Dose 25 MG; Start 07/18/17 at 21:30 Hydralazine HCl (Apresoline) 10 mg Q4H PRN IV SBP >160; Start 07/20/17 at 17: 30 Metoprolol Tartrate (Lopressor) 5 mg Q4H PRN IV HR>110 Hold SBP<100; Start at 15:00; Status Future Hold IV Flush (NS 10 ml) 10 ml PRN PRN IV IV PROTOCOL; Start 07/22/17 at 17:00 Levetiracetam (Keppra Liquid) 500 mg BID GTB Last administered on 07/31/17 09 :03; Admin Dose 500 MG; Start 07/23/17 at 21:00 [facility] This patient conoey... PRN PRN XX WOUND CARE; Start 07/25/17 at 15:30 Oxcarbazepine 600 mg 600 mg BID GTB Last administered on 07/31/17 09:02; Admin Dose 600 MG; Start 07/29/17 at 21:00 Cefepime HCl (Maxipime 1gm/50 ml (Pmx)) 50 ml @ 100 mls/hr Q12 IVPB Last administered on 07/31/17t 09:04; Admin Dose 100 MLS/HR; Start 07/30/17 at 21: 00 MARLINE CHOWDARY Jul 31, 2017 18:03
[2017-07-31] MEDS: HYDROCODONE/APAP (5/325) TAB GTB PRN (18:37)
[2017-07-31] MEDS: ALBUTEROL 0.083% (NEB) 2.5 MG/3 ML AMP NEB PRN (19:17)
[2017-07-31 19:40] VITALS: BP 143/73; RESP 18
[2017-07-31] MEDS: ESTROGENS CONJUGATED 42.5 GM VAG CR VAG SCH (22:16)
[2017-08-01 01:56] VITALS: BP 140/64; RESP 18
[2017-08-01 07:56] VITALS: BP 140/65; RESP 18
[2017-08-01] MEDS: CEFEPIME 1GM/50 ML (PMX) 50 ML IVPB SCH ×2 (08:50→20:16)
[2017-08-01] MEDS: SODIUM CHLORIDE 1 GM TAB GTB SCH ×3 (08:52→20:14)
[2017-08-01] MEDS: ASPIRIN 325 MG TAB GTB SCH (08:52)
[2017-08-01] MEDS: LEVETIRACETAM (100 MG/ML) 5ML CUP GTB SCH ×2 (08:52→20:16)
[2017-08-01] MEDS: OXCARBAZEPINE 300 MG TAB GTB SCH ×2 (08:52→20:15)
[2017-08-01] MEDS: AMLODIPINE 5 MG TAB GTB SCH (08:53)
[2017-08-01] MEDS: METOPROLOL 25 MG TAB GTB SCH ×2 (08:53→20:14)
[2017-08-01] MEDS: ENOXAPARIN 40 MG/0.4 ML SYG SC SCH (09:06)
[2017-08-01 09:52] LABS: BASOPHIL # 0.1 10^3/ul (0.0-0.1); BASOPHILS % 0.6 % (0.0-2.0); EOSINOPHILS # 0.2 10^3/ul (0.0-0.5); EOSINOPHILS % 1.9 % (0.0-7.0); HEMATOCRIT 34.7 % (37.0-47.0); HEMOGLOBIN 10.7 g/dl (12.0-16.0); LYMPHOCYTES # 3.3 10^3/ul (0.8-2.9); LYMPHOCYTES % 25.9 % (15.0-51.0); MEAN CORPUSCULAR HEMOGLOBIN 26.6 pg (29.0-33.0); MEAN CORPUSCULAR HGB CONC 30.8 g/dl (32.0-37.0); MEAN CORPUSCULAR VOLUME 86.1 fl (82.0-101.0); MEAN PLATELET VOLUME 11.8 fl (7.4-10.4); MONOCYTE # 0.7 10^3/ul (0.3-0.9); MONOCYTES % 5.8 % (0.0-11.0); NEUTROPHIL # 8.3 10^3/ul (1.6-7.5); NEUTROPHILS % 65.4 % (39.0-77.0); PLATELET COUNT 283 10^3/UL (140-415); RED BLOOD COUNT 4.03 10^6/ul (4.20-5.40); RED CELL DISTRIBUTION WIDTH 14.7 % (11.5-14.5); WHITE BLOOD COUNT 12.7 10^3/ul (4.8-10.8)
[2017-08-01 10:36] LABS: CREATININE 0.44 mg/dl (0.44-1.00); POTASSIUM 3.6 mmol/L (3.5-5.1)
--- NOTE | 2017-08-01 11:12 | CONS ---
Date/Time of Note Date/Time of Note DATE: 08/01/17 TIME: 11:09 Assessment/Plan Assessment/Plan Additional Assessment/Plan 1. Paroxysmal atrial fibrillation-? recurrence. ECG today again reveals intail WAP but towards end may be true AF - rate better controlled. 2. Abnormal electrocardiogram, assess for acute coronary syndrome- no CP now, off tele. 3. Hypertension- wel Rx, con't Med Rx. 4. Possible acute cerebrovascular accident- PMD follows. 5. Urinary tract infection- on anti-Bx now. 6. Leukocytosis. 7. Encephalopathy Consultation Date/Type/Reason Admit Date/Time Jul 15, 2017 at 21:05 Initial Consult Date 07/21/17 Type of Consultation: ID Referring Provider: ANGELINA CARUSO MD 24 HR Interval Summary Free Text/Dictation NO acute events - OFF Tele now, dispo in place. ROS: No fever, no chills, no nausea, no vomiting, no diarrhea/constipation No recent weight changes No chest pain, no PND, no orthopnea No dizziness, blurred vision No thirst, no heat or cold intolerance (per nurse) Exam/Review of Systems Vital Signs Vitals Vital Signs Date Time Temp Pulse Resp B/P Pulse Ox O2 Delivery O2 Flow Rate FiO2 08/01/17 07:56 98.4 85 18 140/65 100 08/01/17 02:03 2.0 07/31/17 19:18 Nasal Cannula Intake and Output 07/31/17 07/31/17 08/01/17 15:00 23:00 07:00 Intake Total 100 ml 165 ml Balance 100 ml 165 ml Exam General: WN/WD/NAD, AOx 0 HEENT: Unicetric/atraumatic/EOMI (does not follow commands) NECK: JVD elevated, no thyromegaly Lymph: no lymphadenopathy HEART: irregular with no S3, II/ systolic murmur at apex LUNGS: Coarse sounds ABD: soft, NT, ND, +BS : Intact Neuro: h/o CVA SKIN: chronic changes EXT: trace edema Results Result Diagram: 08/01/17 0815 08/01/17 0844 Results 24 hrs Laboratory Tests Test 08/01/17 08:15 08/01/17 08:44 White Blood Count 12.7 H Red Blood Count 4.03 L Hemoglobin 10.7 L Hematocrit 34.7 L Mean Corpuscular Volume 86.1 Mean Corpuscular Hemoglobin 26.6 L Mean Corpuscular Hemoglobin Concent 30.8 L Red Cell Distribution Width 14.7 H Platelet Count 283 Mean Platelet Volume 11.8 H Neutrophils % 65.4 Lymphocytes % 25.9 Monocytes % 5.8 Eosinophils % 1.9 Basophils % 0.6 Nucleated Red Blood Cells % 0.0 Neutrophils # 8.3 H Lymphocytes # 3.3 H Monocytes # 0.7 Eosinophils # 0.2 Basophils # 0.1 Nucleated Red Blood Cells # 0.0 Sodium Level 141 Potassium Level 3.6 Chloride Level 102 Carbon Dioxide Level 33 H Anion Gap 10 Blood Urea Nitrogen 14 Creatinine 0.44 Glucose Level 108 Calcium Level 9.0 Medications Medications Current Medications Aspirin (Aspirin) 325 mg DAILY GTB Last administered on 08/01/17 08:52; Admin Dose 325 MG; Start 07/16/17 at 09:00 Nitroglycerin (Nitroglycerin (Sl Tab) 0.4 Mg) 1 tab Q5M PRN SL ANGINA; Start 07/16/17 at 00:00 Enoxaparin Sodium (Lovenox) 40 mg DAILY SC Last administered on 08/01/17 09: 06; Admin Dose 40 MG; Start 07/16/17 at 09:00 Acetaminophen (Tylenol Liquid) 650 mg Q6 PRN GTB PAIN AND OR ELEVATED TEMP Last administered on 07/25/17 09:25; Admin Dose 650 MG; Start 07/16/17 at 01: 30 Bisacodyl (Dulcolax Supp) 10 mg Q48H PRN [place] CONSTIPATION; Start 07/16/17 at 09: 00 Clonazepam (Klonopin) 0.25 mg Q12 PRN GTB ANXIETY Last administered on 09:22; Admin Dose 0.25 MG; Start 07/16/17 at 01:30 Acetaminophen/ Hydrocodone Bitart ([place] (5/325)) 1 tab Q6 PRN GTB PAIN Last administered on 07/31/17 18:37; Admin Dose 1 TAB; Start 07/16/17 at 01:30 Polyethylene Glycol (Miralax) 17 gm DAILY PRN GTB CONSTIPATION; Start 07/16/17 at 01:30 Sodium Chloride (Nacl) 1 gm TID GTB Last administered on 08/01/17 08:52; Admin Dose 1 GM; Start 07/16/17 at 09:00 Metoprolol Tartrate (Lopressor) 25 mg BID GTB Last administered on 08/01/17 08:53; Admin Dose 25 MG; Start 07/16/17 at 09:00 Sodium Biphosphate/ Sodium Phosphate (Fleet Enema) 133 ml Q72H [place] Last administered on 07/31/17 09:04; Admin Dose 133 ML; Start 07/16/17 at 09:00 Amlodipine Besylate (Norvasc) 5 mg DAILY GTB Last administered on 08/01/17 08 :53; Admin Dose 5 MG; Start 07/16/17 at 10:00 Gabapentin (Neurontin Liquid) 400 mg TID GTB Last administered on 07/20/17 21 :03; Admin Dose 400 MG; Start 07/16/17 at 21:00; Status Future Hold Estrogens Conjugated (Premarin Vaginal Cr) 1 applic MONWEDFRI@21 VAG Last administered on 07/31/17 22:16; Admin Dose 1 APPLIC; Start 07/17/17 at 21:00 Patient Own Medication 1 ea BID PO Last administered on 08/01/17 09:09; Admin Dose 1 EA; Start 07/17/17 at 09:00 Hydralazine HCl (Apresoline) 25 mg TID GTB Last administered on 08/01/17 08: 53; Admin Dose 25 MG; Start 07/18/17 at 21:30 Hydralazine HCl (Apresoline) 10 mg Q4H PRN IV SBP >160; Start 07/20/17 at 17: 30 Metoprolol Tartrate (Lopressor) 5 mg Q4H PRN IV HR>110 Hold SBP<100; Start at 15:00; Status Future Hold IV Flush (NS 10 ml) 10 ml PRN PRN IV IV PROTOCOL; Start 07/22/17 at 17:00 Levetiracetam (Keppra Liquid) 500 mg BID GTB Last administered on 08/01/17 08 :52; Admin Dose 500 MG; Start 07/23/17 at 21:00 [facility] This patient cooney... PRN PRN XX WOUND CARE; Start 07/25/17 at 15:30 Oxcarbazepine 600 mg 600 mg BID GTB Last administered on 08/01/17 08:52; Admin Dose 600 MG; Start 07/29/17 at 21:00 Cefepime HCl (Maxipime 1gm/50 ml (Pmx)) 50 ml @ 100 mls/hr Q12 IVPB Last administered on 08/01/17 08:50; Admin Dose 100 MLS/HR; Start 07/30/17 at 21: 00 KRISTOFER SUTHERLAND MD Aug 01, 2017 11:12
--- NOTE | 2017-08-01 12:22 | PN ---
Date/Time of Note Date/Time of Note DATE: 08/01/17 TIME: 12:19 Assessment/Plan VTE Prophylaxis VTE Prophylaxis Intervention: SCD's Lines/Catheters IV Catheter Type (from Nrs): PICC Line Central line still needed: Yes Urinary Cath still in place: No Assessment/Plan Chief Complaint/Hosp Course Patient remains hemodynamically stable, afebrile. Assessment/Plan - Recurrent UTI, continue Cefepime - Right trigeminal neuralgia, continue Trileptal, Dr. Mcgregor, neurology consult is appreciated - CECILIA versus seizures versus acute metabolic encephalopathy, Continue Keppra. - Atrial fibrillation, currently in sinus rhythm with wandering pacemaker, continue aspirin, Dr. Ferrara is following in cardiology consultation - Atypical chest pain, rule out myocardial infarction. Cardiac enzymes negative 3. Unable to undergo to pulmonary angiogram due to allergy to iodine. VQ scan is low probability for PE. - Advanced multiple sclerosis, bed to wheelchair bound total care. - Hypertension, continue metoprolol and Norvasc - Dysphagia. Continue G-tube feeding. - Hx Breast cancer. Further recommendations based on clinical course. Plan of care discussed with Dr. Soto Problems: Exam/Review of Systems Vital Signs Vitals Vital Signs Date Time Temp Pulse Resp B/P Pulse Ox O2 Delivery O2 Flow Rate FiO2 08/01/17 07:56 98.4 85 18 140/65 100 08/01/17 02:03 2.0 07/31/17 19:18 Nasal Cannula Intake and Output 07/31/17 07/31/17 08/01/17 15:00 23:00 07:00 Intake Total 100 ml 165 ml Balance 100 ml 165 ml Exam Constitutional: alert, oriented Head: normocephalic Neck: supple Respiratory: normal air movement Cardiovascular: nl pulses Gastrointestinal: non-tender, other (G-tube), soft Musculoskeletal: muscle weakness Extremities: other (Contracted) Results Result Diagram: 08/01/17 0815 08/01/17 0844 Results 24 hrs Laboratory Tests Test 08/01/17 08:15 08/01/17 08:44 White Blood Count 12.7 H Red Blood Count 4.03 L Hemoglobin 10.7 L Hematocrit 34.7 L Mean Corpuscular Volume 86.1 Mean Corpuscular Hemoglobin 26.6 L Mean Corpuscular Hemoglobin Concent 30.8 L Red Cell Distribution Width 14.7 H Platelet Count 283 Mean Platelet Volume 11.8 H Neutrophils % 65.4 Lymphocytes % 25.9 Monocytes % 5.8 Eosinophils % 1.9 Basophils % 0.6 Nucleated Red Blood Cells % 0.0 Neutrophils # 8.3 H Lymphocytes # 3.3 H Monocytes # 0.7 Eosinophils # 0.2 Basophils # 0.1 Nucleated Red Blood Cells # 0.0 Sodium Level 141 Potassium Level 3.6 Chloride Level 102 Carbon Dioxide Level 33 H Anion Gap 10 Blood Urea Nitrogen 14 Creatinine 0.44 Glucose Level 108 Calcium Level 9.0 Medications Medications Current Medications Aspirin (Aspirin) 325 mg DAILY GTB Last administered on 08/01/17 08:52; Admin Dose 325 MG; Start 07/16/17 at 09:00 Nitroglycerin (Nitroglycerin (Sl Tab) 0.4 Mg) 1 tab Q5M PRN SL ANGINA; Start 07/16/17 at 00:00 Enoxaparin Sodium (Lovenox) 40 mg DAILY SC Last administered on 08/01/17 09: 06; Admin Dose 40 MG; Start 07/16/17 at 09:00 Acetaminophen (Tylenol Liquid) 650 mg Q6 PRN GTB PAIN AND OR ELEVATED TEMP Last administered on 07/25/17 09:25; Admin Dose 650 MG; Start 07/16/17 at 01: 30 Bisacodyl (Dulcolax Supp) 10 mg Q48H PRN [place] CONSTIPATION; Start 07/16/17 at 09: 00 Clonazepam (Klonopin) 0.25 mg Q12 PRN GTB ANXIETY Last administered on 09:22; Admin Dose 0.25 MG; Start 07/16/17 at 01:30 Acetaminophen/ Hydrocodone Bitart ([place] (5/325)) 1 tab Q6 PRN GTB PAIN Last administered on 07/31/17 18:37; Admin Dose 1 TAB; Start 07/16/17 at 01:30 Polyethylene Glycol (Miralax) 17 gm DAILY PRN GTB CONSTIPATION; Start 07/16/17 at 01:30 Sodium Chloride (Nacl) 1 gm TID GTB Last administered on 08/01/17 08:52; Admin Dose 1 GM; Start 07/16/17 at 09:00 Metoprolol Tartrate (Lopressor) 25 mg BID GTB Last administered on 08/01/17 08:53; Admin Dose 25 MG; Start 07/16/17 at 09:00 Sodium Biphosphate/ Sodium Phosphate (Fleet Enema) 133 ml Q72H [place] Last administered on 07/31/17 09:04; Admin Dose 133 ML; Start 07/16/17 at 09:00 Amlodipine Besylate (Norvasc) 5 mg DAILY GTB Last administered on 08/01/17 08 :53; Admin Dose 5 MG; Start 07/16/17 at 10:00 Gabapentin (Neurontin Liquid) 400 mg TID GTB Last administered on 07/20/17 21 :03; Admin Dose 400 MG; Start 07/16/17 at 21:00; Status Future Hold Estrogens Conjugated (Premarin Vaginal Cr) 1 applic MONWEDFRI@21 VAG Last administered on 07/31/17 22:16; Admin Dose 1 APPLIC; Start 07/17/17 at 21:00 Patient Own Medication 1 ea BID PO Last administered on 08/01/17 09:09; Admin Dose 1 EA; Start 07/17/17 at 09:00 Hydralazine HCl (Apresoline) 25 mg TID GTB Last administered on 08/01/17 08: 53; Admin Dose 25 MG; Start 07/18/17 at 21:30 Hydralazine HCl (Apresoline) 10 mg Q4H PRN IV SBP >160; Start 07/20/17 at 17: 30 Metoprolol Tartrate (Lopressor) 5 mg Q4H PRN IV HR>110 Hold SBP<100; Start at 15:00; Status Future Hold IV Flush (NS 10 ml) 10 ml PRN PRN IV IV PROTOCOL; Start 07/22/17 at 17:00 Levetiracetam (Keppra Liquid) 500 mg BID GTB Last administered on 08/01/17 08 :52; Admin Dose 500 MG; Start 07/23/17 at 21:00 Miscellaneous Information (Pending Santyl Order For Wound Care) This patient cooney... PRN PRN XX WOUND CARE; Start 07/25/17 at 15:30 Oxcarbazepine 600 mg 600 mg BID GTB Last administered on 08/01/17 08:52; Admin Dose 600 MG; Start 07/29/17 at 21:00 Cefepime HCl (Maxipime 1gm/50 ml (Pmx)) 50 ml @ 100 mls/hr Q12 IVPB Last administered on 08/01/17 08:50; Admin Dose 100 MLS/HR; Start 07/30/17 at 21: 00 MARLINE CHOWDARY Aug 01, 2017 12:22
[2017-08-01] MEDS: clonAZEPAM 0.5 MG TAB GTB PRN (12:40)
--- NOTE | 2017-08-01 13:15 | CONS ---
Date/Time of Note Date/Time of Note DATE: 08/01/17 TIME: 13:14 Consult Date/Type/Reason Admit Date/Time Jul 15, 2017 at 21:05 Type of Consultation: ID Ordering Provider: ANGELINA CARUSO MD Objective Vital Signs Date Time Temp Pulse Resp B/P Pulse Ox O2 Delivery O2 Flow Rate FiO2 08/01/17 07:56 98.4 85 18 140/65 100 08/01/17 02:03 2.0 07/31/17 19:18 Nasal Cannula Intake and Output 07/31/17 07/31/17 08/01/17 15:00 23:00 07:00 Intake Total 100 ml 165 ml Balance 100 ml 165 ml Results/Medications Result Diagram: 08/01/17 0815 08/01/17 0844 Results 24 hrs Laboratory Tests Test 08/01/17 08:15 08/01/17 08:44 White Blood Count 12.7 H Red Blood Count 4.03 L Hemoglobin 10.7 L Hematocrit 34.7 L Mean Corpuscular Volume 86.1 Mean Corpuscular Hemoglobin 26.6 L Mean Corpuscular Hemoglobin Concent 30.8 L Red Cell Distribution Width 14.7 H Platelet Count 283 Mean Platelet Volume 11.8 H Neutrophils % 65.4 Lymphocytes % 25.9 Monocytes % 5.8 Eosinophils % 1.9 Basophils % 0.6 Nucleated Red Blood Cells % 0.0 Neutrophils # 8.3 H Lymphocytes # 3.3 H Monocytes # 0.7 Eosinophils # 0.2 Basophils # 0.1 Nucleated Red Blood Cells # 0.0 Sodium Level 141 Potassium Level 3.6 Chloride Level 102 Carbon Dioxide Level 33 H Anion Gap 10 Blood Urea Nitrogen 14 Creatinine 0.44 Glucose Level 108 Calcium Level 9.0 Medications Current Medications Aspirin (Aspirin) 325 mg DAILY GTB Last administered on 08/01/17 08:52; Admin Dose 325 MG; Start 07/16/17 at 09:00 Nitroglycerin (Nitroglycerin (Sl Tab) 0.4 Mg) 1 tab Q5M PRN SL ANGINA; Start 07/16/17 at 00:00 Enoxaparin Sodium (Lovenox) 40 mg DAILY SC Last administered on 08/01/17 09: 06; Admin Dose 40 MG; Start 07/16/17 at 09:00 Acetaminophen (Tylenol Liquid) 650 mg Q6 PRN GTB PAIN AND OR ELEVATED TEMP Last administered on 07/25/17 09:25; Admin Dose 650 MG; Start 07/16/17 at 01: 30 Bisacodyl (Dulcolax Supp) 10 mg Q48H PRN [place] CONSTIPATION; Start 07/16/17 at 09: 00 Clonazepam (Klonopin) 0.25 mg Q12 PRN GTB ANXIETY Last administered on 12:40; Admin Dose 0.25 MG; Start 07/16/17 at 01:30 Acetaminophen/ Hydrocodone Bitart ([place] (5/325)) 1 tab Q6 PRN GTB PAIN Last administered on 07/31/17 18:37; Admin Dose 1 TAB; Start 07/16/17 at 01:30 Polyethylene Glycol (Miralax) 17 gm DAILY PRN GTB CONSTIPATION; Start 07/16/17 at 01:30 Sodium Chloride (Nacl) 1 gm TID GTB Last administered on 08/01/17 12:31; Admin Dose 1 GM; Start 07/16/17 at 09:00 Metoprolol Tartrate (Lopressor) 25 mg BID GTB Last administered on 08/01/17 08:53; Admin Dose 25 MG; Start 07/16/17 at 09:00 Sodium Biphosphate/ Sodium Phosphate (Fleet Enema) 133 ml Q72H [place] Last administered on 07/31/17 09:04; Admin Dose 133 ML; Start 07/16/17 at 09:00 Amlodipine Besylate (Norvasc) 5 mg DAILY GTB Last administered on 08/01/17 08 :53; Admin Dose 5 MG; Start 07/16/17 at 10:00 Gabapentin (Neurontin Liquid) 400 mg TID GTB Last administered on 07/20/17 21 :03; Admin Dose 400 MG; Start 07/16/17 at 21:00; Status Future Hold Estrogens Conjugated (Premarin Vaginal Cr) 1 applic MONWEDFRI@21 VAG Last administered on 07/31/17 22:16; Admin Dose 1 APPLIC; Start 07/17/17 at 21:00 Patient Own Medication 1 ea BID PO Last administered on 08/01/17 09:09; Admin Dose 1 EA; Start 07/17/17 at 09:00 Hydralazine HCl (Apresoline) 25 mg TID GTB Last administered on 08/01/17 08: 53; Admin Dose 25 MG; Start 07/18/17 at 21:30 Hydralazine HCl (Apresoline) 10 mg Q4H PRN IV SBP >160; Start 07/20/17 at 17: 30 Metoprolol Tartrate (Lopressor) 5 mg Q4H PRN IV HR>110 Hold SBP<100; Start at 15:00; Status Future Hold IV Flush (NS 10 ml) 10 ml PRN PRN IV IV PROTOCOL; Start 07/22/17 at 17:00 Levetiracetam (Keppra Liquid) 500 mg BID GTB Last administered on 08/01/17 08 :52; Admin Dose 500 MG; Start 07/23/17 at 21:00 Miscellaneous Information [facility] This patient cooney... PRN PRN XX WOUND CARE; Start 07/25/17 at 15:30 Oxcarbazepine 600 mg 600 mg BID GTB Last administered on 08/01/17 08:52; Admin Dose 600 MG; Start 07/29/17 at 21:00 Cefepime HCl (Maxipime 1gm/50 ml (Pmx)) 50 ml @ 100 mls/hr Q12 IVPB Last administered on 08/01/17 08:50; Admin Dose 100 MLS/HR; Start 07/30/17 at 21: 00 Assessment/Plan Chief Complaint/Hosp Course SUBJECTIVE: No acute events. Lying comfortably in bed, no vomiting or diarrhea , tolerates TF stable INDWELLINGS: PICC line, PEG. Abx: Cefepime PHYSICAL EXAMINATION: GENERAL: This is a well-developed, chronically ill-appearing, elderly woman who is in no distress. HEENT: Head atraumatic, normocephalic. Sclerae anicteric. Buccal mucosa dry. NECK: Supple. CHEST: Rise symmetrical. Breath sounds diminished to bases. HEART: S1, S2. ABDOMEN: Soft, bowel sounds present. EXTREMITIES: No cyanosis. ASSESSMENT: 1. S/p polymicrobial urinary tract infection. 2. Neurogenic bladder 3. Status post transient ischemic attack. 4. Advanced multiple sclerosis. 5. Coronary artery disease status post paroxysmal atrial fibrillation. 6. History of breast carcinoma. PLAN: The patient remains stable, restarted on abx for recurrent UTI, continue present care, monitor PVR and straight cath prn [facility] staff Problems: NOHELIA HER NP Aug 01, 2017 13:15
[2017-08-01 14:00] VITALS: BP 121/56; RESP 18
[2017-08-01] MEDS: HYDROCODONE/APAP (5/325) TAB GTB PRN (18:18)
[2017-08-01 20:38] VITALS: BP 126/60; RESP 20
[2017-08-02 02:00] VITALS: BP 135/59; RESP 20
[2017-08-02 06:14] LABS: BASOPHIL # 0.1 10^3/ul (0.0-0.1); BASOPHILS % 0.7 % (0.0-2.0); EOSINOPHILS # 0.3 10^3/ul (0.0-0.5); HEMATOCRIT 35.4 % (37.0-47.0); HEMOGLOBIN 11.1 g/dl (12.0-16.0); LYMPHOCYTES # 3.8 10^3/ul (0.8-2.9); LYMPHOCYTES % 30.2 % (15.0-51.0); MEAN CORPUSCULAR HEMOGLOBIN 27.1 pg (29.0-33.0); MEAN CORPUSCULAR HGB CONC 31.4 g/dl (32.0-37.0); MEAN CORPUSCULAR VOLUME 86.3 fl (82.0-101.0); MEAN PLATELET VOLUME 11.9 fl (7.4-10.4); MONOCYTE # 0.8 10^3/ul (0.3-0.9); MONOCYTES % 6.1 % (0.0-11.0); NEUTROPHIL # 7.6 10^3/ul (1.6-7.5); NEUTROPHILS % 60.7 % (39.0-77.0); PLATELET COUNT 270 10^3/UL (140-415); RED CELL DISTRIBUTION WIDTH 14.6 % (11.5-14.5); WHITE BLOOD COUNT 12.5 10^3/ul (4.8-10.8)
[2017-08-02 06:53] LABS: CALCIUM 9.3 mg/dl (8.4-10.2); CREATININE 0.41 mg/dl (0.44-1.00); POTASSIUM 4.1 mmol/L (3.5-5.1)
[2017-08-02 08:00] VITALS: BP 116/59; RESP 19
[2017-08-02] MEDS: OXCARBAZEPINE 300 MG TAB GTB SCH ×2 (08:35→20:01)
[2017-08-02] MEDS: LEVETIRACETAM (100 MG/ML) 5ML CUP GTB SCH ×2 (08:35→20:01)
[2017-08-02] MEDS: CEFEPIME 1GM/50 ML (PMX) 50 ML IVPB SCH ×2 (08:35→20:00)
[2017-08-02] MEDS: ASPIRIN 325 MG TAB GTB SCH (08:36)
[2017-08-02] MEDS: METOPROLOL 25 MG TAB GTB SCH ×2 (08:36→20:04)
[2017-08-02] MEDS: SODIUM CHLORIDE 1 GM TAB GTB SCH ×3 (08:36→20:01)
[2017-08-02] MEDS: AMLODIPINE 5 MG TAB GTB SCH (08:36)
[2017-08-02] MEDS: ENOXAPARIN 40 MG/0.4 ML SYG SC SCH (08:44)
--- NOTE | 2017-08-02 12:37 | CONS ---
Date/Time of Note Date/Time of Note DATE: 08/02/17 TIME: 12:35 Assessment/Plan Assessment/Plan Chief Complaint/Hosp Course IMPRESSION: 1. Paroxysmal atrial fibrillation-? recurrence. ECG today again reveals initial WAP but towards end may be true AF 2. Abnormal electrocardiogram, assess for acute coronary syndrome. 3. Hypertension. 4. Possible acute cerebrovascular accident. 5. Urinary tract infection. 6. Leukocytosis. 7. Encephalopathy Recc: -Now on med/surg -Continue asa therapy at this time -Continue BB/norvasc/hydralazine at current doses with well controlled BP at this time. -Continue keppra -Continue abx's and f/u cx data -Follow MS with ongoing neuro eval and continue keppra -Continue to follow serial ecg's to assess for recurrent definite af and will discuss possibility of challenge with true systemic anti-coag with PMD Problems: Consultation Date/Type/Reason Admit Date/Time Jul 15, 2017 at 21:05 Initial Consult Date 07/21/17 Type of Consultation: cardiology Reason for Consultation PAF Referring Provider: ANGELINA CARUSO MD Exam/Review of Systems Vital Signs Vitals Vital Signs Date Time Temp Pulse Resp B/P Pulse Ox O2 Delivery O2 Flow Rate FiO2 08/02/17 08:00 98.1 70 19 116/59 100 08/01/17 02:03 2.0 07/31/17 19:18 Nasal Cannula Intake and Output 08/01/17 08/01/17 08/02/17 15:00 23:00 07:00 Intake Total 1195 ml 540 ml Balance 1195 ml 540 ml Exam Review of Systems: CONSTITUTIONAL: No fevers, chills. PULMONARY: No sob CARDIOVASCULAR: No chest pain/palpitations GASTROINTESTINAL: No nausea/vomiting. GENITOURINARY: No hematuria/dysuria. MUSCULOSKELETAL: No myagias/arthalgias. PSYCHIATRIC: The patient denies depression. NEUROLOGIC: noncommunicative Constitutional: alert, oriented Psych: no complaints Head: normocephalic ENMT: mucosa pink and moist Neck: jvd (9 cm water), supple Respiratory: diminished breath sounds Cardiovascular: regular rate and rhythm Gastrointestinal: non-tender, soft Musculoskeletal: muscle tone (normal) Extremities: edema (none) Neurological: other (No focal deficits) Results Result Diagram: 08/02/17 0557 08/02/17 0557 Results 24 hrs Laboratory Tests Test 08/02/17 05:57 White Blood Count 12.5 H Red Blood Count 4.10 L Hemoglobin 11.1 L Hematocrit 35.4 L Mean Corpuscular Volume 86.3 Mean Corpuscular Hemoglobin 27.1 L Mean Corpuscular Hemoglobin Concent 31.4 L Red Cell Distribution Width 14.6 H Platelet Count 270 Mean Platelet Volume 11.9 H Neutrophils % 60.7 Lymphocytes % 30.2 Monocytes % 6.1 Eosinophils % 2.0 Basophils % 0.7 Nucleated Red Blood Cells % 0.0 Neutrophils # 7.6 H Lymphocytes # 3.8 H Monocytes # 0.8 Eosinophils # 0.3 Basophils # 0.1 Nucleated Red Blood Cells # 0.0 Sodium Level 140 Potassium Level 4.1 Chloride Level 103 Carbon Dioxide Level 33 H Anion Gap 8 Blood Urea Nitrogen 13 Creatinine 0.41 L Glucose Level 97 Calcium Level 9.3 Medications Medications Current Medications Aspirin (Aspirin) 325 mg DAILY GTB Last administered on 08/02/17 08:36; Admin Dose 325 MG; Start 07/16/17 at 09:00 Nitroglycerin (Nitroglycerin (Sl Tab) 0.4 Mg) 1 tab Q5M PRN SL ANGINA; Start 07/16/17 at 00:00 Enoxaparin Sodium (Lovenox) 40 mg DAILY SC Last administered on 08/02/17 08: 44; Admin Dose 40 MG; Start 07/16/17 at 09:00 Acetaminophen (Tylenol Liquid) 650 mg Q6 PRN GTB PAIN AND OR ELEVATED TEMP Last administered on 07/25/17 09:25; Admin Dose 650 MG; Start 07/16/17 at 01: 30 Bisacodyl (Dulcolax Supp) 10 mg Q48H PRN [place] CONSTIPATION; Start 07/16/17 at 09: 00 Clonazepam (Klonopin) 0.25 mg Q12 PRN GTB ANXIETY Last administered on 12:40; Admin Dose 0.25 MG; Start 07/16/17 at 01:30 Acetaminophen/ Hydrocodone Bitart ([place] (5/325)) 1 tab Q6 PRN GTB PAIN Last administered on 08/01/17 18:18; Admin Dose 1 TAB; Start 07/16/17 at 01:30 Polyethylene Glycol (Miralax) 17 gm DAILY PRN GTB CONSTIPATION; Start 07/16/17 at 01:30 Sodium Chloride (Nacl) 1 gm TID GTB Last administered on 08/02/17 08:36; Admin Dose 1 GM; Start 07/16/17 at 09:00 Metoprolol Tartrate (Lopressor) 25 mg BID GTB Last administered on 08/02/17 08:36; Admin Dose 25 MG; Start 07/16/17 at 09:00 Sodium Biphosphate/ Sodium Phosphate (Fleet Enema) 133 ml Q72H [place] Last administered on 07/31/17 09:04; Admin Dose 133 ML; Start 07/16/17 at 09:00 Amlodipine Besylate (Norvasc) 5 mg DAILY GTB Last administered on 08/02/17 08 :36; Admin Dose 5 MG; Start 07/16/17 at 10:00 Gabapentin (Neurontin Liquid) 400 mg TID GTB Last administered on 07/20/17 21 :03; Admin Dose 400 MG; Start 07/16/17 at 21:00; Status Future Hold Estrogens Conjugated (Premarin Vaginal Cr) 1 applic MONWEDFRI@21 VAG Last administered on 07/31/17 22:16; Admin Dose 1 APPLIC; Start 07/17/17 at 21:00 Patient Own Medication 1 ea BID PO Last administered on 08/02/17 08:35; Admin Dose 1 EA; Start 07/17/17 at 09:00 Hydralazine HCl (Apresoline) 25 mg TID GTB Last administered on 08/02/17 08: 36; Admin Dose 25 MG; Start 07/18/17 at 21:30 Hydralazine HCl (Apresoline) 10 mg Q4H PRN IV SBP >160; Start 07/20/17 at 17: 30 Metoprolol Tartrate (Lopressor) 5 mg Q4H PRN IV HR>110 Hold SBP<100; Start at 15:00; Status Future Hold IV Flush (NS 10 ml) 10 ml PRN PRN IV IV PROTOCOL; Start 07/22/17 at 17:00 Levetiracetam (Keppra Liquid) 500 mg BID GTB Last administered on 08/02/17 08 :35; Admin Dose 500 MG; Start 07/23/17 at 21:00 Miscellaneous Information (Pending [facility] Order For Wound Care) This patient cooney... PRN PRN XX WOUND CARE; Start 07/25/17 at 15:30 Oxcarbazepine 600 mg 600 mg BID GTB Last administered on 08/02/17 08:35; Admin Dose 600 MG; Start 07/29/17 at 21:00 Cefepime HCl (Maxipime 1gm/50 ml (Pmx)) 50 ml @ 100 mls/hr Q12 IVPB Last administered on 08/02/17 08:35; Admin Dose 100 MLS/HR; Start 07/30/17 at 21: 00 COMPA NUGENT Aug 02, 2017 12:37
--- NOTE | 2017-08-02 13:38 | CONS ---
Date/Time of Note Date/Time of Note DATE: 08/02/17 TIME: 13:37 Consult Date/Type/Reason Admit Date/Time Jul 15, 2017 at 21:05 Type of Consultation: id Ordering Provider: ANGELINA CARUSO MD Objective Vital Signs Date Time Temp Pulse Resp B/P Pulse Ox O2 Delivery O2 Flow Rate FiO2 08/02/17 08:00 98.1 70 19 116/59 100 08/01/17 02:03 2.0 07/31/17 19:18 Nasal Cannula Intake and Output 08/01/17 08/01/17 08/02/17 15:00 23:00 07:00 Intake Total 1195 ml 540 ml Balance 1195 ml 540 ml Results/Medications Result Diagram: 08/02/17 0557 08/02/17 0557 Results 24 hrs Laboratory Tests Test 08/02/17 05:57 White Blood Count 12.5 H Red Blood Count 4.10 L Hemoglobin 11.1 L Hematocrit 35.4 L Mean Corpuscular Volume 86.3 Mean Corpuscular Hemoglobin 27.1 L Mean Corpuscular Hemoglobin Concent 31.4 L Red Cell Distribution Width 14.6 H Platelet Count 270 Mean Platelet Volume 11.9 H Neutrophils % 60.7 Lymphocytes % 30.2 Monocytes % 6.1 Eosinophils % 2.0 Basophils % 0.7 Nucleated Red Blood Cells % 0.0 Neutrophils # 7.6 H Lymphocytes # 3.8 H Monocytes # 0.8 Eosinophils # 0.3 Basophils # 0.1 Nucleated Red Blood Cells # 0.0 Sodium Level 140 Potassium Level 4.1 Chloride Level 103 Carbon Dioxide Level 33 H Anion Gap 8 Blood Urea Nitrogen 13 Creatinine 0.41 L Glucose Level 97 Calcium Level 9.3 Medications Current Medications Aspirin (Aspirin) 325 mg DAILY GTB Last administered on 08/02/17 08:36; Admin Dose 325 MG; Start 07/16/17 at 09:00 Nitroglycerin (Nitroglycerin (Sl Tab) 0.4 Mg) 1 tab Q5M PRN SL ANGINA; Start 07/16/17 at 00:00 Enoxaparin Sodium (Lovenox) 40 mg DAILY SC Last administered on 08/02/17 08: 44; Admin Dose 40 MG; Start 07/16/17 at 09:00 Acetaminophen (Tylenol Liquid) 650 mg Q6 PRN GTB PAIN AND OR ELEVATED TEMP Last administered on 07/25/17 09:25; Admin Dose 650 MG; Start 07/16/17 at 01: 30 Bisacodyl (Dulcolax Supp) 10 mg Q48H PRN [place] CONSTIPATION; Start 07/16/17 at 09: 00 Clonazepam (Klonopin) 0.25 mg Q12 PRN GTB ANXIETY Last administered on 12:40; Admin Dose 0.25 MG; Start 07/16/17 at 01:30 Acetaminophen/ Hydrocodone Bitart ([place] (5/325)) 1 tab Q6 PRN GTB PAIN Last administered on 08/01/17 18:18; Admin Dose 1 TAB; Start 07/16/17 at 01:30 Polyethylene Glycol (Miralax) 17 gm DAILY PRN GTB CONSTIPATION; Start 07/16/17 at 01:30 Sodium Chloride (Nacl) 1 gm TID GTB Last administered on 08/02/17 13:17; Admin Dose 1 GM; Start 07/16/17 at 09:00 Metoprolol Tartrate (Lopressor) 25 mg BID GTB Last administered on 08/02/17 08:36; Admin Dose 25 MG; Start 07/16/17 at 09:00 Sodium Biphosphate/ Sodium Phosphate (Fleet Enema) 133 ml Q72H [place] Last administered on 07/31/17 09:04; Admin Dose 133 ML; Start 07/16/17 at 09:00 Amlodipine Besylate (Norvasc) 5 mg DAILY GTB Last administered on 08/02/17 08 :36; Admin Dose 5 MG; Start 07/16/17 at 10:00 Gabapentin (Neurontin Liquid) 400 mg TID GTB Last administered on 07/20/17 21 :03; Admin Dose 400 MG; Start 07/16/17 at 21:00; Status Future Hold Estrogens Conjugated (Premarin Vaginal Cr) 1 applic MONWEDFRI@21 VAG Last administered on 07/31/17 22:16; Admin Dose 1 APPLIC; Start 07/17/17 at 21:00 Patient Own Medication 1 ea BID PO Last administered on 08/02/17 08:35; Admin Dose 1 EA; Start 07/17/17 at 09:00 Hydralazine HCl (Apresoline) 25 mg TID GTB Last administered on 08/02/17 13: 17; Admin Dose 25 MG; Start 07/18/17 at 21:30 Hydralazine HCl (Apresoline) 10 mg Q4H PRN IV SBP >160; Start 07/20/17 at 17: 30 Metoprolol Tartrate (Lopressor) 5 mg Q4H PRN IV HR>110 Hold SBP<100; Start at 15:00; Status Future Hold IV Flush (NS 10 ml) 10 ml PRN PRN IV IV PROTOCOL; Start 07/22/17 at 17:00 Levetiracetam (Keppra Liquid) 500 mg BID GTB Last administered on 08/02/17 08 :35; Admin Dose 500 MG; Start 07/23/17 at 21:00 Miscellaneous Information (Pending [facility] Order For Wound Care) This patient cooney... PRN PRN XX WOUND CARE; Start 07/25/17 at 15:30 Oxcarbazepine 600 mg 600 mg BID GTB Last administered on 08/02/17 08:35; Admin Dose 600 MG; Start 07/29/17 at 21:00 Cefepime HCl (Maxipime 1gm/50 ml (Pmx)) 50 ml @ 100 mls/hr Q12 IVPB Last administered on 08/02/17 08:35; Admin Dose 100 MLS/HR; Start 07/30/17 at 21: 00 Assessment/Plan Chief Complaint/Hosp Course SUBJECTIVE: No acute events. Lying comfortably in bed, tolerates TF stable INDWELLINGS: PICC line, PEG. Abx: Cefepime PHYSICAL EXAMINATION: GENERAL: This is a well-developed, chronically ill-appearing, elderly woman who is in no distress. HEENT: Head atraumatic, normocephalic. Sclerae anicteric. Buccal mucosa dry. NECK: Supple. CHEST: Rise symmetrical. Breath sounds diminished to bases. HEART: S1, S2. ABDOMEN: Soft, bowel sounds present. EXTREMITIES: No cyanosis. ASSESSMENT: 1. Recurrentl urinary tract infection. 2. Neurogenic bladder 3. Status post transient ischemic attack. 4. Advanced multiple sclerosis. 5. Coronary artery disease status post paroxysmal atrial fibrillation. 6. History of breast carcinoma. PLAN: The patient remains stable, restarted on abx for recurrent UTI, continue present care, monitor PVR and straight cath prn [facility] staff Problems: NOHELIA HER NP Aug 02, 2017 13:38
--- NOTE | 2017-08-02 16:54 | PN ---
Date/Time of Note Date/Time of Note DATE: 08/02/17 TIME: 16:53 Assessment/Plan VTE Prophylaxis VTE Prophylaxis Intervention: SCD's Lines/Catheters IV Catheter Type (from Nrs): PICC Line Central line still needed: Yes Urinary Cath still in place: No Assessment/Plan Chief Complaint/Hosp Course Patient remains hemodynamically stable, afebrile, continue to monitor postvoid residual and in and out catheter as needed. Assessment/Plan - Recurrent UTI, continue Cefepime - Possible urinary retention - Right trigeminal neuralgia, continue Trileptal, Dr. Mcgregor, neurology consult is appreciated - CECILIA versus seizures versus acute metabolic encephalopathy, Continue Keppra. - Atrial fibrillation, currently in sinus rhythm with wandering pacemaker, continue aspirin, Dr. Ferrara is following in cardiology consultation - Atypical chest pain, rule out myocardial infarction. Cardiac enzymes negative 3. Unable to undergo to pulmonary angiogram due to allergy to iodine. VQ scan is low probability for PE. - Advanced multiple sclerosis, bed to wheelchair bound total care. - Hypertension, continue metoprolol and Norvasc - Dysphagia. Continue G-tube feeding. - Hx Breast cancer. Further recommendations based on clinical course. Plan of care discussed with Dr. Soto Problems: Exam/Review of Systems Vital Signs Vitals Vital Signs Date Time Temp Pulse Resp B/P Pulse Ox O2 Delivery O2 Flow Rate FiO2 08/02/17 08:00 98.1 70 19 116/59 100 08/01/17 02:03 2.0 07/31/17 19:18 Nasal Cannula Intake and Output 08/01/17 08/01/17 08/02/17 15:00 23:00 07:00 Intake Total 1195 ml 540 ml Balance 1195 ml 540 ml Exam Constitutional: alert, oriented Head: normocephalic Neck: supple Respiratory: normal air movement Cardiovascular: nl pulses Gastrointestinal: non-tender, other (G-tube), soft Musculoskeletal: muscle weakness Extremities: other (Contracted) Results Result Diagram: 08/02/17 0557 08/02/17 0557 Results 24 hrs Laboratory Tests Test 08/02/17 05:57 White Blood Count 12.5 H Red Blood Count 4.10 L Hemoglobin 11.1 L Hematocrit 35.4 L Mean Corpuscular Volume 86.3 Mean Corpuscular Hemoglobin 27.1 L Mean Corpuscular Hemoglobin Concent 31.4 L Red Cell Distribution Width 14.6 H Platelet Count 270 Mean Platelet Volume 11.9 H Neutrophils % 60.7 Lymphocytes % 30.2 Monocytes % 6.1 Eosinophils % 2.0 Basophils % 0.7 Nucleated Red Blood Cells % 0.0 Neutrophils # 7.6 H Lymphocytes # 3.8 H Monocytes # 0.8 Eosinophils # 0.3 Basophils # 0.1 Nucleated Red Blood Cells # 0.0 Sodium Level 140 Potassium Level 4.1 Chloride Level 103 Carbon Dioxide Level 33 H Anion Gap 8 Blood Urea Nitrogen 13 Creatinine 0.41 L Glucose Level 97 Calcium Level 9.3 Medications Medications Current Medications Aspirin (Aspirin) 325 mg DAILY GTB Last administered on 08/02/17 08:36; Admin Dose 325 MG; Start 07/16/17 at 09:00 Nitroglycerin (Nitroglycerin (Sl Tab) 0.4 Mg) 1 tab Q5M PRN SL ANGINA; Start 07/16/17 at 00:00 Enoxaparin Sodium (Lovenox) 40 mg DAILY [place] Last administered on 08/02/17 08: 44; Admin Dose 40 MG; Start 07/16/17 at 09:00 Acetaminophen (Tylenol Liquid) 650 mg Q6 PRN GTB PAIN AND OR ELEVATED TEMP Last administered on 07/25/17 09:25; Admin Dose 650 MG; Start 07/16/17 at 01: 30 Bisacodyl (Dulcolax Supp) 10 mg Q48H PRN [place] CONSTIPATION; Start 07/16/17 at 09: 00 Clonazepam (Klonopin) 0.25 mg Q12 PRN GTB ANXIETY Last administered on 12:40; Admin Dose 0.25 MG; Start 07/16/17 at 01:30 Acetaminophen/ Hydrocodone Bitart ([place] (5/325)) 1 tab Q6 PRN GTB PAIN Last administered on 08/01/17 18:18; Admin Dose 1 TAB; Start 07/16/17 at 01:30 Polyethylene Glycol (Miralax) 17 gm DAILY PRN GTB CONSTIPATION; Start 07/16/17 at 01:30 Sodium Chloride (Nacl) 1 gm TID GTB Last administered on 08/02/17 13:17; Admin Dose 1 GM; Start 07/16/17 at 09:00 Metoprolol Tartrate (Lopressor) 25 mg BID GTB Last administered on 08/02/17 08:36; Admin Dose 25 MG; Start 07/16/17 at 09:00 Sodium Biphosphate/ Sodium Phosphate (Fleet Enema) 133 ml Q72H [place] Last administered on 07/31/17 09:04; Admin Dose 133 ML; Start 07/16/17 at 09:00 Amlodipine Besylate (Norvasc) 5 mg DAILY GTB Last administered on 08/02/17 08 :36; Admin Dose 5 MG; Start 07/16/17 at 10:00 Gabapentin (Neurontin Liquid) 400 mg TID GTB Last administered on 07/20/17 21 :03; Admin Dose 400 MG; Start 07/16/17 at 21:00; Status Future Hold Estrogens Conjugated (Premarin Vaginal Cr) 1 applic MONWEDFRI@21 VAG Last administered on 07/31/17 22:16; Admin Dose 1 APPLIC; Start 07/17/17 at 21:00 Patient Own Medication 1 ea BID PO Last administered on 08/02/17 08:35; Admin Dose 1 EA; Start 07/17/17 at 09:00 Hydralazine HCl (Apresoline) 25 mg TID GTB Last administered on 08/02/17 13: 17; Admin Dose 25 MG; Start 07/18/17 at 21:30 Hydralazine HCl (Apresoline) 10 mg Q4H PRN IV SBP >160; Start 07/20/17 at 17: 30 Metoprolol Tartrate (Lopressor) 5 mg Q4H PRN IV HR>110 Hold SBP<100; Start at 15:00; Status Future Hold IV Flush (NS 10 ml) 10 ml PRN PRN IV IV PROTOCOL; Start 07/22/17 at 17:00 Levetiracetam (Keppra Liquid) 500 mg BID GTB Last administered on 08/02/17 08 :35; Admin Dose 500 MG; Start 07/23/17 at 21:00 Miscellaneous Information (Pending [facility] Order For Wound Care) This patient cooney... PRN PRN XX WOUND CARE; Start 07/25/17 at 15:30 Oxcarbazepine 600 mg 600 mg BID GTB Last administered on 08/02/17 08:35; Admin Dose 600 MG; Start 07/29/17 at 21:00 Cefepime HCl (Maxipime 1gm/50 ml (Pmx)) 50 ml @ 100 mls/hr Q12 IVPB Last administered on 08/02/17 08:35; Admin Dose 100 MLS/HR; Start 07/30/17 at 21: 00 MARLINE CHOWDARY Aug 02, 2017 16:54
[2017-08-02] MEDS: ALBUTEROL 0.083% (NEB) 2.5 MG/3 ML AMP NEB PRN (17:16)
[2017-08-02 20:00] VITALS: BP 112/55; RESP 18
[2017-08-02] MEDS: ESTROGENS CONJUGATED 42.5 GM VAG CR VAG SCH (20:00)
[2017-08-03 02:23] VITALS: BP 159/69; RESP 18
[2017-08-03 07:49] VITALS: BP 133/65; RESP 18
[2017-08-03] MEDS: SODIUM CHLORIDE 1 GM TAB GTB SCH ×3 (08:39→21:22)
[2017-08-03] MEDS: ASPIRIN 325 MG TAB GTB SCH (08:39)
[2017-08-03] MEDS: LEVETIRACETAM (100 MG/ML) 5ML CUP GTB SCH ×2 (08:39→21:23)
[2017-08-03] MEDS: OXCARBAZEPINE 300 MG TAB GTB SCH ×2 (08:40→21:23)
[2017-08-03] MEDS: AMLODIPINE 5 MG TAB GTB SCH (08:41)
[2017-08-03] MEDS: METOPROLOL 25 MG TAB GTB SCH ×2 (08:42→21:24)
[2017-08-03] MEDS: NA PHOSPHATE/BIPHOS 133 ML ENEMA PR SCH (08:43)
[2017-08-03] MEDS: CEFEPIME 1GM/50 ML (PMX) 50 ML IVPB SCH ×2 (08:43→21:22)
[2017-08-03] MEDS: ENOXAPARIN 40 MG/0.4 ML SYG SC SCH (09:10)
[2017-08-03 12:22] VITALS: BP 112/51; RESP 18
--- NOTE | 2017-08-03 12:54 | CONS ---
Date/Time of Note Date/Time of Note DATE: 08/03/17 TIME: 12:53 Consult Date/Type/Reason Admit Date/Time Jul 15, 2017 at 21:05 Type of Consultation: id Ordering Provider: ANGELINA CARUSO MD Objective Vital Signs Date Time Temp Pulse Resp B/P Pulse Ox O2 Delivery O2 Flow Rate FiO2 08/03/17 12:22 98.1 75 18 112/51 99 08/02/17 17:16 21 08/01/17 02:03 2.0 07/31/17 19:18 Nasal Cannula Intake and Output 08/02/17 08/02/17 08/03/17 15:00 23:00 07:00 Intake Total 50 ml 1255 ml 425 ml Balance 50 ml 1255 ml 425 ml Results/Medications Result Diagram: 08/02/17 0557 08/02/17 0557 Medications Current Medications Aspirin (Aspirin) 325 mg DAILY GTB Last administered on 08/03/17 08:39; Admin Dose 325 MG; Start 07/16/17 at 09:00 Nitroglycerin (Nitroglycerin (Sl Tab) 0.4 Mg) 1 tab Q5M PRN SL ANGINA; Start 07/16/17 at 00:00 Enoxaparin Sodium (Lovenox) 40 mg DAILY [place] Last administered on 08/03/17 09: 10; Admin Dose 40 MG; Start 07/16/17 at 09:00 Acetaminophen (Tylenol Liquid) 650 mg Q6 PRN GTB PAIN AND OR ELEVATED TEMP Last administered on 07/25/17 09:25; Admin Dose 650 MG; Start 07/16/17 at 01: 30 Bisacodyl (Dulcolax Supp) 10 mg Q48H PRN [place] CONSTIPATION; Start 07/16/17 at 09: 00 Clonazepam (Klonopin) 0.25 mg Q12 PRN GTB ANXIETY Last administered on 12:40; Admin Dose 0.25 MG; Start 07/16/17 at 01:30 Acetaminophen/ Hydrocodone Bitart ([place] (5/325)) 1 tab Q6 PRN GTB PAIN Last administered on 08/01/17 18:18; Admin Dose 1 TAB; Start 07/16/17 at 01:30 Polyethylene Glycol (Miralax) 17 gm DAILY PRN GTB CONSTIPATION; Start 07/16/17 at 01:30 Sodium Chloride (Nacl) 1 gm TID GTB Last administered on 08/03/17 08:39; Admin Dose 1 GM; Start 07/16/17 at 09:00 Metoprolol Tartrate (Lopressor) 25 mg BID GTB Last administered on 08/03/17 08:42; Admin Dose 25 MG; Start 07/16/17 at 09:00 Sodium Biphosphate/ Sodium Phosphate (Fleet Enema) 133 ml Q72H [place] Last administered on 08/03/17 08:43; Admin Dose 133 ML; Start 07/16/17 at 09:00 Amlodipine Besylate (Norvasc) 5 mg DAILY GTB Last administered on 08/03/17 08 :41; Admin Dose 5 MG; Start 07/16/17 at 10:00 Gabapentin (Neurontin Liquid) 400 mg TID GTB Last administered on 07/20/17 21 :03; Admin Dose 400 MG; Start 07/16/17 at 21:00; Status Future Hold Estrogens Conjugated (Premarin Vaginal Cr) 1 applic MONWEDFRI@21 VAG Last administered on 08/02/17 20:00; Admin Dose 1 APPLIC; Start 07/17/17 at 21:00 Patient Own Medication 1 ea BID PO Last administered on 08/03/17 08:42; Admin Dose 1 EA; Start 07/17/17 at 09:00 Hydralazine HCl (Apresoline) 25 mg TID GTB Last administered on 08/03/17 08: 41; Admin Dose 25 MG; Start 07/18/17 at 21:30 Hydralazine HCl (Apresoline) 10 mg Q4H PRN IV SBP >160; Start 07/20/17 at 17: 30 Metoprolol Tartrate (Lopressor) 5 mg Q4H PRN IV HR>110 Hold SBP<100; Start at 15:00; Status Future Hold IV Flush (NS 10 ml) 10 ml PRN PRN IV IV PROTOCOL; Start 07/22/17 at 17:00 Levetiracetam (Keppra Liquid) 500 mg BID GTB Last administered on 08/03/17 08 :39; Admin Dose 500 MG; Start 07/23/17 at 21:00 Miscellaneous Information (Pending Santyl Order For Wound Care) This patient cooney... PRN PRN XX WOUND CARE; Start 07/25/17 at 15:30 Oxcarbazepine 600 mg 600 mg BID GTB Last administered on 08/03/17 08:40; Admin Dose 600 MG; Start 07/29/17 at 21:00 Cefepime HCl (Maxipime 1gm/50 ml (Pmx)) 50 ml @ 100 mls/hr Q12 IVPB Last administered on 08/03/17 08:43; Admin Dose 100 MLS/HR; Start 07/30/17 at 21: 00 Assessment/Plan Chief Complaint/Hosp Course SUBJECTIVE: No acute events. Lying comfortably in bed, no fevers INDWELLINGS: PICC line, PEG. Abx: Cefepime PHYSICAL EXAMINATION: GENERAL: This is a well-developed, chronically ill-appearing, elderly woman who is in no distress. HEENT: Head atraumatic, normocephalic. Sclerae anicteric. Buccal mucosa dry. NECK: Supple. CHEST: Rise symmetrical. Breath sounds diminished to bases. HEART: S1, S2. ABDOMEN: Soft, bowel sounds present. EXTREMITIES: No cyanosis. ASSESSMENT: 1. Recurrentl urinary tract infection. 2. Neurogenic bladder 3. Status post transient ischemic attack. 4. Advanced multiple sclerosis. 5. Coronary artery disease status post paroxysmal atrial fibrillation. 6. History of breast carcinoma. PLAN: The patient remains stable, continue abx for recurrent UTI, continue present care, monitor PVR and straight cath prn [facility] staff Problems: NOHELIA HER NP Aug 03, 2017 12:54
--- NOTE | 2017-08-03 13:18 | PN ---
Date/Time of Note Date/Time of Note DATE: 08/03/17 TIME: 13:15 Assessment/Plan Lines/Catheters IV Catheter Type (from Nrsg): PICC Line Urinary Cath still in place: No Assessment/Plan Assessment/Plan - Recurrent UTI, continue Cefepime - Possible urinary retention - Right trigeminal neuralgia, continue Trileptal, Dr. Mcgregor, neurology consult is appreciated - CECILIA versus seizures versus acute metabolic encephalopathy, Continue Keppra. - Atrial fibrillation, currently in sinus rhythm with wandering pacemaker, continue aspirin, Dr. Ferrara is following in cardiology consultation - Atypical chest pain, rule out myocardial infarction. Cardiac enzymes negative 3. Unable to undergo to pulmonary angiogram due to allergy to iodine. VQ scan is low probability for PE. - Advanced multiple sclerosis, bed to wheelchair bound total care. - Hypertension, continue metoprolol and Norvasc - Dysphagia. Continue G-tube feeding. - Hx Breast cancer. Further recommendations based on clinical course. Plan of care discussed with Dr. Soto Exam/Review of Systems Vital Signs Vitals Vital Signs Date Time Temp Pulse Resp B/P Pulse Ox O2 Delivery O2 Flow Rate FiO2 08/03/17 12:22 98.1 75 18 112/51 99 08/02/17 17:16 21 08/01/17 02:03 2.0 07/31/17 19:18 Nasal Cannula Intake and Output 08/02/17 08/02/17 08/03/17 15:00 23:00 07:00 Intake Total 50 ml 1255 ml 425 ml Balance 50 ml 1255 ml 425 ml Results Result Diagram: 08/02/17 0557 08/02/17 0557 Medications Medications Current Medications Aspirin (Aspirin) 325 mg DAILY GTB Last administered on 08/03/17 08:39; Admin Dose 325 MG; Start 07/16/17 at 09:00 Nitroglycerin (Nitroglycerin (Sl Tab) 0.4 Mg) 1 tab Q5M PRN SL ANGINA; Start 07/16/17 at 00:00 Enoxaparin Sodium (Lovenox) 40 mg DAILY [place] Last administered on 08/03/17 09: 10; Admin Dose 40 MG; Start 07/16/17 at 09:00 Acetaminophen (Tylenol Liquid) 650 mg Q6 PRN GTB PAIN AND OR ELEVATED TEMP Last administered on 07/25/17 09:25; Admin Dose 650 MG; Start 07/16/17 at 01: 30 Bisacodyl (Dulcolax Supp) 10 mg Q48H PRN [place] CONSTIPATION; Start 07/16/17 at 09: 00 Clonazepam (Klonopin) 0.25 mg Q12 PRN GTB ANXIETY Last administered on 12:40; Admin Dose 0.25 MG; Start 07/16/17 at 01:30 Acetaminophen/ Hydrocodone Bitart ([place] (5/325)) 1 tab Q6 PRN GTB PAIN Last administered on 08/01/17 18:18; Admin Dose 1 TAB; Start 07/16/17 at 01:30 Polyethylene Glycol (Miralax) 17 gm DAILY PRN GTB CONSTIPATION; Start 07/16/17 at 01:30 Sodium Chloride (Nacl) 1 gm TID GTB Last administered on 08/03/17 08:39; Admin Dose 1 GM; Start 07/16/17 at 09:00 Metoprolol Tartrate (Lopressor) 25 mg BID GTB Last administered on 08/03/17 08:42; Admin Dose 25 MG; Start 07/16/17 at 09:00 Sodium Biphosphate/ Sodium Phosphate (Fleet Enema) 133 ml Q72H [place] Last administered on 08/03/17 08:43; Admin Dose 133 ML; Start 07/16/17 at 09:00 Amlodipine Besylate (Norvasc) 5 mg DAILY GTB Last administered on 08/03/17 08 :41; Admin Dose 5 MG; Start 07/16/17 at 10:00 Gabapentin (Neurontin Liquid) 400 mg TID GTB Last administered on 07/20/17 21 :03; Admin Dose 400 MG; Start 07/16/17 at 21:00; Status Future Hold Estrogens Conjugated (Premarin Vaginal Cr) 1 applic MONWEDFRI@21 VAG Last administered on 08/02/17 20:00; Admin Dose 1 APPLIC; Start 07/17/17 at 21:00 Patient Own Medication 1 ea BID PO Last administered on 08/03/17 08:42; Admin Dose 1 EA; Start 07/17/17 at 09:00 Hydralazine HCl (Apresoline) 25 mg TID GTB Last administered on 08/03/17 08: 41; Admin Dose 25 MG; Start 07/18/17 at 21:30 Hydralazine HCl (Apresoline) 10 mg Q4H PRN IV SBP >160; Start 07/20/17 at 17: 30 Metoprolol Tartrate (Lopressor) 5 mg Q4H PRN IV HR>110 Hold SBP<100; Start at 15:00; Status Future Hold IV Flush (NS 10 ml) 10 ml PRN PRN IV IV PROTOCOL; Start 07/22/17 at 17:00 Levetiracetam (Keppra Liquid) 500 mg BID GTB Last administered on 08/03/17 08 :39; Admin Dose 500 MG; Start 07/23/17 at 21:00 Miscellaneous Information (Pending Santyl Order For Wound Care) This patient cooney... PRN PRN XX WOUND CARE; Start 07/25/17 at 15:30 Oxcarbazepine 600 mg 600 mg BID GTB Last administered on 08/03/17 08:40; Admin Dose 600 MG; Start 07/29/17 at 21:00 Cefepime HCl (Maxipime 1gm/50 ml (Pmx)) 50 ml @ 100 mls/hr Q12 IVPB Last administered on 08/03/17 08:43; Admin Dose 100 MLS/HR; Start 07/30/17 at 21: 00 DIEGO ORELLANA Aug 03, 2017 13:18
--- NOTE | 2017-08-03 13:28 | RADRPT ---
Vent Rate: 72 bpm RR Interval: 0 msec [place] Interval: 0 msec QRS Duration: 68 msec QT Interval: 388 msec QTC Interval: 424 msec P-R-T [place]: 0 - 24 - 42 degrees Baseline artifact, likely sinus Nonspecific T wave abnormality , probably digitalis effect Abnormal ECG Electronically Signed By: Steven Hernandez [id number]
--- NOTE | 2017-08-03 18:11 | CONS ---
Date/Time of Note Date/Time of Note DATE: 08/03/17 TIME: 18:07 Assessment/Plan Assessment/Plan Chief Complaint/Hosp Course IMPRESSION: 1. Paroxysmal atrial fibrillation-? recurrence. ECG today again reveals initial WAP but towards end may be true AF 2. Abnormal electrocardiogram, assess for acute coronary syndrome. 3. Hypertension. 4. Possible acute cerebrovascular accident. 5. Urinary tract infection. 6. Leukocytosis. 7. Encephalopathy Recc: -Now on med/surg -Continue asa therapy at this time -Continue BB/norvasc/hydralazine at current doses with well controlled BP at this time. -Continue keppra -Continue abx's and f/u cx data -Follow MS with ongoing neuro eval and continue keppra -Continue to follow serial ecg's to assess for recurrent definite af and will discuss possibility of challenge with true systemic anti-coag with PMD -AM ECG Problems: Consultation Date/Type/Reason Admit Date/Time Jul 15, 2017 at 21:05 Initial Consult Date 07/21/17 Type of Consultation: cardiology Reason for Consultation PAF Referring Provider: ANGELINA CARUSO MD Exam/Review of Systems Vital Signs Vitals Vital Signs Date Time Temp Pulse Resp B/P Pulse Ox O2 Delivery O2 Flow Rate FiO2 08/03/17 12:22 98.1 75 18 112/51 99 08/02/17 17:16 21 08/01/17 02:03 2.0 07/31/17 19:18 Nasal Cannula Intake and Output 08/02/17 08/02/17 08/03/17 15:00 23:00 07:00 Intake Total 50 ml 1255 ml 425 ml Balance 50 ml 1255 ml 425 ml Exam Review of Systems: CONSTITUTIONAL: No fevers, chills. PULMONARY: No sob CARDIOVASCULAR: No chest pain/palpitations GASTROINTESTINAL: No nausea/vomiting. GENITOURINARY: No hematuria/dysuria. MUSCULOSKELETAL: No myagias/arthalgias. PSYCHIATRIC: The patient denies depression. NEUROLOGIC: Encephalopathic Constitutional: alert, oriented Psych: no complaints Head: normocephalic ENMT: mucosa pink and moist Neck: jvd (9 cm water), supple Respiratory: diminished breath sounds (at bases/B) Cardiovascular: regular rate and rhythm Gastrointestinal: non-tender, soft Musculoskeletal: muscle tone (normal) Extremities: edema (trace/B) Neurological: other (No focal deficits) Results Result Diagram: 08/02/17 0557 08/02/17 0557 Medications Medications Current Medications Aspirin (Aspirin) 325 mg DAILY GTB Last administered on 08/03/17 08:39; Admin Dose 325 MG; Start 07/16/17 at 09:00 Nitroglycerin (Nitroglycerin (Sl Tab) 0.4 Mg) 1 tab Q5M PRN SL ANGINA; Start 07/16/17 at 00:00 Enoxaparin Sodium (Lovenox) 40 mg DAILY [place] Last administered on 08/03/17 09: 10; Admin Dose 40 MG; Start 07/16/17 at 09:00 Acetaminophen (Tylenol Liquid) 650 mg Q6 PRN GTB PAIN AND OR ELEVATED TEMP Last administered on 07/25/17 09:25; Admin Dose 650 MG; Start 07/16/17 at 01: 30 Bisacodyl (Dulcolax Supp) 10 mg Q48H PRN [place] CONSTIPATION; Start 07/16/17 at 09: 00 Clonazepam (Klonopin) 0.25 mg Q12 PRN GTB ANXIETY Last administered on 12:40; Admin Dose 0.25 MG; Start 07/16/17 at 01:30 Acetaminophen/ Hydrocodone Bitart ([place] (5/325)) 1 tab Q6 PRN GTB PAIN Last administered on 08/01/17 18:18; Admin Dose 1 TAB; Start 07/16/17 at 01:30 Polyethylene Glycol (Miralax) 17 gm DAILY PRN GTB CONSTIPATION; Start 07/16/17 at 01:30 Sodium Chloride (Nacl) 1 gm TID GTB Last administered on 08/03/17 13:10; Admin Dose 1 GM; Start 07/16/17 at 09:00 Metoprolol Tartrate (Lopressor) 25 mg BID GTB Last administered on 08/03/17 08:42; Admin Dose 25 MG; Start 07/16/17 at 09:00 Sodium Biphosphate/ Sodium Phosphate (Fleet Enema) 133 ml Q72H [place] Last administered on 08/03/17 08:43; Admin Dose 133 ML; Start 07/16/17 at 09:00 Amlodipine Besylate (Norvasc) 5 mg DAILY GTB Last administered on 08/03/17 08 :41; Admin Dose 5 MG; Start 07/16/17 at 10:00 Gabapentin (Neurontin Liquid) 400 mg TID GTB Last administered on 07/20/17 21 :03; Admin Dose 400 MG; Start 07/16/17 at 21:00; Status Future Hold Estrogens Conjugated (Premarin Vaginal Cr) 1 applic MONWEDFRI@21 VAG Last administered on 08/02/17 20:00; Admin Dose 1 APPLIC; Start 07/17/17 at 21:00 Patient Own Medication 1 ea BID PO Last administered on 08/03/17 08:42; Admin Dose 1 EA; Start 07/17/17 at 09:00 Hydralazine HCl (Apresoline) 25 mg TID GTB Last administered on 08/03/17 13: 18; Admin Dose 25 MG; Start 07/18/17 at 21:30 Hydralazine HCl (Apresoline) 10 mg Q4H PRN IV SBP >160; Start 07/20/17 at 17: 30 Metoprolol Tartrate (Lopressor) 5 mg Q4H PRN IV HR>110 Hold SBP<100; Start at 15:00; Status Future Hold IV Flush (NS 10 ml) 10 ml PRN PRN IV IV PROTOCOL; Start 07/22/17 at 17:00 Levetiracetam (Keppra Liquid) 500 mg BID GTB Last administered on 08/03/17 08 :39; Admin Dose 500 MG; Start 07/23/17 at 21:00 Miscellaneous Information (Pending [facility] Order For Wound Care) This patient cooney... PRN PRN XX WOUND CARE; Start 07/25/17 at 15:30 Oxcarbazepine 600 mg 600 mg BID GTB Last administered on 08/03/17 08:40; Admin Dose 600 MG; Start 07/29/17 at 21:00 Cefepime HCl (Maxipime 1gm/50 ml (Pmx)) 50 ml @ 100 mls/hr Q12 IVPB Last administered on 08/03/17 08:43; Admin Dose 100 MLS/HR; Start 07/30/17 at 21: 00 COMPA NUGENT Aug 03, 2017 18:11
[2017-08-03 20:28] VITALS: BP 132/60; RESP 20
[2017-08-03] MEDS: HYDROCODONE/APAP (5/325) TAB GTB PRN (21:44)
[2017-08-04 02:00] VITALS: BP 143/66; RESP 20
[2017-08-04 07:50] VITALS: BP 113/59; RESP 20
[2017-08-04] MEDS: LEVETIRACETAM (100 MG/ML) 5ML CUP GTB SCH ×2 (08:31→20:40)
[2017-08-04] MEDS: ASPIRIN 325 MG TAB GTB SCH (08:32)
[2017-08-04] MEDS: OXCARBAZEPINE 300 MG TAB GTB SCH ×2 (08:33→20:39)
[2017-08-04] MEDS: SODIUM CHLORIDE 1 GM TAB GTB SCH ×3 (08:33→20:40)
[2017-08-04] MEDS: METOPROLOL 25 MG TAB GTB SCH ×2 (08:34→20:40)
[2017-08-04] MEDS: AMLODIPINE 5 MG TAB GTB SCH (08:35)
[2017-08-04] MEDS: CEFEPIME 1GM/50 ML (PMX) 50 ML IVPB SCH ×2 (08:36→22:13)
[2017-08-04] MEDS: ENOXAPARIN 40 MG/0.4 ML SYG SC SCH (08:48)
--- NOTE | 2017-08-04 12:42 | CONS ---
Date/Time of Note Date/Time of Note DATE: 08/04/17 TIME: 12:41 Consult Date/Type/Reason Admit Date/Time Jul 15, 2017 at 21:05 Type of Consultation: id Ordering Provider: ANGELINA CARUSO MD Objective Vital Signs Date Time Temp Pulse Resp B/P Pulse Ox O2 Delivery O2 Flow Rate FiO2 08/04/17 07:50 99.1 78 20 113/59 99 08/02/17 17:16 21 08/01/17 02:03 2.0 07/31/17 19:18 Nasal Cannula Intake and Output 08/03/17 08/03/17 08/04/17 15:00 23:00 07:00 Intake Total 50 ml 50 ml 400 ml Balance 50 ml 50 ml 400 ml Results/Medications Result Diagram: 08/02/17 0557 08/02/17 0557 Medications Current Medications Aspirin (Aspirin) 325 mg DAILY GTB Last administered on 08/04/17 08:32; Admin Dose 325 MG; Start 07/16/17 at 09:00 Nitroglycerin (Nitroglycerin (Sl Tab) 0.4 Mg) 1 tab Q5M PRN SL ANGINA; Start 07/16/17 at 00:00 Enoxaparin Sodium (Lovenox) 40 mg DAILY [place] Last administered on 08/04/17 08: 48; Admin Dose 40 MG; Start 07/16/17 at 09:00 Acetaminophen (Tylenol Liquid) 650 mg Q6 PRN GTB PAIN AND OR ELEVATED TEMP Last administered on 07/25/17 09:25; Admin Dose 650 MG; Start 07/16/17 at 01: 30 Bisacodyl (Dulcolax Supp) 10 mg Q48H PRN [place] CONSTIPATION; Start 07/16/17 at 09: 00 Clonazepam (Klonopin) 0.25 mg Q12 PRN GTB ANXIETY Last administered on 12:40; Admin Dose 0.25 MG; Start 07/16/17 at 01:30 Acetaminophen/ Hydrocodone Bitart ([place] (5/325)) 1 tab Q6 PRN GTB PAIN Last administered on 08/03/17 21:44; Admin Dose 1 TAB; Start 07/16/17 at 01:30 Polyethylene Glycol (Miralax) 17 gm DAILY PRN GTB CONSTIPATION; Start 07/16/17 at 01:30 Sodium Chloride (Nacl) 1 gm TID GTB Last administered on 08/04/17 08:33; Admin Dose 1 GM; Start 07/16/17 at 09:00 Metoprolol Tartrate (Lopressor) 25 mg BID GTB Last administered on 08/04/17 08:34; Admin Dose 25 MG; Start 07/16/17 at 09:00 Sodium Biphosphate/ Sodium Phosphate (Fleet Enema) 133 ml Q72H [place] Last administered on 08/03/17 08:43; Admin Dose 133 ML; Start 07/16/17 at 09:00 Amlodipine Besylate (Norvasc) 5 mg DAILY GTB Last administered on 08/04/17 08 :35; Admin Dose 5 MG; Start 07/16/17 at 10:00 Gabapentin (Neurontin Liquid) 400 mg TID GTB Last administered on 07/20/17 21 :03; Admin Dose 400 MG; Start 07/16/17 at 21:00; Status Future Hold Estrogens Conjugated (Premarin Vaginal Cr) 1 applic MONWEDFRI@21 VAG Last administered on 08/02/17 20:00; Admin Dose 1 APPLIC; Start 07/17/17 at 21:00 Patient Own Medication 1 ea BID PO Last administered on 08/04/17 08:31; Admin Dose 1 EA; Start 07/17/17 at 09:00 Hydralazine HCl (Apresoline) 25 mg TID GTB Last administered on 08/04/17 08: 35; Admin Dose 25 MG; Start 07/18/17 at 21:30 Hydralazine HCl (Apresoline) 10 mg Q4H PRN IV SBP >160; Start 07/20/17 at 17: 30 Metoprolol Tartrate (Lopressor) 5 mg Q4H PRN IV HR>110 Hold SBP<100; Start at 15:00; Status Future Hold IV Flush (NS 10 ml) 10 ml PRN PRN IV IV PROTOCOL; Start 07/22/17 at 17:00 Levetiracetam (Keppra Liquid) 500 mg BID GTB Last administered on 08/04/17 08 :31; Admin Dose 500 MG; Start 07/23/17 at 21:00 [facility] This patient cooney... PRN PRN XX WOUND CARE; Start 07/25/17 at 15:30 Oxcarbazepine 600 mg 600 mg BID GTB Last administered on 08/04/17 08:33; Admin Dose 600 MG; Start 07/29/17 at 21:00 Cefepime HCl (Maxipime 1gm/50 ml (Pmx)) 50 ml @ 100 mls/hr Q12 IVPB Last administered on 08/04/17 08:36; Admin Dose 100 MLS/HR; Start 07/30/17 at 21: 00 Assessment/Plan Chief Complaint/Hosp Course SUBJECTIVE: No acute events. Responsive, lying comfortably in bed, Tm 99.1 INDWELLINGS: PICC line, PEG. Abx: Cefepime PHYSICAL EXAMINATION: GENERAL: This is a well-developed, chronically ill-appearing, elderly woman who is in no distress. HEENT: Head atraumatic, normocephalic. Sclerae anicteric. Buccal mucosa dry. NECK: Supple. CHEST: Rise symmetrical. Breath sounds diminished to bases. HEART: S1, S2. ABDOMEN: Soft, bowel sounds present. EXTREMITIES: No cyanosis. ASSESSMENT: 1. Recurrentl urinary tract infection. 2. Neurogenic bladder 3. Status post transient ischemic attack. 4. Advanced multiple sclerosis. 5. Coronary artery disease status post paroxysmal atrial fibrillation. 6. History of breast carcinoma. PLAN: The patient remains stable, continue abx for recurrent UTI, continue present care, monitor PVR and straight cath prn [facility] staff Problems: NOHELIA HER NP Aug 04, 2017 12:42
[2017-08-04 13:08] VITALS: BP 125/59; PULSE 82; RESP 18
[2017-08-04] MEDS: HYDROCODONE/APAP (5/325) TAB GTB PRN (13:15)
--- NOTE | 2017-08-04 13:48 | RADRPT ---
Vent Rate: 82 bpm RR Interval: 0 msec [place] Interval: 0 msec QRS Duration: 64 msec QT Interval: 462 msec QTC Interval: 539 msec P-R-T [place]: 0 - 15 - 30 degrees Atrial fibrillation Nonspecific T wave abnormality , probably digitalis effect Prolonged QT Abnormal ECG Electronically Signed By: Steven Hernandez [id number]
--- NOTE | 2017-08-04 14:32 | CONS ---
Date/Time of Note Date/Time of Note DATE: 08/04/17 TIME: 14:27 Assessment/Plan Assessment/Plan Chief Complaint/Hosp Course IMPRESSION: 1. Paroxysmal atrial fibrillation-? recurrence. ECG today again reveals AF 2. Abnormal electrocardiogram, assess for acute coronary syndrome. 3. Hypertension. 4. Possible acute cerebrovascular accident. 5. Urinary tract infection. 6. Leukocytosis. 7. Encephalopathy Recc: -Now on med/surg -Continue asa therapy at this time -Continue BB/norvasc/hydralazine at current doses with well controlled BP at this time. -Continue keppra -Continue abx's and f/u cx data -Follow MS with ongoing neuro eval and continue keppra -Continue to follow serial ecg's to assess for recurrent definite af and will discuss possibility of challenge with true systemic anti-coag with PMD Problems: Consultation Date/Type/Reason Admit Date/Time Jul 15, 2017 at 21:05 Initial Consult Date 07/21/17 Type of Consultation: cardiology Reason for Consultation AF Referring Provider: ANGELINA CARUSO MD Exam/Review of Systems Vital Signs Vitals Vital Signs Date Time Temp Pulse Resp B/P Pulse Ox O2 Delivery O2 Flow Rate FiO2 08/04/17 13:08 97.9 82 18 125/59 98 Room Air 08/02/17 17:16 21 08/01/17 02:03 2.0 Intake and Output 08/03/17 08/03/17 08/04/17 15:00 23:00 07:00 Intake Total 50 ml 50 ml 400 ml Balance 50 ml 50 ml 400 ml Exam Review of Systems: CONSTITUTIONAL: No fevers, chills. PULMONARY: No sob CARDIOVASCULAR: No chest pain/palpitations GASTROINTESTINAL: No nausea/vomiting. GENITOURINARY: No hematuria/dysuria. MUSCULOSKELETAL: No myagias/arthalgias. PSYCHIATRIC: The patient denies depression. NEUROLOGIC: No weakness Constitutional: alert ENMT: mucosa pink and moist Neck: jvd (9 cm water), supple Respiratory: diminished breath sounds Cardiovascular: regular rate and rhythm Gastrointestinal: non-tender, soft Musculoskeletal: muscle tone Extremities: edema (none) Neurological: other (No focal deficits) Results Result Diagram: 08/02/17 0557 08/02/17 0557 Medications Medications Current Medications Aspirin (Aspirin) 325 mg DAILY GTB Last administered on 08/04/17 08:32; Admin Dose 325 MG; Start 07/16/17 at 09:00 Nitroglycerin (Nitroglycerin (Sl Tab) 0.4 Mg) 1 tab Q5M PRN SL ANGINA; Start 07/16/17 at 00:00 Enoxaparin Sodium (Lovenox) 40 mg DAILY [place] Last administered on 08/04/17 08: 48; Admin Dose 40 MG; Start 07/16/17 at 09:00 Acetaminophen (Tylenol Liquid) 650 mg Q6 PRN GTB PAIN AND OR ELEVATED TEMP Last administered on 07/25/17 09:25; Admin Dose 650 MG; Start 07/16/17 at 01: 30 Bisacodyl (Dulcolax Supp) 10 mg Q48H PRN [place] CONSTIPATION; Start 07/16/17 at 09: 00 Clonazepam (Klonopin) 0.25 mg Q12 PRN GTB ANXIETY Last administered on 12:40; Admin Dose 0.25 MG; Start 07/16/17 at 01:30 Acetaminophen/ Hydrocodone Bitart ([place] (5/325)) 1 tab Q6 PRN GTB PAIN Last administered on 08/04/17 13:15; Admin Dose 1 TAB; Start 07/16/17 at 01:30 Polyethylene Glycol (Miralax) 17 gm DAILY PRN GTB CONSTIPATION; Start 07/16/17 at 01:30 Sodium Chloride (Nacl) 1 gm TID GTB Last administered on 08/04/17 13:14; Admin Dose 1 GM; Start 07/16/17 at 09:00 Metoprolol Tartrate (Lopressor) 25 mg BID GTB Last administered on 08/04/17 08:34; Admin Dose 25 MG; Start 07/16/17 at 09:00 Sodium Biphosphate/ Sodium Phosphate (Fleet Enema) 133 ml Q72H [place] Last administered on 08/03/17 08:43; Admin Dose 133 ML; Start 07/16/17 at 09:00 Amlodipine Besylate (Norvasc) 5 mg DAILY GTB Last administered on 08/04/17 08 :35; Admin Dose 5 MG; Start 07/16/17 at 10:00 Gabapentin (Neurontin Liquid) 400 mg TID GTB Last administered on 07/20/17 21 :03; Admin Dose 400 MG; Start 07/16/17 at 21:00; Status Future Hold Estrogens Conjugated (Premarin Vaginal Cr) 1 applic MONWEDFRI@21 VAG Last administered on 08/02/17 20:00; Admin Dose 1 APPLIC; Start 07/17/17 at 21:00 Patient Own Medication 1 ea BID PO Last administered on 08/04/17 08:31; Admin Dose 1 EA; Start 07/17/17 at 09:00 Hydralazine HCl (Apresoline) 25 mg TID GTB Last administered on 08/04/17 13: 14; Admin Dose 25 MG; Start 07/18/17 at 21:30 Hydralazine HCl (Apresoline) 10 mg Q4H PRN IV SBP >160; Start 07/20/17 at 17: 30 Metoprolol Tartrate (Lopressor) 5 mg Q4H PRN IV HR>110 Hold SBP<100; Start at 15:00; Status Future Hold IV Flush (NS 10 ml) 10 ml PRN PRN IV IV PROTOCOL; Start 07/22/17 at 17:00 Levetiracetam (Keppra Liquid) 500 mg BID GTB Last administered on 08/04/17 08 :31; Admin Dose 500 MG; Start 07/23/17 at 21:00 Miscellaneous Information (Pending [facility]yl Order For Wound Care) This patient cooney... PRN PRN XX WOUND CARE; Start 07/25/17 at 15:30 Oxcarbazepine 600 mg 600 mg BID GTB Last administered on 08/04/17 08:33; Admin Dose 600 MG; Start 07/29/17 at 21:00 Cefepime HCl (Maxipime 1gm/50 ml (Pmx)) 50 ml @ 100 mls/hr Q12 IVPB Last administered on 08/04/17 08:36; Admin Dose 100 MLS/HR; Start 07/30/17 at 21: 00 COMPA NUGENT Aug 04, 2017 14:31
--- NOTE | 2017-08-04 17:27 | PN ---
Date/Time of Note Date/Time of Note DATE: 08/04/17 TIME: 17:26 Assessment/Plan VTE Prophylaxis VTE Prophylaxis Intervention: SCD's Lines/Catheters IV Catheter Type (from Nrs): PICC Line Central line still needed: Yes Urinary Cath still in place: No Assessment/Plan Chief Complaint/Hosp Course Patient looks comfortable, denies any chest pain, remains hemodynamically stable , afebrile, continue to monitor postvoid residual and in and out catheter as needed. Plan of care discussed with privacy manager at the bedside. [facility]. Assessment/Plan - Recurrent UTI, continue Cefepime - Possible urinary retention - Right trigeminal neuralgia, continue Trileptal, Dr. Mcgregor, neurology consult is appreciated - CECILIA versus seizures versus acute metabolic encephalopathy, Continue Keppra. - Atrial fibrillation, currently in sinus rhythm with wandering pacemaker, continue aspirin, Dr. Ferrara is following in cardiology consultation - Atypical chest pain, rule out myocardial infarction. Cardiac enzymes negative 3. Unable to undergo to pulmonary angiogram due to allergy to iodine. VQ scan is low probability for PE. - Advanced multiple sclerosis, bed to wheelchair bound total care. - Hypertension, continue metoprolol and Norvasc - Dysphagia. Continue G-tube feeding. - Hx Breast cancer. Further recommendations based on clinical course. Plan of care discussed with Dr. Soto Problems: Exam/Review of Systems Vital Signs Vitals Vital Signs Date Time Temp Pulse Resp B/P Pulse Ox O2 Delivery O2 Flow Rate FiO2 08/04/17 13:08 97.9 82 18 125/59 98 Room Air 08/02/17 17:16 21 08/01/17 02:03 2.0 Intake and Output 08/03/17 08/03/17 08/04/17 15:00 23:00 07:00 Intake Total 50 ml 50 ml 400 ml Balance 50 ml 50 ml 400 ml Exam Constitutional: alert, oriented Head: normocephalic Neck: supple Respiratory: normal air movement Cardiovascular: nl pulses Gastrointestinal: non-tender, other (G-tube), soft Musculoskeletal: muscle weakness Extremities: other (Contracted) Results Result Diagram: 08/02/17 0557 08/02/17 0557 Medications Medications Current Medications Aspirin (Aspirin) 325 mg DAILY GTB Last administered on 08/04/17t 08:32; Admin Dose 325 MG; Start 07/16/17 at 09:00 Nitroglycerin (Nitroglycerin (Sl Tab) 0.4 Mg) 1 tab Q5M PRN SL ANGINA; Start 07/16/17 at 00:00 Enoxaparin Sodium (Lovenox) 40 mg DAILY SC Last administered on 08/04/17 08: 48; Admin Dose 40 MG; Start 07/16/17 at 09:00 Acetaminophen (Tylenol Liquid) 650 mg Q6 PRN GTB PAIN AND OR ELEVATED TEMP Last administered on 07/25/17 09:25; Admin Dose 650 MG; Start 07/16/17 at 01: 30 Bisacodyl (Dulcolax Supp) 10 mg Q48H PRN [place] CONSTIPATION; Start 07/16/17 at 09: 00 Clonazepam (Klonopin) 0.25 mg Q12 PRN GTB ANXIETY Last administered on 12:40; Admin Dose 0.25 MG; Start 07/16/17 at 01:30 Acetaminophen/ Hydrocodone Bitart ([place] (5/325)) 1 tab Q6 PRN GTB PAIN Last administered on 08/04/17 13:15; Admin Dose 1 TAB; Start 07/16/17 at 01:30 Polyethylene Glycol (Miralax) 17 gm DAILY PRN GTB CONSTIPATION; Start 07/16/17 at 01:30 Sodium Chloride (Nacl) 1 gm TID GTB Last administered on 08/04/17 13:14; Admin Dose 1 GM; Start 07/16/17 at 09:00 Metoprolol Tartrate (Lopressor) 25 mg BID GTB Last administered on 08/04/17 08:34; Admin Dose 25 MG; Start 07/16/17 at 09:00 Sodium Biphosphate/ Sodium Phosphate (Fleet Enema) 133 ml Q72H DC Last administered on 08/03/17 08:43; Admin Dose 133 ML; Start 07/16/17 at 09:00 Amlodipine Besylate (Norvasc) 5 mg DAILY GTB Last administered on 08/04/17 08 :35; Admin Dose 5 MG; Start 07/16/17 at 10:00 Gabapentin (Neurontin Liquid) 400 mg TID GTB Last administered on 07/20/17 21 :03; Admin Dose 400 MG; Start 07/16/17 at 21:00; Status Future Hold Estrogens Conjugated (Premarin Vaginal Cr) 1 applic MONWEDFRI@21 VAG Last administered on 08/02/17 20:00; Admin Dose 1 APPLIC; Start 07/17/17 at 21:00 Patient Own Medication 1 ea BID PO Last administered on 08/04/17 08:31; Admin Dose 1 EA; Start 07/17/17 at 09:00 Hydralazine HCl (Apresoline) 25 mg TID GTB Last administered on 08/04/17 13: 14; Admin Dose 25 MG; Start 07/18/17 at 21:30 Hydralazine HCl (Apresoline) 10 mg Q4H PRN IV SBP >160; Start 07/20/17 at 17: 30 Metoprolol Tartrate (Lopressor) 5 mg Q4H PRN IV HR>110 Hold SBP<100; Start at 15:00; Status Future Hold IV Flush (NS 10 ml) 10 ml PRN PRN IV IV PROTOCOL; Start 07/22/17 at 17:00 Levetiracetam (Keppra Liquid) 500 mg BID GTB Last administered on 08/04/17 08 :31; Admin Dose 500 MG; Start 07/23/17 at 21:00 Miscellaneous Information (Pending [facility] Order For Wound Care) This patient cooney... PRN PRN XX WOUND CARE; Start 07/25/17 at 15:30 Oxcarbazepine 600 mg 600 mg BID GTB Last administered on 08/04/17 08:33; Admin Dose 600 MG; Start 07/29/17 at 21:00 Cefepime HCl (Maxipime 1gm/50 ml (Pmx)) 50 ml @ 100 mls/hr Q12 IVPB Last administered on 08/04/17 08:36; Admin Dose 100 MLS/HR; Start 07/30/17 at 21: 00 MARLINE CHOWDARY Aug 04, 2017 17:27
[2017-08-04 19:32] VITALS: BP 134/62; RESP 20
[2017-08-04] MEDS: ESTROGENS CONJUGATED 42.5 GM VAG CR VAG SCH (20:41)
[2017-08-05 02:00] VITALS: BP 128/65; PULSE 68; RESP 18
[2017-08-05] MEDS: HYDROCODONE/APAP (5/325) TAB GTB PRN ×2 (05:38→18:06)
[2017-08-05 06:18] LABS: BASOPHIL # 0.1 10^3/ul (0.0-0.1); BASOPHILS % 0.9 % (0.0-2.0); EOSINOPHILS # 0.3 10^3/ul (0.0-0.5); HEMATOCRIT 36.8 % (37.0-47.0); HEMOGLOBIN 11.4 g/dl (12.0-16.0); LYMPHOCYTES # 3.8 10^3/ul (0.8-2.9); LYMPHOCYTES % 30.7 % (15.0-51.0); MEAN CORPUSCULAR HEMOGLOBIN 26.8 pg (29.0-33.0); MEAN CORPUSCULAR VOLUME 86.6 fl (82.0-101.0); MEAN PLATELET VOLUME 12.2 fl (7.4-10.4); MONOCYTE # 0.9 10^3/ul (0.3-0.9); NEUTROPHIL # 7.4 10^3/ul (1.6-7.5); PLATELET COUNT 276 10^3/UL (140-415); RED BLOOD COUNT 4.25 10^6/ul (4.20-5.40); RED CELL DISTRIBUTION WIDTH 14.7 % (11.5-14.5); WHITE BLOOD COUNT 12.5 10^3/ul (4.8-10.8)
[2017-08-05 06:55] LABS: CREATININE 0.41 mg/dl (0.44-1.00); POTASSIUM 3.6 mmol/L (3.5-5.1)
[2017-08-05 07:26] VITALS: BP 147/64; RESP 18
[2017-08-05] MEDS: clonAZEPAM 0.5 MG TAB GTB PRN (07:30)
[2017-08-05] MEDS: ENOXAPARIN 40 MG/0.4 ML SYG SC SCH (09:00)
[2017-08-05] MEDS: ASPIRIN 325 MG TAB GTB SCH (09:23)
[2017-08-05] MEDS: LEVETIRACETAM (100 MG/ML) 5ML CUP GTB SCH ×2 (09:23→20:43)
[2017-08-05] MEDS: METOPROLOL 25 MG TAB GTB SCH ×2 (09:24→20:44)
[2017-08-05] MEDS: OXCARBAZEPINE 300 MG TAB GTB SCH ×2 (09:24→20:43)
[2017-08-05] MEDS: SODIUM CHLORIDE 1 GM TAB GTB SCH ×3 (09:25→20:43)
[2017-08-05] MEDS: AMLODIPINE 5 MG TAB GTB SCH (09:25)
[2017-08-05] MEDS: CEFEPIME 1GM/50 ML (PMX) 50 ML IVPB SCH ×2 (09:25→20:45)
--- NOTE | 2017-08-05 09:30 | PN ---
Date/Time of Note Date/Time of Note DATE: 08/05/17 TIME: 09:29 Assessment/Plan VTE Prophylaxis VTE Prophylaxis Intervention: other Lines/Catheters IV Catheter Type (from Nrs): PICC Line Central line still needed: Yes Urinary Cath still in place: No Assessment/Plan Chief Complaint/Hosp Course - Recurrent UTI, continue Cefepime - Possible urinary retention - Right trigeminal neuralgia, continue Trileptal, Dr. Mcgregor, neurology consult is appreciated - CECILIA versus seizures versus acute metabolic encephalopathy, Continue Keppra. - Atrial fibrillation, currently in sinus rhythm with wandering pacemaker, continue aspirin, Dr. Ferrara is following in cardiology consultation - Atypical chest pain, rule out myocardial infarction. Cardiac enzymes negative 3. Unable to undergo to pulmonary angiogram due to allergy to iodine. VQ scan is low probability for PE. - Advanced multiple sclerosis, bed to wheelchair bound total care. - Hypertension, continue metoprolol and Norvasc - Dysphagia. Continue G-tube feeding. - Hx Breast cancer. Problems: Subjective 24 Hr Interval Summary Free Text/Dictation Patient resting, has no complaints but family notes mild coughing Exam/Review of Systems Vital Signs Vitals Vital Signs Date Time Temp Pulse Resp B/P Pulse Ox O2 Delivery O2 Flow Rate FiO2 08/05/17 07:26 98.7 76 18 147/64 99 08/05/17 02:00 Room Air 08/02/17 17:16 21 Intake and Output 08/04/17 08/04/17 08/05/17 15:00 23:00 07:00 Intake Total 1240 ml 245 ml Balance 1240 ml 245 ml Exam Constitutional: well developed Head: atraumatic, normocephalic Neck: supple Respiratory: diminished breath sounds Cardiovascular: regular rate and rhythm Gastrointestinal: non-tender, soft Extremities: normal pulses Results Result Diagram: 08/05/17 0537 08/05/17 0537 Results 24 hrs Laboratory Tests Test 08/05/17 05:37 White Blood Count 12.5 H Red Blood Count 4.25 Hemoglobin 11.4 L Hematocrit 36.8 L Mean Corpuscular Volume 86.6 Mean Corpuscular Hemoglobin 26.8 L Mean Corpuscular Hemoglobin Concent 31.0 L Red Cell Distribution Width 14.7 H Platelet Count 276 Mean Platelet Volume 12.2 H Neutrophils % 59.0 Lymphocytes % 30.7 Monocytes % 7.0 Eosinophils % 2.0 Basophils % 0.9 Nucleated Red Blood Cells % 0.0 Neutrophils # 7.4 Lymphocytes # 3.8 H Monocytes # 0.9 Eosinophils # 0.3 Basophils # 0.1 Nucleated Red Blood Cells # 0.0 Sodium Level 143 Potassium Level 3.6 Chloride Level 103 Carbon Dioxide Level 30 Anion Gap 14 Blood Urea Nitrogen 12 Creatinine 0.41 L Glucose Level 97 Calcium Level 9.0 Medications Medications Current Medications Aspirin (Aspirin) 325 mg DAILY GTB Last administered on 08/05/17 09:23; Admin Dose 325 MG; Start 07/16/17 at 09:00 Nitroglycerin (Nitroglycerin (Sl Tab) 0.4 Mg) 1 tab Q5M PRN SL ANGINA; Start 07/16/17 at 00:00 Enoxaparin Sodium (Lovenox) 40 mg DAILY SC Last administered on 08/04/17 08: 48; Admin Dose 40 MG; Start 07/16/17 at 09:00 Acetaminophen (Tylenol Liquid) 650 mg Q6 PRN GTB PAIN AND OR ELEVATED TEMP Last administered on 07/25/17 09:25; Admin Dose 650 MG; Start 07/16/17 at 01: 30 Bisacodyl (Dulcolax Supp) 10 mg Q48H PRN [place] CONSTIPATION; Start 07/16/17 at 09: 00 Clonazepam (Klonopin) 0.25 mg Q12 PRN GTB ANXIETY Last administered on 07:30; Admin Dose 0.25 MG; Start 07/16/17 at 01:30 Acetaminophen/ Hydrocodone Bitart ([place] (5/325)) 1 tab Q6 PRN GTB PAIN Last administered on 08/05/17 05:38; Admin Dose 1 TAB; Start 07/16/17 at 01:30 Polyethylene Glycol (Miralax) 17 gm DAILY PRN GTB CONSTIPATION; Start 07/16/17 at 01:30 Sodium Chloride (Nacl) 1 gm TID GTB Last administered on 08/05/17 09:25; Admin Dose 1 GM; Start 07/16/17 at 09:00 Metoprolol Tartrate (Lopressor) 25 mg BID GTB Last administered on 08/05/17 09:24; Admin Dose 25 MG; Start 07/16/17 at 09:00 Sodium Biphosphate/ Sodium Phosphate (Fleet Enema) 133 ml Q72H [place] Last administered on 08/03/17 08:43; Admin Dose 133 ML; Start 07/16/17 at 09:00 Amlodipine Besylate (Norvasc) 5 mg DAILY GTB Last administered on 08/05/17 09 :25; Admin Dose 5 MG; Start 07/16/17 at 10:00 Gabapentin (Neurontin Liquid) 400 mg TID GTB Last administered on 07/20/17 21 :03; Admin Dose 400 MG; Start 07/16/17 at 21:00; Status Future Hold Estrogens Conjugated (Premarin Vaginal Cr) 1 applic MONWEDFRI@21 VAG Last administered on 08/04/17 20:41; Admin Dose 1 APPLIC; Start 07/17/17 at 21:00 Patient Own Medication 1 ea BID PO Last administered on 08/04/17 08:31; Admin Dose 1 EA; Start 07/17/17 at 09:00 Hydralazine HCl (Apresoline) 25 mg TID GTB Last administered on 08/05/17 09: 25; Admin Dose 25 MG; Start 07/18/17 at 21:30 Hydralazine HCl (Apresoline) 10 mg Q4H PRN IV SBP >160; Start 07/20/17 at 17: 30 Metoprolol Tartrate (Lopressor) 5 mg Q4H PRN IV HR>110 Hold SBP<100; Start at 15:00; Status Future Hold IV Flush (NS 10 ml) 10 ml PRN PRN IV IV PROTOCOL; Start 07/22/17 at 17:00 Levetiracetam (Keppra Liquid) 500 mg BID GTB Last administered on 08/05/17 09 :23; Admin Dose 500 MG; Start 07/23/17 at 21:00 Miscellaneous Information (Pending [facility] Order For Wound Care) This patient cooney... PRN PRN XX WOUND CARE; Start 07/25/17 at 15:30 Oxcarbazepine 600 mg 600 mg BID GTB Last administered on 08/05/17 09:24; Admin Dose 600 MG; Start 07/29/17 at 21:00 Cefepime HCl (Maxipime 1gm/50 ml (Pmx)) 50 ml @ 100 mls/hr Q12 IVPB Last administered on 08/05/17t 09:25; Admin Dose 100 MLS/HR; Start 07/30/17 at 21: 00 PONCE MURGUIA Aug 05, 2017 09:30
[2017-08-05] MEDS: ALBUTEROL 0.083% (NEB) 2.5 MG/3 ML AMP NEB PRN (09:59)
--- NOTE | 2017-08-05 13:45 | CONS ---
Date/Time of Note Date/Time of Note DATE: 08/05/17 TIME: 13:41 Assessment/Plan Assessment/Plan Additional Assessment/Plan 1. Paroxysmal atrial fibrillation 2. Multiple sclerosis 3. Hypertension. 4. Cerebrovascular accident. 5. Urinary tract infection. Hemodynamically stable Continue Metoprolol Continue Hydralazine Continue Norvasc Continue Antibiotics Started on Eliquis Consultation Date/Type/Reason Admit Date/Time Jul 15, 2017 at 21:05 Constitutional: febrile Eyes: no complaints ENT: no complaints Respiratory: no complaints Cardiovascular: no complaints Gastrointestinal: no complaints Genitourinary: no complaints Musculoskeletal: no complaints Skin: no complaints Neurologic: other Psychological: no complaints Past Medical History Medical History: other Social History Smoking Status: Unknown if ever smoked Exam/Review of Systems Vital Signs Vitals Vital Signs Date Time Temp Pulse Resp B/P Pulse Ox O2 Delivery O2 Flow Rate FiO2 08/05/17 10:00 68 14 99 21 08/05/17 07:26 98.7 147/64 08/05/17 02:00 Room Air Intake and Output 08/04/17 08/04/17 08/05/17 15:00 23:00 07:00 Intake Total 1240 ml 245 ml Balance 1240 ml 245 ml Exam Head: atraumatic, normocephalic Neck: non-tender, supple Respiratory: clear to auscultation Cardiovascular: irregular rhythm Gastrointestinal: nl liver, spleen, non-tender, soft Extremities: normal pulses Results Result Diagram: 08/05/17 0537 08/05/17 0537 Results 24 hrs Laboratory Tests Test 08/05/17 05:37 White Blood Count 12.5 H Red Blood Count 4.25 Hemoglobin 11.4 L Hematocrit 36.8 L Mean Corpuscular Volume 86.6 Mean Corpuscular Hemoglobin 26.8 L Mean Corpuscular Hemoglobin Concent 31.0 L Red Cell Distribution Width 14.7 H Platelet Count 276 Mean Platelet Volume 12.2 H Neutrophils % 59.0 Lymphocytes % 30.7 Monocytes % 7.0 Eosinophils % 2.0 Basophils % 0.9 Nucleated Red Blood Cells % 0.0 Neutrophils # 7.4 Lymphocytes # 3.8 H Monocytes # 0.9 Eosinophils # 0.3 Basophils # 0.1 Nucleated Red Blood Cells # 0.0 Sodium Level 143 Potassium Level 3.6 Chloride Level 103 Carbon Dioxide Level 30 Anion Gap 14 Blood Urea Nitrogen 12 Creatinine 0.41 L Glucose Level 97 Calcium Level 9.0 Medications Medications Current Medications Aspirin (Aspirin) 325 mg DAILY GTB Last administered on 08/05/17 09:23; Admin Dose 325 MG; Start 07/16/17 at 09:00 Nitroglycerin (Nitroglycerin (Sl Tab) 0.4 Mg) 1 tab Q5M PRN SL ANGINA; Start 07/16/17 at 00:00 Enoxaparin Sodium (Lovenox) 40 mg DAILY SC Last administered on 08/05/17 09: 00; Admin Dose 40 MG; Start 07/16/17 at 09:00 Acetaminophen (Tylenol Liquid) 650 mg Q6 PRN GTB PAIN AND OR ELEVATED TEMP Last administered on 07/25/17 09:25; Admin Dose 650 MG; Start 07/16/17 at 01: 30 Bisacodyl (Dulcolax Supp) 10 mg Q48H PRN [place] CONSTIPATION; Start 07/16/17 at 09: 00 Clonazepam (Klonopin) 0.25 mg Q12 PRN GTB ANXIETY Last administered on 07:30; Admin Dose 0.25 MG; Start 07/16/17 at 01:30 Acetaminophen/ Hydrocodone Bitart ([place] (5/325)) 1 tab Q6 PRN GTB PAIN Last administered on 08/05/17 05:38; Admin Dose 1 TAB; Start 07/16/17 at 01:30 Polyethylene Glycol (Miralax) 17 gm DAILY PRN GTB CONSTIPATION; Start 07/16/17 at 01:30 Sodium Chloride (Nacl) 1 gm TID GTB Last administered on 08/05/17 12:52; Admin Dose 1 GM; Start 07/16/17 at 09:00 Metoprolol Tartrate (Lopressor) 25 mg BID GTB Last administered on 08/05/17 09:24; Admin Dose 25 MG; Start 07/16/17 at 09:00 Sodium Biphosphate/ Sodium Phosphate (Fleet Enema) 133 ml Q72H [place] Last administered on 08/03/17 08:43; Admin Dose 133 ML; Start 07/16/17 at 09:00 Amlodipine Besylate (Norvasc) 5 mg DAILY GTB Last administered on 08/05/17 09 :25; Admin Dose 5 MG; Start 07/16/17 at 10:00 Gabapentin (Neurontin Liquid) 400 mg TID GTB Last administered on 07/20/17 21 :03; Admin Dose 400 MG; Start 07/16/17 at 21:00; Status Future Hold Estrogens Conjugated (Premarin Vaginal Cr) 1 applic MONWEDFRI@21 VAG Last administered on 08/04/17 20:41; Admin Dose 1 APPLIC; Start 07/17/17 at 21:00 Patient Own Medication 1 ea BID PO Last administered on 08/04/17 08:31; Admin Dose 1 EA; Start 07/17/17 at 09:00 Hydralazine HCl (Apresoline) 25 mg TID GTB Last administered on 08/05/17 12: 52; Admin Dose 25 MG; Start 07/18/17 at 21:30 Hydralazine HCl (Apresoline) 10 mg Q4H PRN IV SBP >160; Start 07/20/17 at 17: 30 Metoprolol Tartrate (Lopressor) 5 mg Q4H PRN IV HR>110 Hold SBP<100; Start at 15:00; Status Future Hold IV Flush (NS 10 ml) 10 ml PRN PRN IV IV PROTOCOL; Start 07/22/17 at 17:00 Levetiracetam (Keppra Liquid) 500 mg BID GTB Last administered on 08/05/17 09 :23; Admin Dose 500 MG; Start 07/23/17 at 21:00 Miscellaneous Information (Pending [facility] Order For Wound Care) This patient cooney... PRN PRN XX WOUND CARE; Start 07/25/17 at 15:30 Oxcarbazepine 600 mg 600 mg BID GTB Last administered on 08/05/17 09:24; Admin Dose 600 MG; Start 07/29/17 at 21:00 Cefepime HCl (Maxipime 1gm/50 ml (Pmx)) 50 ml @ 100 mls/hr Q12 IVPB Last administered on 08/05/17 09:25; Admin Dose 100 MLS/HR; Start 07/30/17 at 21: 00 CANDE LUND M.D. Aug 05, 2017 13:45
[2017-08-05 14:04] VITALS: BP 122/60; RESP 18
[2017-08-05] MEDS: APIXABAN 5 MG TABLET PO SCH ×2 (14:41→20:44)
--- NOTE | 2017-08-05 16:16 | CONS ---
Date/Time of Note Date/Time of Note DATE: 08/05/17 TIME: 16:08 Assessment/Plan Assessment/Plan Chief Complaint/Hosp Course ID PROGRESS NOTE CURRENT ABX: TOTAL ABX DAY #6 => Cefepime #6 24H INTERVAL SUMMARY * IN process of getting bed bath, no new issues, peg intact. * PICC present -> restarted on Cefepime for recurrent UTI * 08/05/17 0537 08/05/17 0537 Physical Exam Physical Exam Constitutional: VSS, NAD HEENT: Unremarkable Neck: Supple, full ROM Respiratory: clear to auscultation, normal air movement Cardiovascular: nl pulses, regular rate and rhythm Gastrointestinal: Soft, NT Extremities: Warm w/BUEXT contractions ID ASSESSMENT 81 yo F PMHx Breast Cancer + Advanced Multiple Sclerosis admit with: 1. SIRS w/low grade fevers, leukocytosis -> 2/2 #2 => RESOLVING * s/p sepsis on admission 07/15/17 with acute SOB, AFib w/RVR, atypical chest pain, TMax 100.+ => RESOLVED 2. Recurrent complicated GNR UTI 3. Neurogenic bladder 2/2 MS 4. Status post transient ischemic attack. 5. Coronary artery disease 6. Hypertension 7. Paroxysmal Afib, Status post atypical chest pain. 8. Facial twitching / Bilateral eye twitching -- caregiver tells me r/t "Trigeminal neuralgia" occurs right before headaches when patient needs pain meds? 9. Dysphagia -> Peg (- )MRSA Nares INVASIVES: PICC 07/22/17 ABX ALLERGIES: Sulfa/Iodine CURRENT ABX: TOTAL ABX DAY #6 => Cefepime #6 ID RECOMMENDATIONS 1. Continue Cefepime over the weekend 2. Aspiration precautions . Problems: Consultation Date/Type/Reason Admit Date/Time Jul 15, 2017 at 21:05 Initial Consult Date 07/21/17 Type of Consultation: ID Referring Provider: ANGELINA CARUSO MD Exam/Review of Systems Vital Signs Vitals Vital Signs Date Time Temp Pulse Resp B/P Pulse Ox O2 Delivery O2 Flow Rate FiO2 08/05/17 14:04 98.7 65 18 122/60 100 08/05/17 10:00 21 08/05/17 02:00 Room Air Intake and Output 08/04/17 08/04/17 08/05/17 15:00 23:00 07:00 Intake Total 1240 ml 245 ml Balance 1240 ml 245 ml Results Result Diagram: 08/05/17 0537 08/05/1737 Results 24 hrs Laboratory Tests Test 08/05/17 05:37 White Blood Count 12.5 H Red Blood Count 4.25 Hemoglobin 11.4 L Hematocrit 36.8 L Mean Corpuscular Volume 86.6 Mean Corpuscular Hemoglobin 26.8 L Mean Corpuscular Hemoglobin Concent 31.0 L Red Cell Distribution Width 14.7 H Platelet Count 276 Mean Platelet Volume 12.2 H Neutrophils % 59.0 Lymphocytes % 30.7 Monocytes % 7.0 Eosinophils % 2.0 Basophils % 0.9 Nucleated Red Blood Cells % 0.0 Neutrophils # 7.4 Lymphocytes # 3.8 H Monocytes # 0.9 Eosinophils # 0.3 Basophils # 0.1 Nucleated Red Blood Cells # 0.0 Sodium Level 143 Potassium Level 3.6 Chloride Level 103 Carbon Dioxide Level 30 Anion Gap 14 Blood Urea Nitrogen 12 Creatinine 0.41 L Glucose Level 97 Calcium Level 9.0 Medications Medications Current Medications Aspirin (Aspirin) 325 mg DAILY GTB Last administered on 08/05/17 09:23; Admin Dose 325 MG; Start 07/16/17 at 09:00 Nitroglycerin (Nitroglycerin (Sl Tab) 0.4 Mg) 1 tab Q5M PRN SL ANGINA; Start 07/16/17 at 00:00 Acetaminophen (Tylenol Liquid) 650 mg Q6 PRN GTB PAIN AND OR ELEVATED TEMP Last administered on 07/25/17 09:25; Admin Dose 650 MG; Start 07/16/17 at 01: 30 Bisacodyl (Dulcolax Supp) 10 mg Q48H PRN [place] CONSTIPATION; Start 07/16/17 at 09: 00 Clonazepam (Klonopin) 0.25 mg Q12 PRN GTB ANXIETY Last administered on 07:30; Admin Dose 0.25 MG; Start 07/16/17 at 01:30 Acetaminophen/ Hydrocodone Bitart ([place] (5/325)) 1 tab Q6 PRN GTB PAIN Last administered on 08/05/17 05:38; Admin Dose 1 TAB; Start 07/16/17 at 01:30 Polyethylene Glycol (Miralax) 17 gm DAILY PRN GTB CONSTIPATION; Start 07/16/17 at 01:30 Sodium Chloride (Nacl) 1 gm TID GTB Last administered on 08/05/17 12:52; Admin Dose 1 GM; Start 07/16/17 at 09:00 Metoprolol Tartrate (Lopressor) 25 mg BID GTB Last administered on 08/05/17 09:24; Admin Dose 25 MG; Start 07/16/17 at 09:00 Sodium Biphosphate/ Sodium Phosphate (Fleet Enema) 133 ml Q72H DC Last administered on 08/03/17 08:43; Admin Dose 133 ML; Start 07/16/17 at 09:00 Amlodipine Besylate (Norvasc) 5 mg DAILY GTB Last administered on 08/05/17 09 :25; Admin Dose 5 MG; Start 07/16/17 at 10:00 Gabapentin (Neurontin Liquid) 400 mg TID GTB Last administered on 07/20/17 21 :03; Admin Dose 400 MG; Start 07/16/17 at 21:00; Status Future Hold Estrogens Conjugated (Premarin Vaginal Cr) 1 applic MONWEDFRI@21 VAG Last administered on 08/04/17 20:41; Admin Dose 1 APPLIC; Start 07/17/17 at 21:00 Patient Own Medication 1 ea BID PO Last administered on 08/04/17 08:31; Admin Dose 1 EA; Start 07/17/17 at 09:00 Hydralazine HCl (Apresoline) 25 mg TID GTB Last administered on 08/05/17 12: 52; Admin Dose 25 MG; Start 07/18/17 at 21:30 Hydralazine HCl (Apresoline) 10 mg Q4H PRN IV SBP >160; Start 07/20/17 at 17: 30 Metoprolol Tartrate (Lopressor) 5 mg Q4H PRN IV HR>110 Hold SBP<100; Start at 15:00; Status Future Hold IV Flush (NS 10 ml) 10 ml PRN PRN IV IV PROTOCOL; Start 07/22/17 at 17:00 Levetiracetam (Keppra Liquid) 500 mg BID GTB Last administered on 08/05/17 09 :23; Admin Dose 500 MG; Start 07/23/17 at 21:00 [facility] This patient cooney... PRN PRN XX WOUND CARE; Start 07/25/17 at 15:30 Oxcarbazepine 600 mg 600 mg BID GTB Last administered on 08/05/17 09:24; Admin Dose 600 MG; Start 07/29/17 at 21:00 Cefepime HCl (Maxipime 1gm/50 ml (Pmx)) 50 ml @ 100 mls/hr Q12 IVPB Last administered on 08/05/17 09:25; Admin Dose 100 MLS/HR; Start 07/30/17 at 21: 00 Apixaban (Eliquis) 5 mg BID PO Last administered on 08/05/17 14:41; Admin Dose 5 MG; Start 08/05/17 at 15:00 ANYA OLMEDO NP Aug 05, 2017 16:16
[2017-08-05 19:53] VITALS: BP 125/61; RESP 20
[2017-08-06 02:08] VITALS: BP 151/71; RESP 19
[2017-08-06] MEDS: HYDROCODONE/APAP (5/325) TAB GTB PRN ×2 (03:20→16:33)
[2017-08-06] MEDS: clonAZEPAM 0.5 MG TAB GTB PRN ×2 (03:27→16:32)
[2017-08-06 08:14] VITALS: BP 136/60; RESP 18
[2017-08-06] MEDS: LEVETIRACETAM (100 MG/ML) 5ML CUP GTB SCH ×2 (08:42→21:03)
[2017-08-06] MEDS: NA PHOSPHATE/BIPHOS 133 ML ENEMA PR SCH (08:42)
[2017-08-06] MEDS: CEFEPIME 1GM/50 ML (PMX) 50 ML IVPB SCH ×2 (08:42→21:04)
[2017-08-06] MEDS: SODIUM CHLORIDE 1 GM TAB GTB SCH ×3 (08:43→21:04)
[2017-08-06] MEDS: ASPIRIN 325 MG TAB GTB SCH (08:43)
[2017-08-06] MEDS: APIXABAN 5 MG TABLET PO SCH ×2 (08:49→21:04)
[2017-08-06] MEDS: OXCARBAZEPINE 300 MG TAB GTB SCH ×2 (08:49→21:04)
[2017-08-06] MEDS: METOPROLOL 25 MG TAB GTB SCH ×2 (08:49→21:04)
[2017-08-06] MEDS: AMLODIPINE 5 MG TAB GTB SCH (08:50)
[2017-08-06] MEDS: ACETAMINOPHEN 650MG/20.3ML CUP GTB PRN (09:55)
--- NOTE | 2017-08-06 10:41 | PN ---
Date/Time of Note Date/Time of Note DATE: 08/06/17 TIME: 10:41 Assessment/Plan VTE Prophylaxis VTE Prophylaxis Intervention: other Lines/Catheters IV Catheter Type (from Nrsg): PICC Line Central line still needed: Yes Urinary Cath still in place: No Assessment/Plan Chief Complaint/Hosp Course - Recurrent UTI, continue Cefepime - Possible urinary retention - Right trigeminal neuralgia, continue Trileptal, Dr. Mcgregor, neurology consult is appreciated - CECILIA versus seizures versus acute metabolic encephalopathy, Continue Keppra. - Atrial fibrillation, currently in sinus rhythm with wandering pacemaker, continue aspirin, Dr. Ferrara is following in cardiology consultation - Atypical chest pain, rule out myocardial infarction. Cardiac enzymes negative 3. Unable to undergo to pulmonary angiogram due to allergy to iodine. VQ scan is low probability for PE. - Advanced multiple sclerosis, bed to wheelchair bound total care. - Hypertension, continue metoprolol and Norvasc - Dysphagia. Continue G-tube feeding. - Hx Breast cancer. Problems: Subjective 24 Hr Interval Summary Free Text/Dictation Patient is resting Exam/Review of Systems Vital Signs Vitals Vital Signs Date Time Temp Pulse Resp B/P Pulse Ox O2 Delivery O2 Flow Rate FiO2 08/06/17 08:14 97.5 89 18 136/60 99 08/06/17 00:17 2.0 08/05/17 10:00 21 08/05/17 02:00 Room Air Intake and Output 08/05/17 08/05/17 08/06/17 15:00 23:00 07:00 Intake Total 1300 ml Output Total 1 ml Balance 1300 ml -1 ml Exam Constitutional: well developed Head: atraumatic, normocephalic Neck: supple Respiratory: diminished breath sounds Cardiovascular: regular rate and rhythm Gastrointestinal: non-tender, soft Extremities: normal pulses Results Result Diagram: 08/05/17 0537 08/05/17 0537 Medications Medications Current Medications Aspirin (Aspirin) 325 mg DAILY GTB Last administered on 08/06/17t 08:43; Admin Dose 325 MG; Start 07/16/17 at 09:00 Nitroglycerin (Nitroglycerin (Sl Tab) 0.4 Mg) 1 tab Q5M PRN SL ANGINA; Start 07/16/17 at 00:00 Acetaminophen (Tylenol Liquid) 650 mg Q6 PRN GTB PAIN AND OR ELEVATED TEMP Last administered on 08/06/17 09:55; Admin Dose 650 MG; Start 07/16/17 at 01: 30 Bisacodyl (Dulcolax Supp) 10 mg Q48H PRN [place] CONSTIPATION; Start 07/16/17 at 09: 00 Clonazepam (Klonopin) 0.25 mg Q12 PRN GTB ANXIETY Last administered on 03:27; Admin Dose 0.25 MG; Start 07/16/17 at 01:30 Acetaminophen/ Hydrocodone Bitart ([place] (5/325)) 1 tab Q6 PRN GTB PAIN Last administered on 08/06/17 03:20; Admin Dose 1 TAB; Start 07/16/17 at 01:30 Polyethylene Glycol (Miralax) 17 gm DAILY PRN GTB CONSTIPATION; Start 07/16/17 at 01:30 Sodium Chloride (Nacl) 1 gm TID GTB Last administered on 08/06/17 08:43; Admin Dose 1 GM; Start 07/16/17 at 09:00 Metoprolol Tartrate (Lopressor) 25 mg BID GTB Last administered on 08/06/17 08:49; Admin Dose 25 MG; Start 07/16/17 at 09:00 Sodium Biphosphate/ Sodium Phosphate (Fleet Enema) 133 ml Q72H [place] Last administered on 08/06/17 08:42; Admin Dose 133 ML; Start 07/16/17 at 09:00 Amlodipine Besylate (Norvasc) 5 mg DAILY GTB Last administered on 08/06/17 08 :50; Admin Dose 5 MG; Start 07/16/17 at 10:00 Gabapentin (Neurontin Liquid) 400 mg TID GTB Last administered on 07/20/17 21 :03; Admin Dose 400 MG; Start 07/16/17 at 21:00; Status Future Hold Estrogens Conjugated (Premarin Vaginal Cr) 1 applic MONWEDFRI@21 VAG Last administered on 08/04/17 20:41; Admin Dose 1 APPLIC; Start 07/17/17 at 21:00 Patient Own Medication 1 ea BID PO Last administered on 08/04/17 08:31; Admin Dose 1 EA; Start 07/17/17 at 09:00 Hydralazine HCl (Apresoline) 25 mg TID GTB Last administered on 08/06/17 08: 49; Admin Dose 25 MG; Start 07/18/17 at 21:30 Hydralazine HCl (Apresoline) 10 mg Q4H PRN IV SBP >160; Start 07/20/17 at 17: 30 Metoprolol Tartrate (Lopressor) 5 mg Q4H PRN IV HR>110 Hold SBP<100; Start at 15:00; Status Future Hold IV Flush (NS 10 ml) 10 ml PRN PRN IV IV PROTOCOL; Start 07/22/17 at 17:00 Levetiracetam (Keppra Liquid) 500 mg BID GTB Last administered on 08/06/17 08 :42; Admin Dose 500 MG; Start 07/23/17 at 21:00 Miscellaneous Information (Pending Santyl Order For Wound Care) This patient cooney... PRN PRN XX WOUND CARE; Start 07/25/17 at 15:30 Oxcarbazepine 600 mg 600 mg BID GTB Last administered on 08/06/17 08:49; Admin Dose 600 MG; Start 07/29/17 at 21:00 Cefepime HCl (Maxipime 1gm/50 ml (Pmx)) 50 ml @ 100 mls/hr Q12 IVPB Last administered on 08/06/17 08:42; Admin Dose 100 MLS/HR; Start 07/30/17 at 21: 00 Apixaban (Eliquis) 5 mg BID PO Last administered on 08/06/17 08:49; Admin Dose 5 MG; Start 08/05/17 at 15:00 PONCE MURGUIA Aug 06, 2017 10:41
--- NOTE | 2017-08-06 13:21 | CONS ---
Date/Time of Note Date/Time of Note DATE: 08/06/17 TIME: 13:20 Assessment/Plan Assessment/Plan Additional Assessment/Plan 1. Paroxysmal atrial fibrillation 2. Multiple sclerosis 3. Hypertension. 4. Cerebrovascular accident. 5. Urinary tract infection. Hemodynamically stable Continue Metoprolol Continue Hydralazine Continue Norvasc Continue Antibiotics Continue Eliquis Consultation Date/Type/Reason Admit Date/Time Jul 15, 2017 at 21:05 Initial Consult Date 07/21/17 Type of Consultation: ID Referring Provider: ANGELINA CARUSO MD Exam/Review of Systems Vital Signs Vitals Vital Signs Date Time Temp Pulse Resp B/P Pulse Ox O2 Delivery O2 Flow Rate FiO2 08/06/17 08:14 97.5 89 18 136/60 99 08/06/17 00:17 2.0 08/05/17 10:00 21 08/05/17 02:00 Room Air Intake and Output 08/05/17 08/05/17 08/06/17 15:00 23:00 07:00 Intake Total 1300 ml Output Total 1 ml Balance 1300 ml -1 ml Exam Head: atraumatic, normocephalic Neck: non-tender, supple Respiratory: clear to auscultation Cardiovascular: irregular rhythm Gastrointestinal: nl liver, spleen, non-tender, soft Extremities: normal pulses Results Result Diagram: 08/05/17 0537 08/05/17 0537 Medications Medications Current Medications Aspirin (Aspirin) 325 mg DAILY GTB Last administered on 08/06/17 08:43; Admin Dose 325 MG; Start 07/16/17 at 09:00 Nitroglycerin (Nitroglycerin (Sl Tab) 0.4 Mg) 1 tab Q5M PRN SL ANGINA; Start 07/16/17 at 00:00 Acetaminophen (Tylenol Liquid) 650 mg Q6 PRN GTB PAIN AND OR ELEVATED TEMP Last administered on 08/06/17 09:55; Admin Dose 650 MG; Start 07/16/17 at 01: 30 Bisacodyl (Dulcolax Supp) 10 mg Q48H PRN [place] CONSTIPATION; Start 07/16/17 at 09: 00 Clonazepam (Klonopin) 0.25 mg Q12 PRN GTB ANXIETY Last administered on 03:27; Admin Dose 0.25 MG; Start 07/16/17 at 01:30 Acetaminophen/ Hydrocodone Bitart ([place] (5/325)) 1 tab Q6 PRN GTB PAIN Last administered on 08/06/17 03:20; Admin Dose 1 TAB; Start 07/16/17 at 01:30 Polyethylene Glycol (Miralax) 17 gm DAILY PRN GTB CONSTIPATION; Start 07/16/17 at 01:30 Sodium Chloride (Nacl) 1 gm TID GTB Last administered on 08/06/17 08:43; Admin Dose 1 GM; Start 07/16/17 at 09:00 Metoprolol Tartrate (Lopressor) 25 mg BID GTB Last administered on 08/06/17 08:49; Admin Dose 25 MG; Start 07/16/17 at 09:00 Sodium Biphosphate/ Sodium Phosphate (Fleet Enema) 133 ml Q72H [place] Last administered on 08/06/17 08:42; Admin Dose 133 ML; Start 07/16/17 at 09:00 Amlodipine Besylate (Norvasc) 5 mg DAILY GTB Last administered on 08/06/17 08 :50; Admin Dose 5 MG; Start 07/16/17 at 10:00 Gabapentin (Neurontin Liquid) 400 mg TID GTB Last administered on 07/20/17 21 :03; Admin Dose 400 MG; Start 07/16/17 at 21:00; Status Future Hold Estrogens Conjugated (Premarin Vaginal Cr) 1 applic MONWEDFRI@21 VAG Last administered on 08/04/17 20:41; Admin Dose 1 APPLIC; Start 07/17/17 at 21:00 Patient Own Medication 1 ea BID PO Last administered on 08/04/17 08:31; Admin Dose 1 EA; Start 07/17/17 at 09:00 Hydralazine HCl (Apresoline) 25 mg TID GTB Last administered on 08/06/17 08: 49; Admin Dose 25 MG; Start 07/18/17 at 21:30 Hydralazine HCl (Apresoline) 10 mg Q4H PRN IV SBP >160; Start 07/20/17 at 17: 30 Metoprolol Tartrate (Lopressor) 5 mg Q4H PRN IV HR>110 Hold SBP<100; Start at 15:00; Status Future Hold IV Flush (NS 10 ml) 10 ml PRN PRN IV IV PROTOCOL; Start 07/22/17 at 17:00 Levetiracetam (Keppra Liquid) 500 mg BID GTB Last administered on 08/06/17 08 :42; Admin Dose 500 MG; Start 07/23/17 at 21:00 Miscellaneous Information (Pending Santyl Order For Wound Care) This patient cooney... PRN PRN XX WOUND CARE; Start 07/25/17 at 15:30 Oxcarbazepine 600 mg 600 mg BID GTB Last administered on 08/06/17 08:49; Admin Dose 600 MG; Start 07/29/17 at 21:00 Cefepime HCl (Maxipime 1gm/50 ml (Pmx)) 50 ml @ 100 mls/hr Q12 IVPB Last administered on 08/06/17 08:42; Admin Dose 100 MLS/HR; Start 07/30/17 at 21: 00 Apixaban (Eliquis) 5 mg BID PO Last administered on 08/06/17 08:49; Admin Dose 5 MG; Start 08/05/17 at 15:00 CANDE LUND M.D. Aug 06, 2017 13:21
[2017-08-06 14:06] VITALS: BP 132/63; RESP 19
--- NOTE | 2017-08-06 19:30 | CONS ---
Date/Time of Note Date/Time of Note DATE: 08/06/17 TIME: 19:29 Assessment/Plan Assessment/Plan Chief Complaint/Hosp Course ID PROGRESS NOTE CURRENT ABX: TOTAL ABX DAY #7 => Cefepime #7 24H INTERVAL SUMMARY * Awake, alert, oriented to self , VSS, NAD< no fevers, follows commands * PICC present -> restarted on Cefepime for recurrent UTI * Physical Exam Physical Exam Constitutional: VSS, NAD HEENT: Unremarkable Neck: Supple, full ROM Respiratory: clear to auscultation, normal air movement Cardiovascular: nl pulses, regular rate and rhythm Gastrointestinal: Soft, NT Extremities: Warm w/BUEXT contractions ID ASSESSMENT 81 yo F PMHx Breast Cancer + Advanced Multiple Sclerosis admit with: 1. SIRS w/low grade fevers, leukocytosis -> 2/2 #2 => RESOLVING * s/p sepsis on admission 07/15/17 with acute SOB, AFib w/RVR, atypical chest pain, TMax 100.+ => RESOLVED 2. Recurrent complicated GNR UTI 3. Neurogenic bladder 2/2 MS 4. Status post transient ischemic attack. 5. Coronary artery disease 6. Hypertension 7. Paroxysmal Afib, Status post atypical chest pain. 8. Facial twitching / Bilateral eye twitching -- caregiver tells me r/t "Trigeminal neuralgia" occurs right before headaches when patient needs pain meds? 9. Dysphagia -> Peg (- )MRSA Nares INVASIVES: PICC 07/22/17 ABX ALLERGIES: Sulfa/Iodine CURRENT ABX: TOTAL ABX DAY #7 => Cefepime #7 ID RECOMMENDATIONS 1. Continue Cefepime over the weekend => DC Planning in process 2. Aspiration precautions . Problems: Consultation Date/Type/Reason Admit Date/Time Jul 15, 2017 at 21:05 Initial Consult Date 07/21/17 Type of Consultation: ID Referring Provider: ANGELINA CARUSO MD Exam/Review of Systems Vital Signs Vitals Vital Signs Date Time Temp Pulse Resp B/P Pulse Ox O2 Delivery O2 Flow Rate FiO2 08/06/17 14:06 97.4 85 19 132/63 99 08/06/17 00:17 2.0 08/05/17 10:00 21 08/05/17 02:00 Room Air Intake and Output 08/05/17 08/05/17 08/06/17 15:00 23:00 07:00 Intake Total 1300 ml Output Total 1 ml Balance 1300 ml -1 ml Results Result Diagram: 08/05/17 0537 08/05/1737 Medications Medications Current Medications Aspirin (Aspirin) 325 mg DAILY GTB Last administered on 08/06/17 08:43; Admin Dose 325 MG; Start 07/16/17 at 09:00 Nitroglycerin (Nitroglycerin (Sl Tab) 0.4 Mg) 1 tab Q5M PRN SL ANGINA; Start 07/16/17 at 00:00 Acetaminophen (Tylenol Liquid) 650 mg Q6 PRN GTB PAIN AND OR ELEVATED TEMP Last administered on 08/06/17 09:55; Admin Dose 650 MG; Start 07/16/17 at 01: 30 Bisacodyl (Dulcolax Supp) 10 mg Q48H PRN [place] CONSTIPATION; Start 07/16/17 at 09: 00 Clonazepam (Klonopin) 0.25 mg Q12 PRN GTB ANXIETY Last administered on 16:32; Admin Dose 0.25 MG; Start 07/16/17 at 01:30 Acetaminophen/ Hydrocodone Bitart ([place] (5/325)) 1 tab Q6 PRN GTB PAIN Last administered on 08/06/17 16:33; Admin Dose 1 TAB; Start 07/16/17 at 01:30 Polyethylene Glycol (Miralax) 17 gm DAILY PRN GTB CONSTIPATION; Start 07/16/17 at 01:30 Sodium Chloride (Nacl) 1 gm TID GTB Last administered on 08/06/17 14:30; Admin Dose 1 GM; Start 07/16/17 at 09:00 Metoprolol Tartrate (Lopressor) 25 mg BID GTB Last administered on 08/06/17 08:49; Admin Dose 25 MG; Start 07/16/17 at 09:00 Sodium Biphosphate/ Sodium Phosphate (Fleet Enema) 133 ml Q72H [place] Last administered on 08/06/17 08:42; Admin Dose 133 ML; Start 07/16/17 at 09:00 Amlodipine Besylate (Norvasc) 5 mg DAILY GTB Last administered on 08/06/17 08 :50; Admin Dose 5 MG; Start 07/16/17 at 10:00 Gabapentin (Neurontin Liquid) 400 mg TID GTB Last administered on 07/20/17 21 :03; Admin Dose 400 MG; Start 07/16/17 at 21:00; Status Future Hold Estrogens Conjugated (Premarin Vaginal Cr) 1 applic MONWEDFRI@21 VAG Last administered on 08/04/17 20:41; Admin Dose 1 APPLIC; Start 07/17/17 at 21:00 Patient Own Medication 1 ea BID PO Last administered on 08/04/17 08:31; Admin Dose 1 EA; Start 07/17/17 at 09:00 Hydralazine HCl (Apresoline) 25 mg TID GTB Last administered on 08/06/17 14: 30; Admin Dose 25 MG; Start 07/18/17 at 21:30 Hydralazine HCl (Apresoline) 10 mg Q4H PRN IV SBP >160; Start 07/20/17 at 17: 30 Metoprolol Tartrate (Lopressor) 5 mg Q4H PRN IV HR>110 Hold SBP<100; Start at 15:00; Status Future Hold IV Flush (NS 10 ml) 10 ml PRN PRN IV IV PROTOCOL; Start 07/22/17 at 17:00 Levetiracetam (Keppra Liquid) 500 mg BID GTB Last administered on 08/06/17 08 :42; Admin Dose 500 MG; Start 07/23/17 at 21:00 Miscellaneous Information (Pending [facility] Order For Wound Care) This patient cooney... PRN PRN XX WOUND CARE; Start 07/25/17 at 15:30 Oxcarbazepine 600 mg 600 mg BID GTB Last administered on 08/06/17 08:49; Admin Dose 600 MG; Start 07/29/17 at 21:00 Cefepime HCl (Maxipime 1gm/50 ml (Pmx)) 50 ml @ 100 mls/hr Q12 IVPB Last administered on 08/06/17 08:42; Admin Dose 100 MLS/HR; Start 07/30/17 at 21: 00 Apixaban (Eliquis) 5 mg BID PO Last administered on 08/06/17 08:49; Admin Dose 5 MG; Start 08/05/17 at 15:00 ANYA OLMEDO NP Aug 06, 2017 19:30
[2017-08-06 19:51] VITALS: BP 140/67; RESP 18
[2017-08-07 01:49] VITALS: BP 129/66; RESP 18
[2017-08-07 07:41] VITALS: BP 145/63; RESP 18
[2017-08-07] MEDS: HYDROCODONE/APAP (5/325) TAB GTB PRN (07:48)
[2017-08-07] MEDS: LEVETIRACETAM (100 MG/ML) 5ML CUP GTB SCH ×2 (08:40→21:38)
[2017-08-07] MEDS: AMLODIPINE 5 MG TAB GTB SCH (08:40)
[2017-08-07] MEDS: ASPIRIN 325 MG TAB GTB SCH (08:40)
[2017-08-07] MEDS: OXCARBAZEPINE 300 MG TAB GTB SCH ×2 (08:40→21:39)
[2017-08-07] MEDS: CEFEPIME 1GM/50 ML (PMX) 50 ML IVPB SCH (08:40)
[2017-08-07] MEDS: APIXABAN 5 MG TABLET PO SCH ×2 (08:40→21:38)
[2017-08-07] MEDS: SODIUM CHLORIDE 1 GM TAB GTB SCH ×3 (08:40→21:39)
[2017-08-07] MEDS: METOPROLOL 25 MG TAB GTB SCH ×2 (08:41→21:39)
--- NOTE | 2017-08-07 11:10 | CONS ---
Date/Time of Note Date/Time of Note DATE: 08/07/17 TIME: 11:07 Assessment/Plan Assessment/Plan Chief Complaint/Hosp Course IMPRESSION: 1. Paroxysmal atrial fibrillation-recurrent by ECG today 08/04 2. Abnormal electrocardiogram, assess for acute coronary syndrome. 3. Hypertension. 4. Possible acute cerebrovascular accident. 5. Urinary tract infection. 6. Leukocytosis. 7. Encephalopathy 8. Multiple Sclerosis-advanced Recc: -Now on med/surg -Continue asa therapy at this time -Continue BB/norvasc/hydralazine at current doses with well controlled BP at this time. -Continue keppra -Continue abx's and f/u cx data -Follow MS with ongoing neuro eval and continue keppra -Continue to follow serial ecg's to assess for recurrent definite af and will discuss possibility of challenge with true systemic anti-coag with PMD Problems: Consultation Date/Type/Reason Admit Date/Time Jul 15, 2017 at 21:05 Initial Consult Date 07/21/17 Type of Consultation: cardiology Reason for Consultation PAF Referring Provider: ANGELINA CARUSO MD Exam/Review of Systems Vital Signs Vitals Vital Signs Date Time Temp Pulse Resp B/P Pulse Ox O2 Delivery O2 Flow Rate FiO2 08/07/17 07:41 98.9 94 18 145/63 99 08/06/17 00:17 2.0 08/05/17 10:00 21 08/05/17 02:00 Room Air Intake and Output 08/06/17 08/06/17 08/07/17 14:59 22:59 06:59 Intake Total 50 ml 880 ml Balance 50 ml 880 ml Exam Review of Systems: CONSTITUTIONAL: No fevers, chills. PULMONARY: No sob CARDIOVASCULAR: No chest pain/palpitations GASTROINTESTINAL: No nausea/vomiting. GENITOURINARY: No hematuria/dysuria. MUSCULOSKELETAL: No myagias/arthalgias. PSYCHIATRIC: The patient denies depression. NEUROLOGIC: encephalopathic Constitutional: alert Psych: no complaints Head: normocephalic ENMT: mucosa pink and moist Neck: jvd (9 cm water), supple Respiratory: diminished breath sounds (at bases/B) Cardiovascular: regular rate and rhythm Gastrointestinal: non-tender, soft Musculoskeletal: muscle tone (normal) Extremities: edema (none) Neurological: other (No focal deficits) Results Result Diagram: 08/05/1737 08/05/1737 Medications Medications Current Medications Aspirin (Aspirin) 325 mg DAILY GTB Last administered on 08/07/17 08:40; Admin Dose 325 MG; Start 07/16/17 at 09:00 Nitroglycerin (Nitroglycerin (Sl Tab) 0.4 Mg) 1 tab Q5M PRN SL ANGINA; Start 07/16/17 at 00:00 Acetaminophen (Tylenol Liquid) 650 mg Q6 PRN GTB PAIN AND OR ELEVATED TEMP Last administered on 08/06/17 09:55; Admin Dose 650 MG; Start 07/16/17 at 01: 30 Bisacodyl (Dulcolax Supp) 10 mg Q48H PRN [place] CONSTIPATION; Start 07/16/17 at 09: 00 Clonazepam (Klonopin) 0.25 mg Q12 PRN GTB ANXIETY Last administered on 16:32; Admin Dose 0.25 MG; Start 07/16/17 at 01:30 Acetaminophen/ Hydrocodone Bitart ([place] (5/325)) 1 tab Q6 PRN GTB PAIN Last administered on 08/07/17 07:48; Admin Dose 1 TAB; Start 07/16/17 at 01:30 Polyethylene Glycol (Miralax) 17 gm DAILY PRN GTB CONSTIPATION; Start 07/16/17 at 01:30 Sodium Chloride (Nacl) 1 gm TID GTB Last administered on 08/07/17 08:40; Admin Dose 1 GM; Start 07/16/17 at 09:00 Metoprolol Tartrate (Lopressor) 25 mg BID GTB Last administered on 08/07/17 08:41; Admin Dose 25 MG; Start 07/16/17 at 09:00 Sodium Biphosphate/ Sodium Phosphate (Fleet Enema) 133 ml Q72H [place] Last administered on 08/06/17 08:42; Admin Dose 133 ML; Start 07/16/17 at 09:00 Amlodipine Besylate (Norvasc) 5 mg DAILY GTB Last administered on 08/07/17 08 :40; Admin Dose 5 MG; Start 07/16/17 at 10:00 Gabapentin (Neurontin Liquid) 400 mg TID GTB Last administered on 07/20/17 21 :03; Admin Dose 400 MG; Start 07/16/17 at 21:00; Status Future Hold Estrogens Conjugated (Premarin Vaginal Cr) 1 applic MONWEDFRI@21 VAG Last administered on 08/04/17 20:41; Admin Dose 1 APPLIC; Start 07/17/17 at 21:00 Patient Own Medication 1 ea BID PO Last administered on 08/04/17 08:31; Admin Dose 1 EA; Start 07/17/17 at 09:00 Hydralazine HCl (Apresoline) 25 mg TID GTB Last administered on 08/07/17 08: 40; Admin Dose 25 MG; Start 07/18/17 at 21:30 Hydralazine HCl (Apresoline) 10 mg Q4H PRN IV SBP >160; Start 07/20/17 at 17: 30 Metoprolol Tartrate (Lopressor) 5 mg Q4H PRN IV HR>110 Hold SBP<100; Start at 15:00; Status Future Hold IV Flush (NS 10 ml) 10 ml PRN PRN IV IV PROTOCOL; Start 07/22/17 at 17:00 Levetiracetam (Keppra Liquid) 500 mg BID GTB Last administered on 08/07/17 08 :40; Admin Dose 500 MG; Start 07/23/17 at 21:00 Miscellaneous Information (Pending [facility] Order For Wound Care) This patient cooney... PRN PRN XX WOUND CARE; Start 07/25/17 at 15:30 Oxcarbazepine 600 mg 600 mg BID GTB Last administered on 08/07/17 08:40; Admin Dose 600 MG; Start 07/29/17 at 21:00 Cefepime HCl (Maxipime 1gm/50 ml (Pmx)) 50 ml @ 100 mls/hr Q12 IVPB Last administered on 08/07/17 08:40; Admin Dose 100 MLS/HR; Start 07/30/17 at 21: 00 Apixaban (Eliquis) 5 mg BID PO Last administered on 08/07/17 08:40; Admin Dose 5 MG; Start 08/05/17 at 15:00 COMPA NUGENT Aug 07, 2017 11:10
[2017-08-07] MEDS ORDERED: LORATADINE 10 MG TAB PO SCH (14:00)
[2017-08-07] MEDS: LORATADINE 10 MG TAB PO SCH (14:46)
[2017-08-07] MEDS: FLUOCINONIDE 0.05% 15 GM CR TOP SCH ×2 (15:00→21:39)
[2017-08-07 15:02] VITALS: BP 130/61; RESP 18
--- NOTE | 2017-08-07 16:13 | PN ---
Date/Time of Note Date/Time of Note DATE: 08/07/17 TIME: 16:09 Assessment/Plan VTE Prophylaxis VTE Prophylaxis Intervention: SCD's Lines/Catheters IV Catheter Type (from Nrs): PICC Line Central line still needed: Yes Urinary Cath still in place: No Assessment/Plan Chief Complaint/Hosp Course Rash noted over the patient's chest, possible allergic reaction, and Claritin and topical anti-inflammatory. Assessment/Plan - Recurrent UTI, continue Cefepime - Possible urinary retention - Right trigeminal neuralgia, continue Trileptal, Dr. Mcgregor, neurology consult is appreciated - CECILIA versus seizures versus acute metabolic encephalopathy, Continue Keppra. - Atrial fibrillation, currently in sinus rhythm with wandering pacemaker, continue aspirin, Dr. Ferrara is following in cardiology consultation - Atypical chest pain, rule out myocardial infarction. Cardiac enzymes negative 3. Unable to undergo to pulmonary angiogram due to allergy to iodine. VQ scan is low probability for PE. - Advanced multiple sclerosis, bed to wheelchair bound total care. - Hypertension, continue metoprolol and Norvasc - Dysphagia. Continue G-tube feeding. - Hx Breast cancer. Further recommendations based on clinical course. Plan of care discussed with Dr. Soto Problems: Exam/Review of Systems Vital Signs Vitals Vital Signs Date Time Temp Pulse Resp B/P Pulse Ox O2 Delivery O2 Flow Rate FiO2 08/07/17 15:02 98.1 84 18 130/61 99 08/06/17 00:17 2.0 08/05/17 10:00 21 08/05/17 02:00 Room Air Intake and Output 08/06/17 08/06/17 08/07/17 15:00 23:00 07:00 Intake Total 50 ml 880 ml Balance 50 ml 880 ml Exam Constitutional: alert, oriented Respiratory: normal air movement Cardiovascular: nl pulses Gastrointestinal: non-tender, other (G-tube), soft Musculoskeletal: muscle weakness Extremities: other (Contracted) Results Result Diagram: 08/05/17 0537 08/05/17 0537 Medications Medications Current Medications Aspirin (Aspirin) 325 mg DAILY GTB Last administered on 08/07/17t 08:40; Admin Dose 325 MG; Start 07/16/17 at 09:00 Nitroglycerin (Nitroglycerin (Sl Tab) 0.4 Mg) 1 tab Q5M PRN SL ANGINA; Start 07/16/17 at 00:00 Acetaminophen (Tylenol Liquid) 650 mg Q6 PRN GTB PAIN AND OR ELEVATED TEMP Last administered on 08/06/17 09:55; Admin Dose 650 MG; Start 07/16/17 at 01: 30 Bisacodyl (Dulcolax Supp) 10 mg Q48H PRN [place] CONSTIPATION; Start 07/16/17 at 09: 00 Clonazepam (Klonopin) 0.25 mg Q12 PRN GTB ANXIETY Last administered on 16:32; Admin Dose 0.25 MG; Start 07/16/17 at 01:30 Acetaminophen/ Hydrocodone Bitart ([place] (5/325)) 1 tab Q6 PRN GTB PAIN Last administered on 08/07/17 07:48; Admin Dose 1 TAB; Start 07/16/17 at 01:30 Polyethylene Glycol (Miralax) 17 gm DAILY PRN GTB CONSTIPATION; Start 07/16/17 at 01:30 Sodium Chloride (Nacl) 1 gm TID GTB Last administered on 08/07/17 13:14; Admin Dose 1 GM; Start 07/16/17 at 09:00 Metoprolol Tartrate (Lopressor) 25 mg BID GTB Last administered on 08/07/17 08:41; Admin Dose 25 MG; Start 07/16/17 at 09:00 Sodium Biphosphate/ Sodium Phosphate (Fleet Enema) 133 ml Q72H [place] Last administered on 08/06/17 08:42; Admin Dose 133 ML; Start 07/16/17 at 09:00 Amlodipine Besylate (Norvasc) 5 mg DAILY GTB Last administered on 08/07/17 08 :40; Admin Dose 5 MG; Start 07/16/17 at 10:00 Gabapentin (Neurontin Liquid) 400 mg TID GTB Last administered on 07/20/17 21 :03; Admin Dose 400 MG; Start 07/16/17 at 21:00; Status Future Hold Estrogens Conjugated (Premarin Vaginal Cr) 1 applic MONWEDFRI@21 VAG Last administered on 08/04/17 20:41; Admin Dose 1 APPLIC; Start 07/17/17 at 21:00 Patient Own Medication 1 ea BID PO Last administered on 08/04/17 08:31; Admin Dose 1 EA; Start 07/17/17 at 09:00 Hydralazine HCl (Apresoline) 25 mg TID GTB Last administered on 08/07/17 13: 14; Admin Dose 25 MG; Start 07/18/17 at 21:30 Hydralazine HCl (Apresoline) 10 mg Q4H PRN IV SBP >160; Start 07/20/17 at 17: 30 Metoprolol Tartrate (Lopressor) 5 mg Q4H PRN IV HR>110 Hold SBP<100; Start at 15:00; Status Future Hold IV Flush (NS 10 ml) 10 ml PRN PRN IV IV PROTOCOL; Start 07/22/17 at 17:00 Levetiracetam (Keppra Liquid) 500 mg BID GTB Last administered on 08/07/17 08 :40; Admin Dose 500 MG; Start 07/23/17 at 21:00 Miscellaneous Information (Pending [facility] Order For Wound Care) This patient cooney... PRN PRN XX WOUND CARE; Start 07/25/17 at 15:30 Oxcarbazepine (Trileptal) 600 mg BID GTB Last administered on 08/07/17 08:40 ; Admin Dose 600 MG; Start 07/29/17 at 21:00 Apixaban (Eliquis) 5 mg BID PO Last administered on 08/07/17 08:40; Admin Dose 5 MG; Start 08/05/17 at 15:00 Loratadine (Claritin) 10 mg DAILY PO Last administered on 08/07/17 14:46; Admin Dose 10 MG; Start 08/07/17 at 14:00 Fluocinonide (Lidex 0.05% Cr) 1 applic BID TOP ; Start 08/07/17 at 15:00 MARLINE CHOWDARY Aug 07, 2017 16:13
[2017-08-07] MEDS: ACETAMINOPHEN 650MG/20.3ML CUP GTB PRN (16:20)
[2017-08-07] MEDS: clonAZEPAM 0.5 MG TAB GTB PRN (17:46)
[2017-08-07 20:04] VITALS: BP 128/64; RESP 18
[2017-08-07] MEDS: ESTROGENS CONJUGATED 42.5 GM VAG CR VAG SCH (22:37)
[2017-08-08 02:35] VITALS: BP 147/71; RESP 18
[2017-08-08] MEDS: clonAZEPAM 0.5 MG TAB GTB PRN (06:28)
--- NOTE | 2017-08-08 06:36 | PN ---
DATE: 08/07/2017 SUBJECTIVE: No acute changes overnight. Patient is noncommunicative, lying comfortably in bed. Sh e is sleeping. Microfilm Duplicating Unit Supervisor at bedside. No fevers. LABORATORY DATA: No labs this morning. ANTIMICROBIALS: Cefepime day #9. INDWELLINGS: The patient has PICC line and PEG. PHYSICAL EXAMINATION: GENERAL: This is a chronically ill-appearing, elderly -Togolese woman who is sleeping and in no distress. HEENT: Head atraumatic, normocephalic. Sclerae anicteric. Buccal mucosa dry. NECK: Supple. CHEST: Rise symmetrical. Breath sounds diminished to bases. HEART: S1, S2. ABDOMEN: Soft. Bowel tones present. EXTREMITIES: Wasted Without cyanosis. SKIN: With maculopapular rashes chest and upper body. ASSESSMENT: 1. Recurrent urinary tract infection. 2. Rash consistent with allergic reaction. 3. Advanced multiple sclerosis with functional quadriplegia. 4. Neurogenic bladder. 5. Coronary artery disease, status post paroxysmal atrial fibrillation and hypertension. PLAN: The patient remains clinically unchanged. She is afebrile. SHE IS ALLERGIC TO MULTIPLE ANTI BIOTICS. She is on cefepime day #9 and developed a rash consistent with allergy. We are going to di scontinue cefepime and start her on Claritin. Monitor postvoid residuals. Monitor her labs. Clark carter recommendations of consultants. Dictated By: NOHELIA HER VACUUM COOKER OPERATOR for EUFEMIA CLAY MD NI/NTS Conf#: [id number] DID#: [id number]
[2017-08-08 07:35] VITALS: BP 163/72; RESP 18
[2017-08-08] MEDS: ASPIRIN 325 MG TAB GTB SCH (07:41)
[2017-08-08] MEDS: LEVETIRACETAM (100 MG/ML) 5ML CUP GTB SCH (07:41)
[2017-08-08] MEDS: OXCARBAZEPINE 300 MG TAB GTB SCH (07:42)
[2017-08-08] MEDS: APIXABAN 5 MG TABLET PO SCH (07:42)
[2017-08-08] MEDS: AMLODIPINE 5 MG TAB GTB SCH (07:42)
[2017-08-08] MEDS: LORATADINE 10 MG TAB PO SCH (07:42)
[2017-08-08] MEDS: SODIUM CHLORIDE 1 GM TAB GTB SCH ×2 (07:42→12:34)
[2017-08-08] MEDS: METOPROLOL 25 MG TAB GTB SCH (07:43)
[2017-08-08] MEDS: FLUOCINONIDE 0.05% 15 GM CR TOP SCH (07:43)
[2017-08-08 09:13] LABS: BASOPHIL # 0.1 10^3/ul (0.0-0.1); BASOPHILS % 0.6 % (0.0-2.0); EOSINOPHILS # 0.6 10^3/ul (0.0-0.5); EOSINOPHILS % 5.3 % (0.0-7.0); HEMATOCRIT 33.8 % (37.0-47.0); HEMOGLOBIN 10.9 g/dl (12.0-16.0); LYMPHOCYTES # 2.8 10^3/ul (0.8-2.9); MEAN CORPUSCULAR HGB CONC 32.2 g/dl (32.0-37.0); MEAN CORPUSCULAR VOLUME 86.9 fl (82.0-101.0); MEAN PLATELET VOLUME 12.2 fl (7.4-10.4); MONOCYTE # 0.8 10^3/ul (0.3-0.9); MONOCYTES % 7.1 % (0.0-11.0); NEUTROPHIL # 6.3 10^3/ul (1.6-7.5); NEUTROPHILS % 59.6 % (39.0-77.0); PLATELET COUNT 233 10^3/UL (140-415); RED BLOOD COUNT 3.89 10^6/ul (4.20-5.40); RED CELL DISTRIBUTION WIDTH 14.6 % (11.5-14.5); WHITE BLOOD COUNT 10.5 10^3/ul (4.8-10.8)
[2017-08-08 10:21] LABS: CALCIUM 8.7 mg/dl (8.4-10.2); CREATININE 0.39 mg/dl (0.44-1.00); POTASSIUM 3.7 mmol/L (3.5-5.1)
[2017-08-08] MEDS ORDERED: AMLO-145 GTB (12:31)
[2017-08-08] MEDS ORDERED: CLON0.5T G-TUBE (12:31)
[2017-08-08] MEDS ORDERED: FLU0530 TOP (12:31)
[2017-08-08] MEDS ORDERED: HYDR-3671 GTB (12:31)
[2017-08-08] MEDS ORDERED: METO-448 GTB (12:31)
[2017-08-08] MEDS ORDERED: LORA10TA3 PO (12:31)
[2017-08-08] MEDS ORDERED: CRAN450T7 G-TUBE (12:31)
[2017-08-08] MEDS ORDERED: HYDR-3498 GTB (12:31)
[2017-08-08] MEDS ORDERED: OXCA300T41 GTB (12:31)
[2017-08-08] MEDS ORDERED: APIX5TAB PO (12:31)
[2017-08-08] MEDS ORDERED: PREMVAG VAG (12:31)
[2017-08-08] MEDS ORDERED: POLY17PO6 G-TUBE (12:31)
[2017-08-08] MEDS ORDERED: LEVE500S8 GTB (12:31)
--- NOTE | 2017-08-08 14:04 | CONS ---
Date/Time of Note Date/Time of Note DATE: 08/08/17 TIME: 14:02 Consult Date/Type/Reason Admit Date/Time Jul 15, 2017 at 21:05 Type of Consultation: id Ordering Provider: ANGELINA CARUSO MD Objective Vital Signs Date Time Temp Pulse Resp B/P Pulse Ox O2 Delivery O2 Flow Rate FiO2 08/08/17 07:35 97.6 94 18 163/72 99 08/06/17 00:17 2.0 08/05/17 10:00 21 08/05/17 02:00 Room Air Intake and Output 08/07/17 08/07/17 08/08/17 15:00 23:00 07:00 Intake Total 50 ml 1130 ml Balance 50 ml 1130 ml Results/Medications Result Diagram: 08/08/17 0900 08/08/17 0900 Results 24 hrs Laboratory Tests Test 08/08/17 09:00 White Blood Count 10.5 Red Blood Count 3.89 L Hemoglobin 10.9 L Hematocrit 33.8 L Mean Corpuscular Volume 86.9 Mean Corpuscular Hemoglobin 28.0 L Mean Corpuscular Hemoglobin Concent 32.2 Red Cell Distribution Width 14.6 H Platelet Count 233 Mean Platelet Volume 12.2 H Neutrophils % 59.6 Lymphocytes % 27.0 Monocytes % 7.1 Eosinophils % 5.3 Basophils % 0.6 Nucleated Red Blood Cells % 0.0 Neutrophils # 6.3 Lymphocytes # 2.8 Monocytes # 0.8 Eosinophils # 0.6 H Basophils # 0.1 Nucleated Red Blood Cells # 0.0 Sodium Level 142 Potassium Level 3.7 Chloride Level 105 Carbon Dioxide Level 32 H Anion Gap 9 Blood Urea Nitrogen 11 Creatinine 0.39 L Glucose Level 103 Calcium Level 8.7 Medications Current Medications Aspirin (Aspirin) 325 mg DAILY GTB Last administered on 08/08/17 07:41; Admin Dose 325 MG; Start 07/16/17 at 09:00 Nitroglycerin (Nitroglycerin (Sl Tab) 0.4 Mg) 1 tab Q5M PRN SL ANGINA; Start 07/16/17 at 00:00 Acetaminophen (Tylenol Liquid) 650 mg Q6 PRN GTB PAIN AND OR ELEVATED TEMP Last administered on 08/07/17 16:20; Admin Dose 650 MG; Start 07/16/17 at 01: 30 Bisacodyl (Dulcolax Supp) 10 mg Q48H PRN DE CONSTIPATION; Start 07/16/17 at 09: 00 Clonazepam (Klonopin) 0.25 mg Q12 PRN GTB ANXIETY Last administered on 06:28; Admin Dose 0.25 MG; Start 07/16/17 at 01:30 Acetaminophen/ Hydrocodone Bitart ([place] (5/325)) 1 tab Q6 PRN GTB PAIN Last administered on 08/07/17 07:48; Admin Dose 1 TAB; Start 07/16/17 at 01:30 Polyethylene Glycol (Miralax) 17 gm DAILY PRN GTB CONSTIPATION; Start 07/16/17 at 01:30 Sodium Chloride (Nacl) 1 gm TID GTB Last administered on 08/08/17 12:34; Admin Dose 1 GM; Start 07/16/17 at 09:00 Metoprolol Tartrate (Lopressor) 25 mg BID GTB Last administered on 08/08/17 07:43; Admin Dose 25 MG; Start 07/16/17 at 09:00 Sodium Biphosphate/ Sodium Phosphate (Fleet Enema) 133 ml Q72H DE Last administered on 08/06/17 08:42; Admin Dose 133 ML; Start 07/16/17 at 09:00 Amlodipine Besylate (Norvasc) 5 mg DAILY GTB Last administered on 08/08/17 07 :42; Admin Dose 5 MG; Start 07/16/17 at 10:00 Gabapentin (Neurontin Liquid) 400 mg TID GTB Last administered on 07/20/17 21 :03; Admin Dose 400 MG; Start 07/16/17 at 21:00; Status Future Hold Estrogens Conjugated (Premarin Vaginal Cr) 1 applic MONWEDFRI@21 VAG Last administered on 08/07/17 22:37; Admin Dose 1 APPLIC; Start 07/17/17 at 21:00 Patient Own Medication 1 ea BID PO Last administered on 08/04/17 08:31; Admin Dose 1 EA; Start 07/17/17 at 09:00 Hydralazine HCl (Apresoline) 25 mg TID GTB Last administered on 08/08/17 12: 34; Admin Dose 25 MG; Start 07/18/17 at 21:30 Hydralazine HCl (Apresoline) 10 mg Q4H PRN IV SBP >160; Start 07/20/17 at 17: 30 Metoprolol Tartrate (Lopressor) 5 mg Q4H PRN IV HR>110 Hold SBP<100; Start at 15:00; Status Future Hold IV Flush (NS 10 ml) 10 ml PRN PRN IV IV PROTOCOL; Start 07/22/17 at 17:00 Levetiracetam (Keppra Liquid) 500 mg BID GTB Last administered on 08/08/17 07 :41; Admin Dose 500 MG; Start 07/23/17 at 21:00 Miscellaneous Information (Pending Santyl Order For Wound Care) This patient cooney... PRN PRN XX WOUND CARE; Start 07/25/17 at 15:30 Oxcarbazepine (Trileptal) 600 mg BID GTB Last administered on 08/08/17 07:42 ; Admin Dose 600 MG; Start 07/29/17 at 21:00 Apixaban (Eliquis) 5 mg BID PO Last administered on 08/08/17 07:42; Admin Dose 5 MG; Start 08/05/17 at 15:00 Loratadine (Claritin) 10 mg DAILY PO Last administered on 08/08/17 07:42; Admin Dose 10 MG; Start 08/07/17 at 14:00 Fluocinonide (Lidex 0.05% Cr) 1 applic BID TOP Last administered on 08/08/17 07:43; Admin Dose 1 APPLIC; Start 08/07/17 at 15:00 Assessment/Plan Chief Complaint/Hosp Course SUBJECTIVE: No acute changes overnight. looks comfortable. Meter Technician at bedside. No fevers. INDWELLINGS: The patient has PICC line and PEG. PHYSICAL EXAMINATION: GENERAL: This is a chronically ill-appearing, elderly -Maldivian woman who is sleeping and in no distress. HEENT: Head atraumatic, normocephalic. Sclerae anicteric. Buccal mucosa dry. NECK: Supple. CHEST: Rise symmetrical. Breath sounds diminished to bases. HEART: S1, S2. ABDOMEN: Soft. Bowel tones present. EXTREMITIES: Wasted Without cyanosis. SKIN: With maculopapular rashes chest and upper body. ASSESSMENT: 1. Recurrent urinary tract infection. 2. Rash consistent with allergic reaction. 3. Advanced multiple sclerosis with functional quadriplegia. 4. Neurogenic bladder. 5. Coronary artery disease, status post paroxysmal atrial fibrillation and hypertension. PLAN: The patient remains unchanged. Off abx, continue present care, monitor PVR, aspiration precautions DW staff Problems: NOHELIA HER NP Aug 08, 2017 14:04
[2017-08-08] MEDS: HYDROCODONE/APAP (5/325) TAB GTB PRN (14:13)
--- NOTE | 2017-08-08 17:47 | DS ---
Date/Time of Note Date/Time of Note DATE: 08/08/17 TIME: 17:46 Discharge Summary Admission/Discharge Info Admit Date/Time Jul 15, 2017 at 21:05 Discharge Date/Time Aug 08, 2017 at 14:25 Patient Condition: Stable Hx of Present Illness The patient is a 81-year-old female with a history of severe multiple sclerosis and dysphagia on G-tube feeding, history of trigeminal neuralgia, recurrent hematuria & UTI. H/o multiple admissions at [facility]. S/p Cystoscopy by Dr. Lucho Owusu grp . No evidence of bladder cancer as per verbal report from Dr.Elise Magallanes(associate of Dr. Owusu). Patient is a resident of a prison facility for several years and was sent to ER after she was complaining of chest pain. The patient is a poor historian and in the past has changed her complaint within a matter of minutes during my evaluation at prison [facility] in the past. The patient was brought into the hospital because of chest pain which was poorly localized. There was no associated diaphoresis, no associated shortness of breath. No reported vomiting. No reported abdominal distention. There is no leg edema. The patient was given nitroglycerin at the facility and received aspirin per rectum in the ER and is being admitted for further evaluation and management. The patient currently is chest pain free. The patient does have O2, but takes it off frequently. Since admission, patient did not have any vomiting, no reported fever or chills. No reported seizure, no reported leg edema. As mentioned above, the patient is a poor historian and is only oriented x1, and follows simple commands. Hospital Course - Recurrent UTI, completed treatment with abx. - Right trigeminal neuralgia, continue Trileptal, Dr. Mcgregor, neurology consult is appreciated - CECILIA versus seizures versus acute metabolic encephalopathy, Continue Keppra. - Atrial fibrillation, currently in sinus rhythm with wandering pacemaker, continue aspirin, Dr. Ferrara is following in cardiology consultation - Atypical chest pain, rule out myocardial infarction. Cardiac enzymes negative 3. Unable to undergo to pulmonary angiogram due to allergy to iodine. VQ scan is low probability for PE. - Advanced multiple sclerosis, bed to wheelchair bound total care. - Hypertension, continue metoprolol and Norvasc - Dysphagia. Continue G-tube feeding. - Hx Breast cancer. Home Meds Active Scripts Oxcarbazepine* (Oxcarbazepine*) 300 Mg Tablet, 600 MG GTB BID for 30 Days, TAB Prov:MARLINE CHOWDARY 08/08/17 Metoprolol Tartrate* (Lopressor*) 25 Mg Tab, 25 MG GTB BID for 30 Days, TAB Prov:MARLINE CHOWDARY 08/08/17 Loratadine* (Loratadine*) 10 Mg Tablet, 10 MG PO DAILY for 7 Days, TAB Prov:MARLINE CHOWDARY 08/08/17 Levetiracetam* (Keppra*) 500 Mg/5 Ml Solution, 500 MG GTB BID for 30 Days Prov:MARLINE CHOWDARY 08/08/17 Hydrocodone Bit-Acetaminophen (Hydrocodone Bit-APAP) 5-325MG Tablet, 1 TAB GTB Q6 Y for PAIN, #30 TAB Prov:MARLINE CHOWDARY 08/08/17 Hydralazine Hcl* (Hydralazine Hcl*) 25 Mg Tab, 25 MG GTB TID for 30 Days, TAB Prov:MARLINE CHOWDARY 08/08/17 Fluocinonide (Lidex Cream (30 g)) 1 Applic Cr, 1 APPLIC TOP BID for 30 Days Prov:MARLINE CHOWDARY 08/08/17 Estrogens Conjugated* (Premarin* Vaginal Cream) 1 Applic Cr, 1 APPLIC VAG MONWEDFRI@21 for 30 Days Prov:MARLINE CHOWDARY 08/08/17 Apixaban* (Eliquis*) 5 Mg Tablet, 5 MG PO BID for 30 Days, TAB Prov:MARLINE CHOWDARY 08/08/17 Amlodipine Besylate* (Amlodipine Besylate*) 5 Mg Tablet, 5 MG GTB DAILY for 30 Days, TAB Prov:MARLINE CHOWDARY 08/08/17 Polyethylene Glycol* (Miralax*) 17 Gm Powd.pack, 17 GM G-TUBE DAILY Y for CONSTIPATION, #20 PACKET Prov:MARLINE CHOWDARY 08/08/17 Cranberry Fruit (CRANBERRY) 450 Mg Tablet, 450 MG G-TUBE DAILY for 30 Days, TAB Prov:MARLINE CHOWDARY 08/08/17 Clonazepam (Klonopin) 0.5 Mg Tablet, 0.25 MG G-TUBE Q12 Y for ANXIETY, #30 TAB Prov:MARLINE CHOWDARY 08/08/17 Reported Medications Albuterol Sulfate* (Albuterol Sulfate* Neb) 0.083%-3 Ml Neb, 2.5 MG NEB Q8 Y for WHEEZING, #30 VIAL 07/16/17 Acetaminophen (Acetaminophen) 650 Mg/20.3 Ml Solution, 650 MG G-TUBE Q6 Y for PAIN AND OR ELEVATED TEMP 07/16/17 Discontinued Reported Medications Oxcarbazepine* (Oxcarbazepine*) 600 Mg Tablet, 600 MG GTB BID, TAB 07/16/17 Estrogens Conjugated* (Premarin* Vaginal Cream) 1 Applic Cr, 1 APPLIC VAG MONWEDFRI, TUB 07/16/17 Sodium Chloride* (Sodium Chloride*) 1 Gm Tablet, 1 GM GTB TID, TAB 07/16/17 Na Phos,M-B/Na Phos,Di-Ba (Fleet Enema Extra) 230 Ml Enema, 230 ML RC Q72HRS, ENEMA 07/16/17 Bisacodyl* (Bisacodyl*) 10 Mg Supp, 10 MG [place] Q48hrs Y for CONSTIPATION, SUPP 07/16/17 Gabapentin* (Gabapentin* Liq) 250 Mg/5 Ml Solution, 400 MG G-TUBE TID, ML 07/16/17 Dextromethorphan Hbr/Quinidine (NUEDEXTA 20-10 MG CAPSULE) 1 Each Capsule, 1 EACH GTB BID, CAP 07/16/17 Hydrocodone/Acetaminophen ([place] 5-325 Tablet) 1 Each Tablet, 1 EACH G-TUBE Q6 Y for PAIN, TAB 07/16/17 Metoprolol Tartrate (Metoprolol Tartrate) 75 Mg Tablet, 25 MG G-TUBE BID, TAB 07/16/17 Follow-up Plan Follow-up with PMD in 1-2 weeks Primary Care Provider Prudencio Nunez Time spent on discharge: > 30 minutes Pending Labs Laboratory Tests Test 08/08/17 09:00 White Blood Count 10.510^3/ul (4.8-10.8) Red Blood Count 3.8910^6/ul (4.20-5.40) Hemoglobin 10.9g/dl (12.0-16.0) Hematocrit 33.8% (37.0-47.0) Mean Corpuscular Volume 86.9fl (82.0-101.0) Mean Corpuscular Hemoglobin 28.0pg (29.0-33.0) Mean Corpuscular Hemoglobin Concent 32.2g/dl (32.0-37.0) Red Cell Distribution Width 14.6% (11.5-14.5) Platelet Count 92440^3/UL (140-415) Mean Platelet Volume 12.2fl (7.4-10.4) Neutrophils % 59.6% (39.0-77.0) Lymphocytes % 27.0% (15.0-51.0) Monocytes % 7.1% (0.0-11.0) Eosinophils % 5.3% (0.0-7.0) Basophils % 0.6% (0.0-2.0) Nucleated Red Blood Cells % 0.0/100WBC (0.0-0.0) Neutrophils # 6.310^3/ul (1.6-7.5) Lymphocytes # 2.810^3/ul (0.8-2.9) Monocytes # 0.810^3/ul (0.3-0.9) Eosinophils # 0.610^3/ul (0.0-0.5) Basophils # 0.110^3/ul (0.0-0.1) Nucleated Red Blood Cells # 0.010^3/ul (0.0-0.0) Sodium Level 142mmol/L (135-144) Potassium Level 3.7mmol/L (3.5-5.1) Chloride Level 105mmol/L (97-110) Carbon Dioxide Level 32mmol/L (21-31) Anion Gap 9 (8-16) Blood Urea Nitrogen 11mg/dl (7-20) Creatinine 0.39mg/dl (0.44-1.00) Glucose Level 103mg/dl (70-220) Calcium Level 8.7mg/dl (8.4-10.2) MARLINE CHOWDARY Aug 08, 2017 17:47
== END 2017-08-08 14:25 | disposition home health service (06) | DRG 58 ==
LOC: E/R 20:47 → MS4 21:05 → ICU 07-21 08:12 → TEL 07-22 17:49 → MS2 07-27 23:50
PROVIDERS: ADMIT Internal Medicine; ATTEND Internal Medicine
PROC: 4A00X4Z Measurement of Central Nervous Electrical Activity, External Approach (ICD-10-PCS; 2017-07-21)
PROC: 02HV33Z Insertion of Infusion Device into Superior Vena Cava, Percutaneous Approach (ICD-10-PCS; principal; 2017-07-22)
DX: G35 Multiple sclerosis (principal); A41.9 Sepsis, unspecified organism; G93.41 Metabolic encephalopathy; I48.0 Paroxysmal atrial fibrillation; N31.9 Neuromuscular dysfunction of bladder, unspecified; N39.0 Urinary tract infection, site not specified; R13.10 Dysphagia, unspecified; Z93.1 Gastrostomy status; I10 Essential (primary) hypertension; G50.0 Trigeminal neuralgia; R53.2 Functional quadriplegia; R07.9 Chest pain, unspecified; I49.8 Other specified cardiac arrhythmias; I25.10 Atherosclerotic heart disease of native coronary artery without angina pectoris; B96.4 Proteus (mirabilis) (morganii) as the cause of diseases classified elsewhere; B96.20 Unspecified Escherichia coli [E. coli] as the cause of diseases classified elsewhere; Z16.24 Resistance to multiple antibiotics; Z85.3 Personal history of malignant neoplasm of breast
CPT/HCPCS: 36415; 36569; 70450; 70551; 71010; 76937; 78582; 80048; 80053; 80061; 80200; 81001; 82550; 82553; 82962; 84443; 84484; 85025; 85610; 85730; 87081; 87086; 93005; 93306; 93970; 94640; 94664; 95819; 97163; A9540; J0692; J0696; J1650; J2270; J3260; J7030